=== PATIENT | male | born 1945 | race Caucasian/White ===

== ENCOUNTER 2024-01-07 22:03 | Inpatient (IN) ==
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
[2024-01-07 23:21] LABS: iSTAT Creatinine 3.2 mg/dl (0.6-1.3); iSTAT Hemoglobin 9.9 g/dl (14.0-18.0); iSTAT Ionized Calcium 1.06 mmol/l (1.12-1.32); iSTAT Potassium 4.1 mmol/L (3.3-5.0)
[2024-01-07 23:28] LABS: Base Excess VBG 0.6 mEq/L; HCO3 VBG 25 mmol/L; Oxygen Saturation VBG 69.5 %; PCO2 VBG 36 mmHg (38-50); PO2 VBG 41 mmHg; pH VBG 7.44 (7.36-7.41)
[2024-01-07 23:29] LABS: Basophils # (auto) 0.01 K/uL (0.00-0.20); Basophils % (auto) 0.1 %; Eosinophils # (auto) 0.16 K/uL (0.00-0.50); Eosinophils % (auto) 1.5 %; Hemoglobin 9.5 g/dl (14.0-18.0); Immature Granulocytes # (auto) 0.17 K/uL (0.01-0.20); Immature Granulocytes % (auto) 1.6 %; Lymphocytes # (auto) 0.55 K/uL (1.20-3.40); Lymphocytes % (auto) 5.2 %; Mean Corpuscular Hemoglobin 30.6 pg (25.0-34.0); Mean Corpuscular Hgb Conc 32.8 g/dL (32.0-36.0); Mean Corpuscular Volume 93.5 fL (80.0-100.0); Mean Platelet Volume 10.9 fL (9.4-12.4); Monocytes % (auto) 4.7 %; Neutrophils # (auto) 9.21 K/uL (1.40-6.50); Neutrophils % (auto) 86.9 %; Nucleated RBC # (auto) 0.06 K/uL (0.00-0.12); Nucleated RBC % (auto) 0.6 %; Platelet Count 220 K/uL (130-400); RDW Coefficient of Variation 19.9 % (11.5-14.5); RDW Standard Deviation 62.3 fL (36.4-46.3)
[2024-01-07 23:45] LABS: Alanine Aminotransferase 41 U/L (7-52); Albumin Level 3.1 gm/dl (3.4-5.0); Alkaline Phosphatase 107 U/L (34-104); Anion Gap 14 (3-11); Aspartate Aminotransferase 35 U/L (13-39); BUN Creatinine Ratio 35.2 (10-20); Bilirubin,Total 3.3 mg/dl (0.2-1.0); Blood Urea Nitrogen 95 mg/dl (6-23); Calcium 9.1 mg/dl (8.6-10.3); Carbon Dioxide 22 mmol/L (21-32); Chloride 89 mmol/L (98-107); Glucose 98 mg/dl (70-99(Fasting)); Magnesium 2.8 mg/dl (1.7-2.4); Potassium 3.9 mmol/L (3.5-5.1); Sodium 125 mmol/L (136-145); Total Protein 6.1 gm/dl (6.0-8.3)
[2024-01-07 23:51] LABS: Troponin I High Sensitivity 21.3 pg/ml (0-20)
[2024-01-07 23:53] LABS: INR 2.2 (0.9-1.1); Partial Thromboplastin Ratio 1.4; Partial Thromboplastin Time 37 Seconds (21-31); Prothrombin Time 22.4 Seconds (9.0-12.0)
[2024-01-08 00:01] LABS: Thyroid Stimulating Hormone 5.053 uIu/ml (0.300-4.500)
[2024-01-08 00:12] LABS: Appearance Urine Cloudy (Clear); Bacteria Urine Automated None Seen (None Seen); Bilirubin Urine 1+ (Negative); Blood Urine 3+ (Negative); Cast Urine Automated >20 /lpf (0-2); Color Urine Dark Yellow; Glucose Urine UA Negative (Negative); Granular Casts Urine Present /lpf (None Prsent); Ketones Urine Trace (Negative); Leukocyte Esterase Urine Trace (Negative); Nitrite Urine Negative (Negative); Protein Urine 1+ (Negative); RBC Urine Automated >20 /hpf (0-2); Specific Gravity Urine 1.011 (1.000-1.030); Urobilinogen Urine Positive (Negative); WBC Urine Automated 0-5 /hpf (0-5)
[2024-01-08 00:36] LABS: T4 Free Thyroxine 1.28 ng/dl (0.61-1.60)
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
[2024-01-08] MEDS: BUMETANIDE 1 MG in SYRINGE 0 ML IV ONE (01:50)
[2024-01-08] MEDS: ALBUMIN 25% 25 GM/100 ML VIAL IV ONE ×2 (01:51→06:37)
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
[2024-01-08] MEDS ORDERED: ACETAMINOPHEN 325 MG TAB PO PRN (02:37)
[2024-01-08] MEDS ORDERED: ONDANSETRON INJ 2 MG/ML 2 ML VIAL IV PRN (02:37)
[2024-01-08] MEDS: Patient's HEIGHT &/or WEIGHT Needed ONE (03:52)
[2024-01-08] MEDS: HYDROcodone/HOMATROPINE SYRUP 5MG/1.5MG 5ML UDP PO PRN (04:37)
[2024-01-08 05:10] LABS: Basophils # (auto) 0.01 K/uL (0.00-0.20); Basophils % (auto) 0.1 %; Eosinophils % (auto) 2.2 %; Hematocrit (blood only) 26.2 % (42.0-52.0); Hemoglobin 8.5 g/dl (14.0-18.0); Immature Granulocytes # (auto) 0.11 K/uL (0.01-0.20); Immature Granulocytes % (auto) 1.2 %; Lymphocytes # (auto) 0.55 K/uL (1.20-3.40); Mean Corpuscular Hemoglobin 30.2 pg (25.0-34.0); Mean Corpuscular Hgb Conc 32.4 g/dL (32.0-36.0); Mean Corpuscular Volume 93.2 fL (80.0-100.0); Mean Platelet Volume 10.8 fL (9.4-12.4); Monocytes # (auto) 0.38 K/uL (0.11-0.59); Monocytes % (auto) 4.1 %; Neutrophils # (auto) 7.96 K/uL (1.40-6.50); Neutrophils % (auto) 86.4 %; Nucleated RBC # (auto) 0.03 K/uL (0.00-0.12); Nucleated RBC % (auto) 0.3 %; Platelet Count 201 K/uL (130-400); RDW Coefficient of Variation 19.7 % (11.5-14.5); Red Blood Count 2.81 M/uL (4.70-6.10); White Blood Count 9.21 K/ul (4.8-10.8)
[2024-01-08 05:27] LABS: Albumin Level 3.3 gm/dl (3.4-5.0); BUN Creatinine Ratio 34.4 (10-20); Creatinine Clr Calc Pharmacy 22.8 ml/min; Magnesium 2.7 mg/dl (1.7-2.4); Phosphorus 6.3 mg/dl (2.5-4.9); Potassium 3.5 mmol/L (3.5-5.1)
[2024-01-08] MEDS: SODIUM CHLORIDE 0.9% 500 ML IV ONE (06:29)
--- NOTE | 2024-01-08 07:07 | XRay Report ---
XR chest 1V portable HISTORY: 78 years-old Male Dyspnea acute shortness of breath COMPARISON: 02/22/2023 TECHNIQUE: AP view of the chest FINDINGS: Cardiac silhouette is enlarged. Right subclavian pacer/AICD. A left-sided PICC is noted with distal t ip not well-visualized, likely within the expected location of the brachiocephalic SVC confluence. Me jamie sternotomy wires are present. Pulmonary vascular congestion with interstitial coarsening. No pne umothorax. Probable trace pleural effusions. No lobar airspace consolidation. Bones appear grossly in tact. IMPRESSION: 1. Cardiomegaly with pulmonary edema. 2. Probable trace pleural effusions. ACT 112: Negative or not required by law. The above report was generated using voice recognition software. It may contain grammatical, syntax o r spelling errors. Electronically signed by: Luis Strange M.D. 01/08/2024 7:05 AM
[2024-01-08] MEDS: ROSUVASTATIN CALCIUM 5 MG TAB PO SCH (08:04)
[2024-01-08] MEDS: ASPIRIN 81 MG ECTAB PO SCH (08:05)
[2024-01-08] MEDS: AMIODARONE 200 MG TAB PO SCH (08:05)
--- NOTE | 2024-01-08 08:42 | Hospitalist Progress Note ---
Date of Service January 08, 2024 Assessment & Plan (1) CHF exacerbation: Plan: Cardiogenic shock/pulmonary edema/HFrEF exacerbation/PAF/recent milrinone pump- aortic valve replacement and aicd transition to milrinone gtt from home pump, 0.25 mcg/kg/min Continue amiodarone, aspirin, Xarelto Entresto was already held by C Hold metoprolol succinate and amlodipine due to hypotension Hold furosemide orally in favor of IV Bumex is on Jardiance also as outpt plan to go home on hospice when home hospice is ready, d/c milrinone at discharge family requests continue bumex (2) LAKE (acute kidney injury): Plan: h/o CKD 3 (3) Acute on chronic respiratory failure with hypoxia: Plan: secondry to HFrEF (4) Acute hyponatremia: Plan: worry some in face of acute HFrEF situation, will not overly correct given decision for home hospice Plan Hyperlipidemia- Continue rosuvastatin Hyponatremia- Sodium 125 on admission Likely associated with fluid overload Follow treatment as above Disposition- There is initial plans to have patient return to [facility], where he was recently admitted there for treatment of cardiogenic shock, and where the milrinone pump was begun Patient has decided that he does not want to return to [facility] that he would rather be admitted to [facility], and have arrangements made to be seen by palliative care, and consideration for hospice CODE STATUS: DNR/DNI Admission and Anticipated Discharge Date Admission Date: January 08, 2024 Subjective pt feels improved, he is very clear about wanting to go home with hospice, understands that we will stop milrinone dosing at discharge case management is arranging home hospice maybe able to coordinate for 01/08 Physical Exam Physical Exam: pt with 2 cm jvd cardiac exam is regular, PRISCILLA lungs diminished at bases with scant rales above ext without edema Results & Data Results & Data Vital Signs (Past 12 Hours) Vital Signs Temp Pulse Pulse Resp BP BP Pulse Ox 01/08/24 07:06 86 01/08/24 07:03 90 24 90/56 L 97 01/08/24 06:27 84 15 85/55 L 97 01/08/24 05:54 83 14 97 01/08/24 05:31 01/08/24 05:00 87 18 92/55 L 95 01/08/24 05:00 92/55 L 01/08/24 04:30 87 18 92/52 L 98 01/08/24 03:35 01/08/24 03:12 84 18 86/53 L 99 01/08/24 02:29 87 01/08/24 02:03 85 18 90/53 L 98 01/08/24 01:00 83 18 92/52 L 97 01/08/24 01:00 92/52 L 01/08/24 00:30 94/50 L 01/08/24 00:03 85 18 89/50 L 97 01/07/24 22:39 85 01/07/24 22:37 82 L 01/07/24 22:33 90 24 96/52 L 92 01/07/24 22:11 97.7 F 81 18 91/52 L 98 Pulse Ox O2 Del Method O2 Del Method O2 Flow Rate O2 Flow Rate 01/08/24 07:06 01/08/24 07:03 Nasal Cannula 2 01/08/24 06:27 Nasal Cannula 2 01/08/24 05:54 01/08/24 05:31 Nasal Cannula 2 01/08/24 05:00 Nasal Cannula 2 01/08/24 05:00 01/08/24 04:30 Nasal Cannula 2 01/08/24 03:35 96 Nasal Cannula 2 01/08/24 03:12 Nasal Cannula 2 01/08/24 02:29 01/08/24 02:03 Nasal Cannula 2 01/08/24 01:00 Nasal Cannula 2 01/08/24 01:00 01/08/24 00:30 01/08/24 00:03 Nasal Cannula 2 01/07/24 22:39 01/07/24 22:37 Room Air, Nasal Cannula 0 01/07/24 22:33 Room Air 01/07/24 22:11 Room Air Laboratory Results Reviewed CBC Reviewed chemistry Reviewed troponin Discussed case with palliative care PG Care Time/CCT Total # of Minutes Spent Total Time Spent with Patient: Total time spent is greater than 50% in coordination of care (as documented) at patient's floor/unit and/or counseling patient: Coding Level of Care Code 45560 SUB INP/OBS CARE 3/50MIN Diagnoses CHF exacerbation I50.9 LAKE (acute kidney injury) N17.9 Acute on chronic respiratory failure with hypoxia J96.21 Acute hyponatremia E87.1
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
[2024-01-08] MEDS ORDERED: FOLIC ACID PO SCH (09:00)
[2024-01-08] MEDS ORDERED: CYANOCOBALAMIN PO SCH (09:00)
[2024-01-08] MEDS ORDERED: UBIQUINOL PO SCH (09:00)
[2024-01-08] MEDS ORDERED: RESVERATROL PO SCH (09:00)
--- NOTE | 2024-01-08 09:42 | Electrocardiogram Report ---
Test Reason : Blood Pressure : */* mmHG Vent. Rate : 85 BPM Atrial Rate : 85 BPM P-R Int : 140 ms QRS Dur : 206 ms QT Int : 474 ms P-R-T Axes : * 229 36 degrees QTcB Int : 564 ms AV dual-paced rhythm Biventricular pacemaker detected Abnormal ECG When compared with ECG of 22-Feb-2023 18:35, Vent. rate has increased by 17 bpm The morphology of the BBB QRS complex has changed significanty c/w prior ECG Confirmed by Analy Glaser ([id number]) on 01/08/2024 9:42:08 AM Referred By: Stella Betancur Confirmed By: Analy Glaser
[2024-01-08] MEDS ORDERED: STAT IV Infusion **Titration per Protocol STA (10:26)
--- OUTSIDE RECORDS SUMMARY | 2024-01-08 11:26 | External Medical Summary | Continuity of Care Document ---
Author Name Unknown Organization [facility] [address] [facility] Address [address] [place], [place] [id number] Care Team Providers Care Adaptive Physical Educator Name Role Phone Arie Juares Primary Care Physician [phone] Encounter [facility] [id number] Date(s): 12/09/23 - 12/09/23 [facility] [address], [address] [place] [address] [phone] Encounter Diagnosis AVR - Aortic valve replacement(Discharge Diagnosis) - 12/09/23 Cardiomyopathy(Discharge Diagnosis) - 12/09/23 CKD stage 3b, GFR 30-44 ml/min(Discharge Diagnosis) - 12/09/23 S/P CABG x 4(Discharge Diagnosis) - 12/09/[address](Discharge Diagnosis) - 12/09/23 Systolic and diastolic CHF, chronic(Discharge Diagnosis) - 12/09/23 Discharge Disposition: Home or Self Care Attending Physician: DO Reyes Jason D Referring Physician: MD Juares Michael P Allergies, Adverse Reactions, Alerts No Known Allergies Assessment and Plan Extracted from: Title:Cardiology Office Visit Note Author:DO Reyes Jason D Date:12/09/23 1.AVR - Aortic valve repla cement 2.Cardiac defibrillator in place 3.Cardiomyopathy 4.CKD stage 3b, GFR 30-44 ml/min 5.S/P CABG x 4 6.Systolic and diastolic CHF, chronic I Had a long conversation with Eduin. This was in addition to the conversation last week with Noreen nurse practitioner. I discussed with him that he has end-stage heart failure secondary to a combination of diastolic heart failure systolic heart. This is on the basis of a combination of likely prior chemotherapy, coronary artery disease, hypertensive heart disease, and valvular heart disease. I for started with conversation, which really want this point. We reviewed his indication for palliative care and using this as a bridge to hospice. We discussed the patient to end up on hospice at some point of living longer and having a better quality of life at the end. We discussed the second option with the high risk angioplasty and stenting to the left main into the diagonal branch. This was reviewed with interventional cardiology. The substantial risk is that of worsening heart failure and worsening acute on chronic kidney disease leading to renal failure. Additionally I am not sure how much he would improve. The third option is CCM. This was discussed with the EP service last week there are some concern with having 3 biventricular defibrillator but there may not be enough room to pass the CCM lead. Additionally his system was on the right and his CCM will have to be placed on the left. There is no room to increase his diet as further his blood pressure is on the low side. When he is in the 80s he feels weak and tired and his confirms that he does not feel any better on higher dose of diuretics in fact he feels worse. I have asked that he will think about how aggressive he wants to be and then based on that information we can determine how to best proceed. His wanted idea of how long he would have to live and I discussed with him that every patient is different. I did give him Marquison Juany for his cough. Referring to consider a palliative approach and I have no issue with narcotics Such as codeine to suppress his cough. Immunizations Given and Recorded Vaccine Date Status Refusal Reason zoster vaccine, inactivated 03/08/19 Given zoster vaccine, inactivated 12/29/18 Given tetanus/diphtheria/pertuss, acel (Tdap) 12/14/18 G iven tetanus/diphtheria/pertuss, acel (Tdap) 1 10/28/17 Recorded tetanus/diphtheria/pertuss, acel (Tdap) 03/19/07 R ecorded influenza virus vaccine, inactivated 12/14/18 Give n influenza virus vaccine, inactivated 01/30/15 Give n influenza virus vaccine, inactivated 11/19/13 Give n influenza virus vaccine, inactivated 01/23/12 Give n influenza virus vaccine, inactivated 12/05/10 Give n pneumococcal 13-valent vaccine 03/24/14 Given tetanus toxoids-diphtheria, Td (Adult) 2 11/26/13 Recorded pneumococcal 23-valent vaccine 3 11/30/11 Recorded pneumococcal 23-valent vaccine 12/05/10 Given pneumococcal 23-valent vaccine 02/20/06 Recorded pneumococcal 23-valent vaccine 01/15/01 Recorded zoster vaccine live 01/15/11 Recorded 1Result Comment: 2018-12-29: Historical information-source unspecified 2Result Comment: 2018-12-29: Historical information-source unspecified 3Result Comment: 2018-12-29: Historical information-source unspecified Medications amiodarone 200 mg oral tablet Start: 11/21/23 4:10:00 PM EDT, 1 tab, PO, bid, Disp# 60 tab, Refills: 11, Pharmacy: [facility]/pharmacy #[id number] Start Date: 11/21/23 Status: Ordered amoxicillin 500 mg oral capsule Start: 09/18/22 2:43:00 PM EDT, 4 cap, PO, As indicated, Disp# 12 cap, Refills: 3, one hour before dental and other procedures as directed, Pharmacy: [facility] #[id number] Start Date: 09/18/22 Status: Ordered Aspirin Low Dose 81 mg oral delayed release tablet Start: 09/30/12 3:00:00 PM EDT, 1 tab, PO, Daily Start Date: 09/30/12 Status: Ordered Bumex 1 mg oral tablet Start: 05/09/23 12:01:00 PM EST, 1 tab, PO, bid, Disp# 180 tab, Refills: 5, ACTION PLAN: Increase to2 tabs twice daily if experiencing wt gain/HF symptoms, Pharmacy: [facility] #[id number] Start Date: 05/09/23 Status: Ordered Crestor 5 mg oral tablet Start: 03/12/23 9:29:00 AM EST, 1 tab, PO, qhs, Disp# 90 tab, Refills: 3, Pharmacy: [facility] #[id number] Start Date: 03/12/23 Status: Ordered Entresto 24 mg-26 mg oral tablet Start: 04/01/23 9:01:00 AM EST, 1 tab, PO, bid, Disp# 180 tab, Refills: 3, Pharmacy: [facility] #[id number] Start Date: 04/01/23 Status: Ordered Fish Oil 1000 mg oral capsule Start: 07/30/23 2:48:00 PM EDT Start Date: 07/30/23 Status: Ordered Jardiance 10 mg oral tablet Start: 03/18/23 2:39:00 PM EST, 1 tab, PO, Daily, Disp# 90 tab, Refills: 3, Pharmacy: [facility] #[id number] Start Date: 03/18/23 Stop Date: 03/12/24 Status: Ordered magnesium aspartate Start: 07/30/23 2:48:00 PM EDT Start Date: 07/30/23 Status: Ordered metoprolol succinate 50 mg oral tablet, extended release Start: 07/30/23 3:33:00 PM EDT, 1 tab, PO, qhs, Disp# 90 tab, Refills: 3, other Start Date: 07/30/23 Status: Ordered MVI-12 Start: 11/03/09 9:22:50 AM EDT, 1 tab, dose unknown, PO, Daily, Refills: 0, current medication from another provider Start Date: 11/03/09 Status: Ordered nitroglycerin 0.4 mg sublingual tablet Start: 10/22/21 2:25:00 PM EDT, 1 tab, SL, q5min, Disp# 30 tab, Refills: 3, not to exceed 3 doses/15 min--if pain persists, seek medical attention, PRN: as needed for chest pain, Pharmacy: [facility] #[id number] Start Date: 10/22/21 Status: Ordered Probiotic 10 Ultra Strength oral capsule Start: 12/11/23 3:05:00 PM EDT Start Date: 12/11/23 Status: Ordered spironolactone 25 mg oral tablet Start: 09/12/23 2:23:00 PM EDT, 0.5 tab, PO, Daily, Disp# 45 tab, Refills: 3, Pharmacy: [facility]/pharmacy#[id number] Start Date: 09/12/23 Status: Ordered Tessalon 200 mg oral capsule Start: 12/09/23 1:48:00 PM EDT, 1 cap, PO, tid, Disp# 90 cap, Refills: 1, Pharmacy: [facility]/pharmacy #[id number] Start Date: 12/09/23 Status: Ordered turmeric 1000 mg oral capsule Start: 12/11/23 3:04:00 PM EDT, 1 cap, PO, Daily Start Date: 12/11/23 Status: Ordered ubiquinone 200 mg oral capsule Start: 09/09/13 12:32:00 PM EDT, 1 cap, PO, Daily, Disp# 300 cap, Refills: 11, given to patient Start Date: 09/09/13 Status: Ordered Vitamin C Start: 07/18/15 11:14:00 AM EDT, 1,000 mg =, PO, Daily Start Date: 07/18/15 Status: Ordered Vitamin D3 Start: 07/30/23 2:48:00 PM EDT Start Date: 07/30/23 Status: Ordered Vitron-C Start: 12/01/23 2:58:00 PM EDT Start Date: 12/01/23 Status: Ordered Xarelto 15 mg oral tablet Start: 02/17/23 1:48:00 PM EST, 1 tab, PO, qPM, Disp# 90 tab, Refills: 3, Pharmacy: [facility] #[id number] Start Date: 02/17/23 Status: Ordered Problem List Condition Confirmation Course Effective Dates Status H ealth Status Informant AK (actinic keratosis) Confirmed Active Dilated aortic root Confirmed Active AVR - Aortic valve replacement Confirmed Active Cardiac defibrillator in place Confirmed Active Cardiomyopathy Confirmed Active Systolic and diastolic CHF, chronic Confirmed Active CKD stage 3b, GFR 30-44 ml/min Confirmed Active Unspecified systolic (congestive) heart failure Confirmed 07/24/23 Active Atherosclerotic heart disease of [place] coronary artery without angina pectoris Confirmed 07/24/23 Active DDD (degenerative disc disease) Confirmed Active Electrolyte disturbance Confirmed Active Abnormal prostate exam Confirmed Active Hutch diverticulum of urinary bladder Confirmed 03/17/12 Active ED (erectile dysfunction) Confirmed Active Epididymal cyst Confirmed Active Family history of early CAD Confirmed Active Groin hematoma Confirmed Active S/P CABG x 4 1 Confirmed Active Elevated brain natriuretic peptide (BNP) level Confirmed Active Hyperlipidemia Confirmed Active Heart disease, hypertensive, with heart failure Confirmed 07/24/23 Active LVH (left ventricular hypertrophy) Confirmed Active Mitral regurgitation 2 Confirmed 01/28/13 Active Prediabetes, prediabetic Confirmed Active Elevated serum lactate dehydrogenase (LDH) Confirmed Active S/P coronary artery stent placement Confirmed Active Ureteral filling defect 3 Confirmed Active 1LIMA to LADSeq SVG to IR, LCx OM, PDA 2moderate 3Diverticulum ? RIGHT side Diagnosis Diagnosis Type Effective Dates Health Status Clinical Service Informant Cardiac defibrillator in place Discharge Diagnosis 12/09/23 AVR - Aortic valve replacement Discharge Diagnosis 12/09/23 Cardiomyopathy Discharge Diagnosis 12/09/23 CKD stage 3b, GFR 30-44 ml/min Discharge Diagnosis 12/09/23 S/P CABG x 4 Discharge Diagnosis 12/09/23 Systolic and diastolic CHF, chronic Discharge Diagnosis 12/09/23 Procedures Procedure Date Related Diagnosis Body Site Status Excision 11/28/22 Completed Chest X-ray 1 01/17/22 Completed History of combination inter nal cardiac defibrillator and pacemaker 01/2021 Comp leted ECHO TRANSTHORACIC 2 07/19/20 Comp leted Colonoscopy 3 07/11/20 Completed Colonoscopy 4 07/11/[address] of abdomen and pelvis wit h contrast 5 04/12/19 Completed Barium enema 6 10/11/15 Completed Facial bones X-ray 7 04/28/15 Comp leted Echocardiogram 8 02/14/15 Complete d Transesophageal echocardiogram 02/2015 Completed Coronary angiography 10/20/13 Comp leted CABG x 4 and AVR (Porcine) 09/11/11 Completed Stress ECHO--ABNL (EATON)--Abnormal 9 09/04/11 Completed Stress ECHO 08/06/11 Completed Echocardiogram 10 08/02/11 [facility] ed RIGHT PORT REMOVED 03/17/06 Comple jeff ECHO--01/18, 03/2005, annually x 2006 03/17/05 Completed RIGHT SIDED PORT placed 02/14/05 C ompleted COLONOSCOPY --WNL 04/17/03 [facility] ed Nevus BACK-Benign 12/15/01 [facility] Cadiolyte 03/17/96 Completed Lipoma head 03/17/70 Completed Appendectomy 03/17/64 Completed T & A 03/17/50 Completed Cardiac echo 11 Completed 1Impression: No significant change compared to the prior study. No acute process. 2CONCLUSIONS History of bicuspid aortic valve; S/P stented bioprosthetic aortic valve replacement. Severely dilated left ventricle (by LV diastolic volume index). Moderately reduced LV systolic function. Severe Hypokinesis of the inferoseptum and anteroseptum Akinesis of the inferior wall. Moderate Hypokinesis of the basal to mid inferolateral wall. Hypokinesis of the remaining wall segments. Biplane ejection fraction is 35% (by 2D biplane Noland's method). Mild concentric left ventricular hypertrophy. There is grade II diastolic dysfunction of the left ventricle (pseudonormal filling pattern) with elevated left atrial pressure. Mildly dilated left atrium. Dilated right ventricle with mildly reduced systolic function. Dilated right atrium. Dilated aortic root (4.9 cm), ascending aorta (5.0 cm) and aortic arch (3.8 cm). Well-seated stented bioprosthetic aortic valve replacement. Moderate aortic stenosis (AV peak velocity is 2.96 m/s, MG is 17 mmHg and the LVOT/AV TVI atio is 0.20). Mild to moderate mitral regurgitation. Trace to mild tricuspid regurgitation. Normal estimated pulmonary artery pressure. Compared to the previous study performed 05/19/2019, there is no significant change. 3Diverticulosis in the sigmoid colon. No specimens collected Discharge patient to home Repeat colo in 10 years for screening 4DIVERTICULOSIS IN THE SIGMOID COLON NO SPECIMEN COLLECTED . 51. No acute intra-abdominal or pelvic findings 2. No evidence of bowel obstruction. No evidence of free air. 3. No evidence of pathologic adenopathy. 6demonstrates a normal bowel gas pattern, visualization of the colon was adequate with reflux into snall bowel. There is extensive sigmoid diverticulosis. 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 One of these lies in close proximity to the left orbit. CT is recommended for better localization 8CONCLUSIONS History of bicuspid aortic valve; S/P stented bioprosthetic AV replacement.Severely dilated left ventricle (by LV diastolic volume index). Moderately reduced LV systolic function. Akinesis of the inferior, basal and mid inferoseptal, anteroseptum and basal and mid inferolateral nair. The remaining nair are hypokinetic. Ejection fraction is 35-40% by biplane Noland's method and LV strain. 3D imaging was done for educational purposes with an LVEF of 36% Abnormal LV global longitudinal strain (-12%). No left ventricular hypertrophy. Grade I diastolic dysfunction of the left ventricle (impaired relaxation pattern). Elevated E/e' ratio (16), suggesting elevated left atrial filling pressures. Top normal right ventricular size with mildly reduced systolic function. Mildly dilated left atrium. Moderately dilated right atrium. Dilated aortic root (5.0 cm) and ascending aorta (5.0 cm). History of bicuspid aortic valve; S/P stented bioprosthetic AV replacement. Severe aortic stenosis (AV mean PG - 40 mmHg, LVOT/AV ratio - 0.12) vs. valve size mismatch. Mild aortic insufficiency. Mildly calcified mitral valve annulus. Mild mitral regurgitation. Top normal pulmonary pressures (30 mmHg). Compared to the previous study performed 08/01/2014, there is no significant change. Consider TEEto assess the AoV leaflets. 9ABNL 10CONCLUSIONS History of bicuspid aortic valve; S/P stented bioprosthetic AV replacement.Severely Dilated left ventricle with mildly reduced systolic function. Ejection fraction is 40%. Confirmed by simpsons and LV strain Akinesis of the inferior, inferolateral and basal and mid inferoseptal nair. Hypokinesis of the remaining nair. No left ventricular hypertrophy. Grade I diastolic dysfunction of the left ventricle (impaired relaxation pattern). Indeterminate E/e' ratio (9). Dilated right ventricle with mildly reduced systolic function. TAPSE is mildly reduced (1.3 cm). Normal pulmonary artery pressures. Dilated aortic root (5.1 cm). Dilated ascending aorta (5.0 cm). History of bicuspid aortic valve; S/P 29 mm stented prosthetic AoV replacement. Severe aortic stenosis vs. valve size mismatch. (LVOT/AV VTI ratio = 0.13) Of note post op HERMINIA in 2012 with LVOT TVI of 7 cm and AoV TVI of 39 cm with DI 0.18 The aortic root and ascending aorta have dilated since 2012 from 4.5cm to 5.1 cm HERMINIA is recommenced to assess aorta and AoV leaflets which appear to open in the short axis images. The study was reviewed with the [facility] lab as well. 11CONCLUSIONS History of bicuspid aortic valve; S/P stented bioprosthetic aortic valve replacement. Severely dilated left ventricle (by LV diastolic volume index). Mild to moderately reduced LV systolic function. Akinesis of the inferior wall. Severe hypokinesis of the inferoseptum Hypokinesis of the remaining wall segments. Ejection fraction is 40% (by 2D biplane Noland's method). Mild concentric left ventricular hypertrophy. There is grade II diastolic dysfunction of the left ventricle (pseudonormal filling pattern) with elevated left atrial filling pressures (E/e' ratio is 16). Mildly dilated left atrium (by LA volume index). Dilated right ventricle with mildly reduced systolic function (TV annulus s' is 8 cm/sec). Dilated aortic root (4.9 cm) and ascending aorta (5.0 cm). Well-seated stented bioprosthetic aortic valve replacement. Mild to moderate aortic stenosis (AV peak velocity is 2.3 m/s, MG is 11, LVOT/AV ratio is 0.28 and the SUSY is 1.5 cm squared). Mild to moderate mitral regurgitation. Mild pulmonary hypertension (PA systolic pressure is 32 mmHg). *Compared to the previous study performed 03/22/2016, there is no significant cunningham Vital Signs Most recent to oldest [Reference Range]: 1 Patient Weight 80 kg (12/09/23 1:29 PM) Heart Rate 60 bpm (12/09/23 1:29 PM) Blood Pressure 90/46mmHg (12/09/23 1:29 PM) BP Location # 1 Right Arm (12/09/23 1:29 PM) Social History Social History Type Response Smoking Status Never smoked cigaret manuel Sex Male Sex Representation Male (finding) Cardiology Outpatient Note * DO Reyes Jason D: PERFORM Event Display: Cardiology Outpt Note Authored Date: [id number] Primary Care Provider MD Juares Michael P Referring Provider MD Juares Michael P Chief Complaint CHF heart failure f/u History of Present Illness He is accompanied today By his . He looks quite frail. Even though his weight has not changed see the discussed temporal wasting and wasting of his face. He describes shortness of breath with minimal amounts of activity. He did not appear short of breath talking in sentences. The lightheadedness he had on high-dose Bumex has improved on 1 mg Bumex twice a day. he denies anypresyncope or syncope at this point in the episodes of Weakness have improved. He denies any palpitations or fluttering. Has had no ICD shocks. He denies any chest tightness or chest pressure. His appetites been poor. He has a significant cough especially at night when he is trying to sleep. He denies increased abdominal distention or extremity edema. Review of Systems PAST MEDICAL HISTORY: 1. Coronary artery disease, status post coronary artery bypass grafting x4 in 2011 with a CARBONE tothe LAD, SVG to the PDA and an SVG to the ramus and obtuse marginal branch. 2. Status post bioprosthetic aortic valve replacement with a 29 mm Perez II bioprosthetic aortic valve 2011 with a small dimensional less index.(confirmed by [facility] at [facility]) A. EF of40-45% by echocardiography 12/2022, with inferolateral hypokinesis; moderate RV dysfunction; Type 2 DD B. Small dimensionless index and an elevated mean gradient now 19 mmHg (06/2020). 3. Status post complex angioplasty and stenting of the ostial LAD and ostial ramus intermedius branch with a Culotte technique, 11/[address] Mesa. 3B. Cath 12/2022: * Severe multivessel coronary artery disease. There is 50% in- stent restenosis within the distal left main stent and 80% stenosis of the proximal LAD. The mid-LAD, ostial LCx, and distal RCA are chronically occluded. * Patent CARBONE to LAD and SVG to PDA. The sequential SVG to ramus and OM is occluded. * At rest in the supine position, the patients hemodynamics demonstrated moderately elevated right (mRAP 14 mmHg) and severely elevated left (mPCWP 32 mmHg with a large V wave to 48 mmHg, LVEDP 36mmHg) filling pressures. Pulmonary pressure was mildly elevated (mPAP 42 mmHg) with mildly elevatedPVR (2.0 KAUR). Cardiac index was severely reduced by thermodilution (1.9 L/min/m2) and mildly reduced by the Susan equation (2.2 L/min/m2). 4. History of non-Hodgkin's lymphoma in 2004, status post 8 cycles of R-CHOP with approximately 400 mg per metered square of Adriamycin. 5. Hyperlipidemia. 6. Hypertension. 7. 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 8. Dilated ascending aorta measuring 4.[address] scan 12/2021 and echo07/2022 measuring 5.1 cm. 9. S/P Cardio Mems with worsening CHF and renal dysfunction. 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 He denies any tobacco or alcohol. Physical Exam Vitals & Measurements HR:60(Monitored) BP:90/46 SpO2:97% WT:80kg WT:80.000kg(Dosing) Patient is awake alert and oriented x3and in no acute distress; he is not SOB talking in sentences HEENT:1+ carotid upstrokes, no evidence of carotid bruits LUNGS:Clear to auscultation bilaterally no rales rhonchi or wheezing HEART:Regular rate and rhythm, soft PRISCILLA RUSB; 2/6 WSM apex ABDOMEN:Soft nontender nondistended positive bowel sounds EXTREMITIES:No evidence of clubbing cyanosis or edema PSYCHIATRIC:Patient's affect appeared appropriate Assessment/Plan 1.AVR - Aortic valve replacement 2.Cardiac defibrillator in place 3.Cardiomyopathy 4.CKD stage 3b, GFR 30-44 ml/min 5.S/P CABG x 4 6.Systolic and diastolic CHF, chronic I Had a long conversation with Eduin. This was in addition to the conversation last week with Noreen nurse practitioner. I discussed with him that he has end-stage heart failure secondary to a combination of diastolic heart failure systolic heart. This is on the basis of a combination of likely prior chemotherapy, coronary artery disease, hypertensive heart disease, and valvular heart disease. I for started with conversation, which really want this point. We reviewed his indication for palliative care and using this as a bridge to hospice. We discussed the patient to end up on hospice at some point of living longer and having a better quality of life at the end. We discussed the second option with the high risk angioplasty and stenting to the left main into the diagonal branch. This was reviewed with interventional cardiology. The substantial risk is that of worsening heart failure and worsening acute on chronic kidney disease leading to renal failure. Additionally I am not sure how much he would improve. The third option is CCM. This was discussed with the EP service last week there are some concern with having 3 biventricular defibrillator but there may not be enough room to pass the CCM lead. Additionally his system was on the right and his CCM will have to be placed on the left. There is no room to increase his diet as further his blood pressure is on the low side. When he is in the 80s he feels weak and tired and his confirms that he does not feel any better on higher dose of diuretics in fact he feels worse. I have asked that he will think about how aggressive he wants to be and then based on that information we can determine how to best proceed. His wanted idea of how long he would have to live and I discussed with him that every patient is different. I did give him Parag Harrington for his cough. Referring to consider a palliative approach and I have no issue with narcotics Such as codeine to suppress his cough. Problem List/Past Medical History Ongoing Abnormal prostate exam AK (actinic keratosis) Atherosclerotic heart disease of [place] coronary artery without angina pectoris AVR - Aortic valve replacement Cardiac defibrillator in place Cardiomyopathy CKD stage 3b, GFR 30-44 ml/min DDD (degenerative disc disease) Dilated aortic root Dysplastic nevus| Status: Inactive ED (erectile dysfunction) Electrolyte disturbance Elevated brain natriuretic peptide (BNP) level Elevated serum lactate dehydrogenase (LDH) Epididymal cyst Family history of early CAD Groin hematoma Heart disease, hypertensive, with heart failure Hutch diverticulum of urinary bladder Hyperlipidemia LVH (left ventricular hypertrophy) Mitral regurgitation Prediabetes, prediabetic S/P CABG x 4 S/P coronary artery stent placement Systolic and diastolic CHF, chronic Unspecified systolic (congestive) heart failure Ureteral filling defect Resolved HYPERTENSION. Lymphoma stage IV Procedure/Surgical History Excision| Service Date: 3Chest X-ray| Service Date: 01/17/2022History of combination internal cardiac defibrillator and pacemaker| Service Date: [facility] TRANSTHORACIC| Service Date: 07/19/2020olonoscopy| Service Date: 07/11/2020olonoscopy| Service Date: 1CT of abdomen and pelvis with contrast| Service Date: 04/12/2019Barium enema| Service Date: 10/11/2015Facial bones X-ray| Service Date: 04/28/2015Echocardiogram| Service Date: 02/14/2015Tr ansesophageal echocardiogram| Service Date: 02/2015Coronary angiography| Service Date: 10/20/2013CABG x 4 and AVR (Porcine)| Service Date: 09/11/2011Stress ECHO--ABNL (EATON)--Abnormal| Service Date: 09/04/2011Stress ECHO| Service Date: 08/06/2011Echocardiogram| Service Date: 08/02/2011RIGHT PORT REMOVED| Service Date: 03/17/2006ECHO--01/18, 03/2005, annually x 2006| Service Date: 03/17/2005RIGHT SIDED PORT placed| Service Date: 02/14/2005COLONOSCOPY --WNL| Service Date: 04/17/2003Nevus BACK-Benign| Service Date: 12/15/2001Cadiolyte| Service Date: 03/17/1996L ipoma head| Service Date: 03/17/1970 Appendectomy| Service Date: 03/17/1964 T & A| Service Date: 1Cardiac echo Medications amiodarone(amiodarone 200 mg oral tablet), 200 mg= 1 tab, PO, bid, 11 refills amoxicillin(amoxicillin 500 mg oral capsule), 2000 mg= 4 cap, PO, As indicated, 3 refills ascorbic acid(Vitamin C), 1000 mg, PO, Daily ascorbic acid-carbonyl iron(Vitron-C) aspirin(Aspirin Low Dose 81 mg oral delayed release tablet), 81 mg= 1 tab, PO, Daily bumetanide(Bumex 1 mg oral tablet), 1 mg= 1 tab, PO, bid, 5 refills cholecalciferol(Vitamin D3) empagliflozin(Jardiance 10 mg oral tablet), 10 mg= 1 tab, PO, Daily, 3 refills magnesium aspartate metoprolol(metoprolol succinate 50 mg oral tablet, extended release), 50 mg= 1 tab, PO, qhs, 3 refills multivitamin(MVI-12), 1 tab, dose unknown, PO, Daily nitroglycerin(nitroglycerin 0.4 mg sublingual tablet), 0.4 mg= 1 tab, SL, q5min, PRN, 3 refills omega-3 polyunsaturated fatty acids(Fish Oil 1000 mg oral capsule) rivaroxaban(Xarelto 15 mg oral tablet), 15 mg= 1 tab, PO, qPM, 3 refills rosuvastatin(Crestor 5 mg oral tablet), 5 mg= 1 tab, PO, qhs, 3 refills sacubitril-valsartan(Entresto 24 mg-26 mg oral tablet), 1 tab, PO, bid, 3 refills spironolactone(spironolactone 25 mg oral tablet), 12.5 mg= 0.5 tab, PO, Daily, 3 refills ubiquinone(ubiquinone 200 mg oral capsule), 1 cap, PO, Daily, 11 refills Allergies NKA Social History Smoking Status Never smoked cigarettes Alcohol Use:Current Type:Beer, Wine, Liquor Frequency:1-2 times per week Average drinks per episode in last year:1 Employment/School Status:Retired Description:[employer] Exercise Duration (average number of minutes):45 Times per week:Daily Exercise type:Walking Home/Environment Lives with:Spouse Nutrition/Health Type of diet:regular Substance Abuse - Denies Substance Abuse Tobacco - Denies Tobacco Use Family History Alive and well: Brother, Son and Son. Angina: Father. CAD (coronary artery disease): Mother. Cancer: PGM. Cardiovascular disease: Mother. HI (myocardial infarction): Father and MGM. Smoker.: Father. 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 [facility] [place] [place] [address] JDF Patient Care team information Care Team Personnel Name: GREGG Manley Tara Position: Nurse Pract - Family Med Member Role: Lifetime Relationship Address: [address] [place] [id number] [place] Name: MD Juares Michael P Position: Physician - Family Med Member Role: Lifetime Relationship Address: [address] [address] [place] Name: GREGG Damon Stacey L Position: Nurse Pract - Cardiology Member Role: Lifetime Relationship Address: [address] [facility] [place] [address] [place] [address] [place] Name: MD Betancur Nandini Position: Physician - Card Heart Failure Member Role: Lifetime Relationship Address: [address] [place] [address] [place] Name: MD Hill David L Position: Physician - Derm Member Role: Lifetime Relationship Address: [address] [place] [address] [address] [place] [address] [place] Care Team Related Persons Name: SHRUTI MENA"
--- OUTSIDE RECORDS SUMMARY | 2024-01-08 11:26 | External Medical Summary | Continuity of Care Document ---
Author Name Unknown Organization [facility] Address [address] [place] [phone] Care Team Providers Care Postdoctoral Scientist Name Role Phone Janae Juares Primary Care Physician [phone] Encounter [facility] [id number] Date(s): 12/11/23 - 12/30/[address] [phone] Encounter Diagnosis Shortness of breath(Discharge Diagnosis) - 12/12/23 Counseling regarding advance directives and goals of care(Discharge Diagnosis) - 12/12/23 Palliative care encounter(Discharge Diagnosis) - 12/12/23 Heart failure with reduced ejection fraction, NYHA class IV(Discharge Diagnosis) - 12/12/23 Acute on chronic combined systolic (congestive) and diastolic (congestive) heart failure(Discharge Diagnosis) - 12/11/23 Persistent cough(Discharge Diagnosis) - 12/30/23 Cardiogenic shock(Discharge Diagnosis) - 12/12/23 Hypotension(Discharge Diagnosis) - 12/12/23 Discharge Disposition: Home w/ Home Health Care Attending Physician: MD Valerio, Guero Lara Admitting Physician: MD Almaraz Catherine Allergies, Adverse Reactions, Alerts No Known Allergies Functional Status 12/30/23 Neurological Symptoms None ADLs Minimal assistance Facial Symmetry Symmetric Gait Steady Swallowing Difficulty None Level of Consciousness Neuro Alert Hallucinations Present None History of Fall in Last 3 Months Benavidez N o Presence of Secondary Diagnosis Benavidez Ye s Use of Ambulatory Aid Benavidez Crutches/can e/walker IV/Heparin Lock Fall Risk Benavidez Yes Gait/Transferring Fall Risk Benavidez Normal /bedrest/immobile Mental Status Fall Risk Benvaidez Oriented t o own ability Benavidez Fall Risk Score 50 Benavidez Fall Risk High risk Speech Pattern Clear Immunizations Given and Recorded Vaccine Date Status [...] 01/15/01 Recorded zoster vaccine live 01/15/11 Recorded Not Given Vaccine Date Status Refusal Reason influenza virus vaccine, inactivated 12/23/23 Not Given Patient Refuses 1Result Comment: 2018-12-29: Historical information-source unspecified 2Result Comment: 2018-12-29: Historical information-source unspecified 3Result Comment: 2018-12-29: Historical information-source unspecified Medications amiodarone 200 mg oral tablet Start: 11/21/23 4:10:00 PM EDT, 1 tab, PO, bid, Disp# 60 tab, Refills: 11, Pharmacy: [facility]/pharmacy #[id number] Start Date: 11/21/23 Status: Ordered amoxicillin 500 mg oral capsule Start: 09/18/22 2:43:00 PM EDT, 4 cap, PO, As indicated, Disp# 12 cap, Refills: 3, one hour before dental and other procedures as directed, Pharmacy: [facility] #[id number] Start Date: 09/18/22 Status: Ordered Aspirin Low Dose 81 mg oral delayed release tablet Start: 09/30/12 3:00:00 PM EDT, 1 tab, PO, Daily Start Date: 09/30/12 Status: Ordered Bumex 2 mg oral tablet Start: 12/30/23 5:13:00 PM EDT, 2.5 tablets, PO, Daily, Disp# 150 tab, Take 2.5 tablets daily, may take another 2.5 tablets if patient has shortness of breath, or weight gain of 2-3 lb over 2 days or4-5 lb over 1 week, Pharmacy: [facility] Start Date: 12/30/23 Stop Date: 02/28/24 Status: Ordered Crestor 5 mg oral tablet Start: 03/12/23 9:29:00 AM EST, 1 tab, PO, qhs, Disp# 90 tab, Refills: 3, Pharmacy: [facility] #[id number] Start Date: 03/12/23 Status: Ordered Fish Oil 1000 mg oral capsule Start: 07/30/23 2:48:00 PM EDT Start Date: 07/30/23 Status: Ordered Jardiance 10 mg oral tablet Start: 03/18/23 2:39:00 PM EST, 1 tab, PO, Daily, Disp# 90 tab, Refills: 3, Pharmacy: [facility] #[id number] Start Date: 03/18/23 Stop Date: 03/12/24 Status: Ordered magnesium aspartate Start: 07/30/23 2:48:00 PM EDT Start Date: 07/30/23 Status: Ordered metoprolol succinate (ER) 12.5 mg, XL tablet, PO, 12/30/23 9:00:00 AM EDT, 12/30/23 9:03:33 AM EDT, Extended Release product,12/16/23 11:11:00 EDT Start Date: 12/30/23 Stop Date: 12/30/23 Status: Completed metoprolol succinate 25 mg oral tablet, extended release Start: 12/30/23 5:19:00 PM EDT, 0.5 tab, PO, Daily, Disp# 15 tab, Pharmacy: [facility] Start Date: 12/30/23 Stop Date: 01/29/24 Status: Ordered MVI-12 Start: 11/03/09 9:22:50 AM EDT, 1 tab, dose unknown, PO, Daily, Refills: 0, current medication from another provider Start Date: 11/03/09 Status: Ordered nitroglycerin 0.4 mg sublingual tablet Start: 10/22/21 2:25:00 PM EDT, 1 tab, SL, q5min, Disp# 30 tab, Refills: 3, not to exceed 3 doses/15 min--if pain persists, seek medical attention, PRN: as needed for chest pain, Pharmacy: [facility] #[id number] Start Date: 10/22/21 Status: Ordered Probiotic 10 Ultra Strength oral capsule Start: 12/11/23 3:05:00 PM EDT Start Date: 12/11/23 Status: Ordered spironolactone 25 mg oral tablet Start: 09/12/23 2:23:00 PM EDT, 0.5 tab, PO, Daily, Disp# 45 tab, Refills: 3, Pharmacy: [facility]/pharmacy#[id number] Start Date: 09/12/23 Status: Ordered Tessalon 200 mg oral capsule Start: 12/09/23 1:48:00 PM EDT, 1 cap, PO, tid, Disp# 90 cap, Refills: 1, Pharmacy: [facility]/pharmacy #[id number] Start Date: 12/09/23 Status: Ordered turmeric [...] qPM, Disp# 90 tab, Refills: 3, Pharmacy: [facility] #[id number] Start Date: 02/17/23 Status: Ordered Mental Status 12/11/23 Primary Language Bulgarian Problem List Condition Confirmation Course Effective Dates [...] Confirmed 07/24/23 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 Confirmed 07/24/23 [...] Effective Dates Health Status Clinical Service Informant Acute on chronic combined systolic (congestive) and diastolic (congestive) heart failure Discharge Diagnosis 12/11/23 Non-Specified Cardiogenic shock Discharge Diagnosis 12/12/23 Non-Specified Hypotension Discharge Diagnosis 12/12/23 Non-Specified Shortness of breath Discharge Diagnosis 12/12/23 Non-Specified Counseling regarding advance directives and goals of care Discharge Diagnosis 12/12/23 Non-Specified Palliative care encounter Discharge Diagnosis 12/12/23 Non-Specified Heart failure with reduced ejection fraction, NYHA class IV Discharge Diagnosis 12/12/23 Non-Specified Persistent cough Discharge Diagnosis 12/30/23 Non-Specified Procedures Procedure Date Related Diagnosis Body Site [...] X-ray 7 04/28/15 Comp leted Echocardiogram 8 12/1/15 Complete d Transesophageal echocardiogram 02/2015 Completed Coronary angiography 10/20/13 Comp leted CABG x 4 and AVR (Porcine) 09/11/11 Completed Stress ECHO--ABNL (EATON)--Abnormal 9 09/04/11 Completed Stress ECHO 08/06/11 Completed Echocardiogram 10 08/02/11 Complet ed RIGHT PORT REMOVED 03/17/06 Comple jeff ECHO--01/18, 03/2005, annually x 2006 03/17/05 Completed RIGHT SIDED PORT placed 02/14/05 C ompleted COLONOSCOPY --WNL 04/17/03 Complet ed Nevus BACK-Benign 12/15/01 Complet ed Cadiolyte 03/17/96 Completed Lipoma head 03/17/70 [...] diverticulosis. 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 One [...] images. The study was reviewed with the [facility] lab as well. 11CONCLUSIONS History of bicuspid [...] performed 03/22/2016, there is no significant cunningham Results Laboratory List Name Date Nephrology Panel 12/30/23 Magnesium Level 12/30/23 Complete Blood Count w Differential (CBC w Platelets and Diff) 12/30/23 NT-Pro BNP 12/30/23 ALT Level (ALT) 12/30/23 AST Level (AST) 12/30/23 Alkaline Phosphatase (ALKALINE PHOSPHATA SE) 12/30/23 Bilirubin, Direct (BILIRUBIN, DIRECT) Bilirubin, Total (BILIRUBIN, TOTAL) 12/15 08/07 Protein, Total (PROTEIN) 12/30/23 Nephrology Panel 12/29/23 Magnesium Level 12/29/23 Complete Blood Count w Differential (CBC w Platelets and Diff) 12/29/23 Lactic Acid Level, Whole Blood 12/29/23 ALT Level (ALT) 12/29/23 AST Level (AST) 12/29/23 Alkaline Phosphatase (ALKALINE PHOSPHATA SE) 12/29/23 Bilirubin, Direct (BILIRUBIN, DIRECT) Bilirubin, Total (BILIRUBIN, TOTAL) 12/15 07/08 Protein, Total (PROTEIN) 12/29/23 Magnesium Level 12/28/23 Nephrology Panel 12/28/23 Complete Blood Count w Differential (CBC w Platelets and Diff) 12/28/23 Lactic Acid Level, Whole Blood 12/28/23 ALT Level (ALT) 12/28/23 AST Level (AST) 12/28/23 Alkaline Phosphatase (ALKALINE PHOSPHATA SE) 12/28/23 Bilirubin, Direct (BILIRUBIN, DIRECT) Bilirubin, Total (BILIRUBIN, TOTAL) 12/15 06/07 Protein, Total (PROTEIN) 12/28/23 Lactic Acid Level, Whole Blood 12/27/23 Calcium, Ionized (Ionized Calcium) 12/24 Calcium, Ionized (Ionized Calcium) 12/24 Calcium, Ionized (Ionized Calcium) Lactic Acid Level 12/23/23 Lactic Acid Level 12/23/23 Pathologist Review Smear Panel 12/20/23 Added on Lab order 12/19/23 Pathologist Review Smear Panel (PATH REV IEW SMR PKG) 12/19/23 Added on Lab order 12/19/23 Venous Blood Gases w/ Hgb, O2Sat (VBG Ve nous Blood Gas with HGB and O2SAT) 12/19/23 Ferritin (FERRITIN) 12/19/23 Iron Profile (IRON PROFILE) 12/19/23 Vitamin B12 Level (VITAMIN B12) 12/19/23 Venous Blood Gases w/ Hgb, O2Sat (VBG Ve nous Blood Gas with HGB and O2SAT) 12/18/23 Venous Blood Gases w/ Hgb, O2Sat (VBG Ve nous Blood Gas with HGB and O2SAT) 12/18/23 Prothrombin Time w/ INR (PT/INR) 12/18/23 NT-Pro BNP 12/18/23 Venous Blood Gases w/ Hgb, O2Sat (VBG Ve nous Blood Gas with HGB and O2SAT) 12/17/23 Prothrombin Time w/ INR (PT/INR) 12/17/23 Potassium Level, Whole Blood (K Level, W hole Blood) 12/16/23 Lactic Acid Level 12/16/23 Venous Blood Gases w/ Hgb, O2Sat (VBG Ve nous Blood Gas with HGB and O2SAT) 12/16/23 Prothrombin Time w/ INR (PT/INR) 12/16/23 NT-Pro BNP 12/15/23 Potassium Level, Whole Blood (K Level, W hole Blood) 12/13/23 Venous Blood Gases w/ Hgb, O2Sat (VBG Ve nous Blood Gas with HGB and O2SAT) 12/13/23 Venous Blood Gases w/ Hgb, O2Sat (VBG Ve nous Blood Gas with HGB and O2SAT) 12/13/23 Arterial Blood Gases w/ Hgb and O2 Sat ( ABGs, w/ Hgb and O2 Sat) 12/13/23 Arterial Blood Gases w/ Hgb and O2 Sat ( ABGs, w/ Hgb and O2 Sat) 12/13/23 Arterial Blood Gases w/ Hgb and O2 Sat ( ABGs, w/ Hgb and O2 Sat) 12/13/23 Potassium Level, Whole Blood (K Level, W hole Blood) 12/13/23 Added on Lab order 12/12/23 Arterial Blood Gases w/ Hgb and O2 Sat ( ABGs, w/ Hgb and O2 Sat) 12/12/23 Arterial Blood Gases w/ Hgb and O2 Sat Venous Blood Gases w/ Hgb, O2Sat (VBG Ve nous Blood Gas with HGB and O2SAT) 12/11/23 Partial Thromboplastin Time (PTT) 4 T4, Free (Free T4) 12/11/23 Thyroid Stimulating Hormone (TSH) 4 Ferritin (FERRITIN) 12/11/23 Iron Profile (IRON PROFILE) 12/11/23 T4, Free (T4, FREE) 12/11/23 Thyroid Stimulating Hormone (TSH) 4 Ferritin 12/11/23 Iron Profile 12/11/23 MRSA Surveillance (Nasal Swab) 12/11/23 Urine Analysis w/ Reflexed Microscopic. 12/11/23 Troponin T ( 5th Gen) 12/11/23 Troponin T ( 5th Gen) 12/11/23 Most recent to oldest [Reference Range]: 1 2 3 eGFR CKD-EPI [>60 mL/min/1.73 m2] 44 mL/min/1.73 m2 *LOW* (12/30/23 5:09 AM) 35 mL/min/1.73 m2 *LOW* (12/29/23 3:53 AM) 29 mL/min/1.73 m2 *LOW* (12/28/23 5:09 AM) Lactate, Whole Blood [0.6-1.8 mmol/L] 2.0 mmol/L *HI* (12/29/23 3:53 AM) 1.5 mmol/L (12/28/23 5:08 AM) 1.5 mmol/L (12/27/23 4:58 AM) Troponin T ( 5th Gen) [<22 ng/L] 42 ng/L 1 *HI* (12/11/23 4:39 PM) 42 ng/L 2 *HI* (12/11/23 2:57 PM) Troponin T ( 5th Gen) Delta 1-hour delta NEGATIVE (12/11/23 4:39 PM) NOT CALCULATED (12/11/23 2:57 PM) Request of Physician Peripheral smear w/pathology review (12/19/23 10:51 AM) Iron profile w/ferritin reticulocyte panel vit B12 folate level methylmalonic (12/19/23 10:49 AM) ionized calcium (12/12/23 7:56 PM) Action Taken Y (12/19/23 10:51 AM) REQUESTED TESTS ADDED EXCEPT 3 (12/19/23 10:49 AM) YES (12/12/23 7:56 PM) FiO2 (a) ROOM AIR % (12/12/23 7:54 PM) FiO2 (v) ROOM AIR % (12/19/23 4:15 AM) ROOM AIR % (12/18/23 3:18 PM) ROOM AIR % (12/18/23 4:19 AM) O2 Flow (a) 2 L/min (12/13/23 12:02 PM) 2 L/min (12/13/23 8:05 AM) 2 L/min (12/13/23 3:57 AM) Smr (Path Rev) Technical portion complete. Interpretation to follow. (12/20/23 4:05 AM) Technical portion complete. Interpretation to follow. (12/19/23 10:51 AM) O2 Flow (v) ROOM AIR L/min (12/16/23 4:20 PM) 2 L/min (12/13/23 4:16 PM) 2 L/min (12/13/23 12:02 PM) Imm. Retics [5.0-25.0 %] 20.3 % (12/20/23 4:05 AM) 14.8 % (12/19/23 10:51 AM) BNP, NT-Pro [<450 pg/mL] 60240 pg/mL *HI* (12/30/23 5:09 AM) 38258 pg/mL *HI* (12/18/23 4:19 AM) 86493 pg/mL *HI* (12/15/23 5:34 AM) Estimated CrCl 39.66 mL/min (12/30/23 5:55 AM) 32.71 mL/min (12/29/23 4:49 AM) 28.46 mL/min (12/28/23 6:27 AM) Retic Hgb [30.8-36.6 pg] 28.8 pg *LOW* (12/20/23 4:05 AM) 29.7 pg *LOW* (12/19/23 10:51 AM) MPV [9.0-12.2 fL] 10.4 fL (12/30/23 5:09 AM) 10.6 fL (12/29/23 3:53 AM) 10.3 fL (12/28/23 5:09 AM) Immature Gran% 1.0 % (12/30/23 5:09 AM) 1.1 % (12/29/23 3:53 AM) 1.3 % (12/28/23 5:09 AM) Neut% 84.8 % (12/30/23 5:09 AM) 83.9 % (12/29/23 3:53 AM) 83.9 % (12/28/23 5:09 AM) Lymph% 4.7 % (12/30/23 5:09 AM) 3.9 % (12/29/23 3:53 AM) 4.7 % (12/28/23 5:09 AM) Catron% 5.7 % (12/30/23 5:09 AM) 5.9 % (12/29/23 3:53 AM) 6.3 % (12/28/23 5:09 AM) Baso% 0.3 % (12/30/23 5:09 AM) 0.5 % (12/29/23 3:53 AM) 0.4 % (12/28/23 5:09 AM) Eos% 3.5 % (12/30/23 5:09 AM) 4.7 % (12/29/23 3:53 AM) 3.4 % (12/28/23 5:09 AM) Immat Gran, Abs [0-0.4 K/uL] 0.10 K/uL (12/30/23 5:09 AM) 0.12 K/uL (12/29/23 3:53 AM) 0.14 K/uL (12/28/23 5:09 AM) Neut, Abs [2.0-7.7 K/uL] 8.86 K/uL *HI* (12/30/23 5:09 AM) 9.15 K/uL *HI* (12/29/23 3:53 AM) 9.14 K/uL *HI* (12/28/23 5:09 AM) Lymph, Abs [1.0-3.4 K/uL] 0.49 K/uL *LOW* (12/30/23 5:09 AM) 0.43 K/uL *LOW* (12/29/23 3:53 AM) 0.51 K/uL *LOW* (12/28/23 5:09 AM) Catron, Abs [0-1.0 K/uL] 0.59 K/uL (12/30/23 5:09 AM) 0.64 K/uL (12/29/23 3:53 AM) 0.69 K/uL (12/28/23 5:09 AM) Baso, Abs [0-0.1 K/uL] 0.03 K/uL (12/30/23 5:09 AM) 0.06 K/uL (12/29/23 3:53 AM) 0.04 K/uL (12/28/23 5:09 AM) Eos, Abs [0-0.5 K/uL] 0.36 K/uL (12/30/23 5:09 AM) 0.51 K/uL *HI* (12/29/23 3:53 AM) 0.37 K/uL (12/28/23 5:09 AM) Type of Diff: AUTO (12/30/23 5:09 AM) AUTO (12/29/23 3:53 AM) AUTO (12/28/23 5:09 AM) RDW [11.5-14.2 %] 17.2 % *HI* (12/30/23 5:09 AM) 16.9 % *HI* (12/29/23 3:53 AM) 17.1 % *HI* (12/28/23 5:09 AM) Base Deficit 1.1 mmol/L (12/12/23 3:25 AM) Base Defic(v) 7.0 mmol/L (12/18/23 3:18 PM) 0.7 mmol/L (12/11/23 10:35 PM) K, wb [3.5-5.0 mmol/L] 3.9 mmol/L (12/16/23 7:57 PM) 3.7 mmol/L (12/13/23 11:56 PM) 3.5 mmol/L (12/13/23 12:03 AM) Hyaline Casts (u) 10-19 (12/11/23 5:12 PM) Squamous Epithelial Cells (u) FEW (12/11/23 5:12 PM) MRSA Surveillance, on Admission [MSND] MRSA NOT detected (12/11/23 9:12 PM) Anion Gap [5-14 mmol/L] 13 mmol/L (12/30/23 5:09 AM) 14 mmol/L (12/29/23 3:53 AM) 17 mmol/L *HI* (12/28/23 5:09 AM) Hgb(a) [12.0-18.0 g/dL] 13.2 g/dL (12/13/23 12:02 PM) 12.8 g/dL (12/13/23 8:05 AM) 12.1 g/dL (12/13/23 3:57 AM) Alb [3.5-5.2 g/dL] 3.1 g/dL *LOW* (12/30/23 5:09 AM) 3.1 g/dL *LOW* (12/29/23 3:53 AM) 3.2 g/dL *LOW* (12/28/23 5:09 AM) Alk Phos [40-130 unit/L] 98 unit/L 4 (12/30/23 5:09 AM) 98 unit/L 5 (12/29/23 3:53 AM) 101 unit/L 6 (12/28/23 5:09 AM) ALT [0-41 unit/L] 45 unit/L *HI* (12/30/23 5:09 AM) 53 unit/L *HI* (12/29/23 3:53 AM) 50 unit/L *HI* (12/28/23 5:09 AM) AST [0-40 unit/L] 33 unit/L (12/30/23 5:09 AM) 42 unit/L *HI* (12/29/23 3:53 AM) 45 unit/L *HI* (12/28/23 5:09 AM) B12 [211-946 pg/mL] 895 pg/mL (12/19/23 4:01 AM) Bact (u) [NONE-NONE] NONE (12/11/23 5:12 PM) Base XS(a) 9.0 mmol/L (12/13/23 12:02 PM) 9.0 mmol/L (12/13/23 8:05 AM) 5.9 mmol/L (12/13/23 3:57 AM) Bili (u) [NEG] NEGATIVE 7 (12/11/23 5:12 PM) BUN [6-23 mg/dL] 57 mg/dL *HI* (12/30/23 5:09 AM) 63 mg/dL *HI* (12/29/23 3:53 AM) 69 mg/dL *HI* (12/28/23 5:09 AM) Ca [8.4-10.2 mg/dL] 9.0 mg/dL (12/30/23 5:09 AM) 9.0 mg/dL (12/29/23 3:53 AM) 9.1 mg/dL (12/28/23 5:09 AM) Ion Ca [1.15-1.27 mmol/L] 1.19 mmol/L (12/25/23 4:46 PM) 1.23 mmol/L (12/25/23 4:36 AM) 1.19 mmol/L (12/24/23 2:56 PM) Cl- [98-107 mmol/L] 92 mmol/L *LOW* (12/30/23 5:09 AM) 90 mmol/L *LOW* (12/29/23 3:53 AM) 90 mmol/L *LOW* (12/28/23 5:09 AM) HCO3 [22-29 mmol/L] 22 mmol/L (12/30/23 5:09 AM) 23 mmol/L (12/29/23 3:53 AM) 21 mmol/L *LOW* (12/28/23 5:09 AM) Cret [0.70-1.30 mg/dL] 1.60 mg/dL *HI* (12/30/23 5:09 AM) 1.94 mg/dL *HI* (12/29/23 3:53 AM) 2.23 mg/dL *HI* (12/28/23 5:09 AM) D Bili [0.0-0.3 mg/dL] 0.9 mg/dL *HI* (12/30/23 5:09 AM) 0.9 mg/dL *HI* (12/29/23 3:53 AM) 0.9 mg/dL *HI* (12/28/23 5:09 AM) Iron [50-158 ug/dL] 29 ug/dL *LOW* (12/19/23 4:01 AM) REQUEST CREDITED ug/dL 8 (12/11/23 10:35 PM) 51 ug/dL (12/11/23 10:34 PM) Ferritin [30.0-400.0 ng/mL] 215.2 ng/mL (12/19/23 4:01 AM) REQUEST CREDITED ng/mL 9 (12/11/23 10:35 PM) 89.2 ng/mL (12/11/23 10:34 PM) Glu [74-109 mg/dL] 90 mg/dL 10 (12/30/23 5:09 AM) 94 mg/dL 11 (12/29/23 3:53 AM) 97 mg/dL 12 (12/28/23 5:09 AM) HCO3(a) [21-28 mmol/L] 32.7 mmol/L *HI* (12/13/23 12:02 PM) 32.7 mmol/L *HI* (12/13/23 8:05 AM) 29.7 mmol/L *HI* (12/13/23 3:57 AM) Hct [39-48 %] 27.0 % *LOW* (12/30/23 5:09 AM) 28.1 % *LOW* (12/29/23 3:53 AM) 31.2 % *LOW* (12/28/23 5:09 AM) Hgb [13.0-17.0 g/dL] 8.9 g/dL *LOW* (12/30/23 5:09 AM) 9.2 g/dL *LOW* (12/29/23 3:53 AM) 10.3 g/dL *LOW* (12/28/23 5:09 AM) INR [0.9-1.1] 2.6 13 *HI* (12/18/23 4:19 AM) 2.5 14 *HI* (12/17/23 4:30 AM) 1.2 15 *HI* (12/16/23 4:00 AM) K [3.5-5.1 mmol/L] 4.0 mmol/L (12/30/23 5:09 AM) 3.4 mmol/L *LOW* (12/29/23 3:53 AM) 4.2 mmol/L (12/28/23 5:09 AM) Ketones [NEG mg/dL] NEGATIVE mg/dL (12/11/23 5:12 PM) Lactate [0.5-2.2 mmol/L] 1.1 mmol/L (12/23/23 8:02 PM) 1.5 mmol/L (12/23/23 5:53 PM) 1.6 mmol/L (12/16/23 5:06 PM) Leuk Est [NEG] NEGATIVE 16 (12/11/23 5:12 PM) MCH [28-33 pg] 30.5 pg (12/30/23 5:09 AM) 30.8 pg (12/29/23 3:53 AM) 31.0 pg (12/28/23 5:09 AM) MCHC [32-36 g/dL] 33.0 g/dL (12/30/23 5:09 AM) 32.7 g/dL (12/29/23 3:53 AM) 33.0 g/dL (12/28/23 5:09 AM) MCV [81-96 fL] 92.5 fL (12/30/23 5:09 AM) 94.0 fL (12/29/23 3:53 AM) 94.0 fL (12/28/23 5:09 AM) Mg [1.6-2.6 mg/dL] 2.4 mg/dL (12/30/23 5:09 AM) 2.4 mg/dL (12/29/23 3:53 AM) 2.6 mg/dL (12/28/23 5:09 AM) Na [136-145 mmol/L] 127 mmol/L *LOW* (12/30/23 5:09 AM) 127 mmol/L *LOW* (12/29/23 3:53 AM) 128 mmol/L *LOW* (12/28/23 5:09 AM) Nitrite (u) [NEG] NEGATIVE 17 (12/11/23 5:12 PM) SaO2(a) [95.0-98.0 %] 99.7 % *HI* (12/13/23 12:02 PM) 98.9 % *HI* (12/13/23 8:05 AM) 98.8 % *HI* (12/13/23 3:57 AM) pCO2(a) [35-48 mmHg] 40.0 mmHg (12/13/23 12:02 PM) 40.0 mmHg (12/13/23 8:05 AM) 39.0 mmHg (12/13/23 3:57 AM) pH(a) [7.35-7.45 unit] 7.520 unit *HI* (12/13/23 12:02 PM) 7.520 unit *HI* (12/13/23 8:05 AM) 7.490 unit *HI* (12/13/23 3:57 AM) PO4 [2.5-4.5 mg/dL] 3.8 mg/dL (12/30/23 5:09 AM) 4.1 mg/dL (12/29/23 3:53 AM) 5.0 mg/dL *HI* (12/28/23 5:09 AM) Plts [150-350 K/uL] 222 K/uL (12/30/23 5:09 AM) 220 K/uL (12/29/23 3:53 AM) 225 K/uL (12/28/23 5:09 AM) pO2(a) [83-108 mmHg] 136.0 mmHg *HI* (12/13/23 12:02 PM) 128.0 mmHg *HI* (12/13/23 8:05 AM) 148.0 mmHg *HI* (12/13/23 3:57 AM) PT [12.0-14.2 seconds] 27.9 seconds *HI* (12/18/23 4:19 AM) 27.0 seconds *HI* (12/17/23 4:30 AM) 14.8 seconds *HI* (12/16/23 4:00 AM) PTT [23-35 seconds] 35 seconds (12/11/23 10:35 PM) RBC [4.40-5.60 M/uL] 2.92 M/uL *LOW* (12/30/23 5:09 AM) 2.99 M/uL *LOW* (12/29/23 3:53 AM) 3.32 M/uL *LOW* (12/28/23 5:09 AM) Retics (abs) [16.7-96.7 K/uL] 44.4 K/uL (12/20/23 4:05 AM) 50.9 K/uL (12/19/23 10:51 AM) Retic (%) [0.40-2.05 %] 1.33 % (12/20/23 4:05 AM) 1.52 % (12/19/23 10:51 AM) Fe Sat [14-50 %] 8 % *LOW* (12/19/23 4:01 AM) REQUEST CREDITED % 18 (12/11/23 10:35 PM) 13 % *LOW* (12/11/23 10:34 PM) Free T4 [0.9-1.7 ng/dL] REQUEST CREDITED ng/dL 19 (12/11/23 10:35 PM) 1.68 ng/dL (12/11/23 10:34 PM) T Bili [0.0-1.2 mg/dL] 1.8 mg/dL *HI* (12/30/23 5:09 AM) 1.7 mg/dL *HI* (12/29/23 3:53 AM) 1.7 mg/dL *HI* (12/28/23 5:09 AM) Temp(a) 36.7 C (12/13/23 12:02 PM) 36.5 C (12/13/23 8:05 AM) 36.5 C (12/13/23 3:57 AM) Total IBC [250-400 ug/dL] 363 ug/dL (12/19/23 4:01 AM) REQUEST CREDITED ug/dL 20 (12/11/23 10:35 PM) 406 ug/dL *HI* (12/11/23 10:34 PM) Prot [6.4-8.3 g/dL] 5.8 g/dL *LOW* (12/30/23 5:09 AM) 5.8 g/dL *LOW* (12/29/23 3:53 AM) 5.9 g/dL *LOW* (12/28/23 5:09 AM) Transferrin [200-360 mg/dL] 308 mg/dL (12/19/23 4:01 AM) REQUEST CREDITED mg/dL 21 (12/11/23 10:35 PM) 344 mg/dL (12/11/23 10:34 PM) TSH [0.30-4.20 uIU/mL] REQUEST CREDITED uIU/mL 22 (12/11/23 10:35 PM) 4.14 uIU/mL (12/11/23 10:34 PM) Appear (u) SLIGHTLY CLOUDY (12/11/23 5:12 PM) Color (u) YELLOW (12/11/23 5:12 PM) Glu (u) [NEG mg/dL] NEGATIVE mg/dL 23 (12/11/23 5:12 PM) Hgb (u) [NEG] NEGATIVE 24 (12/11/23 5:12 PM) pH (u) [5.0-8.0 unit] 5.0 unit (12/11/23 5:12 PM) Prot (u) [NEG mg/dL] 100 mg/dL *Abnormal* (12/11/23 5:12 PM) RBC (u) [0-4 /HPF] 0-4 /HPF (12/11/23 5:12 PM) Urobili [0.1-1.0 EU/dL] 0.1-1.0 EU/dL (12/11/23 5:12 PM) SG [1.005-1.030] 1.016 (12/11/23 5:12 PM) WBC (u) [0-4 /HPF] 0-4 /HPF (12/11/23 5:12 PM) Temp(v) 36.1 C (12/19/23 4:15 AM) 36.6 C (12/18/23 3:18 PM) 36 C (12/18/23 4:19 AM) Base XS(v) 6.0 mmol/L (12/19/23 4:15 AM) 4.9 mmol/L (12/18/23 4:19 AM) 5.4 mmol/L (12/17/23 3:34 PM) HCO3(v) [24-28 mmol/L] 31.8 mmol/L *HI* (12/19/23 4:15 AM) 16.6 mmol/L *LOW* (12/18/23 3:18 PM) 29.9 mmol/L *HI* (12/18/23 4:19 AM) Hgb(v) [12.0-18.0 g/dL] 14.7 g/dL (12/19/23 4:15 AM) 6.7 g/dL *LOW* (12/18/23 3:18 PM) 10.8 g/dL *LOW* (12/18/23 4:19 AM) SaO2(v) 49.9 % (12/19/23 4:15 AM) 65.2 % (12/18/23 3:18 PM) 62.2 % (12/18/23 4:19 AM) pCO2(v) [41-51 mmHg] 49.0 mmHg (12/19/23 4:15 AM) 25.0 mmHg *LOW* (12/18/23 3:18 PM) 45.0 mmHg (12/18/23 4:19 AM) pH(v) [7.33-7.43 unit] 7.420 unit (12/19/23 4:15 AM) 7.430 unit (12/18/23 3:18 PM) 7.430 unit (12/18/23 4:19 AM) pO2(v) 25.0 mmHg (12/19/23 4:15 AM) 33.0 mmHg (12/18/23 3:18 PM) 31.0 mmHg (12/18/23 4:19 AM) WBC [4.0-10.4 K/uL] 10.43 K/uL *HI* (12/30/23 5:09 AM) 10.91 K/uL *HI* (12/29/23 3:53 AM) 10.89 K/uL *HI* (12/28/23 5:09 AM) 1Result Comment: To use the high-sensitivity cTnT assay, at least 2 blood samples should be drawnat time 0 and then at least 1h later. If the cTnT concentration at time 0 is greater than or equal to 53 ng/L in a patient whose clinicalpresentation is consistent with acute coronary syndrome, then there is a high likelihood that acutemyocardial injury is present. However, confirmation of acute myocardial injury still requires a second cTnT monse drawn. Delta cut-offs for determining the presence of acute myocardial injury have beenvalidated at the 1-hour and 2-hour time points referenced here. A 1-hour delta troponin >5 ng/L indicates acute myocardial injury. A 2h delta troponin >7 ng/L indicates acute myocardial injury. Values below these are consistent with chronic myocardial injury. For patients where there is a high index of suspicion for acute coronary syndrome, repeating the tests at 1 or 2 hours, and calculating a new delta, may be indicated. If the second sample is collected in less than 60 minutes, no delta calculationwill be performed. Deltas for blood samples drawn more than 3 hours apart have not been validated and will not be reported. Please interpret with caution. 2Result Comment: To use the high-sensitivity cTnT assay, at least 2 blood samples should be drawnat time 0 and then at least 1h later. If the cTnT concentration at time 0 is greater than or equal to 53 ng/L in a patient whose clinicalpresentation is consistent with acute coronary syndrome, then there is a high likelihood that acutemyocardial injury is present. However, confirmation of acute myocardial injury still requires a second cTnT monse drawn. Delta cut-offs for determining the presence of acute myocardial injury have beenvalidated at the 1-hour and 2-hour time points referenced here. A 1-hour delta troponin >5 ng/L indicates acute myocardial injury. A 2h delta troponin >7 ng/L indicates acute myocardial injury. Values below these are consistent with chronic myocardial injury. For patients where there is a high index of suspicion for acute coronary syndrome, repeating the tests at 1 or 2 hours, and calculating a new delta, may be indicated. If the second sample is collected in less than 60 minutes, no delta calculationwill be performed. Deltas for blood samples drawn more than 3 hours apart have not been validated and will not be reported. Please interpret with caution. 3Result Comment: NO RED TOP TUBE 4Result Comment: Low levels of ALKP may indicate a deficiency in zinc, magnesium, or malnutritionbutcan also be an indicator of a rare genetic disease hypophosphatasia (HPP). 5Result Comment: Low levels of ALKP may indicate a deficiency in zinc, magnesium, or malnutritionbutcan also be an indicator of a rare genetic disease hypophosphatasia (HPP). 6Result Comment: Low levels of ALKP may indicate a deficiency in zinc, magnesium, or malnutritionbutcan also be an indicator of a rare genetic disease hypophosphatasia (HPP). 7Result Comment: POSSIBLE INTERFERING SUBSTANCE. ASCORBIC ACID DETECTED IN URINE. RESULTS MAY BEUNRELIABLE. 8Result Comment: Lab orders combined with other orders received on the same specimen. 9Result Comment: Lab orders combined with other orders received on the same specimen. 10Result Comment: ADA recommendation for FASTING Serum/Plasma Glucose: Normal: 70-100 mg/dL Prediabetes: 100-125 mg/dL Diabetes: 126 mg/dL or higher 11Result Comment: ADA recommendation for FASTING Serum/Plasma Glucose: Normal: 70-100 mg/dL Prediabetes: 100-125 mg/dL Diabetes: 126 mg/dL or higher 12Result Comment: ADA recommendation for FASTING Serum/Plasma Glucose: Normal: 70-100 mg/dL Prediabetes: 100-125 mg/dL Diabetes: 126 mg/dL or higher 13Result Comment: Suggested therapeutic range for low-intensity Coumadin therapy for venous thromboembolism is INR 2.0-3.0 (ex: atrial fibrillation, history of TIA/stroke). For high risk patients, the suggested therapeutic range is INR 2.5-3.5 (ex: mechanical prosthetic valves). 14Result Comment: Suggested therapeutic range for low-intensity Coumadin therapy for venous thromboembolism is INR 2.0-3.0 (ex: atrial fibrillation, history of TIA/stroke). For high risk patients, the suggested therapeutic range is INR 2.5-3.5 (ex: mechanical prosthetic valves). 15Result Comment: Suggested therapeutic range for low-intensity Coumadin therapy for venous thromboembolism is INR 2.0-3.0 (ex: atrial fibrillation, history of TIA/stroke). For high risk patients, the suggested therapeutic range is INR 2.5-3.5 (ex: mechanical prosthetic valves). 16Result Comment: POSSIBLE INTERFERING SUBSTANCE. ASCORBIC ACID DETECTED IN URINE. RESULTS MAY BEUNRELIABLE. 17Result Comment: POSSIBLE INTERFERING SUBSTANCE. ASCORBIC ACID DETECTED IN URINE. RESULTS MAY BEUNRELIABLE. 18Result Comment: Lab orders combined with other orders received on the same specimen. 19Result Comment: Lab orders combined with other orders received on the same specimen. 20Result Comment: Lab orders combined with other orders received on the same specimen. 21Result Comment: Lab orders combined with other orders received on the same specimen. 22Result Comment: Lab orders combined with other orders received on the same specimen. 23Result Comment: POSSIBLE INTERFERING SUBSTANCE. ASCORBIC ACID DETECTED IN URINE. RESULTS MAY BEUNRELIABLE. 24Result Comment: POSSIBLE INTERFERING SUBSTANCE. ASCORBIC ACID DETECTED IN URINE. RESULTS MAY BEUNRELIABLE. Orders for Microbiology Reports Name Date Nasal Culture 12/26/23 Respiratory Pathogen Panel, by PCR (RVP) 12/24/23 Blood Culture (Aerobic AND Anaerobic) Blood Culture (Aerobic AND Anaerobic) Respiratory Pathogen Panel, by PCR (RVP) 12/11/23 Microbiology Reports TEST:Thr/Nasal.Cx STATUS:Auth (Verified) BODY SITE: SOURCE:Nasal COLLECTED DATE/TIME:12/26/23 7:52 PM Status FINAL 12/28/2023 TEST:Respiratory Virus Panel, by PCR STATUS:Auth (Verified) BODY SITE: SOURCE:Nasal/Pharyngeal COLLECTED DATE/TIME:12/24/23 10:36 AM Status FINAL 12/24/2023 TEST:Blood.Cx STATUS:Auth (Verified) BODY SITE: SOURCE:Blood COLLECTED DATE/TIME:12/23/23 8:54 PM Status FINAL 12/28/2023 TEST:Blood.Cx STATUS:Auth (Verified) BODY SITE: SOURCE:Blood COLLECTED DATE/TIME:12/23/23 8:52 PM Culture NO GROWTH IN 5 DAYS TEST:Respiratory Virus Panel, by PCR STATUS:Auth (Verified) BODY SITE: SOURCE:Nasal/Pharyngeal COLLECTED DATE/TIME:12/11/23 2:57 PM Status FINAL 12/11/2023 Radiology Reports * Exam Date Time Procedure Performing Provider Status 12/24/23 10:38 AM XR Chest 1 View Angeline Kyle; Final Notes: (XR Chest 1 View) Reason For Exam: cough, new leukocytosis XR Chest 1 View EXAMINATION: XR Chest 1 View CLINICAL HISTORY: cough, new leukocytosis COMPARISON: Multiple prior chest radiograph, most recently from 12/18/2023 FINDINGS: AP view of the chest. AICD/pacemaker generator pack projects over the right chest wall with leads in the right atrium, right ventricle, and coronary sinus. Median sternotomy wires are aligned and intact. Mediastinal surgical clips. Cardiac valve replacement. Left upper extremity PICC with tip projecting over the midsuperior vena cava. Mildly enlarged cardiac silhouette, unchanged. Minimal interstitial thickening, decreased compared to 12/18/2023. No focal parenchymal consolidation. No pleural effusion. No pneumothorax. No acute osseous abnormality. Degenerative change of the bilateral glenohumeral joint. IMPRESSION: 1. No pneumonia. 2. Minimal interstitial thickening, decreased compared to 12/18/2023. Workstation ID: [id number] Final Dictated by:DO Cisneros Kristin L Dictated DT/TM:12/24/2023 10:44 Signed by:DO Cisneros Kristin L Signed (Electronic Signature):12/24/2023 10:43 * Exam Date Time Procedure Performing Provider Status 12/18/23 12:19 PM XR Chest 1 View Jessi Morgan; Final Notes: (XR Chest 1 View) Reason For Exam: Cough, coarse breath sounds in RLL XR Chest 1 View EXAMINATION: XR Chest 1 View CLINICAL HISTORY: Cough, coarse breath sounds in RLL COMPARISON: 12/13/2023 FINDINGS: Left arm PICC with tip within the mid superior vena cava. Right pectoral pacemaker with leads within the right atrium, ventricle and coronary sinus. Intravascular monitoring device overlying the leftpulmonary artery. No pneumothorax or pleural effusions. Mild interstitial pulmonary opacities. Mild cardiomegaly, unchanged. Cardiac valve prosthesis. The mediastinal silhouette is unchanged. Intact midline sternotomy wires. Unchanged osseous structures. IMPRESSION: Mild pulmonary vascular congestion and interstitial pulmonary edema. Unchanged mild cardiomegaly. Workstation ID: [id number] Final Dictated by:MD Ibrahim Benjamin Dictated DT/TM:12/18/2023 12:28 Signed by:MD Ibrahim Benjamin Signed (Electronic Signature):12/18/2023 12:27 * Exam Date Time Procedure Performing Provider Status 12/13/23 11:56 AM XR Chest 1 View Aj Carpenter; Final Notes: (XR Chest 1 View) Reason For Exam: PICC tip location XR Chest 1 View EXAMINATION: XR Chest 1 View CLINICAL HISTORY: PICC tip location COMPARISON: Chest radiograph 12/13/2023 FINDINGS: Upright portable AP view of the chest. Left upper cavity PICC, tip in the lower SVC. The remaining support apparatus components are unchanged from earlier today. Normal cardiomediastinal silhouette and pulmonary vasculature. Retrocardiac opacification. No pneumothoraces or large effusions. Unchanged bony structures. IMPRESSION: Left upper extremity PICC with tip in the lower SVC. Exam is otherwise unchanged. Workstation ID: [id number] Final Dictated by:MD Colon Chukwudi C Dictated DT/TM:12/13/2023 12:01 Signed by:MD Colon Chukwudi C Signed (Electronic Signature):12/13/2023 11:59 * Exam Date Time Procedure Performing Provider Status 12/13/23 6:20 AM XR Chest 1 View Aminta Moreno; Magaly kennedy Notes: (XR Chest 1 View) Reason For Exam: f/u PA catheter, r/o pulmonary edema XR Chest 1 View EXAMINATION: XR Chest 1 View CLINICAL HISTORY: f/u PA catheter, r/o pulmonary edema COMPARISON: Chest radiograph 12/12/2023 FINDINGS: Portable upright AP chest radiograph. Mediastinal sternotomy wires are aligned and intact. Paramediastinal surgical clips. Right chest wall pacemaker with leads in the right atrium, right ventricle and coronary sinus. Cardiac flow prosthesis. Right internal jugular pulmonary artery catheter with tip in the right interlobar pulmonary artery, slightly advanced from prior radiograph. Unchanged cardiomediastinal silhouette and pulmonary vasculature. Left retrocardiac opacification. No large pleuraleffusion. No pneumothorax. No acute osseous abnormality. IMPRESSION: 1. Pulmonary artery catheter with tip in the right interlobar pulmonary artery. 2. Hypoventilatory changes without significant edema. Dr. Mervin Howard is the dictating resident. Finalized report status indicates that the attending has reviewed the images and report, and agrees with the interpretation. Preliminary report status should be regarded as NOT interpreted by the attending radiologist. Workstation ID: [id number] Final Dictated by:MD Howard Patrick S Dictated DT/TM:12/13/2023 9:24 Resident:MD Howard Patrick S Signed by:MD Colon Chukwudi C Signed (Electronic Signature):12/13/2023 9:22 a * Exam Date Time Procedure Performing Provider Status 12/12/23 3:58 PM Echo TransTHORacic TTE Complete w/ Con Rosmery Juarez; Final Notes: (Echo TransTHORacic TTE Complete w/ Cont) Reason For Exam: CHF, evaluate LVEF, valves Echo TransTHORacic TTE Complete w/ Cont Report Signatures Finalized by Dr. Conner Cunningham MD on 12/12/2023 05:00 PM PA Act 112: No-No further action needed Summary 1. Failed 2D images were enhanced with Definity per lab protocol. 2. Patient with prior history of surgical AVR (29 mm Perez II bioprosthesis, [facility] [place], 2011). 3. LVEF 30%; severe global hypokinesis. 4. Severe LV dilation; no left ventricular hypertrophy. 5. Grade II LV diastolic dysfunction. 6. Right ventricular dilation with reduced systolic function. 7. Biatrial enlargement. 8. Bioprosthetic AV prosthesis (SAVR) noted; Vmax 2.1 m/s, peak/mean gradients 16/11 mmHg, DVI 0.74, SUSY 1.8 cm2; mild to moderate valvular regurgitation; no paravalvular leak is noted. 9. Severely dilated aortic root; dilated proximal ascending aorta (4.7 cm). 10. The MV leaflets are restricted due to LV dilation. Mild functional MR. 11. Dilated TV anulus noted; moderate TR. 12. The estimated PASP is 47 mmHg, including an estimated CVP of 8 mmHg. 13. No significant pericardial effusion. 14. Compared to the prior study of 03/04/23, no significant changes are noted. Patient Info Name: JENIFFER MENA Age: 78 years : 1945 Gender: Male Ht: 180 cm Wt: 73 kg BSA: 1.91 m2 HR: 92 bpm BP: 113 / 47 mmHg Heart Rhythm: V-Paced, Indeterminate Technical Quality: Technically difficult study Exam Date: 12/12/2023 3:02 PM Exam Location: [place] [address] Patient Status: Inpatient Staff Ordering Physician: Kelsy Clarke Hand Cultivator: Rosmery Israel RDCS Attending Physician: Sandy Almaraz Study Info CPT J3490 - 36912 - Indications - CHF, evaluate LVEF, valves I509 - Heart failure, unspecified Procedure(s) * A complete two-dimensional, color flow and Doppler transthoracic echocardiogram was performed. * Failed 2D images were enhanced with Definity per lab protocol. * Hand Cultivator, Rosmery Israel RDCS, provided education about ultrasound enhancing agent to the patient. Exam Type: Cardiac Basic Left Ventricle LVEF 30%; severe global hypokinesis. Severe LV dilation; no left ventricular hypertrophy. Grade II LV diastolic dysfunction. Right Ventricle Right ventricular dilation with reduced systolic function. Left Atrium Mildly dilated left atrium size. Right Atrium Right atrial dilation. Atrial Septum The interatrial septum not well visualized. Aortic Valve Bioprosthetic AV prosthesis (SAVR) noted; Vmax 2.1 m/s, peak/mean gradients 16/11 mmHg, DVI 0.74, SUSY 1.8 cm2; mild to moderate valvular regurgitation; no paravalvular leak is noted. Pulmonic Valve The PV is not well visualized; trivial PI. Mitral Valve The MV leaflets are restricted due to LV dilation. Mild functional MR. Tricuspid Valve Dilated TV anulus noted; moderate TR. The estimated PASP is 47 mmHg, including an estimated CVP of 8 mmHg. Pericardium/Pleural No significant pericardial effusion. Inferior Vena Cava Dilated IVC with normal inspiratory collapse. Aorta Severely dilated aortic root; dilated proximal ascending aorta (4.7 cm). Left Ventricular Outflow Tract Name Value Normal LVOT 2D LVOT Diameter 2.4 cm LVOT Doppler LVOT Peak Velocity 1.31 m/s LVOT Peak Gradient 6 mmHg LVOT Mean Gradient 4 mmHg LVOT VTI 27.00 cm LVOT VTI/AV VTI Ratio 0.74 LVOT Stroke Volume 125.03 ml LVOT Stroke Volume Index 0.07 l/m2 LVOT Cardiac Output 11.50 l/min LVOT Cardiac Index 6.02 L/min/m2 Pulmonic Valve Name Value Normal RVOT Doppler RVOT Peak Velocity 0.44 m/s RVOT Peak Gradient 1 mmHg RVOT Mean Gradient 0 mmHg PV Doppler PV Peak Gradient 2 mmHg PV Mean Gradient 1 mmHg Mitral Valve Name Value Normal MV Doppler MV PHT 50 ms MV Regurgitation Doppler MR Peak Velocity 4.19 m/s MR Peak Gradient 65 mmHg MR VTI 121.12 cm MV Diastolic Function MV E Peak Velocity 0.80 m/s <=0.50 MV Decel Time 174 ms MV Annular TDI MV Septal s' Velocity 5.62 cm/s MV Septal e' Velocity 5.01 cm/s >=7.00 MV E/e' (Septal) 16.0 <=8.0 MV Lateral s' Velocity 5.46 cm/s MV Lateral e' Velocity 12.14 cm/s >=10.00 MV E/e' (Lateral) 6.58 <=8.00 MV e' Average 8.58 MV E/e' (Average) 11.27 <=14.00 Tricuspid Valve Name Value Normal TV Doppler TV Peak Gradient 34 mmHg TV Regurgitation Doppler TR Peak Velocity 3.11 m/s <=2.80 Estimated PAP/RSVP RA Pressure 8 mmHg <=5 PA Systolic Pressure 47 mmHg <40 PVR (Wood Units) 362.82 dsc-5 TV Diastolic Function TV E Peak Velocity 0.37 m/s TV A Peak Velocity 0.50 m/s TV E/A 0.73 0.80-2.00 TV Decel Time 124 ms >=120 TV Annular TDI TV Lateral Vianey s' Velocity 6.7 cm/s 9.5-18.7 TV Lateral Vianey e' Velocity 12.0 cm/s <7.8 TV E/e' 3.07 2.00-6.00 Aorta Name Value Normal Ascending Aorta Sinus of Valsalva Diameter 5.1 cm 3.1-3.7 Sinus of Valsalva Index 2.67 cm/m2 1.50-1.90 Ao Sinotub Junction Diameter 4.1 cm 2.6-3.2 Prox Asc Ao Diameter 4.7 cm 2.6-3.4 Prox Asc Ao Diameter Index 2.49 cm/m2 1.30-1.70 Venous Name Value Normal IVC/SVC IVC Diameter (Insp 2D) 1.7 cm IVC Diameter (Exp 2D) 2.5 cm <=2.1 IVC Diameter Percent Change (2D) 30 % >=50 Aortic Valve Name Value Normal AV Doppler AV Peak Velocity 2.05 m/s <2.00 AV Peak Gradient 16 mmHg AV Mean Gradient 11 mmHg <20 AV VTI 36.55 cm AV Area (Cont Eq VTI) 3.4 cm2 >=2.0 AV Area Index (Cont Eq VTI) 1.79 cm2/m2 AV Area (Cont Eq Simone) 3.0 cm2 AV Area Index (Cont Eq Simone) 1.55 cm2/m2 AV V1/V2 Ratio 0.64 AV Accel Time 70 ms AV Regurgitation 2D LVOT Area 4.6 cm2 Ventricles Name Value Normal LV Dimensions 2D/MM IVS Diastolic Thickness (2D) 0.9 cm 0.6-1.0 LVID Diastole (2D) 7.1 cm 3.6-5.6 LVIW Diastolic Thickness (2D) 1.2 cm 0.6-1.0 LVID Systole (2D) 6.2 cm 2.5-4.0 LVOT Diameter 2.4 cm LV Mass (2D Cubed) 350.31 g 88.00-224.00 LV Mass Index (2D Cubed) 0.02 g/cm2 0.00-0.01 Relative Wall Thickness (2D) 0.33 LV Fractional Shortening/Ejection Fraction 2D/MM LV Fractional Shortening (2D) 13 % 25-43 RV Dimensions 2D/MM RV Basal Diastolic Dimension 5.5 cm 2.5-4.1 TAPSE 1.1 cm >=1.7 Atria Name Value Normal LA Dimensions LA Area (4C) 21.4 cm2 LA Length (4C) 6.2 cm LA Area (2C) 24.9 cm2 LA Length (2C) 6.8 cm LA Volume (4C A-L) 62.98 ml LA Volume (2C A-L) 76.93 ml LA Volume (BP A-L) 73 ml 18-58 LA Volume Index (BP A-L) 38.29 ml/m2 <=34.00 RA Dimensions RA Area (4C) 27.5 cm2 <=18.0 Final Signed by:MD Cunningham Steve Signed (Electronic Signature):12/12/2023 3:02 p * Exam Date Time Procedure Performing Provider Status 12/12/23 7:21 AM XR Chest 1 View Krista Haile; Final Notes: (XR Chest 1 View) Reason For Exam: Evaluate lines/tubes and vascular congestion; s/p PAC repositioning XR Chest 1 View EXAMINATION: XR Chest 1 View CLINICAL HISTORY: Evaluate lines/tubes and vascular congestion; s/p PAC repositioning COMPARISON: 09/10/2023 TECHNIQUE: XR Chest 1 View FINDINGS: Right chest wall pacemaker with leads in the right atrium, right ventricle and coronary sinus are unchanged. Right IJ pulmonary artery catheter tip in the right pulmonary artery, this has been retracted compared to the prior exam. Stable cardiomediastinal silhouette. Unchanged mild pulmonary vascular congestion. No airspace consolidation. No pneumothorax or pleural effusion. No acute bony abnormality. IMPRESSION: 1. Pulmonary artery catheter has been partially withdrawn with tip now in the distal right pulmonary artery. 2. Examination is otherwise unchanged. Workstation ID: [id number] Final Dictated by:MD Ybarra James A Dictated DT/TM:12/12/2023 8:05 Signed by:MD Ybarra James A Signed (Electronic Signature):12/12/2023 8:04 a * Exam Date Time Procedure Performing Provider Status 12/11/23 10:34 PM XR Chest 1 View Sawyer Gonzalez; Final Notes: (XR Chest 1 View) Reason For Exam: Rule out ptx, eval PA catheter placement s/p right IJ PA catheter XR Chest 1 View EXAMINATION: XR Chest 1 View CLINICAL HISTORY: Please wait until called by RN as line is being placed now Rule out ptx, eval PA catheter placement s/p right IJ PA catheter COMPARISON: Radiograph 12/11/2023 FINDINGS: Upright AP radiograph of the chest. Right IJ pulmonary artery catheter with tip in the right interlobar artery. Left pulmonary artery intravascular monitoring device. Cardiac valve prostheses. Pacemaker/ICD over right chest with leads in unchanged position. Median sternotomy. Enlarged cardiac silhouette, unchanged. Left retrocardiac atelectasis. No pleural effusion or pneumothorax. Osseous structures are unremarkable. IMPRESSION: 1. No pneumothorax. 2. Right IJ pulmonary artery catheter with tip in the distal right interlobar artery. Repositioningis recommended. Dr. Javier Storm is the dictating resident. Finalized reports status indicates that the attendinghas reviewed the images and report, and agrees with the interpretation. Preliminary report status should be regarded as NOT interpreted by the attending radiologist Workstation ID: [id number] Final Dictated by:DO Storm Matthew Dictated DT/TM:12/12/2023 8:21 Resident:DO Storm Matthew Signed by:MD Ibrahim Benjamin Signed (Electronic Signature):12/12/2023 8:20 a * Exam Date Time Procedure Performing Provider Status 12/11/23 2:07 PM XR Chest 2 Views Mychal Casillas; Jonatan gaston Notes: (XR Chest 2 Views) Reason For Exam: Chest Pain XR Chest 2 Views EXAMINATION: XR Chest 2 Views CLINICAL HISTORY: Chest Pain COMPARISON: 2023 FINDINGS: Right pectoral pacemaker with leads within the right atrium, ventricle, and coronary sinus. Intravascular monitoring device overlying the left pulmonary artery. Cardiac valve prosthesis. Reduction of now small left pleural effusion with left basilar atelectasis. No pneumothorax or right pleural effusion. Moderate cardiomegaly, unchanged. Mediastinal contours are unchanged. There are atherosclerotic calcifications of the aorta. No acute osseous abnormality. Intact midline sternotomy wires. IMPRESSION: 1. Reduction of a now small left pleural effusion with adjacent atelectasis. 2. Moderate cardiomegaly, unchanged. Workstation ID: [id number] Final Dictated by:MD Ibrahim Benjamin Dictated DT/TM:12/11/2023 2:13 Signed by:MD Ibrahim Benjamin Signed (Electronic Signature):12/11/2023 2:11 p Anatomic Pathology Reports * Report Case Number Specimen Responsible Pathologist Report Status Peripheral Blood Smear Report [id number] DO Azul Melissa R; Final * Event Display: CP PB Part type Peripheral blood DO Azul Melissa R:VERIFY; Authored Date: [id number] * Event Display: CP PB Dx CBC and peripheral smear show normocytic, normochromic anemia, leukocytosis with absolute neutrophilia, lymphopenia, and monocytosis. Red blood cells show mild anisocytosis. Neutrophils, lymphocytes,and monocytes are unremarkable. Platelets are morphologically normal. The reticulocyte index is decreased (0.67) consistent with a hypoproliferative etiology. Reticulocyte hemoglobin is decreased (28.8 pg), and in the setting of low serum iron, these findings suggest iron deficiency anemia. Leukocytosis is likely reactive. Andria Azul DO (Electronically signed by) Verified: 12/22/2023 14:30 EDT Performing Location: [facility] DO Azul Melissa R:VERIFY; Authored Date: [id number] Vital Signs Most recent to oldest [Reference Range]: 1 2 3 Height 180 cm (12/11/23 9:33 PM) 177.8 cm (12/11/23 1:48 PM) Patient Weight 76.5 kg (12/30/23 5:17 AM) 75.7 kg (12/29/23 5:36 AM) 77.2 kg (12/28/23 4:53 AM) Body Mass Index 22.62 kg/m2 (12/12/23 6:00 AM) 22.75 kg/m2 (12/11/23 9:33 PM) 26.03 kg/m2 (12/11/23 1:48 PM) Temperature [36.5-37.9 DegC] 36.2 DegC *LOW* (12/30/23 3:56 PM) 36.3 DegC *LOW* (12/30/23 12:22 PM) 36.1 DegC *LOW* (12/30/23 8:10 AM) Heart Rate 86 bpm (12/30/23 3:56 PM) 90 bpm (12/30/23 12:22 PM) 86 bpm (12/30/23 9:03 AM) Respiratory Rate 18 br/min (12/30/23 3:56 PM) 20 br/min (12/30/23 12:22 PM) 16 br/min (12/30/23 8:10 AM) Blood Pressure 96/64mmHg (12/30/23 3:56 PM) 91/62mmHg (12/30/23 12:22 PM) 92/56mmHg (12/30/23 8:50 AM) Mean Blood Pressure 75 mmHg (12/30/23 3:56 PM) 72 mmHg (12/30/23 12:22 PM) 68 mmHg (12/30/23 8:50 AM) Cuff Pulse Pressure 32 mmHg (12/30/23 3:56 PM) 29 mmHg (12/30/23 12:22 PM) 36 mmHg (12/30/23 8:50 AM) BP Location # 1 Right Arm (12/30/23 3:56 PM) Right Arm (12/30/23 12:22 PM) Right Arm (12/30/23 8:50 AM) Social History Social History Type Response Smoking Status Never smoked cigaret manuel Sex Male Sex Representation Male (finding) Radiology * Event Display: Cardiac Device Check Authored Date: Please click on link to see image. * Event Display: Cardiac Device Check Authored Date: Please click on link to see image. EKG study * Contributor_system, [id number]: VERIFY, PERFORM Event Display: EKG Authored Date: Please click on link to see image. History and physical note * MD Betancur Nandini: MODIFY MD Betancur Nandini: MODIFY, MODIFY, PERFORM MD Omaira, Mj Ac: PERFORM, MODIFY MD Castano Harrison N: MODIFY, MODIFY MD Omaira, Mj N: MODIFY, MODIFY MD Omaira, Mj Ac: MODIFY Event Display: H&P Authored Date: [facility] HISTORY AND PHYSICAL Name: JENIFFER MENA Jr. Patient Number: [id number] : 1945 Date of Service: 12/11/2023 Surgical Hospital Day/Procedure: No procedures found Chief Complaint: _Shortness of breath History of Present Illness: _The patient is a 78-year-old with a history of CAD, status post CABG x4 with bioprosthetic aortic valve replacement in 2011, and status post complex angioplasty and stenting of the ostial LAD and ostial ramus intermedius branch. 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 The patient presents to the ED today due to shortness of breath. He reports worsening shortness of breath over the past few days, worsening exercise intolerance, and a persistent dry cough. He also states he has been unable to lie flat and has been up all night due to orthopnea. According to the patient, he recently met with his outpatient oil and gas drafter, Dr. Reyes, where it was discussed that he is currently in end-stage heart failure. There was further discussion regarding next steps, including hospice care, high-risk angioplasty with stenting of the left main into the diagonal branch, and consideration for CCM. The patient reports he has been compliant with his medications but continues to feel short of breath and is unable to perform daily activities.He denies chest pain, palpitations, dizziness, lightheadedness, fever, chills, nausea, vomiting, and any changes in bowel or urinary habits. In the ED vitals were significant for blood pressure 103/56, heart rate 78 and 1 L nasal cannula. Labs are significant for potassium 6.0, creatinine 3.08 from 2.01, anion gap of 16. Troponin 42 and arepeat of 22, BNP 23,938. Patient received IV lasix 80 mg and admitted to cardiology. Review Of Systems: _14 points review of systems negative except in the HPI. Past Medical History: _ "1. Coronary artery disease, status post coronary artery bypass grafting x4 in 2011 with a CARBONE to the LAD, SVG to the PDA and an SVG to the ramus and obtuse marginal branch. 2. Status post bioprosthetic aortic valve replacement with a 29 mm Perez II bioprosthetic aortic valve 2011 with a small dimensional less index. (confirmed by HERMINIA at [facility] [place]) A. EF of 40-45% by echocardiography 12/2022, with inferolateral hypokinesis; moderate [...] post 8 cycles of R-CHOP with approximately 400mg per metered square of Adriamycin. 5. Hyperlipidemia. 6. Hypertension. 7. 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 8. Dilated ascending aorta measuring 4.[address] scan 12/2021 and echo 07/2022 measuring 5.1 cm. 9. S/P Cardio Mems with worsening CHF and renal dysfunction." per Dr. Reyes Procedure History Procedure Procedure Date Comments Cardiac echo - CONCLUSIONS History of bicuspid aortic valve; S/P stented bioprosthetic aortic valve replacement.Severely dilated left ventricle (by LV diastolic [...] Dilated right ventricle with mildly reduced systolic function(TV annulus s' is 8 cm/sec). Dilated aortic root (4.9 cm) and ascending aorta (5.0 cm). Well-seatedstented bioprosthetic aortic valve replacement. Mild to moderate aortic stenosis (AV peak velocity is 2.3 m/s, MG is 11, LVOT/AV ratio is 0.28 and the SUSY is 1.5 cm squared). Mild to moderate mitral regurgitation. Mild pulmonary hypertension (PA systolic pressure is 32 mmHg). *Compared to the previous study performed 03/22/2016, there is no significant cunningham Excision 11/28/2022 Chest X-ray 01/17/2022 - Impression: No significant change compared to the prior study. No acute process. History of combination internal cardiac defibrillator and pacemaker 01/2021 ECHO TRANSTHORACIC 07/19/2020 - CONCLUSIONS History of bicuspid aortic valve; S/P stented bioprosthetic aortic valve replacement.Severely dilated left ventricle (by LV diastolic [...] (5.0 cm) and aortic arch (3.8 cm). Well- seated stented bioprosthetic aortic valve replacement. Moderate aortic stenosis (AV peak velocity is 2.96 m/s, MG is 17 mmHg and the LVOT/AV TVI atio is 0.20). Mild to moderate mitral regurgitation. Trace to mild tricuspid regurgitation. Normal estimated pulmonary artery pressure. Compared to the previous study performed 05/19/2019, there is no significant change. Colonoscopy 07/11/2020 - DIVERTICULOSIS IN THE SIGMOID COLON NO SPECIMEN COLLECTED . Colonoscopy 07/11/2020 - Diverticulosis in the sigmoid colon.No specimens collectedDischarge patient to homeRepeat colo in[address] of abdomen and pelvis with contrast 04/12/2019 - 1. No acute intra-abdominal or pelvic findings2. No evidence of bowel obstruction. No evidence offree air.3. No evidence of pathologic adenopathy. Barium enema 10/11/2015 - demonstrates a normal bowel gas pattern, visualization of the colon was adequate with reflux intosnall bowel. There is extensive sigmoid diverticulosis. No suspicious mucosal lesions are identified. [place] LPN- PT aware Facial bones X-ray 04/28/2015 - multiple radiopaque foreign bodies. One of these lies in close proximity to the left orbit. CT isrecommended for better localization Transesophageal echocardiogram 02/2015 Echocardiogram 02/14/2015 - CONCLUSIONS History of bicuspid aortic valve; S/P stented bioprosthetic AV replacement.Severely dilated left ventricle (by LV diastolic volume index). Moderately reduced LV systolic function. Akinesis of the inferior, basal and mid inferoseptal, anteroseptum and basal and mid inferolateral nair.The remaining nair are hypokinetic. Ejection fraction is 35-40% by biplane Noland's method and LVstrain. 3D imaging was done for educational purposes [...] 08/01/2014, there is no significant change. Consider HERMINIA to assess the AoV leaflets. Coronary angiography 10/20/2013 CABG x 4 and AVR (Porcine) 09/11/2011 Stress ECHO--ABNL (EATON)--Abnormal 09/04/2011 - ABNL Stress ECHO 08/06/2011 Echocardiogram 08/02/2011 - CONCLUSIONS History of bicuspid aortic valve; S/P stented bioprosthetic AV replacement.Severely Dilated left ventricle with mildly reduced systolic function. Ejection fraction is 40%. Confirmed by simpsons and LV strain Akinesis of the inferior, inferolateral and basal and mid inferoseptal nair.Hypokinesis of the remaining nair. No left ventricular hypertrophy. Grade I diastolic dysfunction of the left ventricle (impaired relaxation pattern). Indeterminate E/e' ratio (9). Dilated right ventricle with mildly reduced systolic function. TAPSE is mildly reduced (1.3 cm). Normal pulmonary artery pressures. Dilated aortic root (5.1 cm). Dilated ascending aorta (5.0 cm). History of bicuspid ao rtic valve; S/P 29 mm stented prosthetic AoV [...] images. The study was reviewed with the [facility] lab as well. RIGHT PORT REMOVED 03/17/2006 ECHO--01/18, 03/2005, annually x 2006 03/17/2005 RIGHT SIDED PORT placed 02/14/2005 COLONOSCOPY --WNL 04/17/2003 Nevus BACK-Benign 12/15/2001 Cadiolyte 03/17/1996 Lipoma head 03/17/1970 Appendectomy 03/17/1964 T & A 03/17/1950 Surgical History: _ As below Family History: _ Mother: CAD Father: MT Maternal grandmother" MT Social History: _ Denies any illicit drug use, does not use alcohol and lives with his Allergies and Sensitivities: NKA Current Home Meds: (Last Updated 12/10 15:06) amiodarone (amiodarone 200 mg oral tablet) 200 mg PO bid amoxicillin (amoxicillin 500 mg oral capsule) 2,000 mg PO As indicated one hour before dental and other procedures as directed ascorbic acid-carbonyl iron (Vitron-C) ascorbic acid (Vitamin C) 1,000 mg PO Daily aspirin (Aspirin Low Dose 81 mg oral delayed release tablet) 81 mg PO Daily benzonatate (Tessalon 200 mg oral capsule) 200 mg PO tid bifidobacterium-lactobacillus (Probiotic 10 Ultra Strength oral capsule) bumetanide (Bumex 1 mg oral tablet) 1 mg PO bid ACTION PLAN: Increase to 2 tabs twice daily if experiencing wt gain/HF symptoms cholecalciferol (Vitamin D3) empagliflozin (Jardiance 10 mg oral tablet) 10 mg PO Daily magnesium aspartate metoprolol (metoprolol succinate 50 mg oral tablet, extended release) 50 mg PO qhs multivitamin (MVI-12) PO Daily nitroglycerin (nitroglycerin 0.4 mg sublingual tablet) 0.4 mg SL q5min PRN: as needed for chest pain not to exceed 3 doses/15 min--if pain persists, seek medical attention omega-3 polyunsaturated fatty acids (Fish Oil 1000 mg oral capsule) rivaroxaban (Xarelto 15 mg oral tablet) 15 mg PO qPM rosuvastatin (Crestor 5 mg oral tablet) 5 mg PO qhs sacubitril-valsartan (Entresto 24 mg-26 mg oral tablet) 1 tab PO bid spironolactone (spironolactone 25 mg oral tablet) 12.5 mg PO Daily turmeric (turmeric 1000 mg oral capsule) 1,000 mg PO Daily ubiquinone (ubiquinone 200 mg oral capsule) 1 cap PO Daily Vitals: Last Updated 12/11/23 19:50 Weights: Last Updated 12/11/23 13:48 Date Temp Pulse BP RR SpO2 FIO2 Date Wt(kg) Wt(lb) 12/10 19:50 66 197/47 18 95 12/10 13:48 82.3 181 12/10 18:50 65 18 94 12/10 13:48 82.3 181 12/10 17:50 65 18 95 12/10 16:50 68 18 95 12/10 15:50 71 18 94 24 Hr Tmax: 36.4 at 12/10 14:50 Initial Wt: 12/10 82.3 kg 181 lb Physical Exam: General: In no acute distress, pleasant. HEENT: AT/NC, MMM. Neck: No JVD, no palpable anterior cervical lymphadenopathy Cardiac: Regular rate and rhythm, normal S1-S2, no murmurs, rubs, or gallops. Nondisplaced PMI. Lungs: Clear to auscultation bilaterally, no crackles, no wheezes, Abdomen: Normoactive bowel sounds, soft, nondistended, nontender. Extremities: 2+ peripheral pulses intact in the upper and lower extremities. No peripheral edema. Skin: Warm and well-perfused. Neuro: Alert and oriented to self, place, time and situation. No focal logical deficits. Psych: Normal mood and affect Most Recent 24 Hour CBC/BMP Results CBC: on 12/11/2023 14:57 CMP: on 12/11/2023 14:57 13.4 132 93 74 7.8 126 99 41.9 6.0 23 3.08 Abs Neut = 5.7 Ca = 9.8 Most Recent 24 Hour Labs: 12/11/23 1712 Bact (u) See Flowsheet Bili (u) See Flowsheet Ketones NEGATIVE Leuk Est See Flowsheet Nitrite (u) See Flowsheet Appear (u) See Flowsheet Color (u) See Flowsheet Glu (u) NEGATIVE Hgb (u) See Flowsheet pH (u) 5.0 Prot (u) 100 RBC (u) 0-4 Urobili 0.1-1.0 SG 1.016 WBC (u) 0-4 Hyaline Casts (u) See Flowsheet Squamous Epithelial Cells (u) See Flowsheet 12/11/23 1639 Troponin T ( 5th Gen) 42 H Troponin T ( 5th Gen) Delta See Flowsheet K 5.7 H 12/11/23 1548 Estimated CrCl 20.41 12/11/23 1457 MCH 31.2 MCHC 32.0 MCV 97.7 H RBC 4.29 L MPV 11.6 Immature Gran% 0.3 Neut% 72.9 Lymph% 13.5 Catron% 10.9 Baso% 0.6 Eos% 1.8 Immat Gran, Abs 0.02 Lymph, Abs 1.06 Catron, Abs 0.85 Baso, Abs 0.05 Eos, Abs 0.14 Type of Diff: See Flowsheet RDW 16.3 H BNP, NT-Pro 62709 H Anion Gap 16 H eGFR CKD-EPI 20 L INR 2.6 H PT 28.7 H Respiratory Virus Panel, by PCR Final: Alk Phos 71 ALT 36 AST 25 T Bili 1.8 H Alb 4.0 Prot 6.6 Studies: Pending or Completed in the Last 24 Hours EKG (PRN) Ordered XR Chest 2 Views Completed EKG (ED) Completed EKG (ED) Completed Device Check/Reprogram Completed Cardiac History 04/15/2023: Right Heart Cath, Pulmonary Artery Sensor Deployment, US Guided Vascular Access, and Left pulmonary angiography (CPT 37809) Impression * Successful pulmonary artery sensor deployment (CardioMEMS) within a left inferoposterior branch. * Resting hemodynamics demonstrated mildly elevated right (mRAP 7 mmHg) and severely elevated left (PCWP 26mmHg) heart filling pressures. Mean pulmonary arterial pressure was moderately increased (mPAP 35mmHg). Cardiac index was severely reduced by Susan (CI 1.7 L/min/m2). * Uncomplicated right common femoral venous sheath placement (12Fr; Perclose x2). 01/15/2024: Left Heart Cath, Right Heart Cath, Coronary Angiography, Bypass Graft Angiography, and US Guided Vascular Access Impression * Severe multivessel coronary artery disease. There is 50% in-stent restenosis within the distal left main stent and 80% stenosis of the proximal LAD. The mid- LAD, ostial LCx, and distal RCA are chronically [...] reduced by the Susan equation (2.2 L/min/m2). * Uncomplicated right radial arterial access (6 Fr Slender sheath) and right internal jugular venous access (5 Fr sheath). ECHO Summary 1. Moderately dilated LV with moderately reduced systolic function globally with inferior and inferolateral wall hypokinesis. There is paradoxical septal wall motion. 2. Estimated ejection fraction 40-45%. 3. No left ventricular hypertrophy. 4. Right ventricular dilation with reduced systolic function. 5. Device lead in the right heart chambers. 6. Moderately dilated left atrium size. 7. Right atrial dilation. 8. Mildly to moderately dilated aortic root. 9. Mild tricuspid regurgitation. 10. H/o 29 mm Perez II bioprosthetic valve with increased gradients but preserved leaflet mobility (PAV 2.9 m/s, MG 18, DI 0.19). Mild to moderate prosthesis insufficiency that is likely not aaron-valvular. 11. Restricted mitral valve leaflets with moderate mitral regurgitation. 12. Mildly elevated pulmonary artery pressures, estimated PASP 41 mmHg. 13. Compared to the study of 07/2022, the MG across the aortic valve prosthesis has increased slightly and the prosthetic insufficiency is more prominent. The MR is also more prominent. The aortic root dimension is similar. ASSESSMENT: _The patient is a 78-year-old with a history of CAD, status post CABG x4 with bioprosthetic aortic valve replacement in 2011, and status post complex angioplasty and stenting of the ostial LAD and ostial ramus intermedius branch. He has no physical AV block but presents with a wide right bundle branch block and left anterior fascicular block, status post biventricular ICD, pulmonary artery sensor deployment (CardioMEMS) within a left inferoposterior branch (04/15/23). His other medical history includes non-Hodgkin's lymphoma, hyperlipidemia, and hypertension Systolic and diastolic CHF, chronic S/P CABG x4 CKD stage 3b Last TTE showed an EF of 40%, with moderately reduced global systolic function and inferior and inferolateral wall hypokinesis, along with right ventricular dilation and reduced systolic function. His presentation is likely due to progressive worsening of his end-stage heart failure. Device interrogation revealed BiV pacing at 94%. There have not been significant changes in his weight, but he continues to be dyspneic and has exercise intolerance. His BNP is elevated compared to his baseline, with worsening renal function. We plan to admit him and proceed with the following management plan: PLAN: _ 1. _start furosemide 5 mg/hour gtt 2. _start low dose milrinone 0.125 mcg/kg/min, likely will need a swan prior to initiating milrinone. 3. _will need nephrology consult in the AM 4. -repeat labs in the AM (CMP, BNP, troponin) 4. Code Status: _Will discuss upon arrival to the floor. Attending attestation I saw and examined the patient at the bedside . I have read the note and agree with the assessment and plan. Pt admitted to the HVICU. CI c/w cardiogenic shock On inotropic support Med management for now Pt is not a candidated for adv therapies due to his age and comorbidities. Electronic Signature on File CC: Stella Betancur MD [address] [place] [address] [address] [facility] [address] Electronically Reviewed/Signed by: Mj Castano MD Author Signature Dt/Tm:12/11/2023 09:12 PM Resident [facility] [place] Electronically Reviewed/Signed by: Stella Betancur MD Cosigner Signature Dt/Tm: 12/12/2023 05:00 PM Division of Heart Failure Services [facility] Cardiology Consult note * MD Betancur Nandini: MODIFY MD Betancur Nandini: MODIFY, MODIFY, MODIFY DO Jack Joy: MODIFY Event Display: Cardiology Consult Authored Date: [id number] CARDIOLOGY INPATIENT CONSULT Name: JENIFFER MENA Jr. Patient Number: [id number] : 1945 Date of Admission: 12/11/2023 Date of Service: 12/12/2023 REQUESTING PHYSICIAN'S NAME: MD Almaraz Catherine REASON FOR CONSULTATION: Milrinone infusion management ASSESSMENT: Patient is a 78 y/o male with a cardiac h/o CAD (CABG x 4 in 2011), aortic valve replacement (bioprosthetic, 2011), mitral regurgitation, RBBB and Left anterior fascicular block s/p biventricular ICDplacement, CardioMEMS in the left inferoposterior branch (03/2023), HLD, CKD, non-Hodgkin lymphoma s/p R-CHOP who presented to the ED an acute CHF exacerbation and found to be in cardiogenic shock. HFteam consulted for milrinone infusion management. RECOMMENDATIONS: _ 1 ) Continue current milrinone infusion rate 2 ) Continue diuretic infusion HPI: Patient is a 78 y/o male with a cardiac h/o CAD (CABG x 4 in 2011), aortic valve replacement (bioprosthetic, 2011), mitral regurgitation, RBBB and Left anterior fascicular block s/p biventricular ICDplacement, CardioMEMS in the left inferoposterior branch (03/2023), HLD, CKD, non-Hodgkin lymphoma s/p R-CHOP who presented to the ED with shortness of breath. Patient reports having progressive shortness of breath over the past month. It progressed to the point he was unable to lay flat to sleep atnight. He also noted an increase in his abdominal width but denies having any chest pain, nausea, headaches, dizziness, fevers or chills. He reports having prior admissions for the same, last in 02/2023. In the ED patient was noted to have an elevated K 6.0, BUN/Cr at [id number], 3.08, BNP of 23,938, Troponin delta negative at 42. Chest x ray showed a small left pleural effusion and adjacent atelectasis. Patient received Lasix and was admitted to the HVICU where a swan ansley catheter was placed and noted to have a low CI of 1.2, patient was started on an infusion of bumex, milrinone, and vasopressin. Notably, most recent echo on 03/04/24 showed an EF of 30-35% with severely dilated LV with moderately reduced systolic function, grade II diastolic dysfunction (Echo in 07/2022 with EF of 38%). PAST MEDICAL HISTORY: Problems: CKD stage 3b, GFR 30-44 ml/min Cardiac defibrillator in place Elevated brain natriuretic peptide (BNP) level Systolic and diastolic CHF, chronic Groin hematoma Electrolyte disturbance Hyperlipidemia Abnormal prostate exam Cardiomyopathy Elevated serum lactate dehydrogenase (LDH) S/P CABG x 4 Dilated aortic root S/P coronary artery stent placement AVR - Aortic valve replacement Prediabetes, prediabetic Ureteral filling defect Family history of early CAD ED (erectile dysfunction) AK (actinic keratosis) Epididymal cyst DDD (degenerative disc disease) LVH (left ventricular hypertrophy) Atherosclerotic heart disease of [place] coronary artery without angina pectoris Unspecified systolic (congestive) heart failure Heart disease, hypertensive, with heart failure [facility] Hospital Day: 1 Surgical Hospital Day/Procedure: No procedures found MEDICATIONS: Active Inpt Meds: amiodarone 200 mg PO bid ascorbic acid (Vitamin C) 1,000 mg PO Daily aspirin 81 mg PO Daily bifidobacterium-lactobacillus (Florajen Digestion) 1 cap PO Daily docusate (docusate sodium) 100 mg PO bid guaiFENesin (guaiFENesin extended release) 600 mg PO bid multivitamin 1 tab PO Daily mupirocin topical (mupirocin 2% nasal ointment) 1 appl each nostril bid pantoprazole (Protonix) 40 mg PO Daily rosuvastatin (Crestor) 5 mg PO qhs senna 8.6 mg PO bid Active PRN Meds: acetaminophen 1,000 mg PO q6h bisacodyl (Dulcolax Laxative (vegetable base) 10 mg rectal suppository) 10 mg DE Daily calcium gluconate 2,000 mg IV As indicated lidocaine topical (LMX 4 topical cream) 1 appl topical Pre Event magnesium sulfate 2,000 mg IV As indicated magnesium sulfate 4,000 mg IV As indicated melatonin (Melatonin) 3 mg PO qhs oxyCODONE 5 mg PO q4h Active IV Meds: bumetanide 25 mg [1 mg/HR] + diluent for drips 100 mL (bumetanide for infusion 25 mg [1 mg/HR] + diluent (normalized drips) 100 mL) 100 mL 4 mL/HR milrinone 20 mg [0.25 mcg/kg/min] + Dextrose 5% in Water 100 mL (milrinone for infusion 20 mg [0.25mcg/kg/min] + dextrose 5% (normalized drips) 100 mL) 100 mL 5.53 mL/HR vasopressin 20 unit [0.04 unit/min] + Dextrose 5% in Water 100 mL (vasopressin for infusion 20 unit[0.04 unit/min] + dextrose 5% (normalized drips) 100 mL) 100 mL 12 mL/HR Allergies and Sensitivities: NKA SOCIAL HISTORY: Does not smoke FAMILY HISTORY: Mother with CAD, Father with MT, Maternal grandmother with MT ROS: (Jacques with an X to the left of the System if asked and negative; otherwise detail under Symptoms) System Symptoms (details) _ Constitutional _ _ Eyes _ _ Ears, Nose, Mouth, Throat _ _ Cardiovascular _ _ Respiratory _ _ Genitourinary _ _ Gastrointestinal _ _ Musculoskeletal _ _ Skin _ _ Neurologic _ _ Psychiatric _ _ Endocrine _ _ Hematologic/Lymphatic _ _ Allergic/Immunologic _ VITAL SIGNS AND EXAM: Vitals Temp Pulse BP RR SpO2 FIO2 Date Wt(kg) Wt(lb) 12/11 15:00 36.8 90 ----- 20 97 12/11 73.3 161 12/11 14:00 36.7 92 ----- 18 97 12/10 73.7 162 12/11 13:00 36.6 93 ----- 17 96 12/10 73.7 162 12/11 12:00 36.8 67 ----- 18 95 12/10 82.3 181 12/11 11:00 36.6 62 ----- 19 98 12/10 82.3 181 24 Hr Tmax: 37 at 12/10 23:00 36 Hr Tmax: 37 at 12/10 23:00 Vital Signs are the last 5 in the past 48 hours. Weights display the last 5 within 7 days. Initial Wt: 12/10 kg 181 lb Recorded Input Output Balance 12/11 7a-3p 868 2800 -1931 3p-11p 0 325 -325 11p-7a 0 0 0 24 Total 868 9579 -1042 12/10 7a-3p 0 0 0 3p-11p 406 0 406 11p-7a 816 1820 -1003 24 Total 1222 1820 -597 Refer to the I-VIEW - I and O tab for details Physical Exam: General: No acute distress. HEENT:Normocephalic, atraumatic.Mucous membranes moist. Neck:Unable to elicit elevated JVD Cardiac:Regular rate and rhythm. systolic murmur LUSB, RUSB. Lungs:Minimal bilateral lower lungcrackles. CTA anteriorly Abdomen:Soft, distended, non-tender with no rebound/rigidity/guarding. Extremities:No edema. Neuro: Alert and oriented x3.. Skin:Warm and well perfused. Psych:Pleasant. Euthymic mood. Normal affect. LABS: Most Recent Lab Results over the last 24 Hours: CBC: on 12/12/2023 03:25 BMP: on 12/12/2023 03:25 11.8 130 93 74 8.0 112 123 36.0 4.3 19 2.75 Ca = 8.7 eGFR CKD-EPI: 23 Most Recent 24hr Labs as of 12/11 1106 Temp(v) 36.7 Base XS(v) 3.7 HCO3(v) 28.5 H Hgb(v) 12.0 SaO2(v) 58.5 pCO2(v) 43.0 pH(v) 7.430 pO2(v) 32.0 O2 Flow (v) 2 Lactate, Whole 1.2 12/11 0650 Estimated CrCl 23.08 12/11 0325 Request of Phys See Flowsheet Action Taken See Flowsheet Hgb(a) 12.6 HCO3(a) 22.2 SaO2(a) 99.4 H pCO2(a) 32.0 L pH(a) 7.450 pO2(a) 119.0 H Temp(a) 36.6 Base Deficit 1.1 O2 Flow (a) ROOM AIR MCH 31.0 MCHC 32.8 MCV 94.5 RBC 3.81 L MPV 11.5 RDW 15.9 H Anion Gap 18 H Ion Ca 1.13 L Mg 3.2 H PO4 5.7 H eGFR CKD-EPI 23 L Alk Phos 62 ALT 30 AST 22 D Bili 0.5 H T Bili 1.6 H Alb 3.7 Prot 5.9 L 09/26 2235 Base Defic(v) 0.7 INR 2.2 H PT 24.9 H PTT 35 Free T4 REQUEST CREDITED TSH REQUEST CREDITED Iron REQUEST CREDITED Ferritin REQUEST CREDITED Fe Sat REQUEST CREDITED Total IBC REQUEST CREDITED Transferrin REQUEST CREDITED 12/11 2111 MRSA Surveillan See Flowsheet 12/10 1712 Bact (u) See Flowsheet Bili (u) See Flowsheet Ketones NEGATIVE Leuk Est See Flowsheet Nitrite (u) See Flowsheet Appear (u) See Flowsheet Color (u) See Flowsheet Glu (u) NEGATIVE Hgb (u) See Flowsheet pH (u) 5.0 Prot (u) 100 RBC (u) 0-4 Urobili 0.1-1.0 SG 1.016 WBC (u) 0-4 Hyaline Casts ( See Flowsheet Squamous Epithe See Flowsheet 12/10 1639 Troponin T ( 5t 42 H Troponin T ( 5t See Flowsheet OTHER LABS: RELEVANT IMAGING: Chest x-ray 12/11/23 COMPARISON: 2023 FINDINGS: Right pectoral pacemaker with leads within the right atrium, ventricle, and coronary sinus. Intravascular monitoring device overlying the left pulmonary artery. Cardiac valve prosthesis. Reduction of now small left pleural effusion with left basilar atelectasis. No pneumothorax or right pleural effusion. Moderate cardiomegaly, unchanged. Mediastinal contours are unchanged. There are atherosclerotic calcifications of the aorta. No acute osseous abnormality. Intact midline sternotomy wires. IMPRESSION: 1. Reduction of a now small left pleural effusion with adjacent atelectasis. 2. Moderate cardiomegaly, unchanged. TTE 02/2023 Summary 1. Failed 2D images were enhanced with Definity per lab protocol. 2. Severely dilated left ventricle with moderately reduced systolic function. 3. Estimated Ejection Fraction 30-35%. 4. Diffuse hypokinesis, with inferior, inferolateral, and lateral akinesis. 5. No left ventricular hypertrophy. 6. Grade II diastolic dysfunction of the left ventricle (pseudonormal filling pattern). 7. Right ventricular dilation with reduced systolic function. 8. Moderately dilated aortic root. 9. Aortic valve replacement (29 mm Perez II bioprosthesis, 2012, [facility]) . No significant stenosis. Moderate aortic regurgitation. 10. Mitral annular calcification with restricted leaflet motion. Mild to moderate mitral regurgitation. No significant mitral stenosis. 11. Moderate tricuspid regurgitation. 12. Moderately elevated pulmonary artery pressures, estimated PASP 52 mmHg. 13. Compared to prior study from 01/14/2023, LV systolic function appears less vigorous. Regional wall motion abnormalities appear similar. Valvular disease appears similar. RELEVANT CULTURES: I saw and examined the patient at the bedside . I have read the note and agree with the assessment and plan. Improving on inotropic support Will continue current management If renal function tolerates Pt may need home milrinone continuous infusion support Electronic Signature on File Electronically Reviewed/Signed by: Elizabeth Jack DO Resident Department of Anesthesia Electronically Reviewed/Signed by: Stella Betancur MD Cosigner Signature Dt/Tm: 12/12/2023 05:54 PM Division of Heart Failure Services [facility] Palliative care Consult note * GREGG Alfaro Kira L: MODIFY, PERFORM, MODIFY Event Display: Palliative Care Consult Authored Date: [id number] PALLIATIVE CARE INPATIENT CONSULTATION REPORT Name:JENIFFER MENA Jr. Patient Number:[id number] :1945 Requesting Service/Attending:Cardiology Reason for Consultation:Complex medical decision making Chief Complaint pt with chf c/o worsening sob, unable to sleep at night, increased swelling History of Present Illness Patient is a78 year old man with PMHCAD s/p significantcardiac interventions,wide R bundle branchblock and L anterior fascicular block s/p biventricular ICD, HFrEF, non-Hodgkin's lymphoma in 2004, HLD, and HTN who presents withincreasing shortness of breath, orthopnea, andexercise into lerance and was found to be in cardiogenic shock requiring milrinone and vasopressin.Patient's outpatient oil and gas drafter previously informed him that he is in end-stage heartfailure and reviewed potential interventionof CCM, high risk angioplasty, and palliative approach with eventual transition to hospice.Palliative care was consulted for goals of care. Met with patient and his at bedside. Patient endorses significant shortness of breath with minimal exertion that has been worsening over the past few weeks, in addition to a dry hacking cough. During visit he had an occasional dry cough. His reports his coughing has been bad enough to keep him up at night over the past weeks, for which he has been taking Tessalon and codeine. Reports sig nificant bloating related to fluid retention likely increasing his shortness of breath, as well as a very decreased appetite.Discussed his condition and thefact that limited interventions would be available with uncertainty regarding the effectiveness of the proposed interventions. Patient verbalized that he would want to weigh therisksand benefitscarefully, as he wants to focus primarily on the quality of his remaining life rather than the quantity.His goal is to be able to walk around his property and ride around on his tractor.Patient currentlydenies pain, shortness of breath during visit. 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 Goals of care- As above Communication Preferences-Accepts straight forward communication regarding disease progression, treatment and prognosis Prognosis-Overall poor with likely repeat hospitalizations due to exacerbations if patient does notchoose to proceed with a comfort-based approach Decision Making Capacity-Intact Advance Directives-Reports completing living will; no copy on file Level of Support-Currently Full Code Functional Status-Independent for all ADLs, activity significantly limited by dyspnea Spirituality- Scientologist Gospel, declines building services technician services Social-Patient lives with his and their 2 cats. They have 2 adult sons, 1 in [place] and 1 in [place], as well as 4 grandchildren. 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 He enjoys cutting wood,hunting deer, driving tractor, reading, spending time outdoors, and sitting on [place]. His goal is to be able to get back to some of that outdoor activity, but also wishes to prioritize quality over quantity of life. Review of Systems ROS: Pertinent review of systems listed above in clinical update;all others reviewed and negative. Physical Exam Vitals & Measurements T:36.7C TMIN:36.3C TMAX:37C HR:92(Monitored) RR:18 BP:94/45 BP:101/38(Line) SpO2:97% Oxygen Flow:2(L/Min) Oxygen Therapy:Room Air WT:73.3kg Input and Output - Last 24 hours (Last 8 hours) Total In: 1881 (710) Total Out: 4620 (2800) Total Balance: -2739 (-2090) bumetanide for infusion 25 mg [1 mg/HR] + diluent (normalized drips) 100 mL:125 (110) 12/11/2023 Indwelling Urethra:4620 (2800) Cardiac Output Volume:300 (0) MED INTAKE:16 (0) Oral Fluids:1440 (600) GENERAL:In no acute distress;ill appearing EYES:No scleral icterus;normal lids, no lid-lag, no discharge ENT: Atraumatic LUNGS:normal respiratory effort,no intercostal retractions HEART:Regular rate and rhythm with normal S1 and S2.No peripheral edema ABDOMEN: Soft,nontender,non-distended. SKIN: No rashes are noted on visible skin. Normal temperature, turgor and texture MSK:no sarcopenia PSYCH:no significant depression,no anxiety;no evidence of delirium;oriented to person, place and time NEURO:Moving all four extremities. HEM/LYMPH/IMM: No large areas of bruising noted. Assessment/Plan 1.Heart failure Patient is a78 year old man with PMHCAD s/p significantcardiac interventions,wide R bundle branchblock and L anterior fascicular block s/p biventricular ICD, HFrEF, non-Hodgkin's lymphoma in 2004, HLD, and HTN who presents withincreasing shortness of breath, orthopnea, andexercise into lerance and was found to be in cardiogenic shock requiring milrinone and vasopressin. -Illness that posesthreat to life/bodily function -Continue management by Cardiology/HVICU teams -Follows with Dr. Reyes outpatient 2.Shortness of breath Currently improved, overall has been worsening and becomes quite significant with minimal exertion -Consider oxycodone 5 mg poq4h prndyspnea 3.Counseling regarding advance directives and goals of care -Patient reports having HCPOA/Living Will naming as healthcare agent but unsure of what Living Will indicates--copy requested for chart -Patient interested in further intervention if they will improve his quality of life without significant risk/burden -Goal is to be able to walk his property and drive his tractor again without significant dyspnea -Prioritize quality over quantity of life -Full code--did not address today 4.Palliative care encounter Palliative care will continue to follow this patient throughout his hospitalization -Patient was in process with referral to palliative medicine at [facility] per outpatient cardiology notes Attestation Thank you for allowingcollaborative care on this patient. I can be reached via [employer]. Palliative care will continue to follow throughouthisstay. GREGG Israel I, GREGG Israel, [id number] of my time caring for this patient on this date of service. Activities included: x_ review of the medical record x_ obtaining history x_ physical exam/evaluation x_ discussion with/counseling/educating patient/family/caregiver x_ discussion/referral to other healthcare professional x_ documenting care in the medical record x_ independent interpretation of results and communication of results to patient/family/caregiver _ coordination of care Problem List/Past Medical History Ongoing Abnormal prostate exam AK (actinic keratosis) Atherosclerotic heart disease of [place] coronary artery without angina pectoris AVR - [...] Date: 07/19/2020olonoscopy| Service Date: 07/11/2020olonoscopy| Service Date: 07/11/2020T of abdomen and pelvis with contrast| Service [...] & A| Service Date: 1Cardiac echo Medications Inpatient acetaminophen, 1000 mg= 2 tab, PO, q6h, PRN amiodarone, 200 mg= 1 tab, PO, bid ascorbic acid(Vitamin C), 1000 mg= 2 tab, PO, Daily aspirin, 81 mg= 1 tab, PO, Daily bifidobacterium-lactobacillus(Florajen Digestion), 1 cap, PO, Daily bisacodyl(Dulcolax Laxative (vegetable base) 10 mg rectal suppository), 10 mg= 1 supp, DE, Daily, PRN bumetanide 25 mg [1 mg/HR] + diluent for drips 100 mL(bumetanide for infusion 25 mg [1 mg/HR] + diluent (normalized drips) 100 mL), 100 mL, Rate: 4 mL/HR, Order Calculation Weight: 82.3 kg, IV Drip, STAT, 12/11/23 22:42:00 EDT, 60 day, Hard Stop, 02/09/24 22:41:00 EST calcium gluconate, 2000 mg= 100 mL, IV, As indicated, PRN docusate(docusate sodium), 100 mg= 1 cap, PO, bid guaiFENesin(guaiFENesin extended release), 600 mg= 1 tab, PO, bid lidocaine topical(LMX 4 topical cream), 1 appl, topical, Pre Event, PRN magnesium sulfate, 2000 mg= 50 mL, IV, As indicated, PRN magnesium sulfate, 4000 mg= 100 mL, IV, As indicated, PRN melatonin(Melatonin), 3 mg= 1 tab, PO, qhs, PRN milrinone 20 mg [0.25 mcg/kg/min] + Dextrose 5% in Water 100 mL(milrinone for infusion 20 mg [0.25 mcg/kg/min] + dextrose 5% (normalized drips) 100 mL), 100 mL, Rate: 5.53 mL/HR, Order Calculation Weight: 73.7 kg, IV Drip, Routine, 12/11/23 22:42:00 EDT, 60 day, Hard Stop, 02/09/24 23:41:00 EST multivitamin, 1 tab, PO, Daily mupirocin topical(mupirocin 2% nasal ointment), 1 appl, each nostril, bid oxyCODONE, 5 mg= 1 tab, PO, q4h, PRN pantoprazole(Protonix), 40 mg= 1 tab, PO, Daily rosuvastatin(Crestor), 5 mg= 1 tab, PO, qhs senna, 8.6 mg= 1 tab, PO, bid vasopressin 20 unit [0.04 unit/min] + Dextrose 5% in Water 100 mL(vasopressin for infusion 20 unit [0.04 unit/min] + dextrose 5% (normalized drips) 100 mL), 100 mL, Rate: 12 mL/HR, Order Calculation Weight: 73.7 kg, IV Drip, Routine, 12/12/23 2:24:00 EDT, 60 day, Hard Stop, 02/10/24 3:23:00 EST Home amiodarone(amiodarone 200 mg oral tablet), 200 mg= 1 tab, PO, bid, 11 refills amoxicillin(amoxicillin 500 mg oral capsule), 2000 mg= 4 cap, PO, As indicated, 3 refills ascorbic acid(Vitamin C), 1000 mg, PO, Daily ascorbic acid-carbonyl iron(Vitron-C) aspirin(Aspirin Low Dose 81 mg oral delayed release tablet), 81 mg= 1 tab, PO, Daily benzonatate(Tessalon 200 mg oral capsule), 200 mg= 1 cap, PO, tid, 1 refills bifidobacterium-lactobacillus(Probiotic 10 Ultra Strength oral capsule) bumetanide(Bumex 1 mg oral tablet), 1 mg= [...] mg= 0.5 tab, PO, Daily, 3 refills turmeric(turmeric 1000 mg oral capsule), 1000 mg= 1 cap, PO, Daily ubiquinone(ubiquinone 200 mg oral capsule), 1 cap, PO, Daily, 11 refills Allergies NKA Social History Smoking Status Never smoked cigarettes Alcohol Use:Current Type:Beer, Wine, Liquor Frequency:1-2 times per week Average drinks per episode in last year:1 Employment/School Status:Retired Description:[employer] Exercise Duration (average number of minutes):45 Times per week:Daily Exercise type:Walking Home/Environment Lives with:Spouse Nutrition/Health Type of diet:regular Substance Abuse - Denies Substance Abuse Tobacco - Denies Tobacco Use Family History Alive and well: Brother, Son and Son. Angina: Father. CAD (coronary artery disease): Mother. Cancer: PGM. Cardiovascular disease: Mother. MT (myocardial infarction): Father and MGM. Smoker.: Father. Health Status Family Member(s) Family Member(s) Relationship: Mother, Age: 76 Years, Cause: CHF/ SLE Relationship: Father, Age: 62 Years, Cause: MT/ Smoker Lab Results BMP: Date Na K Cl HC03 BUN Cret Glu Ca 12/12/2023 03:25 130 4.3 93 19 74 2.75 123 8.7 12/11/2023 22:34 132 5.4 94 23 79 2.86 137 9.4 12/11/2023 14:57 132 6.0 93 23 74 3.08 99 9.8 CBC: Date WBC Hgb Hct Plts Neut, Abs 12/12/2023 03:25 8.0 11.8 36.0 112 12/11/2023 14:57 7.8 13.4 41.9 126 5.7 ICa:1.13 M.2 Phos:5.7 Date: PT: PTT: INR: 12/11/23 22:35 24.9 35 2.2 12/11/23 14:57 28.7 2.6 Electronic Signature on File Electronically Reviewed/Signed by: Ginette Alfaro Author Signature Dt/Tm:12/12/2023 02:54 PM Division of Palliative Care Electronically Reviewed/Signed by: Ginette Alfaro Cosigner Signature Dt/Tm: 12/15/2023 12:37 PM Division of Palliative Care KLT EP Inpt Consult * MD Omaira, Mj N: MODIFY, PERFORM, MODIFY, MODIFY, MODIFY, MODIFY, MODIFY Event Display: EP Inpt Consult Authored Date: [id number] ELECTROPHYSIOLOGY INPATIENT CONSULTATION REPORT Name: JENIFFER MENA Jr. Patient Number: [id number] : 1945 Date of Service: 12/12/2023 REQUESTING SERVICE: _ HVICU REASON FOR CONSULTATION: _ Evaluation for CCM and possible pacemaker rate adjustment. ASSESSMENT: _ Mr. Mena is a 78-year-old male with a medical history of coronary artery disease (CAD) status post coronary artery bypass grafting (CABG) x4 (CARBONE to LAD, SVG to PDA, SVG to ramus andobtuse marginal branch), bioprosthetic aortic valve replacement in 2011, status post stenting of the ostial LAD and ostial ramus intermedius branch, long first-degree AV block with a wide right bundle branch block and left anterior fascicular block, status post Biotronik biventricular defibrillatorimplantation on 11/29/[address] Daugherty. He also has a history of pulmonary artery sensor deployment(CardioMEMS) within the left inferoposterior branch (04/15/23), heart failure with reduced ejection f raction (HFrEF, 40-45%), and presented to the hospital due to early cardiogenic shock, now on bumetanide infusion, milrinone, and vasopressin. Electrophysiology (EP) was consulted for consideration of cardiac contractility modulation (CCM) and possible pacemaker rate adjustment. The patient is currently on optimized medical therapy for heart failure, a left ventricular ejection fraction of less than 40%. Patient is class IV heart failure at this moment and is not a candidatefor CCM. RECOMMENDATIONS: _ 1 ) _ no indication for CCM due to NYHA Class IV. 2 ) _recommend adjusting his pacemaker rate to 80 bpm. please page the device techs for assistance. Case was discussed with the attending on service. History of Present Illness: _ Mr. Mena is a 78-year-old male with a medical history of coronary artery disease (CAD) status post coronary artery bypass grafting (CABG) x4 (CARBONE to LAD, SVG to PDA, SVG to ramus and obtuse marginal branch), bioprosthetic aortic valve replacement in 2011, status post stenting of the ostial LAD and ostial ramus intermedius branch, long first-degree AV block with a wide right bundle branch block and left anterior fascicular block, status post Biotronik biventricular defibrillator implantation on 11/29/[address] Daugherty. He also has a history of pulmonary artery sensor deployment (CardioMEMS) within the left inferoposterior branch (04/15/23), heart failure with reduced ejection fraction (HFrEF, 40-45%), and presented to the hospital due to early cardiogenic shock, now on bumetanide infusion, milrinone, and vasopressin. Electrophysiology (EP) was consulted forconsideration of cardiac contractility modulation (CCM) and possible pacemaker rate adjustment. According to outpatient cardiology notes, Dr. Reyes discussed that Mr. Mena is currently at end-stage heart failure, and is considering either hospice care, CCM, or high-risk angioplasty and stenting of the left main into the diagonal branch. After review with interventional cardiology, the risks were deemed to outweigh the benefits due to worsening renal failure and overall prognosis. Regarding CCM, there are no documented notes on the consideration of this therapy by Dr. Daugherty. 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 Mr. Mena denies any chest pain, palpitations, dizziness, lightheadedness, fever, chills, nausea, or vomiting. Review Of Systems: _ 14 points review of systems negative except as above in the HPI. Past Medical History: _ As above. Surgical History: _ As below. Family History: _ Mother: CAD Father: MT Maternal grandmother" MT Social History: _ Denies any illicit drug use, does not use alcohol and lives with his Allergies and Sensitivities: NKA Active Inpt Meds: amiodarone 200 mg PO bid ascorbic acid (Vitamin C) 1,000 mg PO Daily aspirin 81 mg PO Daily bifidobacterium-lactobacillus (Florajen Digestion) 1 cap PO Daily docusate (docusate sodium) 100 mg PO bid guaiFENesin (guaiFENesin extended release) 600 mg PO bid multivitamin 1 tab PO Daily mupirocin topical (mupirocin 2% nasal ointment) 1 appl each nostril bid pantoprazole (Protonix) 40 mg PO Daily rosuvastatin (Crestor) 5 mg PO qhs senna 8.6 mg PO bid Active PRN Meds: acetaminophen 1,000 mg PO q6h bisacodyl (Dulcolax Laxative (vegetable base) 10 mg rectal suppository) 10 mg DE Daily calcium gluconate 2,000 mg IV As indicated lidocaine topical (LMX 4 topical cream) 1 appl topical Pre Event magnesium sulfate 2,000 mg IV As indicated magnesium sulfate 4,000 mg IV As indicated melatonin (Melatonin) 3 mg PO qhs One Time Meds: (Completed) bumetanide (Bumex) 2 mg w/ IV Push ONCE(Completed) furosemide (Lasix) 80 mg w/ IV Push ONCE Active IV Meds: bumetanide 25 mg [1 mg/HR] + diluent for drips 100 mL (bumetanide for infusion 25 mg [1 mg/HR] + diluent (normalized drips) 100 mL) 100 mL 4 mL/HR milrinone 20 mg [0.25 mcg/kg/min] + Dextrose 5% in Water 100 mL (milrinone for infusion 20 mg [0.25mcg/kg/min] + dextrose 5% (normalized drips) 100 mL) 100 mL 5.53 mL/HR vasopressin 20 unit [0.04 unit/min] + Dextrose 5% in Water 100 mL (vasopressin for infusion 20 unit[0.04 unit/min] + dextrose 5% (normalized drips) 100 mL) 100 mL 12 mL/HR Vitals: Last Updated 12/12/23 10:00 Weights: Last Updated 12/12/23 06:00 Date Temp Pulse BP RR SpO2 FIO2 Date Wt(kg) Wt(lb) 12/11 10:00 36.5 72 19 100 12/11 06:00 73.3 161 12/11 09:16 94/45 12/10 22:47 73.7 162 12/11 09:00 36.5 67 16 100 2.0L/m 12/10 21:33 73.7 162 12/11 08:00 36.5 70 15 100 4.0L/m 12/10 13:48 82.3 181 12/11 07:00 36.3 69 18 100 4.0L/m 12/10 13:48 82.3 181 24 Hr Tmax: 37 at 12/10 23:00 Initial Wt: 12/10 82.3 kg 181 lb Physical Exam: General: In no acute distress, pleasant. HEENT: AT/NC, MMM. Neck: No JVD, no palpable anterior cervical lymphadenopathy Cardiac: Regular rate and rhythm, normal S1-S2 Lungs: Clear to auscultation bilaterally, no crackles, no wheezes, Abdomen: Normoactive bowel sounds, soft, nondistended, nontender. Extremities: 2+ peripheral pulses intact in the upper and lower extremities. No peripheral edema. Skin: Warm and well-perfused. Neuro: Alert and oriented to self, place, time and situation. No focal logical deficits. Psych: Normal mood and affect Most Recent 24 Hour CBC/BMP Results CBC: on 12/12/2023 03:25 BMP: on 12/12/2023 03:25 11.8 130 93 74 8.0 112 123 36.0 4.3 19 2.75 Ca = 8.7 Most Recent 24 Hour Labs: 12/12/23 0811 Temp(v) 36.3 Base XS(v) 2.1 HCO3(v) 27.3 Hgb(v) 11.9 L SaO2(v) 60.4 pCO2(v) 44.0 pH(v) 7.400 pO2(v) 31.0 O2 Flow (v) 4 Lactate, Whole Blood 1.1 12/12/23 0650 Estimated CrCl 23.08 12/12/23 0325 Request of Physician See Flowsheet Action Taken See Flowsheet Hgb(a) 12.6 HCO3(a) 22.2 SaO2(a) 99.4 H pCO2(a) 32.0 L pH(a) 7.450 pO2(a) 119.0 H Temp(a) 36.6 Base Deficit 1.1 O2 Flow (a) ROOM AIR MCH 31.0 MCHC 32.8 MCV 94.5 RBC 3.81 L MPV 11.5 RDW 15.9 H Anion Gap 18 H Ion Ca 1.13 L Mg 3.2 H PO4 5.7 H eGFR CKD-EPI 23 L Alk Phos 62 ALT 30 AST 22 D Bili 0.5 H T Bili 1.6 H Alb 3.7 Prot 5.9 L 12/11/235 Base Defic(v) 0.7 INR 2.2 H PT 24.9 H PTT 35 Free T4 REQUEST CREDITED TSH REQUEST CREDITED Iron REQUEST CREDITED Ferritin REQUEST CREDITED Fe Sat REQUEST CREDITED Total IBC REQUEST CREDITED Transferrin REQUEST CREDITED 12/11/232111 MRSA Surveillance, on Admission See Flowsheet 12/11/23 1712 Bact (u) See Flowsheet Bili (u) See Flowsheet Ketones NEGATIVE Leuk Est See Flowsheet Nitrite (u) See Flowsheet Appear (u) See Flowsheet Color (u) See Flowsheet Glu (u) NEGATIVE Hgb (u) See Flowsheet pH (u) 5.0 Prot (u) 100 RBC (u) 0-4 Urobili 0.1-1.0 SG 1.016 WBC (u) 0-4 Hyaline Casts (u) See Flowsheet Squamous Epithelial Cells (u) See Flowsheet 12/11/23 1639 Troponin T ( 5th Gen) 42 H Troponin T ( 5th Gen) Delta See Flowsheet 12/11/23 1457 Immature Gran% 0.3 Neut% 72.9 Lymph% 13.5 Catron% 10.9 Baso% 0.6 Eos% 1.8 Immat Gran, Abs 0.02 Lymph, Abs 1.06 Catron, Abs 0.85 Baso, Abs 0.05 Eos, Abs 0.14 Type of Diff: See Flowsheet BNP, NT-Pro 77354 H Respiratory Virus Panel, by PCR Final: Studies: Pending or Completed in the Last 24 Hours XR Chest 1 View Ordered Echo TransTHORacic TTE Complete Ordered EKG (PRN) Ordered XR Chest 2 Views Completed XR Chest 1 View Completed XR Chest 1 View Completed EKG Completed EKG (ED) Completed EKG (ED) Completed Device Check/Reprogram Completed Cardiac History 04/15/2023: Right Heart Cath, Pulmonary Artery Sensor Deployment, US Guided Vascular Access, and Left pulmonary angiography (CPT 91322) Impression * Successful pulmonary artery sensor deployment (CardioMEMS) within a left inferoposterior branch. * Resting hemodynamics demonstrated mildly elevated right (mRAP 7 mmHg) and severely elevated left (PCWP 26mmHg) heart filling pressures. Mean pulmonary arterial pressure was moderately increased (mPAP 35mmHg). Cardiac index was severely reduced by Susan (CI 1.7 L/min/m2). * Uncomplicated right common femoral venous sheath placement (12Fr; Perclose x2). 01/15/2024: Left Heart Cath, Right Heart Cath, Coronary Angiography, Bypass Graft Angiography, and US Guided Vascular Access Impression * Severe multivessel coronary artery disease. There is 50% in-stent restenosis within the distal left main stent and 80% stenosis of the proximal LAD. The mid- LAD, ostial LCx, and distal RCA are chronically [...] reduced by the Susan equation (2.2 L/min/m2). * Uncomplicated right radial arterial access (6 Fr Slender sheath) and right internal jugular venous access (5 Fr sheath). ECHO Summary 1. Moderately dilated LV with moderately reduced systolic function globally with inferior and inferolateral wall hypokinesis. There is paradoxical septal wall motion. 2. Estimated ejection fraction 40-45%. 3. No left ventricular hypertrophy. 4. Right ventricular dilation with reduced systolic function. 5. Device lead in the right heart chambers. 6. Moderately dilated left atrium size. 7. Right atrial dilation. 8. Mildly to moderately dilated aortic root. 9. Mild tricuspid regurgitation. 10. H/o 29 mm Perez II bioprosthetic valve with increased gradients but preserved leaflet mobility (PAV 2.9 m/s, MG 18, DI 0.19). Mild to moderate prosthesis insufficiency that is likely not aaron-valvular. 11. Restricted mitral valve leaflets with moderate mitral regurgitation. 12. Mildly elevated pulmonary artery pressures, estimated PASP 41 mmHg. 13. Compared to the study of 07/2022, the MG across the aortic valve prosthesis has increased slightly and the prosthetic insufficiency is more prominent. The MR is also more prominent. The aortic root dimension is similar. Electronic Signature on File Electronically Reviewed/Signed by: Mj Castano MD Author Signature Dt/Tm:12/12/2023 12:11 PM Resident [facility] [place] Electronically Reviewed/Signed by: Everett Otero MD Cosigner Signature Dt/Tm: 12/12/2023 04:38PM Division of General Cardiology [facility] * MD Branden, Everett Prado: PERFORM Event Display: EP Inpt Consult Authored Date: [id number] I have seen and evaluated the patient. I agree with Dr Castano's note as written CCM is not approved for use in class IV heart failure We have increased slightly his pacing rate to hopefully assist with hemodynamics Will sign off Electronic Signature on File Electronically Reviewed/Signed by: Everett Otero MD Author Signature Dt/Tm:12/12/2023 04:38 PM Division of General Cardiology [facility] .D/C Summary * DO Kaufman Sophiyah: PERFORM, MODIFY, MODIFY MD Valerio, Guero Lara: MODIFY Event Display: .D/C Summary Authored Date: [id number] [facility] For medical concerns, call: . Address: [address] [place] [address] [phone] (MOBILE) [phone] (HOME) :1945 . Date of Admission:12/11/2023 Date of Discharge:12/30/2023 Physician:MD Luo Eric D Service:Cardiology Discharge Disposition: Primary Care Provider/Phone: MD NAYAN, JANAE Grady (BUSINESS) [phone] (FAX BUSINESS) Principal Diagnosis: Acute on chronic combined systolic (congestive) and diastolic (congestive) heart failure Other Diagnoses: Shortness of breath Counseling regarding advance directives and goals of care Palliative care encounter Cardiogenic shock Heart failure with reduced ejection fraction, NYHA class IV Hypotension Persistent cough Major Tests and Procedures: (12/13/2023 11:56 EDT XR Chest 1 View) FINDINGS: Upright portable AP view of the chest. Left upper cavity PICC, tip in the lower SVC. The remaining support apparatus components are unchanged from earlier today. Normal cardiomediastinal silhouette and pulmonary vasculature. Retrocardiac opacification. No pneumothoraces or large effusions. Unchanged bony structures. IMPRESSION: Left upper extremity PICC with tip in the lower SVC. Exam is otherwise unchanged. [1] (12/18/2023 12:19 EDT XR Chest 1 View) FINDINGS: Left arm PICC with tip within the mid superior vena cava. Right pectoral pacemaker with leads within the right atrium, ventricle and coronary sinus. Intravascular monitoring device overlying the leftpulmonary artery. No pneumothorax or pleural effusions. Mild interstitial pulmonary opacities. Mild cardiomegaly, unchanged. Cardiac valve prosthesis. The mediastinal silhouette is unchanged. Intact midline sternotomy wires. Unchanged osseous structures. IMPRESSION: Mild pulmonary vascular congestion and interstitial pulmonary edema. Unchanged mild cardiomegaly. [2] (12/24/2023 10:38 EDT XR Chest 1 View) FINDINGS: AP view of the chest. AICD/pacemaker generator pack projects over the right chest wall with leads in the right atrium, right ventricle, and coronary sinus. Median sternotomy wires are aligned and intact. Mediastinal surgical clips. Cardiac valve replacement. Left upper extremity PICC with tip projecting over the midsuperior vena cava. Mildly enlarged cardiac silhouette, unchanged. Minimal interstitial thickening, decreased compared to 12/18/2023. No focal parenchymal consolidation. No pleural effusion. No pneumothorax. No acute osseous abnormality. Degenerative change of the bilateral glenohumeral joint. IMPRESSION: 1. No pneumonia. 2. Minimal interstitial thickening, decreased compared to 12/18/2023. [3] (12/12/2023 15:58 EDT Echo TransTHORacic TTE Complete w/ Cont) Summary 1. Failed 2D images were enhanced with Definity per lab protocol. 2. Patient with prior history of surgical AVR (29 mm Perez II bioprosthesis, [facility], 2011). 3. LVEF 30%; severe global hypokinesis. 4. Severe LV dilation; no left ventricular hypertrophy. 5. Grade II LV diastolic dysfunction. 6. Right ventricular dilation with reduced systolic function. 7. Biatrial enlargement. 8. Bioprosthetic AV prosthesis (SAVR) noted; Vmax 2.1 m/s, peak/mean gradients 16/11 mmHg, DVI 0.74, SUSY 1.8 cm2; mild to moderate valvular regurgitation; no paravalvular leak is noted. 9. Severely dilated aortic root; dilated proximal ascending aorta (4.7 cm). 10. The MV leaflets are restricted due to LV dilation. Mild functional MR. 11. Dilated TV anulus noted; moderate TR. 12. The estimated PASP is 47 mmHg, including an estimated CVP of 8 mmHg. 13. No significant pericardial effusion. 14. Compared to the prior study of 03/04/23, no significant changes are noted. 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 Hospital Course: This is a 78 yo M with a PMHx CABGx4 and subsequent re-stenting, AVR, non- Hodgkins, HLD, HTN, AV block s/p defib, CardioMEMs placement presents to [facility] with worsening SOB with worsening decompensated CHF in Cardiogenic shockon inotropes and vasopressors.[facility]. Patient was started on milrinone, vasopressin, andbumex. TEEdone on 12/11 [id number]%, global hypokinesis, RV dilated with reduced function, mild MR. Patient clinically improved and vasopressin and bumex drips were discontinued.Patient's CardiacIndexsubsequently improved on milrinone 0.25 mcg/kg/min.[place] ansley catheter wasremoved and PICC line was placed.Patient was progressively restarted on GDMT and eventually weaned to milrinone 0.125mcg/kg/min. Bumex was restarted initiallyas PO then transitioned to IV to increasefluid output. Patient wastrialed on discontinuation of milrinone drip and starting on isosorbidedinitrate and hydralazine butsubsequently became hypotensive with increased renal dysfunction. Hydralazine andisosorbide dinitrate were discontinued and hewas restarted on milrinone0.125mcg/kg/min. Patient's renal function improved slightly but patient had low urine output while on Bumex.Milrinone was increased to0.25 mcg/kg/min. Patient remained stable with improved renal function and remained net evenduring the remainder of his course. PT/OT evaluation recommended home health. Patient had persistent cough throughout course despite good fluid output, guaifenesin, and negative chest XRs and RVP. Per request, patient was provided referral to pulmonology and cardiology at [facility]. Patient discharged on palliative milrinone. New Medications: Milrinone0.25 mcg/kg/hr Changed Medications: Bumex increased from 1 mgto5 mg daily Metoprolol decreased from 50 mgto 12.5 mg daily Discontinued Medications Sacubitril-valsartan (Entresto 24 mg-26 mg oral tablet) Exam on Discharge: Vitals & Measurements: T:36.2C TMIN:36.1C TMAX:36.6C HR:86(Monitored) RR:18 BP:96/64SpO2:93% Oxygen Therapy:Room Air WT:76.5kg General:no acute distress,pleasant Eyes:anicteric sclera ENMT:moist mucous membranes, external ears and nose without ulceration Neck:supple, no masses, trachea midline, JVD appreciated Cardiac:normal rate on tele;systolic murmur appreciated Lungs:diminished breath sounds and mild crackles at bases bilaterally, respiratory effort normal Abdomen:soft, no tenderness to palpation. No masses appreciated. Extremities:no pitting edema;moving all extremities; well-perfused Neuro:oriented to person, place and time; sensation grossly intact throughout Skin:well perfused, no rashes or ulcerations Psych:mood euthymic, affect normal Medication indication for use are noted under the principal diagnosis Discharge Medications: 1.Multivitamin (MVI-12) 1 tab, dose unknown by mouth once daily. 2.Aspirin (Aspirin Low Dose 81 mg oral delayed release tablet) 81 mg (1 tab) by mouth once daily. 3.Ubiquinone (ubiquinone 200 mg oral capsule) 1 cap by mouth once daily. . 4.Ascorbic acid (Vitamin C) by mouth once daily. 5.Nitroglycerin (nitroglycerin 0.4 mg sublingual tablet) 0.4 mg (1 tab) sublingually every 5 minutes, as needed for chest pain. not to exceed 3 doses/15 min--if pain persists, seek medical attention. 6.Amoxicillin (amoxicillin 500 mg oral capsule) 2,000 mg (4 cap) by mouth As indicated. one hour before dental and other procedures as directed. 7.Rivaroxaban (Xarelto 15 mg oral tablet) 15 mg (1 tab) by mouth every evening. 8.Rosuvastatin (Crestor 5 mg oral tablet) 5 mg (1 tab) by mouth at bedtime. 9.Empagliflozin (Jardiance 10 mg oral tablet) 10 mg (1 tab) by mouth once daily. 10.Magnesium aspartate . 11.Cholecalciferol (Vitamin D3) . 12.[place]-3 polyunsaturated fatty acids (Fish Oil 1000 mg oral capsule) . 13.Spironolactone (spironolactone 25 mg oral tablet) 12.5 mg (0.5 tab) by mouth once daily. 14.Amiodarone (amiodarone 200 mg oral tablet) 200 mg (1 tab) by mouth 2 times daily. 15.Ascorbic acid-carbonyl iron (Vitron-C) . 16.Benzonatate (Tessalon 200 mg oral capsule) 200 mg (1 cap) by mouth 3 times daily. For: AVR - Aortic valve replacement. Cardiac defibrillator in place. Cardiomyopathy. CKD stage 3b, GFR 30-44 ml/min. S/P CABG x 4. Systolic and diastolic CHF, chronic. 17.Turmeric (turmeric 1000 mg oral capsule) 1,000 mg (1 cap) by mouth once daily. 18.Bifidobacterium-lactobacillus (Probiotic 10 Ultra Strength oral capsule) . 19.Bumetanide (Bumex 2 mg oral tablet) 2.5 tablets by mouth once daily. Take 2.5 tablets daily,may take another 2.5 tablets if patient has shortness of breath, or weight gain of 2-3 lb over 2 days or 4-5 lb over 1 week. 20.Metoprolol (metoprolol succinate 25 mg oral tablet, extended release) 12.5 mg (0.5 tab) by mouthonce daily. Allergies and Sensitivities: NKA Tests Pending: Complete Blood Count To obtain results pending at hospital discharge, call and ask for the following Physician:MD Valerio, Guero Lara Scheduled Appointments: Date/Time:Provider/Resource: Dec 08:45 GREGG Avila Kathaleen A Location/Instructions:[facility] [place] [facility], [address] [place] [address], [address], [place] [address]. This appointment time has been reserved for your appointment. If you need to cancel or reschedule your visit call . Please arrive 15 min earlier than your appointment time for Check In Process. Date/Time:Provider/Resource: Dec 09:45 Silvina Flannery Location/Instructions:[facility] [address], [address] [facility], [place] [address], [place] [address] Date/Time:Provider/Resource: Jan 01:45 MD El Nandini Location/Instructions:[facility] [place] [facility] [place] [facility], [address], [address], [address], [place] [address] . Please arrive 15 minutes earlier than your appointment time for the check in process. Date/Time:Provider/Resource: Jan 02:00 pmLab/Specimen Location/Instructions:[facility] [place], [address], 1[address] floor, [address], [place] [address] Date/Time:Provider/Resource: Jan 02:45 MD Infante Seema G Location/Instructions:[facility] [place], [address], [address], [address], [place] [address] Date/Time:Provider/Resource: Jan 08:15 [facility] Device Remote PC04 Location/Instructions:Please DO NOT REPORT TO THE CLINIC FOR THIS APPOINTMENT. The Device Clinic is expecting a remote transmission from your home monitor on this date. If your remote transmission is normally automatic, your data will be sent overnight and will not require you to do anything. If your remote transmission must be performed manually, please perform a manual transmission on this scheduled date. If you have any questions please call the [facility] Access Center at [phone]. Date/Time:Provider/Resource: Feb 02:45 MD Troncoso Michael P Location/Instructions:[facility], [address] [place] [address] Date/Time:Provider/Resource: Feb 02:45 DO Caldera Jason D Location/Instructions:[facility] [address], [facility] [address], [address], [place] [address] . Please arrive 15 min earlier than your appointment time for Check In Process. Date/Time:Provider/Resource: Mar 02:45 MD El Nandini Location/Instructions:[facility] [place] [facility] [place]gie [facility], [address], [address], [address], [place], [place] [address] . Please arrive 15 minutes earlier than your appointment time for the check in process. Date/Time:Provider/Resource: Mar 08:45 [facility] BP Device SC07 Location/Instructions:[facility] [address], [address], [address], [place] [address] . Please arrive 15 min earlier than your appointment time for Check In Process. Other Appointments: Provider or Location Time Frame Details about visit Cardiology (Patient Preference) If you have not been contacted with this appointment information within two business days, please [phone]. Discharge Services: Service: Organization: Business Address: Phone Number: [facility] [address] [place] [address], [place], [address] Home Care Physician Services [facility] [address] [facility], [place], [address] Care Instructions: Thank you for visiting [facility]. You were seen and evaluated in the Emergency Department for cardiogenic shock which is an emergent condition in which your heart is unable to pump effectively to provide blood to your brain and the rest of your body. You are being discharged on a continuous drip of Milrinone which is a medication that helps your heart squeeze effectively to prevent the symptoms you were having when you arrived to the hospital. Our care coordination team has set up continued care at home with an infusion service and home health service. We have provided referrals to pulmonology and cardiology here at [facility]. If you do not hear from them in 2-3 days, you can call the Careline [phone] to schedule an appointment. Please call your primary care physician tomorrow for follow-up as soon as possible. If you do not have a primary care provider, please call the Careline at to schedule an appointment. Please continue to take medications as prescribed. Please return to the Emergency Department if you develop any worsening symptoms such as chest pain,shortness of breath, uncontrollable nausea or vomiting, fevers or chills, or any other worsening orconcerning symptoms. CONTACT DOCTOR FOR: Increased or unrelieved pain, including chest pain or pressure Redness, swelling, odor or bleeding from any procedure site. Temperature over 101 Increasing difficulty with breathing Increasing swelling of legs or belly Persistent cough with sputum Palpitations or irregular heart beats Persistent vomiting Dizziness or blackouts Black or tarry stools Hives or painful rash, swollen lips or tongue, swollen throat or face Contact our Careline at . If unable to contact your physician and you feel it is an emergency, go to the nearest Emergency Room or call [phone] Regular healthy diet: Eating a healthy diet and staying hydrated is an important component of a healthy lifestyle. Choose a diet high in fruits, vegetables, dietary fiber and low-fat dairy products, and low in salt, sugar, fat and processed foods. Eat lean meats. Limit desserts and foods high in saturated fats. It is important to stay hydrated. Drink at minimum of six eight ounce glasses of water every day and with the goal that your urine should be light yellow or clear in color. For example; choose whole grain breads and pastas over white bread or pasta. Half of your plate should be vegetables and fruits. Choose water or milk over soda or juice. CHF diet: Limit your fluid intake to 2 liters (64 ounces) a day and avoid sodas and sugary beverages. Limit your salt intake to 2grams a day. Read all labels. Look for low salt alternatives. Renal diet: Limit the amount of potassium, phosphorus and sodium in your diet. Renal friendly supplements: Boost breeze, Nepro Nutrition, Nepro carb steady, Novasource Constipation diet Diet should be high in fiber and drink at least 8 glasses of water a day. Avoid dehydrating beverages like coffee and soda. Hydration It is important to stay hydrated. Drink at minimum six, eight ounce glasses of water every day and with the goal that your urine should be light yellow or clear in color. Avoid dehydrating beverages like coffee and soda. You may resume your previous home activities, but go slowly and pace yourself as tolerated. Always take fall precautions, and ask for assistance as you regain your strength, coordination, and endurance. . Advance Directive:Living will, Health Care Power of Pre Press Manager Attending Addendum: The patient was seen and examined by me on rounds with the housestaff. I agree with the data and plan presented above. clinically stable on current regimen that includes milrinone Plan: d/c to home will need labs later this week will also need follow up in HF clinic and likely with local oil and gas drafter in [place] Guero Luo MD [1]XR Chest 1 View; MD Darlene, Denise Livingston 12/13/2023 11:56 EDT [2]XR Chest 1 View; MD Patrice, Haroldo 12/18/2023 12:19 EDT [3]XR Chest 1 View; DO Amelia, Shayy Kennedy 12/24/2023 10:38 EDT [4]Echo TransTHORacic TTE Complete w/ Cont; MD Cunningham Steve 12/12/2023 15:58 EDT Electronic Signature on File Electronically Reviewed/Signed by: Nuris Kaufman DO Author Signature Dt/Tm:12/30/2023 05:58 PM Resident Department of Emergency Medicine Electronically Reviewed/Signed by: Guero Luo MD Cosigner Signature Dt/Tm: 12/30/2023 07:14 PM [facility], [address], [address], [place] [address] [facility] Emergency department Summary note * MD Chang Michael A: MODIFY MD Chang Michael A: MODIFY, MODIFY, PERFORM, MODIFY, MODIFY, MODIFY Event Display: ED Summary Authored Date: [id number] Basic Information Time Seen: DO Cervantes Kimberly 12/11/2023 14:26 Chief Complaint pt with chf c/o worsening sob, unable to sleep at night, increased swelling History of Present Illness Jeniffer is a 78 year old male with a history of CKD, aortic valve replacement, LVH, MR, CHF, CAD, s/pCABG x4, non hodgkin's lymphoma s/p R-CHOP x8who presents for evaluation of SOB. Patient reports worsening of symptoms for the last 5 days of shortness of breath, dyspnea on exertionand a dry cough. Patient states thatsymptoms have beenacutely worsening with a dry cough that keeps him up all night and he has not been sleeping and he is moreshort of breath and breathes heavier when layingon his back. He denies any lower extremity edema but states that he never swells in his legs always in his abdomen, he states it feels a little bit distendedbutnot as bad as it has been before. He denies any chest pain, fevers, chills, abdominal pain, nausea, vomiting, dizziness, lightheadedness. He has been taking his diuretics as directedstates that he takes 1 mg of Bumex twice daily, Jardiance 10 mg once a day and 12.5 mg of spironolactone once a day. When hecalled EMS todayhe was so dyspneic he could not speak inmore than 4 word sentences and he was placed on 2 L of oxygen nasal cannula with improvement, he does not have home oxygenat baseline. Patient states that this feels similar toprevious exacerbations of CHF. Review of Systems A complete 10 point review systems is negativeunless otherwise specified in the HPI above Physical Exam Vitals & Measurements T:36.3C HR:78(Monitored) RR:20 BP:103/56 SpO2:93% HT:177.8cm WT:82.300kg(Dosing) WT:82.3kg BMI:26.03 GEN: NAD HEENT: NCAT, EOMI CV: Regular rate, paced rhythm RESP: Crackles in the leftlobe throughout, unlabored respiratory effort, speaking in full and complete sentences on 1.5 L of nasal cannula oxygen. GI: Soft, non-tender, non-distended MSK: No gross deformities appreciated, no peripheral edema,nopitting lower extremity edema SKIN: perfused appearing, no obvious cyanosis NEURO: Alert, awake, no gross focal deficits PSYCH: Appropriate mood and affect Medical Decision Making Jeniffer is a 78 year old male with a history of CKD, aortic valve replacement, LVH, MR, CHF, CAD, s/pCABG x4 in 2012 with CARBONE to the LAD, non hodgkin's lymphoma s/p R-CHOP x8who presents for evaluation of worsening shortness of breath, dyspnea on exertion, dry coughand orthopnea for the last5 days. Todaysymptoms worsened so significantly that he was unable to speak in more than4 word sentences and called EMS he was placed on 2 L oxygen nasal cannulaandis not on home oxygen atbaseline. He is hemodynamically stableand afebrile. He is tachypneic with a respiratory rate of 20 and SpO2is 97% on2 L of nasal cannula. On exam he has crackles auscultated throughout the left lobe but is able to speak in full and complete sentences with supplemental oxygen. He has no lower extremity pitting edema. Differential diagnosis includes pneumonia,viral illness,CHF exacerbation, ACS. On review of records his last echoin December 2022 showed an EF of 40 to 45%.Obtained a CBC, CMP,troponin, BNP, RVP, UA, chest x-ray. Labs significant for significant [place], his creatinine has increased from 2 on 11/20 to 3 today and BNP has doubled [id number] on 11/20to [id number] today. Chest x-ray shows an improving pleural effusion butno significantpulmonary edema orpneumonia. Presentation most consistent with CHF exacerbation givenhis labs, he was given 80 mg of IV Lasix. Plan to admit forAKIand CHF exacerbation. Reexamination/Reevaluation 1899 Rechecked pt. Doing well resting comfortably in no acute distress. Discussed with patient results and plan for admission. Pt understands and agrees to this plan. All questions answered. Will consult medicine for admission. 1904 [facility]and [facility]. FCM is capped and medicinerequested consultingcardiology heart failure service as he wasadmitted to them in the past. Will consultcards. 1919 consultedcardiology,they will evaluate the patient. 1955 spoke with cardiology, they will admit the patient to ICUforLasix drip andmilrinone to promote diuresis. Assessment/Plan Heart failure Admitted to ICU,cardiology heart failure service Medication Reconciliation Unchanged amiodarone (amiodarone 200 mg oral tablet)1 tab(s) by mouth 2 times daily. Refills: 11. amoxicillin (amoxicillin 500 mg oral capsule)4 cap by mouth As indicated. one hour before dental and other procedures as directed. Refills: 3. ascorbic acid (Vitamin C)1,000 Milligram by mouth once daily. ascorbic acid-carbonyl iron (Vitron-C) aspirin (Aspirin Low Dose 81 mg oral delayed release tablet)1 tab(s) by mouth once daily. benzonatate (Tessalon 200 mg oral capsule)1 cap by mouth 3 times daily. Refills: 1. bumetanide (Bumex 1 mg oral tablet)1 tab(s) by mouth 2 times daily. ACTION PLAN: Increase to 2 tabstwice daily if experiencing wt gain/HF symptoms. Refills: 5. cholecalciferol (Vitamin D3) empagliflozin (Jardiance 10 mg oral tablet)1 tab(s) by mouth once daily for 90 Days. Refills: 3. magnesium aspartate metoprolol (metoprolol succinate 50 mg oral tablet, extended release)1 tab(s) by mouth at bedtime. Refills: 3. multivitamin (MVI-12)1 tab, dose unknown by mouth once daily. nitroglycerin (nitroglycerin 0.4 mg sublingual tablet)1 tab(s) sublingually every 5 minutes as needed as needed for chest pain. not to exceed 3 doses/15 min--if pain persists, seek medical attention.Refills: 3. omega-3 polyunsaturated fatty acids (Fish Oil 1000 mg oral capsule) rivaroxaban (Xarelto 15 mg oral tablet)1 tab(s) by mouth every evening. Refills: 3. rosuvastatin (Crestor 5 mg oral tablet)1 tab(s) by mouth at bedtime. Refills: 3. sacubitril-valsartan (Entresto 24 mg-26 mg oral tablet)1 tab(s) by mouth 2 times daily. Refills: 3. spironolactone (spironolactone 25 mg oral tablet)0.5 tab(s) by mouth once daily. Refills: 3. ubiquinone (ubiquinone 200 mg oral capsule)1 cap by mouth once daily. Refills: 11. Attestation I personally performed a history and physical exam and discussed the management plan with the resident. I independently confirmed walker portions of the history and physical exam, and agree with resident note which I have reviewed and edited to reflect my findings. Janae Chang MD Problem List/Past Medical History Ongoing Abnormal prostate exam AK (actinic keratosis) Atherosclerotic heart disease of [place] coronary artery without angina pectoris AVR - [...] T & A| Service Date: 1Cardiac echo Medication Administration Administered: Medications: Lasix, 80 mg, IV Push (12/11/2023 17:25 EDT) Allergies NKA Family History Alive and well: Brother, Son and Son. Angina: Father. CAD (coronary artery disease): Mother. Cancer: PGM. Cardiovascular disease: Mother. [place] (myocardial infarction): Father and MGM. Smoker.: Father. Health Status Family Member(s) Family Member(s) Relationship: Mother, Age: 76 Years, Cause: CHF/ SLE Relationship: Father, Age: 62 Years, Cause: [place]/ Smoker Lab Results Chemistry LATEST RESULTS HISTORICAL RESULTS Na 12/11/23 14:57 132 mmol/L Low 11/21/23 138 mmol/L K 12/11/23 16:39 5.7 mmol/L High 11/21/23 5.0 mmol/L Cl- 12/11/23 14:57 93 mmol/L Low 11/21/23 100 mmol/L HCO3 12/11/23 14:57 23 mmol/L 11/21/23 30 mmol/L Anion Gap 12/11/23 14:57 16 mmol/L High 11/21/23 8 mmol/L BUN 12/11/23 14:57 74 mg/dL High 11/21/23 51 mg/dL High Cret 12/11/23 14:57 3.08 mg/dL High 11/21/23 2.01 mg/dL High Estimated CrCl 12/11/23 15:48 20.41 11/21/23 31.74 eGFR CKD-EPI 12/11/23 14:57 20 mL/min/1.73 m2 Low 11/21/23 33 mL/min/1.73 m2 Low Glu 12/11/23 14:57 99 mg/dL 11/21/23 91 mg/dL Ca 12/11/23 14:57 9.8 mg/dL 11/21/23 9.4 mg/dL CBC LATEST RESULTS HISTORICAL RESULTS WBC 12/11/23 14:57 7.83 K/uL 11/21/23 7.20 K/uL Hgb 12/11/23 14:57 13.4 g/dL 11/21/23 12.2 g/dL Low Hct 12/11/23 14:57 41.9 % 11/21/23 39.1 % RBC 12/11/23 14:57 4.29 M/uL Low 11/21/23 3.85 M/uL Low MCV 12/11/23 14:57 97.7 fL High 11/21/23 101.6 fL High MCHC 12/11/23 14:57 32.0 g/dL 11/21/23 31.2 g/dL Low MCH 12/11/23 14:57 31.2 pg 11/21/23 31.7 pg RDW 12/11/23 14:57 16.3 % High 11/21/23 15.1 % High Plts 12/11/23 14:57 126 K/uL Low 11/21/23 173 K/uL MPV 12/11/23 14:57 11.6 fL 11/21/23 11.3 fL Type of Diff: 12/11/23 14:57 AUTO 11/21/23 AUTO Immature Gran% 12/11/23 14:57 0.3 % 11/21/23 0.6 % Neut% 12/11/23 14:57 72.9 % 11/21/23 63.7 % Lymph% 12/11/23 14:57 13.5 % 11/21/23 18.2 % Catron% 12/11/23 14:57 10.9 % 11/21/23 10.7 % Baso% 12/11/23 14:57 0.6 % 11/21/23 1.4 % Eos% 12/11/23 14:57 1.8 % 11/21/23 5.4 % Immat Gran, Abs 12/11/23 14:57 0.02 K/uL 11/21/23 0.04 K/uL Neut, Abs 12/11/23 14:57 5.71 K/uL 11/21/23 4.59 K/uL Lymph, Abs 12/11/23 14:57 1.06 K/uL 11/21/23 1.31 K/uL Catron, Abs 12/11/23 14:57 0.85 K/uL 11/21/23 0.77 K/uL Baso, Abs 12/11/23 14:57 0.05 K/uL 11/21/23 0.10 K/uL Eos, Abs 12/11/23 14:57 0.14 K/uL 11/21/23 0.39 K/uL Coagulation LATEST RESULTS HISTORICAL RESULTS INR 12/11/23 14:57 2.6 High 03/03/23 1.3 High PT 12/11/23 14:57 28.7 seconds High 03/03/23 16.2 seconds High Liver/GI LATEST RESULTS HISTORICAL RESULTS ALT 12/11/23 14:57 36 unit/L 07/24/23 17 unit/L T Bili 12/11/23 14:57 1.8 mg/dL High 07/24/23 0.5 mg/dL Alk Phos 12/11/23 14:57 71 unit/L 07/24/23 46 unit/L AST 12/11/23 14:57 25 unit/L 07/24/23 23 unit/L Nutrition LATEST RESULTS HISTORICAL RESULTS Alb 12/11/23 14:57 4.0 g/dL 07/24/23 4.5 g/dL Prot 12/11/23 14:57 6.6 g/dL 07/24/23 7.4 g/dL Cardiac/Lipi LATEST RESULTS HISTORICAL RESULTS Troponin T ( 5th Gen) 12/11/23 16:39 42 ng/L High Troponin T ( 5th Gen) Delta 12/11/23 16:39 1-hour delta NEGATIVE BNP, NT-Pro 12/11/23 14:57 79587 pg/mL High 11/21/23 57046 pg/mL High Immunology LATEST RESULTS HISTORICAL RESULTS Respiratory Virus Panel, by PCR 12/11/23 14:57 Final: 03/03/23 Final: Urine LATEST RESULTS Color (u) 12/11/23 17:12 YELLOW Appear (u) 12/11/23 17:12 SLIGHTLY CLOUDY Glu (u) 12/11/23 17:12 NEGATIVE mg/dL Bili (u) 12/11/23 17:12 NEGATIVE Ketones 12/11/23 17:12 NEGATIVE mg/dL SG 12/11/23 17:12 1.016 Hgb (u) 12/11/23 17:12 NEGATIVE pH (u) 12/11/23 17:12 5.0 unit Prot (u) 12/11/23 17:12 100 mg/dL Abnormal Urobili 12/11/23 17:12 0.1-1.0 EU/dL Nitrite (u) 12/11/23 17:12 NEGATIVE Leuk Est 12/11/23 17:12 NEGATIVE WBC (u) 12/11/23 17:12 0-4 /HPF RBC (u) 12/11/23 17:12 0-4 /HPF Bact (u) 12/11/23 17:12 NONE Squamous Epithelial Cells (u) 12/11/23 17:12 FEW Hyaline Casts (u) 12/11/23 17:12 10-19 Diagnostic Results (12/11/2023 14:07 EDT XR Chest 2 Views) IMPRESSION: 1. Reduction of a now small left pleural effusion with adjacent atelectasis. 2. Moderate cardiomegaly, unchanged. [1] [1]XR Chest 2 Views; MD Patrice, Haroldo 12/11/2023 14:07 EDT Electronic Signature on File Electronically Reviewed/Signed by: Isabela Cervantes DO Author Signature Dt/Tm:12/11/2023 08:38 PM Resident Department of Emergency Medicine Electronically Reviewed/Signed by: Janae Chang MD Cosigner Signature Dt/Tm: 12/12/2023 10:11 AM Department of Emergency Medicine KM * ANDRIY Burnett, Noreen Antonio: PERFORM Event Display: ED Summary Authored Date: [id number] Name:JENIFFER MENA Jr. Patient Number:[id number] :1945 Date of Service:12/11/2023 Care initiation note Limited HPI:Sushila a78 Years,Malewith a chief complaint offailure exacerbation. Cannot sleep,fatigue, no appetite for days. on diuretic. History of heart surgery,aortic valveand pulmonary artery valve/graft, stents and defibrillator. Last cath in March. Vitals:Last Updated 12/11/23 13:48 Weights:Last Updated 12/11/23 13:48 Date Temp Pulse BP RR SpO2 FIO2 Date Wt(kg) Wt(lb) 12/10 13:48 36.3 78 103/56 20 93 12/10 13:48 82.3 181 09 13:48 82.3 181 24 Hr Tmax:36.3 at 12/10 13:48 Initial Wt:12/10 82.3 kg 181 lb On limited exam: General- alert, no acute distress. Fully dressed sitting in chair. Cardiovascular - normal peripheral perfusion. Lungs - nonlabored respirations. Neuro - Alert and oriented without focal neurological deficit. Additional -frequent cough Assessment/plan: Appropriate labs and imaging ordered based on limited HPI and exam. Plan for further history, evaluation, treatment and placement inWR This note was transcribed using voice recognition software. Because of this technology, there are often unintended grammatical, spelling, and other title abstractor errors. Please disregard these errors. This patient was evaluated only briefly in the care initiation area.A limited HPI and limited exam were performed and appropriate imaging and lab work was ordered if indicated based on a broad range of differentials.Once the patient is placed in a treatment room, a further evaluation and detailed history and physical exam should be performed to narrow the differentials and the patientsprimary complaint. Electronic Signature on File Electronically Reviewed/Signed by: Noreen Burnett PA-C Author Signature Dt/Tm:12/11/2023 01:55 PM Department of Emergency Medicine Electronically Reviewed/Signed by: Buck Allen MD, FACEP, [facility] Cosigner Signature Dt/Tm: 12/12/2023 02:03 PM Professor, Emergency Medicine [facility] [address] [place] [address] [place] Discharge instructions * KHADIJAH Hernandez Alysia: MODIFY KHADIJAH Hernandez Alysia: MODIFY, MODIFY KHADIJAH Hernandez Alysia: MODIFY, MODIFY, MODIFY, MODIFY DO Kaufman Sophiyah: MODIFY Event Display: Patient Discharge Instructions Authored Date: [id number] JENIFFER MENA Jr. :1945 Visit Date:12/11/2023 Patient Discharge Instructions [facility] For medical concerns, call: . Date of Admission:12/11/2023 Date of Discharge:12/30/2023 Physician:MD Valerio, Guero Lara Service:Cardiology Discharge Disposition: . Advance Directive:Living will, Health Care Power of Pre Press Manager Reason for Hospitalization Acute on chronic combined systolic (congestive) and diastolic (congestive) heart failure Your Diagnoses Acute on chronic combined systolic (congestive) and diastolic (congestive) heart failure Shortness of breath Counseling regarding advance directives and goals of care Palliative care encounter Cardiogenic shock Heart failure with reduced ejection fraction, NYHA class IV Hypotension Persistent cough Exosect Patient Portal: [facility] [employer] makes it easy for you to manage your health information online. [employer] [facility] [employer] is a free service that provides you instant, secure access to your medical information anytime, anywhere. Sign in or set up your account today at [email or web address] Thank you for allowing us to assist you with your healthcare needs. If you need additional community resources, [place] 211 can help at https://www.pa211.org. 211 can assist you in connecting with social programs based on your unique needs and locations. 211 is an anonymous search that can help you locate resources for: Food, Housing, Transportation, Goods, Education and Healthcare. Medications Patient is enrolled in Rx-to-Go Program New medications will be delivered from [facility] to patient's room at discharge: Mon-Sun from 9AM-5 PM. Medications MUST be PICKED UP at [facility] if patient is discharged Mon-Sun after 5 PM or anytime on holidays. Please note, the [facility] closes at 8 PM on weekdays and 5:30 PM on Saturdays, Sundays, and holidays. What How Much When Why Instructions Next Dose Changed bumetanide (Bumex 2 mg oral tablet) 2.5 tablets by mouth Once daily This medication is to help with fluid retention. We increased your home dose to 5 mg daily to help your body get rid ofextra fluid. Duration: 60 Days Take 2.5 tablets daily, may take another 2.5 tablets if patient has shortness of breath, or weight gain of 2-3 lb over 2 days or 4-5 lb over 1 week Pickup at [facility] [place] 12/30 @9am Changed metoprolol (metoprolol succinate 25 mg oral tablet, extended release) 0.5 tab(s) by mouth Once daily This medication is for congestiveheart failure. We decreased your dose to 12.5 mg. Duration: 30 Days Pickup at [facility] 12/30 @9am Unchanged amiodarone (amiodarone 200 mg oral tablet) 1 tab(s) by mouth 2 times daily 12/30 @8am Unchanged amoxicillin (amoxicillin 500 mg oral capsule) 4 cap by mouth As indicated one hour before dental and other procedures as directed Unchanged ascorbic acid (Vitamin C) 1,000 Milligram by mouth Once daily 12/30 @9am Unchanged ascorbic acid-carbonyl iron (Vitron-C) Unchanged aspirin (Aspirin Low Dose 81 mg oral delayed release tablet) 1 tab(s) by mouth Once daily 12/30 @9am Unchanged benzonatate (Tessalon 200 mg oral capsule) 1 cap by mouth 3 times daily AVR - Aortic valve replacement Cardiac defibrillator in place Cardiomyopathy CKD stage 3b, GFR 30-44 ml/min S/P CABG x 4 Systolic and diastolic CHF, chronic Unchanged bifidobacterium-lactobacillus (Probiotic 10 Ultra Strength oral capsule) 12/30 @9am Unchanged cholecalciferol (Vitamin D3) Unchanged empagliflozin (Jardiance 10 mg oral tablet) 1 tab(s) by mouth Once daily Duration: 90 Days 12/30 @9am Unchanged magnesium aspartate Unchanged multivitamin (MVI-12) 1 tab, dose unknown by mouth Once daily Unchanged nitroglycerin (nitroglycerin 0.4 mg sublingual tablet) 1 tab(s) sublingually Every 5 minutes as needed for as needed for chest pain not to exceed 3 doses/ 15 min--if pain persists, seek medical attention Unchanged omega-3 polyunsaturated fatty acids (Fish Oil 1000 mg oral capsule) Unchanged rivaroxaban (Xarelto 15 mg oral tablet) 1 tab(s) by mouth Every evening 12/30 @6pm Unchanged rosuvastatin (Crestor 5 mg oral tablet) 1 tab(s) by mouth At bedtime 10/16 @9pm Unchanged spironolactone (spironolactone 25 mg oral tablet) 0.5 tab(s) by mouth Once daily 12/30 @9am Unchanged turmeric (turmeric 1000 mg oral capsule) 1 cap by mouth Once daily Unchanged ubiquinone (ubiquinone 200 mg oral capsule) 1 cap by mouth Once daily Pharmacy Information [facility] [place]: [facility] [place] [phone] What How Much When Comments Stop Taking sacubitril-valsartan (Entresto 24 mg- 26 mg oral tablet) 1 tab(s) by mouth 2 times daily Please discontinue until you are seen by cardiology to determine if you shouldrestart this medication. Allergies NKA What to do next Instructions From Your Doctor Thank you for visiting [facility]. You were seen and evaluated in the Emergency Department for cardiogenic shock which is an emergent condition in which your heart is unable to pump effectively to provide blood to your brain and the rest of your body. You are being discharged on a continuous drip of Milrinone which is a medication that helps your heart squeeze effectively to prevent the symptoms you were having when you arrived to the hospital. Our care coordination team has set up continued care at home with an infusion service and home health service. We have provided referrals to pulmonology and cardiology here at [facility]. If you do not hear from them in 2-3 days, you can call the Careline [phone] to schedule an appointment. Please call your primary care physician tomorrow for follow-up as soon as possible. If you do not have a primary care provider, please call the Careline at to schedule an appointment. Please continue to take medications as prescribed. Please return to the Emergency Department if you develop any worsening symptoms such as chest pain,shortness of breath, uncontrollable nausea or vomiting, fevers or chills, or any other worsening orconcerning symptoms. If you notice the following symptoms CONTACT DOCTOR FOR: Increased or unrelieved pain, including chest pain or pressure Redness, swelling, odor or bleeding from any procedure site. Temperature over 101 Increasing difficulty with breathing Increasing swelling of legs or belly Persistent cough with sputum Palpitations or irregular heart beats Persistent vomiting Dizziness or blackouts Black or tarry stools Hives or painful rash, swollen lips or tongue, swollen throat or face Contact the [facility] Careline at . If unable to contact your physician and you feel it is an emergency, go to the nearest Emergency Room or call 911 Diet Instructions Regular healthy diet: Eating a healthy diet and staying hydrated is an important component of a healthy lifestyle. Choose a diet high in fruits, vegetables, dietary fiber and low-fat dairy products, and low in salt, sugar, fat and processed foods. Eat lean meats. Limit desserts and foods high in saturated fats. It is important to stay hydrated. Drink at minimum of six eight ounce glasses of water every day and with the goal that your urine should be light yellow or clear in color. For example; choose whole grain breads and pastas over white bread or pasta. Half of your plate should be vegetables and fruits. Choose water or milk over soda or juice. CHF diet: Limit your fluid intake to 2 liters (64 ounces) a day and avoid sodas and sugary beverages. Limit your salt intake to 2grams a day. Read all labels. Look for low salt alternatives. Renal diet: Limit the amount of potassium, phosphorus and sodium in your diet. Renal friendly supplements: Boost breeze, Nepro Nutrition, Nepro carb steady, Novasource Constipation diet Diet should be high in fiber and drink at least 8 glasses of water a day. Avoid dehydrating beverages like coffee and soda. Hydration It is important to stay hydrated. Drink at minimum six, eight ounce glasses of water every day and with the goal that your urine should be light yellow or clear in color. Avoid dehydrating beverages like coffee and soda. Activity Instructions You may resume your previous home activities, but go slowly and pace yourself as tolerated. Always take fall precautions, and ask for assistance as you regain your strength, coordination, and endurance. Follow-Up Appointments Scheduled Follow-Up Appointments Date/Time:Provider/Resource: Dec 08:45 GREGG Avila Kathaleen A Location/Instructions:[facility] [place] - [facility], [address] [place] [address]. This appointment time has been reserved for your appointment. If you need to cancel or reschedule your visit call . Please arrive 15 min earlier than your appointment time for Check In Process. Date/Time:Provider/Resource: Dec 09:45 Silvina Flannery Location/Instructions:[facility], [address] [place] [address], [place] [address] Date/Time:Provider/Resource: Jan 01:45 MD El Nandini Location/Instructions:[facility] [place] - [facility] [place], [address], [address], [address], [place] [address] . Please arrive 15 minutes earlier than your appointment time for the check in process. Date/Time:Provider/Resource: Jan 02:00 pmLab/Specimen Location/Instructions:[facility] [place], [address], [address] floor, [address], [place] [address] Date/Time:Provider/Resource: Jan 02:45 MD Infante Seema G Location/Instructions:[facility] [place], [address], [address], [address], [place] [address] Date/Time:Provider/Resource: Jan 08:15 [facility] Device Remote PC04 Location/Instructions:Please DO NOT REPORT TO THE CLINIC FOR THIS APPOINTMENT. The Device Clinic is expecting a remote transmission from your home monitor on this date. If your remote transmission is normally automatic, your data will be sent overnight and will not require you to do anything. If your remote transmission must be performed manually, please perform a manual transmission on this scheduled date. If you have any questions please call the [facility] Access Center at [phone]. Date/Time:Provider/Resource: Feb 02:45 MD Troncoso Michael P Location/Instructions:[facility], [facility], [place] [address], [place] [address] Date/Time:Provider/Resource: Feb 02:45 DO Caldera Jason D Location/Instructions:[facility] [address], [facility] [address], [address], [place] [address] . Please arrive 15 min earlier than your appointment time for Check In Process. Date/Time:Provider/Resource: Mar 02:45 MD El Nandini Location/Instructions:[facility] [place] - [place], [address], [address], [address], [place] [address] . Please arrive 15 minutes earlier than your appointment time for the check in process. Date/Time:Provider/Resource: Mar 08:45 [facility] BP Device SC07 Location/Instructions:[facility] [address], [facility] [address], [address], [place] [address] . Please arrive 15 min earlier than your appointment time for Check In Process. Someone Will Contact You Regarding These Appointments Provider or Location Time Frame Details about visit Cardiology (Patient Preference) If you have not been contacted with this appointment information within two business days, please [phone]. The Following Services Have Been Arranged for You Service: Organization: Business Address: Phone Number: [facility] [address], [place], [address] Home Care Physician Services [facility] [address] [facility], [place], [address] Tests Pending Complete Blood Count To obtain results pending at hospital discharge, call and ask for the following Physician:MD Valerio, Guero Lara Immunizations This Visit Not Given Vaccine Commentsinfluenza virus vaccine, inactivated Patient Refuses Special Instructions Heart Failure Instructions Heart Failure-You were hospitalized for heart failure. The last ejection fraction of your heart was30%. Your heart failure care tools include the following: DIET Follow a 2300 mg sodium diet ACTIVITY Balance activity with rest periods MEDICATIONS Take all medications that you see on your discharge medication sheet WEIGHT MANAGEMENT Weigh yourself every morning, at the same time, and write it down. Bring a record of your weights to all doctor visits Your weight at discharge was 168 lb. Compare your weights daily for rapid gain and follow the Zones Green Zone: ALL CLEAR. This zone is your goal Weight is stable No need to raise head to breathe while sleeping Not short of breath while sleeping Physical activity level is normal No new swelling of legs, feet, ankles and abdomen No new or worsening shortness of breath Yellow Zone: CAUTION - This zone is your WARNING! Use your Action Plan Weight gain of 2 to 3 lbs over two consecutive days or 4 to 5 lbs in one week Need to raise head to sleep due to shortness of breath Waking up from sleep with sudden or unusual shortness of breath Physical activity is limited due to shortness of breath or fatigue Increased swelling of legs, feet, ankles and abdomen New onset shortness of breath or hacking cough YELLOW ZONE ACTION PLAN Take Bumex 5 mg If you have any concerns regarding your medications or your symptoms are not improving-- call your oil and gas drafter Red Zone: DANGER - Act now! Short of breath while sitting still Chest pain Confusion/cannot think clearly WHAT TO DO? Call 911 or go to your local emergency room Common Emergency Awareness Tips Call 911 immediately if: experiencing any of the warning signs and symptoms of stroke: B.E. F.A.S.T. Balance: is there trouble with walking or coordination Eyes: is there double vision or visual loss Face: Smile, do both sides of face move equally Arm: Raise arms, do both arms move equally Speech: Is speech slurred or inappropriate Time: Time is critical, call 911 immediately Heart Attack Signs Chest discomfort: Most heart attacks involve discomfort in the center of the chest and lasts more than a few minutes, or goes away and comes back. It can feel like uncomfortable pressure, squeezing, fullness or pain. Discomfort in upper body: Symptoms can include pain or discomfort in one or both arms, back, neck, jaw or stomach. Shortness of breath: With or without discomfort. Other signs: Breaking out in a cold sweat, nausea, or lightheaded. Remember, MINUTES DO MATTER. If you experience any of these heart attack warning signs, call to get immediate medical attention! Education Materials PICC Guide Insertion, Care, and Removal PICC is short for Peripherally Inserted Central Catheter. A PICC is a long, soft, thin, flexible tube that is inserted into a vein in the upper arm and ends in the superior vena cava (SVC), a large vein just above the heart where there is a lot of blood flow (your central circulation). This allows medicines and IV fluids to be quickly distributed throughout the body. Intravenous (IV) therapy is the infusion of liquid substances directly into a vein. A PICC is a form of IV therapy/access that allows intravenous fluids, medications (antibiotics), chemotherapy, and total parenteral nutrition to be given. A PICC is inserted using a sterile technique by a specially trained health care provider. After insertion, correct placement of the PICC is confirmed using a tip confirmation system, and in some instances a portable chest x-ray. If taken care of properly, a PICC can remain in place for several months. A PICC can allow a personin need of further IV therapy to be discharged from the hospital early, either to home or to a rehabilitation facility. PICC care and teaching will be done by a [facility] health care team [facility]. Potential Problems Problems with a PICC can occasionally occur. These may include the following: Total or partial occlusion of the catheter caused by an accumulation of fibrin and blood cells (thrombus). There is a clot-dissolving medicine that can be given through the PICC to break up the occlusion. Inflammation of the vein (phlebitis) in which the PICC is placed. Signs of inflammation may includeredness, red streaks, pain at insertion site, or being able to feel a cord in the vein where the PICC is located. Upper arm venous thrombosis (clot) of superficial or deep vein. PICC movement (malposition). The PICC tip may move from its original position due to excessive physical activity or forceful coughing, sneezing, or vomiting. Infection in the PICC or at the insertion site. Signs of infection may include fever, chills, redness, swelling, or pus drainage from the PICC insertion site. A break or cut in the PICC. Never use scissors near the PICC. Nerve or tendon irritation or injury during PICC insertion. Activities and Restrictions You may bend your arm and move it freely. Moderate exercise such as walking does not harm your PICC. Avoid strenuous activity or activities that have constant arm movement or reaching such as weight lifting, jumping jacks, or vacuuming. Avoid moving/lifting heavy objects greater than 10 pounds. Avoid carrying bags or purses over your PICC shoulder or using crutches with the PICC arm. Avoid getting the PICC dressing (bandage) wet. When you shower or bathe wrap the PICC arm with plastic wrap and tape closed. Avoid swimming or hot tubs. Do not totally submerse the arm under water even if it is covered as it is difficult to stop water from getting under the PICC dressing. Moisture under the dressing can cause the dressing to fall off and is a source for infection. Care of Your PICC If you are an INPATIENT at a hospital or rehabilitation facility, your PICC care and medication administration will be done by a nurse. If you are DISCHARGED to home, a Community/Home Health Nurse will be assigned to change your dressing and teach you how to give your IV medication. Look at your site once a day. The PICC dressing should be dry and intact. The PICC site should be free from tenderness, redness, swelling, or drainage. Weekly dressing changes are needed and MUST be done ONLY by a nurse (more frequently if dressing gets wet, soiled, or loose). If your dressing looks loose, wet, or soiled, contact your nurse. If needed, reinforce the dressing with tape until the nurse arrives. NEVER REMOVE your PICC dressing. Flush PICC as directed by your nurse. Make them aware if PICC is difficult to flush or does not flush. DO NOT use force to flush PICC. NEVER allow blood pressure checks or blood draws on the PICC arm. NEVER use anything but the supplies provided by your nurse to care for your PICC or administer yourmedications. DO NOT remove your own PICC! Only a trained professional should remove your PICC. Contact your Community/Home Health Nurse if you have a problem or concern. Seek IMMEDIATE Medical Care If: Your PICC is accidentally pulled all the way out. If this happens, cover the insertion site with a bandage or gauze dressing. DO NOT throw the PICC away. Your nurse will need to inspect it. There is any type of drainage, redness, or swelling at the PICC insertion site. You cannot flush the PICC, it is difficult to flush, or the PICC leaks around the insertion site when it is flushed. You hear a flushing sound when the PICC is flushed. You have a pain, discomfort, or numbness in your arm, shoulder, or jaw on the same side as the PICC. You feel your heart racing or skipping beats. You notice a hole or tear in the PICC. You develop chills or fever. PICC Removal and Care A PICC is removed when it is no longer needed (treatment is complete), when it is not working properly (clotted), or when there are complications (swelling of the arm, which could be from a blood clot or infection). Risks and Complications: Generally this is a safe procedure. However, as with any procedure, problems can occur: Bleeding Infection Procedure: DO NOT remove the PICC yourself. An order from a health care provider is needed to remove the PICC. Only a health care provider trained in PICC removal, such as a PICC nurse, should take the PICC out. The PICC may be removed in the hospital or in an outpatient setting. Having a PICC removed is usually painless. Removal of the tape that holds the PICC in place may be the most uncomfortable part. After taking the PICC out the health care provider will hold gentle pressure on the exit site and place a bandage over the exit site. After the Procedure: Do not remove the bandage for 24 hours. When the bandage is removed, the small PICC insertion site may have a small scab. This site may be gently washed with soap and water, but do not remove or pickoff the scab. You do not need to put another bandage on the site. Avoid heavy or strenuous activity for 24 hours after the PICC is removed. This includes things likeweight lifting, strenuous yard work, or any physical activity with repetitive arm movement (baseball, football, etc.). Seek Medical Care If: Call or see your health care provider if you develop any of the following symptoms: Increasing tenderness, pain, or swelling in the PICC arm. Redness or a red streak, bleeding, or drainage from the PICC site. Numbness or tingling in your fingers, hand, or arm that had the PICC. Your PICC arm has a bluish color and is cold to the touch. You start to have chills or a fever. References Jayden Flower M.D.,F.A.C.S.,. [facility]. Peripherally Inserted Central Catheter (PICC).[email or web address].. [facility]. All About Your Peripherally Inserted Central Catheter (PICC).[facility].ca.September 2015. [employer] [place] [address] [place]: [employer], 2007. Print. Heart Failure Exacerbation Heart failure is a condition in which the heart has trouble pumping blood. This may mean that the heart cannot pump enough blood out to the body or that the heart does not fill up with enough blood. When this happens, parts of the body do not get the blood and oxygen they need to function properly.This can cause symptoms such as breathing problems, tiredness (fatigue), swelling, and confusion. Heart failure exacerbation refers to heart failure symptoms that get worse. The symptoms may get worse suddenly or develop slowly over time. Heart failure exacerbation is a serious medical problem that should be treated right away. What are the causes? A heart failure exacerbation can be triggered by: Not taking your heart failure medicines correctly. Infections. Eating an unhealthy diet or a diet that is high in salt (sodium). Drinking too much fluid. Drinking alcohol. Using drugs, such as cocaine or methamphetamine. Not exercising. Other causes include: Other heart conditions such as an irregular heart rhythm (arrhythmia). Worsening heart valve function. Low blood counts (anemia). Other medical problems, such as kidney failure, thyroid problems, or diabetes mellitus. Sometimes the cause of the exacerbation is not known. What are the signs or symptoms? When heart failure symptoms suddenly or slowly get worse, this may be a sign of heart failure exacerbation. Symptoms of heart failure include: Shortness of breath during activity or exercise. A cough that does not go away. Swelling of the legs, ankles, feet, or abdomen. Losing or gaining weight for no reason. Trouble breathing when lying down. Increased heart rate or irregular heartbeat. Fatigue. Feeling light-headed, dizzy, or close to fainting. Nausea or lack of appetite. How is this diagnosed? This condition is diagnosed based on: Your symptoms and medical history. A physical exam. You may also have tests, including: Electrocardiogram (ECG). This test measures the electrical activity of your heart. Echocardiogram. This test uses sound waves to take a picture of your heart to see how well it works. Blood tests. Imaging tests, such as: Chest X-ray. MRI. Ultrasound. Stress test. This test examines how well your heart functions while you exercise on a treadmill or exercise bike. If you cannot exercise, medicines may be used to increase your heartbeat in place of exercise. Cardiac catheterization. During this test, a thin, flexible tube (catheter) is inserted into a blood vessel and threaded up to your heart. This test allows your health care provider to check the arteries that lead to your heart (coronary arteries). Right heart catheterization. During this test, the pressure in your heart is measured. How is this treated? This condition may be treated by: Adjusting your heart medicines. Maintaining a healthy lifestyle. This includes: Eating a heart-healthy diet that is low in sodium. Not using products that contain nicotine or tobacco. Regular exercise. Monitoring your fluid intake. Monitoring your weight and reporting changes to your health care provider. Not using alcohol or drugs. Treating sleep apnea, if you have this condition. Surgery. This may include: Placing a pacemaker to improve heart function (cardiac resynchronization therapy). Implanting a device that can correct heart rhythm problems (implantable cardioverter defibrillator). Implanting a pulmonary arterial pressure monitor to monitor your fluid balance. Connecting a device to your heart to help it pump blood (ventricular assist device). Heart transplant. Follow these instructions at home: Medicines Take [id number] and prescription medicines only as told by your health care provider. Do not stop taking your medicines or change the amount you take. If you are having problems or sideeffects from your medicines, talk to your health care provider. If you are having difficulty paying for your medicines, contact a social work instructor or your clinic. There are many programs to assist with medicine costs. Talk to your health care provider before starting any new medicines or supplements. Make sure your health care provider and pharmacist have a list of all the medicines you are taking. Eating and drinking Avoid drinking alcohol. Eat a heart-healthy diet as told by your health care provider. This includes: Plenty of fruits and vegetables. Lean proteins. Low-fat dairy. Whole grains. Foods that are low in sodium. Activity Exercise regularly as told by your health care provider. Balance exercise with rest. Ask your health care provider what activities are safe for you. This includes sexual activity, exercise, and daily tasks at home or work. Lifestyle Do not use any products that contain nicotine or tobacco. These products include cigarettes, chewing tobacco, and vaping devices, such as e-cigarettes. If you need help quitting, ask your health careprovider. Maintain a healthy weight. Ask your health care provider what weight is healthy for you. Consider joining a patient support group. This can help with emotional problems you may have, such as stress and anxiety. Do not use drugs. General instructions Stay up to date with vaccines. Talk to your health care provider about flu and pneumonia vaccines. Keep a list of medicines that you are taking. This may help in emergency situations. Keep all follow-up visits. This is important. Contact a health care provider if: You have questions about your medicines or you miss a dose. You feel anxious, depressed, or stressed. You develop swelling in your feet, ankles, legs, or abdomen. You develop a cough. You have a fever. You have trouble sleeping. You gain 23 lb (11.4 kg) in 24 hours or 5 lb (2.3 kg) in a week. Get help right away if: You have chest pain or pressure. You have shortness of breath while resting. You have severe fatigue. You are confused. You have severe dizziness. You have a rapid or irregular heartbeat. You have nausea or you vomit. You have a cough that is worse at night or you cannot lie flat. You have severe depression or sadness. These symptoms may represent a serious problem that is an emergency. Do not wait to see if the symptoms will go away. Get medical help right away. Call your local emergency services (911 in the [place] Do not drive yourself to the hospital. Summary When heart failure symptoms get worse, it is called heart failure exacerbation. Common causes of this condition include taking medicines incorrectly, infections, and drinking alcohol. This condition may be treated by adjusting medicines, maintaining a healthy lifestyle, or surgery. Do not stop taking your medicines or change the amount you take. If you are having problems or sideeffects from your medicines, talk to your health care provider. This information is not intended to replace advice given to you by your health care provider. Make sure you discuss any questions you have with your health care provider. Document Revised: 06/11/2022 Document Reviewed: 09/23/2020 [employer] Patient Education 2023 [employer]. Heart Failure, Self-Care Heart failure is a serious condition. The following information explains the things you need to do to take care of yourself after a heart failure diagnosis. You may be asked to change your diet, takecertain medicines, and make other lifestyle changes in order to stay as healthy as possible. Your health care provider may also give you more specific instructions. If you have problems or questions,contact your health care provider. What are the risks? Having heart failure puts you at higher risk for certain problems. These problems can get worse if you do not take good care of yourself. Problems may include: Damage to the kidneys, liver, or lungs. Malnutrition. Abnormal heart rhythms. Blood clotting issues that could cause a stroke. Supplies needed: Scale for monitoring weight. Blood pressure monitor. Notebook. Medicines. How to care for yourself when you have heart failure Medicines Take jcng-nnv-kzcjewl and prescription medicines only as told by your health care provider. Medicines reduce the workload of your heart, slow the progression of heart failure, and improve symptoms. Take your medicines every day. Do not stop taking your medicine unless your health care provider tells you to do so. Do not skip any dose of medicine. Refill your prescriptions before you run out of medicine. Talk with your health care provider if you cannot afford your medicines. Eating and drinking Eat heart-healthy foods. Talk with a dietitian to make an eating plan that is right for you. Limit salt (sodium) if told by your health care provider. Sodium restriction may reduce symptoms ofheart failure. Ask a dietitian to recommend heart-healthy seasonings. Use healthy cooking methods instead of frying. Healthy methods include roasting, grilling, broiling, baking, poaching, steaming, and stir-frying. Choose foods that contain no trans fat and are low in saturated fat and cholesterol. Healthy choices include fresh or frozen fruits and vegetables, fish, lean meats, legumes, fat-free or low-fat dairy products, and whole-grain or high-fiber foods. Limit your fluid intake, if directed by your health care provider. Fluid restriction may reduce symptoms of heart failure. Alcohol use Do not drink alcohol if: Your health care provider tells you not to drink. Your heart was damaged by alcohol, or you have severe heart failure. You are , may be , or are planning to become . If you drink alcohol: Limit how much you have to: 01 drink a day for women. 02 drinks a day for men. Know how much alcohol is in your drink. In the [place] one drink equals one 12 oz bottle of beer (355mL), one 5 oz glass of wine (148 mL), or one 1 oz glass of hard liquor (44 mL). Lifestyle Do not use any products that contain nicotine or tobacco. These products include cigarettes, chewing tobacco, and vaping devices, such as e-cigarettes. If you need help quitting, ask your health careprovider. Do not use nicotine gum or patches before talking to your health care provider. Do not use illegal drugs. Work with your health care provider to safely reach the right body weight. Do physical activity if told by your health care provider. Talk to your health care provider beforeyou begin an exercise if: You are an older adult. You have severe heart failure. Learn to manage stress. If you need help to do this, ask your health care provider. Participate in or seek physical rehabilitation as needed to keep or improve your independence and quality of life. Participate in a cardiac rehabilitation program, which is a treatment program to improve your health and well-being through exercise training, education, and counseling. Plan rest periods when you get tired. Monitoring important information Weigh yourself every day. This will help you to notice if too much fluid is building up in your body. Weigh yourself every morning after you urinate and before you eat breakfast. Wear the same amount of clothing each time you weigh yourself. Record your daily weight. Provide your health care provider with your weight record. Monitor and record your pulse and blood pressure as told by your health care provider. Dealing with extreme temperatures If the weather is extremely hot: Avoid vigorous physical activity. Use air conditioning or fans, or find a cooler location. Avoid caffeine and alcohol. Wear loose-fitting, lightweight, and light-colored clothing. If the weather is extremely cold: Avoid vigorous activity. Layer your clothes. Wear mittens or gloves, a hat, and a face covering when you go outside. Avoid alcohol. Follow these instructions at home: Stay up to date with vaccines. Pneumococcal and flu (influenza) vaccines are especially important in preventing infections of the airways. Keep all follow-up visits. This is important. Contact a health care provider if you: Gain 23 lb (11.4 kg) in 24 hours or 5 lb (2.3 kg) in a week. Have increasing shortness of breath. Are unable to participate in your usual physical activities. Get tired easily. Cough more than normal, especially with physical activity. Lose your appetite or feel nauseous. Have any swelling or more swelling in areas such as your hands, feet, ankles, or abdomen. Are unable to sleep because it is hard to breathe. Feel like your heart is beating quickly (palpitations). Become dizzy or light-headed when you stand up. Have feelings of depression or sadness. Get help right away if you: Have trouble breathing. Notice, or your family notices, a change in your awareness, such as having trouble staying awake orconcentrating. Have pain or discomfort in your chest. Have an episode of fainting (syncope). These symptoms may represent a serious problem that is an emergency. Do not wait to see if the symptoms will go away. Get medical help right away. Call your local emergency services (911 in the [place] Do not drive yourself to the hospital. Summary Heart failure is a serious condition. To care for yourself, you may be asked to change your diet, take certain medicines, and make other lifestyle changes. Take your medicines every day. Do not stop taking them unless your health care provider tells you to do so. Limit salt and eat heart-healthy foods, such as fresh or frozen fruits and vegetables, fish, lean meats, legumes, fat-free or low-fat dairy products, and whole-grain or high-fiber foods. Ask your health care provider if you have any alcohol restrictions. You may have to stop drinking alcohol if you have severe heart failure. Contact your health care provider if you notice problems, such as rapid weight gain or a fast heartbeat. Get help right away if you faint or have chest pain or trouble breathing. This information is not intended to replace advice given to you by your health care provider. Make sure you discuss any questions you have with your health care provider. Document Revised: 06/11/2022 Document Reviewed: 09/23/2020 [employer] Patient Education 2023 [employer] Heart Failure, Diagnosis Heart failure is a condition in which the heart has trouble pumping blood. This may mean that the heart cannot pump enough blood out to the body or that the heart does not fill up with enough blood. For some people with heart failure, fluid may back up into the lungs. There may also be swelling (edema) in the lower legs. Heart failure is usually a long-term (chronic) condition. It is important for you to take good care of yourself and follow the treatment plan from your health care provider. Different stages of heart failure have different treatment plans. The stages are: Stage A: At risk for heart failure. Having no symptoms of heart failure, but being at risk for developing heart failure. Stage B: Pre-heart failure. Having no symptoms of heart failure, but having structural changes to the heart that indicate heartfailure. Stage C: Symptomatic heart failure. Having symptoms of heart failure in addition to structural changes to the heart that indicate heartfailure. Stage D: Advanced heart failure. Having symptoms that interfere with daily life and frequent hospitalizations related to heart failure. What are the causes? This condition may be caused by: High blood pressure (hypertension). Hypertension causes the heart muscle to work harder than normal. Coronary artery disease, or CAD. CAD is the buildup of cholesterol and fat (plaque) in the arteriesof the heart. Heart attack, also called myocardial infarction. This injures the heart muscle, making it hard for the heart to pump blood. Abnormal heart valves. The valves do not open and close properly, forcing the heart to pump harder to keep the blood flowing. Heart muscle disease, inflammation, or infection (cardiomyopathy or myocarditis). This is damage tothe heart muscle. It can increase the risk of heart failure. Lung disease. The heart works harder when the lungs are not healthy. What increases the risk? The risk of heart failure increases as a person ages. This condition is also more likely to developin people who: Are obese. Use tobacco or nicotine products. Abuse alcohol or drugs. Have taken medicines that can damage the heart, such as chemotherapy drugs. Have any of these conditions: Diabetes. Abnormal heart rhythms. Thyroid problems. Low blood counts (anemia). Chronic kidney disease. Have a family history of heart failure. What are the signs or symptoms? Symptoms of this condition include: Shortness of breath with activity, such as when climbing stairs. A cough that does not go away. Swelling of the feet, ankles, legs, or abdomen. Losing or gaining weight for no reason. Trouble breathing when lying flat. Waking from sleep because of the need to sit up and get more air. Rapid heartbeat. Other symptoms may include: Tiredness (fatigue) and loss of energy. Feeling light-headed, dizzy, or close to fainting. Nausea or loss of appetite. Waking up more often during the night to urinate (nocturia). Confusion. How is this diagnosed? This condition is diagnosed based on: Your medical history, symptoms, and a physical exam. Blood tests. Diagnostic tests, which may include: Echocardiogram. Electrocardiogram (ECG). Chest X-ray. Exercise stress test. Cardiac MRI. Cardiac catheterization and angiogram. Radionuclide scans. How is this treated? Treatment for this condition is aimed at managing the symptoms of heart failure. Medicines Treatment may include medicines that: Help lower blood pressure by relaxing (dilating) the blood vessels. These medicines are called MELLISA inhibitors (angiotensin-converting enzyme), ARBs (angiotensin receptor blockers), or vasodilators. Cause the kidneys to remove salt and water from the blood through urination (diuretics). Improve heart muscle strength and prevent the heart from beating too fast (beta blockers). Increase the force of the heartbeat (digoxin). Lower heart rates. Certain diabetes medicines (SGLT-2 inhibitors) may also be used in treatment. Healthy behavior changes Treatment may also include making healthy lifestyle changes, such as: Reaching and staying at a healthy weight. Not using tobacco or nicotine products. Eating heart-healthy foods. Limiting or avoiding alcohol. Stopping the use of illegal drugs. Being physically active. Participating in a cardiac rehabilitation program, which is a treatment program to improve your health and well-being through exercise training, education, and counseling. Other treatments Other treatments may include: Procedures to open blocked arteries or repair damaged valves. Placing a pacemaker to improve heart function (cardiac resynchronization therapy). Placing a device to treat serious abnormal heart rhythms (implantable cardioverter defibrillator, or ICD). Placing a device to improve the pumping ability of the heart (left ventricular assist device, or LVAD). Receiving a healthy heart from a donor (heart transplant). This is done when other treatments have not helped. Follow these instructions at home: Manage other health conditions as told by your health care provider. These may include hypertension, diabetes, thyroid disease, or abnormal heart rhythms. Get ongoing education and support as needed. Learn as much as you can about heart failure. Keep all follow-up visits. This is important. Where to find more information [place] [employer]: www.heart.org Centers for Disease Control and Prevention: www.cdc.gov NIH [employer] [place] [employer] Aging: www.ryan.nih.gov Summary Heart failure is a condition in which the heart has trouble pumping blood. This condition is commonly caused by high blood pressure and other diseases of the heart and lungs. Symptoms of this condition include shortness of breath, tiredness (fatigue), nausea, and swelling of the feet, ankles, legs, or abdomen. Treatments for this condition may include medicines, lifestyle changes, and surgery. Manage other health conditions as told by your health care provider. This information is not intended to replace advice given to you by your health care provider. Make sure you discuss any questions you have with your health care provider. Document Revised: 06/11/2022 Document Reviewed: 09/23/2020 [employer] Patient Education 2023 [employer]. Heart Failure Medicines Heart failure means your heart isn't able to pump enough blood through your body. This can happen if your heart can't fill up with enough blood. It can also happen if your heart is too weak to pump. Medicines for heart failure can help your heart pump better and do less work. While there's no curefor heart failure, taking medicines can help you: Stay active. Have fewer health problems. Live longer. Types of medicines Your health care provider will look at your symptoms and the type of heart failure to find out which medicine is best for you. In most cases, you may need to take more than one medicine. MELLISA inhibitors, ARBs, and ARNIs These medicines work to relax the blood vessels. This makes it easier for your heart to work. Angiotensin receptor neprilysin inhibitors (ARNIs) also help your kidneys remove more fluid and salt fromyour blood when you pee. Common angiotensin-converting enzyme (MELLISA) inhibitors include lisinopril and ramipril. Common angiotensin-receptor blockers (ARBs) include losartan and valsartan. Common ARNIs include sacubitril withvalsartan. Only take one type of these medicines. Do not combine MELLISA inhibitors, ARBs, or ARNIs. The risk of side effects grows if more than one is taken at the same time. If you're changing medicines, ask your provider how to do this safely. Side effects include: Dry cough. This may happen with MELLISA inhibitors or ARNIs. Low blood pressure. This may cause you to feel dizzy, light-headed, or have blurred vision. A high potassium level. This may cause muscle weakness or fast or irregular heartbeat. Kidney injury. This may cause you to pee less or swell in your ankles, hands, or feet. Do not take these medicines if you're or may become . They can cause serious birthdefects. These medicines can cause a serious side effect called angioedema. This is rare. Symptoms include swelling of the face, eyes, tongue, lips, mouth, or throat, trouble breathing, and hoarseness. Stomach pain or swelling and vomiting can also occur. If you have any of these symptoms, stop taking the medicine and contact your provider right away. If you have had angioedema in the past, talk with your provider before starting any of these medicines. You may need regular checkups and blood tests to see how the medicine is working. Beta-blockers These medicines treat high blood pressure and heart failure. They may also stop chest pain called angina. They lower blood pressure and heart rate. Common beta-blockers for heart failure are bisoprolol, carvedilol, and long- acting, also known as extended release, metoprolol. Some beta-blockers make lung diseases that cause wheezing worse. Talk with your provider before taking a beta-sandee if you have a lung disease such as asthma. These medicines can hide the symptoms of low blood sugar, also called hypoglycemia. Symptoms include fast heartbeat and shaking that you can't control, called tremors. If you have diabetes, check your blood sugar as told. If you have hypoglycemia, talk with your provider about your medicines. This medicine may make you feel dizzy or light-headed. Do not drive or use machinery until your provider says that it's safe. Because these medicines slow your heart rate, it's important not to do too much exercise. Talk withyour provider about what your heart rate should be while you exercise. Do not suddenly stop taking this medicine. This can raise your risk of side effects, such as chest pain and heart attack. Your provider will let you know if you no longer need this medicine. They will lower the dose over time to lower the risk of side effects. Diuretics Diuretics treat high blood pressure. They may also be used to reduce swelling related to heart, kidney, or liver disease. They help your kidneys remove more fluid and salt from your blood when you pee. These also reduce fluid in your lungs, ankles, and feet. Common diuretics include furosemide, bumetanide, torsemide, metolazone, and hydrochlorothiazide. The amount of water or fluid removed from the body depends on which diuretic is used. You may be asked to weigh yourself to see if you have too much or too little fluid. Ask your provider what your weight should be and contact them if it changes. Also, ask how much fluid you should drink each day. These medicines can make you pee a lot or make it harder to control peeing. Talk to your provider about the best time of day to take this medicine. Side effects include: Headaches. Low blood pressure. This may cause you to feel dizzy, light-headed, or have blurred vision. Low potassium level. This may cause muscle pain or cramps, weakness or tiredness, fast or irregularheartbeat, or constipation. Upset stomach. These medicines can cause dehydration. Symptoms include more thirst, dry mouth, feeling faint or light-headed, headache, and dark yellow or brown pee. Contact your provider right away if you have anyof these signs. These medicines may affect how your kidneys work. This can cause your electrolyte levels (magnesiumand potassium) to change. These levels will be checked by your provider. These medicines can make you more sensitive to the sun. Keep out of the sun. If you can't avoid being in the sun, wear protective clothing and use sunscreen. Do not use sun lamps or tanning beds or booths. Aldosterone antagonists These medicines treat high blood pressure and heart failure. They may also be used to reduce swelling related to heart, kidney, or liver disease. They help your kidneys remove more fluid and salt from your blood through pee without losing too much potassium. Common aldosterone antagonists include spironolactone and eplerenone. Side effects include: High potassium level. This may cause muscle weakness or fast or irregular heartbeat. Kidney injury. This may cause you to pee less or swell in the ankles, hands, or feet. Low blood pressure. This may cause you to feel dizzy, light-headed, or have blurred vision. These medicines can raise the amount of potassium in the blood. Your levels will be checked often by your provider. Spironolactone and eplerenone may increase breast size in males and may cause breasts to feel tender in all patients. You'll need regular checkups and blood tests to see how this medicine is working. Digoxin Digoxin treats heart failure. It may also be used to treat a type of irregular heartbeat called atrial fibrillation or AFib. It helps your heart beat stronger, making it easier for your heart to pumpblood. It also slows down overactive electric signals in the heart. This makes your heart rhythm more steady. Your provider will check your digoxin levels with blood tests. Too much digoxin can cause serious problems, such as irregular heart rhythm. Early signs of digoxin toxicity include nausea, vomiting, loss of appetite, headaches, confusion, weakness, or vision changes, such as blurred vision or seeing more yellow or green than usual. Contact your provider right away if you have any of these signs. Vasodilators Hydralazine and nitrates treat heart failure. They relax blood vessels. This makes it easier for your heart to work. Hydralazine and nitrates are often given with other medicines to control your heart failure symptoms. You may be given one or both of these medicines, based on your symptoms. Side effects include: Flushed face or neck. Headaches. Low blood pressure. This may cause you to feel dizzy, light-headed, or have blurred vision. If channel blockers Ivabradine is an If channel sandee. It lowers your heart rate. This makes it easier for your heartto work. If you have symptoms of heart failure and your heart rate is more than 70 beats per minute while taking a beta-sandee, you may be given this medicine. Side effects include: Fast or irregular heartbeat, chest pain, or trouble breathing. You may also feel dizzy or light-headed. Slow heartbeat. This may cause you to feel dizzy, light-headed, or confused. You may have trouble breathing, feel weak, or feel very tired. Blood pressure changes. You may have high or low blood pressure. This may cause you to feel dizzy, light-headed, or have blurred vision. Seeing bright or flashing spots, halos around lights, or shifting patterns or colors. Grapefruit juice may make the risk of side effects greater. Avoid this as told. Talk to your provider if you wish to become or think you might be . This medicine can cause serious defects. SGLT2 inhibitors Sodium-glucose cotransporter 2 inhibitors, also known as SGLT2 inhibitors, are medicines used to treat type 2 diabetes. They help your kidneys take sugar out of your blood through pee. This lowers your blood sugar. They may also be used to lower the risk of making the disease worse, and of causing by kidney disease and heart failure. They work by helping your kidneys get rid of salt, also called sodium, from your blood through pee. This lowers the amount of work the kidneys and heart do. Common SGLT2 inhibitors include empagliflozin and dapagliflozin. Side effects include: Dehydration. This may cause more thirst, dry mouth, feeling faint or light- headed, headache, or dark yellow or brown pee. Diabetic ketoacidosis (DKA). This may cause more thirst, peeing more, dry mouth, tiredness, fruity-smelling breath, trouble breathing, stomach pain, nausea, or vomiting. Genital yeast infection. This may cause redness, swelling, pain, itchiness, odor, or thick or lumpydischarge. Infection or redness, swelling, tenderness, or pain in the genitals, or area from the genitals to the back of the rectum. New pain or tenderness, change in skin color, sores or ulcers, infection of the leg or foot. Urinary tract infection (UTI). This may cause burning when peeing, passing small amounts of pee often, bloody or cloudy pee, or pain in the lower back or sides. If you have diabetes, there's a small risk of hypoglycemia. There's also a small risk of DKA. This happens when your blood sugar is very high. DKA will need to be treated in the hospital. This information is not intended to replace advice given to you by your health care provider. Make sure you discuss any questions you have with your health care provider. Document Revised: 06/13/2023 Document Reviewed: 06/13/2023 [employer] Patient Education 2023 [employer] Fall Prevention in the Home, Adult Falls can cause injuries and affect people of all ages. There are many simple things that you can do to make your home safe and to help prevent falls. If you need it, ask for help making these changes. What actions can I take to prevent falls? General information Use good lighting in all rooms. Make sure to: Replace any light bulbs that burn out. Turn on lights if it is dark and use night-lights. Keep items that you use often in [id number] places. Lower the shelves around your home if needed. Move furniture so that there are clear paths around it. Do not keep throw rugs or other things on the floor that can make you trip. If any of your floors are uneven, fix them. Add color or contrast paint or tape to clearly jacques and help you see: Grab bars or handrails. First and last steps of staircases. Where the edge of each step is. If you use a ladder or stepladder: Make sure that it is fully opened. Do not climb a closed ladder. Make sure the sides of the ladder are locked in place. Have someone hold the ladder while you use it. Know where your pets are as you move through your home. What can I do in the bathroom? Keep the floor dry. Clean up any water that is on the floor right away. Remove soap buildup in the bathtub or shower. Buildup makes bathtubs and showers slippery. Use non-skid mats or decals on the floor of the bathtub or shower. Attach bath mats securely with double-sided, non-slip rug tape. If you need to sit down while you are in the shower, use a non-slip stool. Install grab bars by the toilet and in the bathtub and shower. Do not use towel bars as grab bars. What can I do in the bedroom? Make sure that you have a light by your bed that is easy to reach. Do not use any sheets or blankets on your bed that hang to the floor. Have a firm bench or chair with side arms that you can use for support when you get dressed. What can I do in the kitchen? Clean up any spills right away. If you need to reach something above you, use a sturdy step stool that has a grab bar. Keep electrical cables out of the way. Do not use floor cambodian or wax that makes floors slippery. What can I do with my stairs? Do not leave anything on the stairs. Make sure that you have a light switch at the top and the bottom of the stairs. Have them installedif you do not have them. Make sure that there are handrails on both sides of the stairs. Fix handrails that are broken or loose. Make sure that handrails are as long as the staircases. Install non-slip stair treads on all stairs in your home if they do not have carpet. Avoid having throw rugs at the top or bottom of stairs, or secure the rugs with carpet tape to prevent them from moving. Choose a carpet design that does not hide the edge of steps on the stairs. Make sure that carpet isfirmly attached to the stairs. Fix any carpet that is loose or worn. What can I do on the outside of my home? Use bright outdoor lighting. Repair the edges of walkways and driveways and fix any cracks. Clear paths of anything that can make you trip, such as tools or rocks. Add color or contrast paint or tape to clearly jacques and help you see high doorway thresholds. Trim any bushes or trees on the main path into your home. Check that handrails are securely fastened and in good repair. Both sides of all steps should have handrails. Install guardrails along the edges of any raised decks or porches. Have leaves, snow, and ice cleared regularly. Use sand, salt, or ice melt on walkways during wintermonths if you live where there is ice and snow. In the garage, clean up any spills right away, including grease or oil spills. What other actions can I take? Review your medicines with your health care provider. Some medicines can make you confused or feel dizzy. This can increase your chance of falling. Wear closed-toe shoes that fit well and support your feet. Wear shoes that have rubber soles and low heels. Use a cane, walker, scooter, or crutches that help you move around if needed. Talk with your provider about other ways that you can decrease your risk of falls. This may includeseeing a physical therapist to learn to do exercises to improve movement and strength. Where to find more information Centers for Disease Control and Prevention, [place]: cdc.gov National [place] on Aging: ryan.nih.gov National [place] on Aging: ryan.nih.gov Contact a health care provider if: You are afraid of falling at home. You feel weak, drowsy, or dizzy at home. You fall at home. Get help right away if you: Lose consciousness or have trouble moving after a fall. Have a fall that causes a head injury. These symptoms may be an emergency. Get help right away. Call 911. Do not wait to see if the symptoms will go away. Do not drive yourself to the hospital. This information is not intended to replace advice given to you by your health care provider. Make sure you discuss any questions you have with your health care provider. Document Revised: 11/04/2022 Document Reviewed: 11/04/2022 [employer] Patient Education 2023 [employer] Daily Weight Record It is important to weigh yourself daily. To do this: Make sure you use a reliable scale. Use the same scale each day. Keep this daily weight chart near your scale. Weigh yourself each morning at the same time after you use the bathroom. Before weighing yourself: Take off your shoes. Make sure you are wearing the same amount of clothing each day. Write down your weight in the spaces on the form. Compare today's weight to yesterday's weight. Bring this form with you to your follow-up visits with your health care provider. Call your health care provider if you have concerns about your weight, including rapid weight gain or loss. Date: Weight: Date: Weight: Date: Weight: Date: Weight: Date: Weight: Date: Weight: Date: Weight: Date: Weight: Date: Weight: Date: Weight: Date: Weight: Date: Weight: Date: Weight: Date: Weight: Date: Weight: Date: Weight: Date: Weight: Date: Weight: Date: Weight: Date: Weight: Date: Weight: Date: Weight: Date: Weight: Date: Weight: Date: Weight: Date: Weight: Date: Weight: Date: Weight: Date: Weight: Date: Weight: Date: Weight: Date: Weight: Date: Weight: Date: Weight: Date: Weight: Date: Weight: Date: Weight: Date: Weight: Date: Weight: Date: Weight: Date: Weight: Date: Weight: Date: Weight: Date: Weight: Date: Weight: Date: Weight: Date: Weight: Date: Weight: Date: Weight: Date: Weight: This information is not intended to replace advice given to you by your health care provider. Make sure you discuss any questions you have with your health care provider. Document Revised: 11/06/2021 Document Reviewed: 11/06/2021 [employer] Patient Education 2023 [employer]. Inpt Proc * GREGG Busby, Jacques Manriquez: PERFORM Event Display: Inpt Proc Authored Date: [id number] INPATIENT PROCEDURE NOTE Name: JENIFFER MENA Jr. Patient Number: [id number] : 1945 Date of Service: 12/12/2023 _ Timeout Performed Procedure: Right radial arterial line insertion Indication: Hemodynamic monitoring. Patient in cardiogenic shock, hypotensive. Preparation and Technique: A time out was performed at the beginning of the procedure. The right wrist was prepped and draped in usual sterile fashion. A palpable radial artery was present at initiation of procedure and visualized under ultrasound guidance. A 20 gauge angiocatheter was inserted into the right radial artery. Once blood flow was returned, the needle was removed, and pulsatile flow was noted. A guide wire was then used to insert the catheter into proper position, and then the guide wire was removed from the artery/angiocatheter. A hemodynamic monitor was used to transduce the arterial line and an arterial waveform was noted. The line was secured in place with a nonocclusive dressing. No complications were noted, and the patient tolerated the procedure well. Electronic Signature on File Electronically Reviewed/Signed by: GREGG Berman Author Signature Dt/Tm:12/12/2023 03:35 AM [facility] [place] [facility] Patient Care team information Care Team Personnel Name: GREGG Manley Tara Position: Nurse Pract - Family Med Member Role: Lifetime Relationship Address: [address] [place] [address] [place] Name: Abril Esposito Michael Position: Pharmacist Member Role: Pharmacy - Lifetime Name: MD Juares Michael P Position: Physician - Family Med Member Role: Lifetime Relationship Address: [address] [facility] [address] [place] [address] [place] Name: Abril Perkins Michele C Position: Pharmacist Schedule II Member Role: Pharmacy - Lifetime Address: [facility] [address] [place] [address] [place] Name: GREGG Damon Stacey L Position: Nurse Pract - Cardiology Member Role: Lifetime Relationship Address: [address] [facility] [address] [place] [address] [place] [address] [place] Name: MD Betancur Nandini Position: Physician - Card Heart Failure Member Role: Lifetime Relationship Address: [address] [facility] [address] [place] [address] [place] Name: MD Hill David L Position: Physician - Derm Member Role: Lifetime Relationship Address: [address] [facility] [address] [place] [address] [place] Name: Kirsten Soto Position: Admissions I Member Role: Clerical Name: MD Almaraz Catherine Position: Physician - Card Crit Care Member Role: * Quality Review (1 day after created) Address: [address] [facility] [address] [place] [address] [place] Name: R.E.S. Not Needed Position: Resident Care Team Related Persons Name: SHRUTI MENA
--- OUTSIDE RECORDS SUMMARY | 2024-01-08 11:27 | External Medical Summary | Continuity of Care Document ---
Author Name Unknown Organization [facility] [address] [facility] 2 Address [address] [id number] Care Team Providers Care Education Administrator Name Role Phone JuaresArie nicole Miguel A Primary Care Physician [phone] Encounter [facility] JEREMYANALY [id number] Date(s): 11/26/23 - 11/26/23 [facility] [address] [facility] [address] [phone] Encounter Diagnosis Epidermal inclusion cyst(Discharge Diagnosis) - 11/26/23 Digital mucous cyst of finger(Discharge Diagnosis) - 11/26/23 AK (actinic keratosis)(Discharge Diagnosis) - 11/26/23 Discharge Disposition: Home or Self Care Attending Physician: MD Green Thomas A Referring Physician: MD Green Thomas A Allergies, Adverse Reactions, Alerts No Known Allergies Assessment and Plan Extracted from: Title:Clinical Document Author:MD Green T homas A Date:11/26/23 OUTPATIENT NOTE Name: JENIFFER MENA Jr. Patient Number:1 [id number] : 1945 Date of Service: 11/26/2023 _ Jeniffer Mena returns for reevaluation. He has a prior history of epidermal inclusion cyst present on the posterior aspect of the neck/occipital area. He has 2 additional lesions on the occiput and left lateral neck which could be treated if bothersome, but are not sufficiently bothersome to the patient to be treated at this time. He recently noted a cystic lesion present on the left ring finger which appears as a subcutaneous papule 8 mm in greatest dimension consistent with a digital mucous cyst. We discussed options for treatment including definitive excision, incision and drainage versus monitoring. It is not bothering the patient appears to be stable he would prefer to monitor at this time. He notes an erythematous patch present in the suprapubic area which has been present for many years and occurred after a procedure that he had done in the femoral artery area. This appears as a 2.5 cm telangiectatic mat. 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 As this has remained stable it is not thickening or expanding in surface area he continue to monitor it. If changing would biopsy. Review of systems medications allergies as noted on the chart. Examination reveals pleasant well-nourished white male type II skin was alert and oriented x 3 with normal mood and affect. Examination of the head, neck, arms, hands, legs reveals the findings as noted above otherwise unremarkable. The patient will return in 1 year for reevaluation. Extracted from: Title:Cardiology Office Visit Note Author:GREGG Auguste rd, Sarah A Date:01/06/23 1. Coronary artery disease , status post coronary artery bypass grafting x4 in 2011 with a CARBONE to the LAD, SVG to the PDA and an SVG to the ramus and obtuse marginal branch. 2. Status post bioprosthetic aortic valve replacement with a 29 mm Perez II bioprosthetic aortic valve 2011 with a small dimensional less index.(confirmed by HERMINIA at [facility]) A. EF of 38% by echocardiography 07/2022, with inferolateral hypokinesis; moderate RV dysfunction; Type 2 DD B. Small dimensionless index and an elevated mean gradient now 19 mmHg (06/2020). 3. Status post complex angioplasty and stenting of the ostial LAD and ostial ramus intermedius branch with a Culotte technique, 11/[address] Mesa. 4. History of non-Hodgkin's lymphoma in 2004, [...] scan 12/2021 and echo07/2022 measuring 5.1 cm. Mr. Mena's EKG showed frequent PVCs and BiV pacing. His case was discussed with Dr. Reyes who recommends cardiac catheterization of coronaries and right and left heart. I discussed with Eduin and reviewed risks and benefits Idiscussed the risk benefits of cardiac catheterization.Risks including but not limited tobleeding or infection at the puncture site, damage to the patient's radial or femoral artery,risk of contrast-induced nephropathy, allergic reaction to contrastand aone in ten thousand risk of heart attack, stroke, or . The patient understands the risksand wishes to proceed. He does not have blood pressure room to add beta sandee to suppress the PVCs. I will ask device clinic to pull his PVC burden. They may also be contributing to his dyspnea. He does not have edema but sounds a bit orthopneic. I added a bnp to the labs he had drawn this morning and will have him start furosemide 20 mg daily. We will try to get his cath done this week if possible and can then decide whether to continue with diuresis. I did ask that he touch base with us for lab work if no one has given instruction and he is still taking the furosemide in a week. He is scheduled to return to the clinic in March Immunizations Given and Recorded Vaccine Date Status [...] bid, Disp# 60 tab, Refills: 11, Pharmacy: [facility]/pharmacy #[id number] Start Date: 11/21/23 Status: Ordered amoxicillin 500 mg oral capsule Start: 09/18/22 2:43:00 PM EDT, 4 cap, PO, As indicated, Disp# 12 cap, Refills: 3, one hour before dental and other procedures as directed, Pharmacy: [facility] #[id number] Start Date: 09/18/22 Status: Ordered Aspirin Low Dose 81 mg oral delayed release tablet Start: 09/30/12 3:00:00 PM EDT, 1 tab, PO, Daily Start Date: 09/30/12 Status: Ordered Bumex 1 mg oral tablet Start: 05/09/23 12:01:00 PM EST, 1 tab, PO, bid, Disp# 180 tab, Refills: 5, ACTION PLAN: Increase to2 tabs twice daily if experiencing wt gain/HF symptoms, Pharmacy: [facility] #[id number] Start Date: 05/09/23 Status: Ordered Crestor 5 mg oral tablet Start: 03/12/23 9:29:00 AM EST, 1 tab, PO, qhs, Disp# 90 tab, Refills: 3, Pharmacy: [facility] #[id number] Start Date: 03/12/23 Status: Ordered Entresto 24 mg-26 mg oral tablet Start: 04/01/23 9:01:00 AM EST, 1 tab, PO, bid, Disp# 180 tab, Refills: 3, Pharmacy: [facility] #[id number] Start Date: 04/01/23 Status: Ordered Fish Oil 1000 mg oral capsule Start: 07/30/23 2:48:00 PM EDT Start Date: 07/30/23 Status: Ordered Jardiance 10 mg oral tablet Start: 03/18/23 2:39:00 PM EST, 1 tab, PO, Daily, Disp# 90 tab, Refills: 3, Pharmacy: [facility] #[id number] Start Date: 03/18/23 Stop Date: 03/12/24 Status: [...] PRN: as needed for chest pain, Pharmacy: [facility] #[id number] Start Date: 10/22/21 Status: Ordered spironolactone 25 mg oral tablet Start: 09/12/23 2:23:00 PM EDT, 0.5 tab, PO, Daily, Disp# 45 tab, Refills: 3, Pharmacy: [facility]/pharmacy#[id number] Start Date: 09/12/23 Status: Ordered ubiquinone 200 mg oral capsule Start: 09/09/13 12:32:00 PM EDT, 1 cap, PO, Daily, Disp# 300 cap, Refills: 11, given to patient Start Date: 09/09/13 Status: Ordered Vitamin C Start: 07/18/15 11:14:00 AM EDT, 1,000 mg =, PO, Daily Start Date: 07/18/15 Status: Ordered Vitamin D3 Start: 07/30/23 2:48:00 PM EDT Start Date: 07/30/23 Status: Ordered Xarelto 15 mg oral tablet Start: 02/17/23 1:48:00 PM EST, 1 tab, PO, qPM, Disp# 90 tab, Refills: 3, Pharmacy: [facility] #[id number] Start Date: 02/17/23 Status: Ordered Mental Status 11/26/23 Barriers to Learning one year Vision imp airment, Other: glasses Mandatory Health Literacy Documentation Yes Health Literacy Communication Barriers N ever Primary Language Japanese Problem List Condition Confirmation Course Effective Dates Status H ealth Status Informant AK (actinic keratosis) Confirmed Active Dilated aortic root Confirmed Active AVR - Aortic valve replacement Confirmed Active Cardiac defibrillator in place Confirmed Active Cardiomyopathy Confirmed Active Systolic and diastolic CHF, chronic Confirmed Active Unspecified systolic (congestive) heart failure Confirmed 07/24/23 Active Atherosclerotic heart disease of [place] coronary artery without angina pectoris Confirmed 07/24/23 [...] Active Mitral regurgitation 2 Confirmed 01/28/13 Active Health care maintenance Confirmed Active Prediabetes, prediabetic Confirmed Active Elevated serum lactate dehydrogenase (LDH) Confirmed Active S/P coronary artery stent placement Confirmed Active Ureteral filling defect 3 Confirmed Active 1LIMA to LADSeq SVG to IR, LCx OM, PDA 2moderate 3Diverticulum ? RIGHT side Diagnosis Diagnosis Type Effective Dates Health Status Cl inical Service Informant Digital mucous cyst of finger Discharge Diagnosis 11/26/23 Epidermal inclusion cyst Discharge Diagnosis 11/26/23 AK (actinic keratosis) Discharge Diagnosis 11/26/23 Procedures Procedure Date Related Diagnosis Body Site [...] diverticulosis. 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 One [...] 0.13) Of note post op HERMINIA in 2011 with LVOT TVI of 7 cm and AoV TVI of 39 cm with DI 0.18 The aortic root and ascending aorta have dilated since 2012 from 4.5cm to 5.1 cm HERMINIA is recommenced to assess aorta and AoV leaflets which appear to open in the short axis images. The study was reviewed with the [facility] lab as well. 11CONCLUSIONS History of bicuspid [...] performed 03/22/2016, there is no significant cunningham Social History Social History Type Response Smoking Status Never smoked cigaret manuel Sex Male Sex Representation Male (finding) Outpatient Note * MD Peter, Jayden Porter: PERFORM Event Display: .Outpt Note Authored Date: [id number] OUTPATIENT NOTE Name: JENIFFER MENA Jr. Patient Number:1 [id number] : 1945 Date of Service: 11/26/2023 _ Jeniffer Mena returns for reevaluation. He has a prior history of epidermal inclusion cyst presenton the posterior aspect of the neck/occipital area. He has 2 additional lesions on the occiput and left lateral neck which could be treated if bothersome, but are not sufficiently bothersome to the patient to be treated at this time. He recently noted a cystic lesion present on the left ring finger which appears as a subcutaneous papule 8 mm in greatest dimension consistent with a digital mucous cyst. We discussed options for treatment including definitive excision, incision and drainage versus monitoring. It is not bothering the patient appears to be stable he would prefer to monitor at this time. He notes an erythematous patch present in the suprapubic area which has been present for many yearsand occurred after a procedure that he had done in the femoral artery area. This appears as a 2.5 cm telangiectatic mat. 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 As thishas remained stable it is not thickening or expanding in surface area he continue to monitor it. Ifchanging would biopsy. Review of systems medications allergies as noted on the chart. Examination reveals pleasant well-nourished white male type II skin was alert and oriented x 3 withnormal mood and affect. Examination of the head, neck, arms, hands, legs reveals the findings as noted above otherwise unremarkable. The patient will return in 1 year for reevaluation. Electronic Signature on File Electronically Reviewed/Signed by: Jayden Green MD Author Signature Dt/Tm:11/26/2023 02:15 PM Department of Dermatology [facility]iology Outpatient Note * GREGG Landin Sarah A: PERFORM, MODIFY Event Display: Cardiology Outpt Note Authored Date: [id number] Primary Care Provider MD Mor, Arie Grady Referring Provider MD Peter, Jayden A History of Present Illness Mr. Mena presents for complaints of chest heaviness. Over the last 3 weeks he has had more difficulty with physical exertion. He describes a chest heaviness that is nonradiating although at night he is having some discomfort in his shoulderswhich isworse when laying on them. Thechest heaviness is sometimes accompanied by shortness of breath. It is mostly with exertion but can be at rest as well. He has also been feeling some skipping beats. He generally feels fatigued. He does feel more chest heaviness and sob when laying back at night and a bit sob. He is not propping himself up to sleep though. No edema but he does have abdominal fullness at times. He has gained weight but thinks it is due to excess calories. Review of Systems All other systems reviewed and negative except as discussed in the HPI Physical Exam Physical Examination General: Alert and oriented, No acute distress. Respiratory: Lungs are clear to auscultation, Respirations are non-labored. Cardiovascular:Irregular rhythm, No murmur, No edema. Integumentary: Warm, Dry, [place] Neurologic: Alert, Oriented. Cognition and Speech: Speech clear and coherent. Psychiatric: Cooperative, Appropriate mood & affect. Assessment/Plan 1. Coronary artery disease, status post coronary artery bypass grafting x4 in 2011 with a CARBONE tothe LAD, SVG to the PDA and an SVG to the ramus and obtuse marginal branch. 2. Status post bioprosthetic aortic valve replacement with a 29 mm Perez II bioprosthetic aortic valve 2011 with a small dimensional less index.(confirmed by HERMINIA at [facility]) A. EF of 38% by echocardiography 07/2022, with inferolateral hypokinesis; moderate RV dysfunction;Type 2 DD B. Small dimensionless index and an elevated mean gradient now 19 mmHg (06/2020). 3. Status post complex angioplasty and stenting of the ostial LAD and ostial ramus intermedius branch with a Culotte technique, 11/[address] Mesa. 4. History of non-Hodgkin's lymphoma in 2004, [...] scan 12/2021 and echo07/2022 measuring 5.1 cm. Mr. Mena's EKG showed frequent PVCs and BiV pacing. His case was discussed with Dr. Reyes who recommends cardiac catheterization of coronaries and right and left heart. I discussed with Eduin and reviewed risks and benefits Idiscussed the risk benefits of cardiac catheterization.Risks including but not limited tobleeding or infection at the puncture site, damage to the patient's radial or femoral artery,risk of contrast-induced nephropathy, allergic reaction to contrastand aone in ten thousand risk of heart attack, stroke, or . The patient understands the risksand wishes to proceed. He does not have blood pressure room to add beta sandee to suppress the PVCs. I will ask device clinic to pull his PVC burden. They may also be contributing to his dyspnea. He does not have edema but sounds a bit orthopneic. I added a bnp to the labs he had drawn this morning and will have him start furosemide 20 mg daily. We will try to get his cath done this week if possible and can then decide whether to continue with diuresis. I did ask that he touch base with us for lab work if no one has given instruction and he is still taking the furosemide in a week. He is scheduled to return to the clinic in March Problem List/Past Medical History Ongoing Abnormal prostate exam AK (actinic keratosis) AVR - Aortic valve replacement Cardiac defibrillator in place Cardiomyopathy Coronary artery disease with history of myocardial infarction without history of CABG DDD (degenerative disc disease) Dilated aortic root Dislocated finger Dysplastic nevus ED (erectile dysfunction) Elevated brain natriuretic peptide (BNP) level Elevated LDH Elevated serum lactate dehydrogenase (LDH) Epididymal cyst Family history of early CAD Health care maintenance [facility] diverticulum of urinary bladder Hyperlipidemia HYPERTENSION. LVH (left ventricular hypertrophy) Lymphoma stage IV Mitral regurgitation Pneumonitis Prediabetes, prediabetic S/P CABG x 4 S/P coronary artery stent placement Ureteral filling defect Procedure/Surgical History Excision (11/28/2022)Chest X-ray (01/17/2022)History of combination internal cardiac defibrillator and pacemaker (01/2021)ECHO TRANSTHORACIC (07/19/2020)Colonoscopy (07/11/2020)Colonoscopy (07/11/2020)CT of abdomen and pelvis with contrast (04/12/2019)Barium enema (10/11/2015 )Facial bones X-ray (04/28/2015)Echocardiogram (02/14/2015)Transesophageal echocardiogram (02/2015)Coronary angiography (10/20/2013)CABG x 4 and AVR (Porcine) (09/11/2011)Stress ECHO--ABNL (EATON)--Abnormal (09/04/2011)Stress ECHO (08/06/2011)Echocardiogram (08/02/2011)RIGHT PORT REMOVED (03/17/2006)ECHO--01/18, 03/2005, annually x 2006 (03/17/2005)RIGHT SIDED PORTplaced (02/14/2005)COLONOSCOPY --WNL (04/17/2003)Nevus BACK-Benign (12/15/2001)Cadiolyte (03/17/1996) Lipoma head (03/17/1970) Appendectomy (03/17/1964) T & A (03/17/1950) Cardiac echo Medications amoxicillin(amoxicillin 500 mg oral capsule), 2000 mg= 4 cap, PO, As indicated, 3 refills ascorbic acid(Vitamin C), 1000 mg, PO, Daily aspirin(Aspirin Low Dose 81 mg oral delayed release tablet), 81 mg= 1 tab, PO, Daily cholecalciferol(Vitamin D3 5000 intl units (125 mcg) oral capsule), PO, Daily furosemide(furosemide 20 mg oral tablet), 20 mg= 1 tab, PO, Daily, 3 refills magnesium oxide(magnesium oxide 250 mg oral tablet), 250 mg= 1 tab, PO, Daily metoprolol(metoprolol succinate 50 mg oral tablet, extended release), 50 mg= 1 tab, PO, qhs, 3 refills metoprolol(Metoprolol Succinate ER 25 mg oral tablet, extended release), See Instructions, 3 refills multivitamin(MVI-12), 1 tab, dose unknown, PO, Daily nitroglycerin(nitroglycerin 0.4 mg sublingual tablet), 0.4 mg= 1 tab, SL, q5min, PRN, 3 refills omega-3 polyunsaturated fatty acids(Fish Oil oral capsule), 2 tab, PO, Daily rivaroxaban(Xarelto 20 mg oral tablet), See Instructions, 3 refills rosuvastatin(rosuvastatin 10 mg oral tablet), See Instructions sacubitril-valsartan(Entresto 24 mg-26 mg oral tablet), 1 tab, PO, bid, 3 refills turmeric(turmeric 500 mg oral capsule), 500 mg= 1 cap, PO, Daily ubiquinone(ubiquinone 200 mg oral capsule), 1 cap, PO, Daily, 11 refills Unknown Medication(probiotic), 1 tab ,dose unknown, PO, Daily Allergies NKA Social History Smoking Status Never smoked cigarettes Alcohol Use:Current Type:Beer, Wine, Liquor Frequency:1-2 times per week Average drinks per episode in last year:1 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 Angina: Father. CAD (coronary artery disease): Mother. Cancer: PGM. Cardiovascular disease: Mother. [place] (myocardial infarction): Father and MGM. Smoker.: Father. Health Status Family Member(s) Family Member(s) Relationship: Mother, Age: 76 Years, Cause: CHF/ SLE Relationship: Father, Age: 62 Years, Cause: [place]/ Smoker Electronic Signature on File CC: Arie Juares MD [address] [facility] [address] [facility] [id number] Electronically Reviewed/Signed by: GREGG Thacker Author Signature Dt/Tm:01/06/2023 02:08 PM [facility] [place] [facility] Patient Care team information Care Team Personnel Name: GREGG Manley Tara Position: Nurse Pract - Family Med Member Role: Lifetime Relationship Address: [address] [place] [address] [place] Name: MD Mor, Arie Grady Position: Physician - Family Med Member Role: Lifetime Relationship Address: [address] [facility] [address] [place] [address] [place] Name: GREGG Damon Stacey L Position: Nurse Pract - Cardiology Member Role: Lifetime Relationship Address: [address] [facility] [place] [address] [place] Name: MD Betancur Nandini Position: Physician - Card Heart Failure Member Role: Lifetime Relationship Address: [address] [facility] [address] [place] [address] [place] Name: MD Hill David L Position: Physician - Derm Member Role: Lifetime Relationship Address: [address] [facility] [address] [place] [address] [place] Care Team Related Persons Name: SHRUTI MENA
--- OUTSIDE RECORDS SUMMARY | 2024-01-08 11:27 | External Medical Summary | Continuity of Care Document ---
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 Name Role Phone Mor Arie Miguel A Primary Care Physician [phone] [id number] Date(s): 11/21/23 - 11/21/23 [facility] [address] [facility] 303 [facility], [facility] 1 [place], [place] [phone] Encounter Diagnosis Other fatigue(Final) - Discharge Disposition: Home or Self Care Attending Physician: DO Reyes Jason D Referring Physician: DO Reyes Jason D Allergies, Adverse Reactions, Alerts No Known Allergies Immunizations Given and Recorded Vaccine Date Status [...] bid, Disp# 60 tab, Refills: 11, Pharmacy: [facility]/pharmacy #[id number] Start Date: 11/21/23 Status: Ordered amoxicillin 500 mg oral capsule Start: 09/18/22 2:43:00 PM EDT, 4 cap, PO, As indicated, Disp# 12 cap, Refills: 3, one hour before dental and other procedures as directed, Pharmacy: [facility] #[id number] Start Date: 09/18/22 Status: Ordered Aspirin Low Dose 81 mg oral delayed release tablet Start: 09/30/12 3:00:00 PM EDT, 1 tab, PO, Daily Start Date: 09/30/12 Status: Ordered Bumex 1 mg oral tablet Start: 05/09/23 12:01:00 PM EST, 1 tab, PO, bid, Disp# 180 tab, Refills: 5, ACTION PLAN: Increase to2 tabs twice daily if experiencing wt gain/HF symptoms, Pharmacy: [facility] #[id number] Start Date: 05/09/23 Status: Ordered Crestor 5 mg oral tablet Start: 03/12/23 9:29:00 AM EST, 1 tab, PO, qhs, Disp# 90 tab, Refills: 3, Pharmacy: [facility] #[id number] Start Date: 03/12/23 Status: Ordered Entresto 24 mg-26 mg oral tablet Start: 04/01/23 9:01:00 AM EST, 1 tab, PO, bid, Disp# 180 tab, Refills: 3, Pharmacy: [facility] #[id number] Start Date: 04/01/23 Status: Ordered Fish Oil 1000 mg oral capsule Start: 07/30/23 2:48:00 PM EDT Start Date: 07/30/23 Status: Ordered Jardiance 10 mg oral tablet Start: 03/18/23 2:39:00 PM EST, 1 tab, PO, Daily, Disp# 90 tab, Refills: 3, Pharmacy: [facility] #[id number] Start Date: 03/18/23 Stop Date: 03/12/24 Status: [...] PRN: as needed for chest pain, Pharmacy: [facility] #[id number] Start Date: 10/22/21 Status: Ordered spironolactone 25 mg oral tablet Start: 09/12/23 2:23:00 PM EDT, 0.5 tab, PO, Daily, Disp# 45 tab, Refills: 3, Pharmacy: [facility]/pharmacy#[id number] Start Date: 09/12/23 Status: Ordered ubiquinone 200 [...] qPM, Disp# 90 tab, Refills: 3, Pharmacy: [facility] #[id number] Start Date: 02/17/23 Status: Ordered Problem List Condition Confirmation Course Effective Dates Status H ealth Status Informant AK (actinic keratosis) Confirmed Active Dilated aortic root Confirmed Active AVR - Aortic valve replacement Confirmed Active Cardiac defibrillator in place Confirmed Active Cardiomyopathy Confirmed Active Systolic and diastolic CHF, chronic Confirmed Active Unspecified systolic (congestive) heart failure Confirmed 07/24/23 Active Atherosclerotic heart disease of [place] coronary artery without angina pectoris Confirmed 07/24/23 [...] OM, PDA 2moderate 3Diverticulum ? RIGHT side Procedures Procedure Date Related Diagnosis Body Site [...] diverticulosis. 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 One [...] root and ascending aorta have dilated since 2011 from 4.5cm to 5.1 cm HERMINIA is recommenced to assess aorta and AoV leaflets which appear to open in the short axis images. The study was reviewed with the [facility] lab as well. 11CONCLUSIONS History of bicuspid [...] significant cunningham Results Laboratory List Name Date Complete Blood Count w Differential (CBC ,DIFFH) 11/21/23 Iron Profile (IRON PROFILE) 11/21/23 Most recent to oldest [Reference Range]: 1 MPV [9.0-12.2 fL] 11.3 fL (11/21/23 11:33 AM) Immature Gran% 0.6 % (11/21/23 11:33 AM) Neut% 63.7 % (11/21/23 11:33 AM) Lymph% 18.2 % (11/21/23 11:33 AM) Kleberg% 10.7 % (11/21/23 11:33 AM) Baso% 1.4 % (11/21/23 11:33 AM) Eos% 5.4 % (11/21/23 11:33 AM) Immat Gran, Abs [0-0.4 K/uL] 0.04 K/uL (11/21/23 11:33 AM) Neut, Abs [2.0-7.7 K/uL] 4.59 K/uL (11/21/23 11: AM) Lymph, Abs [1.0-3.4 K/uL] 1.31 K/uL (11/21/23 11:33 AM) Kleberg, Abs [0-1.0 K/uL] 0.77 K/uL (11/21/23 11:33 AM) Baso, Abs [0-0.1 K/uL] 0.10 K/uL (11/21/23 11: AM) Eos, Abs [0-0.5 K/uL] 0.39 K/uL (11/21/23 11: AM) Type of Diff: AUTO *Unknown* (11/21/23 AM) RDW [11.5-14.2 %] 15.1 % *HI* (11/21/23 AM) Iron [50-158 ug/dL] 55 ug/dL (11/21/23 11: AM) Hct [39-48 %] 39.1 % (11/21/23 11: AM) Hgb [13.0-17.0 g/dL] 12.2 g/dL *LOW* (11/21/23: AM) MCH [28-33 pg] 31.7 pg (11/21/23 11:33 AM) MCHC [32-36 g/dL] 31.2 g/dL *LOW* (11/21/23: AM) MCV [81-96 fL] 101.6 fL *HI* (11/21/23: AM) Plts [150-350 K/uL] 173 K/uL (11/21/23 11:33 AM) RBC [4.40-5.60 M/uL] 3.85 M/uL *LOW* (11/21/23: AM) Fe Sat [14-50 %] 13 % *LOW* (11/21/23: AM) Total IBC [250-400 ug/dL] 425 ug/dL *HI* (11/21/23: AM) Transferrin [200-360 mg/dL] 360 mg/dL (11/21/23 11:33 AM) WBC [4.0-10.4 K/uL] 7.20 K/uL (11/21/23 11:33 AM) Social History Social History Type Response Smoking Status Never smoked cigaret manuel Sex Male Sex Representation Male (finding) Patient Care team information Care Team Personnel Name: GREGG Manley Tara Position: Nurse Pract - Family Med Member Role: Lifetime Relationship Address: [address] [place] [address] [place] Name: MD Mor, Arie Grady Position: Physician - Family Med Member Role: Lifetime Relationship Address: [address] [facility] [place] [address] [place] Name: GREGG Damon Stacey L Position: Nurse Pract - Cardiology Member Role: Lifetime Relationship Address: [address] [facility] [address] [place] Name: Abril Florez Ashley Position: Pharmacist Member Role: Pharmacy - Lifetime Name: MD Gypsy, Stella Position: Physician - Card Heart Failure Member Role: Lifetime Relationship Address: [address] [facility] [address] [place] [address] [place] Name: MD Sergio, Kishor Pena Position: Physician - Derm Member Role: Lifetime Relationship Address: [address] [facility] [address] [place] [address] Care Team Related Persons Name: SHRUTI MENA
--- OUTSIDE RECORDS SUMMARY | 2024-01-08 11:27 | External Medical Summary | Continuity of Care Document ---
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 Name Role Phone Arie Juares Primary Care Physician [phone] Encounter [facility] PAR[facility] [id number] Date(s): 12/04/23 - 12/04/23 [facility] 207 [facility] [address] [address] [phone] Encounter Diagnosis Body mass index [BMI] 25.0-25.9, adult(Discharge Diagnosis) - 12/04/23 Systolic and diastolic CHF, chronic(Discharge Diagnosis) - 12/04/23 Elevated brain natriuretic peptide (BNP) level(Discharge Diagnosis) - 12/04/[address](Discharge Diagnosis) - 12/04/23 CKD stage 3b, GFR 30-44 ml/min(Discharge Diagnosis) - 12/04/23 Macrocytic anemia(Discharge Diagnosis) - 12/04/23 Discharge Disposition: Home or Self Care Attending Physician: MD Mcrae Joseph P Allergies, Adverse Reactions, Alerts No Known Allergies Assessment and Plan Extracted from: Title:FCM - progressive HFrEF Author:MD Bright Margaret Date:12/04/23 1.Systolic and diastolic C HF, chronic Chronic condition not at goal/exacerbated/progressive/side effects of treatment Goal: Preserved quality of life Data:external notes including: _cards note 11/30,multiple messages between Dr. Reyes and Dr. Cavazos from 12/03,BNP Plan: Extended conversation had with patient and regarding the pathophysiology and course of HF. Reviewed cardiology note, which also detailed an in-depth conversation about his chronic conditions. Patient with progressively worsening HF and poor prognosis. Palliative care referral was given at last cardiology appointment. Patient's fatigue, cough, SOB, and edema likely all extracardiac manifestations of HFrEF. Expressed that paracentesis/pleural tap are not typically used in the management of fluid overload from HF as there is not typically a tap-able pocket and the risks generally outweigh the benefits.Discussedthatopioid therapy cancause respiratorydepressionand even especiallyin older frail individuals with known heart disease. Will not be giving refill of this medicationtoday and I strongly recommend discontinuation. Can try adding more pillows or sleeping in a recliner to help with restful sleep. He was recently started on amiodarone by cardiology. Is also on GDMT. There is some ongoing discussion about CCM implant - cardiac contractility modulation. Patient already has an ICD/pacer. Has a cardiology follow up scheduled for early December. Has PCP follow up in February. Continue current regimen for now - f/u in 6 weeks, sooner if needed 2.Elevated brain natriuretic peptide (BNP) level 3.Cardiac defibrillator in place 4.CKD stage 3b, GFR 30-44 ml/min Chronic condition not at goal/exacerbated/progressive/side effects of treatment Goal: Kidney perfusion Data:_CMP 11/20, 11/12,11/02 Plan: Likely pre-renal kidney injury with Cr of 2.01. Acutely worse than baseline (~1.5), but has stabilized. This may be his new baseline. Cardiology monitoring for now. 5.Macrocytic anemia Chronic condition not at goal/exacerbated/progressive/side effects of treatment Goal: Resolution Data:unique tests reviewed: _Iron panel,CBC Plan: May be multifactorial with anemia of chronic disease, iron deficiency, general poor nutrition, and decreased kidney function contributing. Was recently started on oral iron supplements by cardiology. Will reach out about the possibility of IV venoferto cardiology. If given the okay can order and fax to [facility] for infusion. Immunizations Given and Recorded Vaccine Date Status [...] bid, Disp# 60 tab, Refills: 11, Pharmacy: [facility]/pharmacy #[id number] Start Date: 11/21/23 Status: Ordered amoxicillin 500 mg oral capsule Start: 09/18/22 2:43:00 PM EDT, 4 cap, PO, As indicated, Disp# 12 cap, Refills: 3, one hour before dental and other procedures as directed, Pharmacy: [facility] #[id number] Start Date: 09/18/22 Status: Ordered Aspirin Low Dose 81 mg oral delayed release tablet Start: 09/30/12 3:00:00 PM EDT, 1 tab, PO, Daily Start Date: 09/30/12 Status: Ordered Bumex 1 mg oral tablet Start: 05/09/23 12:01:00 PM EST, 1 tab, PO, bid, Disp# 180 tab, Refills: 5, ACTION PLAN: Increase to2 tabs twice daily if experiencing wt gain/HF symptoms, Pharmacy: [facility] #[id number] Start Date: 05/09/23 Status: Ordered Crestor 5 mg oral tablet Start: 03/12/23 9:29:00 AM EST, 1 tab, PO, qhs, Disp# 90 tab, Refills: 3, Pharmacy: [facility] #[id number] Start Date: 03/12/23 Status: Ordered Entresto 24 mg-26 mg oral tablet Start: 04/01/23 9:01:00 AM EST, 1 tab, PO, bid, Disp# 180 tab, Refills: 3, Pharmacy: [facility] #[id number] Start Date: 04/01/23 Status: Ordered Fish Oil 1000 mg oral capsule Start: 07/30/23 2:48:00 PM EDT Start Date: 07/30/23 Status: Ordered Jardiance 10 mg oral tablet Start: 03/18/23 2:39:00 PM EST, 1 tab, PO, Daily, Disp# 90 tab, Refills: 3, Pharmacy: [facility] #[id number] Start Date: 03/18/23 Stop Date: 03/12/24 Status: [...] PRN: as needed for chest pain, Pharmacy: [facility] #[id number] Start Date: 10/22/21 Status: Ordered spironolactone 25 mg oral tablet Start: 09/12/23 2:23:00 PM EDT, 0.5 tab, PO, Daily, Disp# 45 tab, Refills: 3, Pharmacy: [facility]/pharmacy#[id number] Start Date: 09/12/23 Status: Ordered ubiquinone 200 [...] qPM, Disp# 90 tab, Refills: 3, Pharmacy: [facility] #[id number] Start Date: 02/17/23 Status: Ordered Mental Status 12/04/23 Barriers to Learning one year Vision imp airment, Other: glasses Mandatory Health Literacy Documentation Yes Health Literacy Communication Barriers N ever Primary Language Polish Problem List Condition Confirmation Course Effective Dates [...] Confirmed 07/24/23 Active Atherosclerotic heart disease of [place] coronary artery without angina pectoris Confirmed 07/24/23 [...] Effective Dates Health Status Clinical Service Informant Body mass index [BMI] 25.0-25.9, adult Discharge Diagnosis 12/04/23 Non-Specified Systolic and diastolic CHF, chronic Discharge Diagnosis 12/04/23 Non-Specified Elevated brain natriuretic peptide (BNP) level Discharge Diagnosis 12/04/23 Non-Specified Cardiac defibrillator in place Discharge Diagnosis 12/04/23 Non-Specified CKD stage 3b, GFR 30-44 ml/min Discharge Diagnosis 12/04/23 Non-Specified Macrocytic anemia Discharge Diagnosis 12/04/23 Non-Specified Procedures Procedure Date Related Diagnosis Body [...] diverticulosis. 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 One [...] images. The study was reviewed with the [facility] lab as well. 11CONCLUSIONS History of bicuspid [...] Most recent to oldest [Reference Range]: 1 Height 179.1 cm (12/04/23 10:55 AM) Patient Weight 81.7 kg (12/04/23 10:55 AM) Body Mass Index 25.47 kg/m2 (12/04/23 10:55 AM) Heart Rate 68 bpm (12/04/23 10:55 AM) Respiratory Rate 18 br/min (12/04/23 10:55 AM) Blood Pressure 92/44mmHg (12/04/23 10:55 AM) Cuff Pulse Pressure 48 mmHg (12/04/23 10:55 AM) Social History Social History Type Response Smoking Status Never smoked cigaret manuel Sex Male Sex Representation Male (finding) FCM Outpt Note * MD Mcrae Joseph P: MODIFY MD Mcrae Joseph P: MODIFY, MODIFY Event Display: FCM Outpt Note Authored Date: Chief Complaint med discussion, would also like to discuss a persistent cough, bloating, kidneys and pleurotap, andsevere fatigue related to iron infusion. History of Present Illness 78 y/o with a PMHxof CAD s/p CABG and subsequent re-stenting, HFrEF(30-35%) on GDMT therapy, CKD, anemia, prior aortic valve replacement, mitral regurghere to discuss multiple concerns. HFrEF: Follows with cardiology - on GDMT. Believed to be intravascularly dry and extravascularly wet as his creatinine has bumped from 1.5 -> 2.0 recently. Has been difficult to maintaineuvolemicstatus. Patientonbumex andspironolactone.Recently started amiodarone. did do some research a bout the possibility of pleural tap/paracentesis. Interested in discussing this for fluid removal. Patient also with cough, worse when lying flat. Does have some SOB with exertion. Minimal SOB at rest. No CP. has been giving him codeine cough syrup as she is concerned that he is not sleeping because of the cough. It was recommended that she discontinue this when she saw cards - 11/30. Requesting refill from our office today. Anemia: [id number]. Iron Sat 13.Recently started iron supplementation with plan to recheck panel lizz few months. would like to discuss the possibility of iron infusions as she is worried that his fatigue is from the low blood count. Physical Exam Vitals & Measurements HR:68(Monitored) RR:18 BP:92/44 HT:179.1cm WT:81.700kg(Dosing) WT:81.7kg BMI:25.47 PHQ2 Data(Data Documented on:12/04/2023 10:51) Emotional health assessment NEGATIVE Gen: well appearing male in NAD HEENT: AT NC CV: RRR 3/6 murmur best heard clinically well perfused Resp: CTAB good air movement, no wheezing, crackles bilateral crackles, no increased work of breathing Abd: soft, distended, +BS, non-tender, no fluid wave appreciated MSK: no obvious deformities Skin: no bruising or rashes noted Psych: appropriate mood and affect Neuro: alert and oriented Assessment/Plan 1.Systolic and diastolic CHF, chronic Chronic condition not at goal/exacerbated/progressive/side effects of treatment Goal: Preserved quality of life Data:external notes including: _cards note 11/30,multiple messages between Dr. Reyes and Dr. Cavazos from 12/03,BNP Plan: Extended conversation had with patient and regarding the pathophysiology and course of HF. Reviewed cardiology note, which also detailed an in-depth conversation about his chronic conditions. Patient with progressively worsening HF and poor prognosis. Palliative care referral was given at last cardiology appointment. Patient's fatigue, cough, SOB, and edema likely all extracardiac manifestations of HFrEF. Expressedthat paracentesis/pleural tap are not typically used in the management of fluid overload from HF asthere is not typically a tap-able pocket and the risks generally outweigh the benefits.Discussedthatopioid therapy cancause respiratorydepressionand even especiallyin older frail i ndividuals with known heart disease. Will not be giving refill of this medicationtoday and I strongly recommend discontinuation. Can try adding more pillows or sleeping in a recliner to help with restful sleep. He was recently started on amiodarone by cardiology. Is also on GDMT. There is some ongoing discussion about CCM implant - cardiac contractility modulation. Patient already has an ICD/pacer. Has acardiology follow up scheduled for early December. Has PCP follow up in February. Continue current regimen for now - f/u in 6 weeks, sooner if needed 2.Elevated brain natriuretic peptide (BNP) level 3.Cardiac defibrillator in place 4.CKD stage 3b, GFR 30-44 ml/min Chronic condition not at goal/exacerbated/progressive/side effects of treatment Goal: Kidney perfusion Data:_CMP 11/20, 11/12,11/02 Plan: Likely pre-renal kidney injury with Cr of 2.01. Acutely worse than baseline (~1.5), but has stabilized. This may be his new baseline. Cardiology monitoring for now. 5.Macrocytic anemia Chronic condition not at goal/exacerbated/progressive/side effects of treatment Goal: Resolution Data:unique tests reviewed: _Iron panel,CBC Plan: May be multifactorial with anemia of chronic disease, iron deficiency, general poor nutrition, and decreased kidney function contributing. Was recently started on oral iron supplements by cardiology. Will reach out about the possibility of IV venoferto cardiology. If given the okay can order and fax to [facility] for infusion. Attestation I saw patient and was present for the walker portions of the history and physical. I agree with theresident's note and plan as documented in the resident's note. Eduin has several heart issues, andCardiology notes reviewed. He may benefit from CCM, but not codeine for cough. I provided education on Palliative care as well as Cardiology notes. Will check to see if he can (think yes) for iron infusions (ordered after contacting Cardiology to keep everyon in the loop). Mariella Mcrae Problem List/Past Medical History Ongoing Abnormal prostate exam [place] (actinic keratosis) Atherosclerotic heart disease of [place] coronary artery without angina pectoris AVR - [...] Service Date: 08/02/2011RIGHT PORT REMOVED| Service Date: 03/17/2006ECHO--/, 03/2005, annually x 2006| Service Date: 03/17/2005RIGHT [...] in last year:1 Employment/School Status:Retired Description:[employer] Exercise Duration (average number of minutes):45 Times per week:Daily Exercise type:Walking Home/Environment Lives with:Spouse Nutrition/Health Type of diet:regular Substance Abuse - Denies Substance Abuse Tobacco - Denies Tobacco Use Family History Alive and well: Brother, Son and Son. Angina: Father. CAD (coronary artery disease): Mother. Cancer: PGM. Cardiovascular disease: Mother. CO (myocardial infarction): Father and MGM. Smoker.: Father. Health Status Family Member(s) Family Member(s) Relationship: Mother, Age: 76 Years, Cause: CHF/ SLE Relationship: Father, Age: 62 Years, Cause: CO/ Smoker Immunizations Vaccine Date Status zoster vaccine, inactivated 03/08/2019 Given zoster vaccine, inactivated 12/29/2018 Given tetanus/diphtheria/pertuss, acel (Tdap) 12/14/2018 Given influenza virus vaccine, inactivated 12/14/2018 Given tetanus/diphtheria/pertuss, acel (Tdap) 10/28/2017 Recorded Comments : 2018-12-29: Historical information-source unspecified influenza virus vaccine, inactivated 01/30/2015 Given pneumococcal 13-valent vaccine 03/24/2014 Given tetanus toxoids-diphtheria, Td (Adult) 11/26/2013 Recorded Comments : 2018-12-29: Historical information-source unspecified influenza virus vaccine, inactivated 11/19/2013 Given influenza virus vaccine, inactivated 01/23/2012 Given pneumococcal 23-valent vaccine 11/30/2011 Recorded Comments : 2018-12-29: Historical information-source unspecified pneumococcal 23-valent vaccine - Not Given Comments : Patient Refused zoster vaccine live 01/15/2011 Recorded pneumococcal 23-valent vaccine 12/05/2010 Given influenza virus vaccine, inactivated 12/05/2010 Given tetanus/diphtheria/pertuss, acel (Tdap) 03/19/2007 Recorded pneumococcal 23-valent vaccine 02/20/2006 Recorded pneumococcal 23-valent vaccine 01/15/2001 Recorded Recommendations Health Maintenance Pending(in the next year) OverDue Adult Influenza Vaccine due09/14/23and every 1year Due Adult COVID-19 Vaccination due12/04/23Unknown Frequency Due In Future Medicare Annual Wellness Visit not due until01/21/24and every 1year Adult Social Determinants of Health Screening not due until03/03/24and every 366day Satisfied(in the past 1 year) Satisfied Body Mass Index on12/04/23.Satisfied by DIMITRY Razo Kyla Lipid Screening on07/24/23.Satisfied by Contributor_system, [email or web address] Medicare Annual Wellness Visit on01/20/23.Satisfied by MD Mor, Arie Grady Electronic Signature on File Electronically Reviewed/Signed by: Silvina Bright MD Author Signature Dt/Tm:12/04/2023 06:01 PM Resident Department of Family Medicine Electronically Reviewed/Signed by: Silvina Bright MD Cosigner Signature Dt/Tm: 12/05/2023 08:11 AM Resident Department of Family Medicine Electronically Reviewed/Signed by: Shmuel Mcrae MD Cosigner Signature Dt/Tm: 12/05/2023 11:46AM Department of Family Medicine MP Patient Care team information Care Team Personnel Name: GREGG Manley Tara Position: Nurse Pract - Family Med Member Role: Lifetime Relationship Address: [address] [place] [address] [place] Name: MD Mor, Arie rGady Position: Physician - Family Med Member Role: Lifetime Relationship Address: [address] [facility] [address] [place] [address] [place] Name: GREGG Damon Stacey L Position: Nurse Pract - Cardiology Member Role: Lifetime Relationship Address: [address] [facility] [place] [address] [place] Name: MD Betancur Nandini Position: Physician - Card Heart Failure Member Role: Lifetime Relationship Address: [address] [facility] [address] [place] [address] [place] Name: MD Sergio, Kishor Pena Position: Physician - Derm Member Role: Lifetime Relationship Address: [address] [facility] [address] [place] [address] [place] Care Team Related Persons Name: SHRUTI MENA"
--- OUTSIDE RECORDS SUMMARY | 2024-01-08 11:27 | External Medical Summary | Continuity of Care Document ---
Author Name Unknown Organization [facility] [address] Address [address] [place], [place] [id number] Care Team Providers Care Neon Sign Installer Name Role Phone Arie Juares Primary Care Physician [phone] [id number] Date(s): 11/21/23 - 11/21/23 [facility] [address] [facility] [address] [facility], [facility] [address] [place], [phone] Encounter Diagnosis Unspecified systolic (congestive) heart failure(Final) - Discharge Disposition: Home or Self Care Attending Physician: GREGG Johnston Kathaleen A Referring Physician: GREGG Johnston Kathaleen A Allergies, Adverse Reactions, Alerts No Known [...] bid, Disp# 60 tab, Refills: 11, Pharmacy: [facility]/pharmacy #[id number] Start Date: 11/21/23 Status: Ordered amoxicillin 500 mg oral capsule Start: 09/18/22 2:43:00 PM EDT, 4 cap, PO, As indicated, Disp# 12 cap, Refills: 3, one hour before dental and other procedures as directed, Pharmacy: [facility] #[id number] Start Date: 09/18/22 Status: Ordered Aspirin Low Dose 81 mg oral delayed release tablet Start: 09/30/12 3:00:00 PM EDT, 1 tab, PO, Daily Start Date: 09/30/12 Status: Ordered Bumex 1 mg oral tablet Start: 05/09/23 12:01:00 PM EST, 1 tab, PO, bid, Disp# 180 tab, Refills: 5, ACTION PLAN: Increase to2 tabs twice daily if experiencing wt gain/HF symptoms, Pharmacy: [facility] #[id number] Start Date: 05/09/23 Status: Ordered Crestor 5 mg oral tablet Start: 03/12/23 9:29:00 AM EST, 1 tab, PO, qhs, Disp# 90 tab, Refills: 3, Pharmacy: [facility] #[id number] Start Date: 03/12/23 Status: Ordered Entresto 24 mg-26 mg oral tablet Start: 04/01/23 9:01:00 AM EST, 1 tab, PO, bid, Disp# 180 tab, Refills: 3, Pharmacy: [facility] #[id number] Start Date: 04/01/23 Status: Ordered Fish Oil 1000 mg oral capsule Start: 07/30/23 2:48:00 PM EDT Start Date: 07/30/23 Status: Ordered Jardiance 10 mg oral tablet Start: 03/18/23 2:39:00 PM EST, 1 tab, PO, Daily, Disp# 90 tab, Refills: 3, Pharmacy: [facility] #[id number] Start Date: 03/18/23 Stop Date: 03/12/24 Status: [...] PRN: as needed for chest pain, Pharmacy: [facility] #[id number] Start Date: 10/22/21 Status: Ordered spironolactone 25 mg oral tablet Start: 09/12/23 2:23:00 PM EDT, 0.5 tab, PO, Daily, Disp# 45 tab, Refills: 3, Pharmacy: [facility]/pharmacy#[id number] Start Date: 09/12/23 Status: Ordered ubiquinone 200 [...] qPM, Disp# 90 tab, Refills: 3, Pharmacy: [facility] #[id number] Start Date: 02/17/23 Status: Ordered Problem List Condition Confirmation Course Effective Dates Status H ealth Status Informant AK (actinic keratosis) Confirmed Active Dilated aortic root Confirmed Active AVR - Aortic valve replacement Confirmed Active Cardiac defibrillator in place Confirmed Active Cardiomyopathy Confirmed Active Systolic and diastolic CHF, chronic Confirmed Active Unspecified systolic (congestive) heart failure Confirmed 07/24/23 Active Atherosclerotic heart disease of [place] coronary artery without angina pectoris Confirmed 07/24/23 [...] --WNL 04/17/03 Complet ed Nevus BACK-Benign 12/15/01 [facility] ed Cadiolyte 03/17/96 Completed Lipoma head 03/17/70 [...] diverticulosis. 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 One of these lies in close proximity to the left orbit. CT is recommended for better localization 8CONCLUSIONS History of bicuspid aortic valve; S/P stented bioprosthetic AV replacement.Severely dilated left ventricle (by LV diastolic volume index). Moderately reduced LV systolic function. Akinesis of the inferior, basal and mid inferoseptal, anteroseptum and basal and mid inferolateral nari. The remaining nair are hypokinetic. Ejection fraction [...] images. The study was reviewed with the [facility] lab as well. 11CONCLUSIONS History of bicuspid [...] significant cunningham Results Laboratory List Name Date Basic Metabolic Panel (BASIC METAB PANEL ) 11/21/23 NT-Pro BNP 11/21/23 Most recent to oldest [Reference Range]: 1 eGFR CKD-EPI [>60 mL/min/1.73 m2] 33 mL/ min/1.73 m2 1 *LOW* (11/21/23 11:34 AM) BNP, NT-Pro [<450 pg/mL] 92417 pg/mL *HI* (11/21/23 11:34 AM) Estimated CrCl 31.74 mL/min (11/21/23 12:06 PM) Anion Gap [5-14 mmol/L] 8 mmol/L (11/21/23 11:34 AM) BUN [7-20 mg/dL] 51 mg/dL *HI* (11/21/23 11:34 AM) Ca [8.4-10.2 mg/dL] 9.4 mg/dL (11/21/23 11:34 AM) Cl- [96-107 mmol/L] 100 mmol/L (11/21/23 11:34 AM) HCO3 [22-30 mmol/L] 30 mmol/L (11/21/23 11:34 AM) Cret [0.70-1.30 mg/dL] 2.01 mg/dL *HI* (11/21/23 11:34 AM) Glu [74-106 mg/dL] 91 mg/dL (11/21/23 11:34 AM) K [3.5-5.1 mmol/L] 5.0 mmol/L (11/21/23 11:34 AM) Na [137-145 mmol/L] 138 mmol/L (11/21/23 11:34 AM) 1Result Comment: Testing Performed By: Dept of Pathology [facility], [address] [place] [address] Social History Social History Type Response Smoking Status Never smoked cigaret manuel Sex Male Sex Representation Male (finding) Patient Care team information Care Team Personnel Name: GREGG Manley Tara Position: Nurse Pract - Family Med Member Role: Lifetime Relationship Address: [address] [place] [address] [place] Name: MD Mor, Arie Grady Position: Physician - Family Med Member Role: Lifetime Relationship Address: [address] [facility] [address] [place] [address] [place] Name: GREGG Damon Stacey L Position: Nurse Pract - Cardiology Member Role: Lifetime Relationship Address: [address] [facility] [place] [address] [place] [address] [place] Name: Abril Florez Ashley Position: Pharmacist Member Role: Pharmacy - Lifetime Name: MD Gypsy, Stella Position: Physician - Card Heart Failure Member Role: Lifetime Relationship Address: [address] [facility] [address] [place] [address] [place] Name: MD Hill David L Position: Physician - Derm Member Role: Lifetime Relationship Address: [address] [place] [address] 2 [place] [address] Care Team Related Persons Name: SHRUTI MENA
--- OUTSIDE RECORDS SUMMARY | 2024-01-08 11:27 | External Medical Summary | Continuity of Care Document ---
Author Name Unknown Organization [facility] [address] [facility] Address [address] [place], [place] [id number] Care Team Providers Care Representative Personal Service Name Role Phone JuaresArie nicole Miguel A Primary Care Physician [phone] [id number] Date(s): 11/21/23 - 11/21/23 [facility] [address] [place] [phone] Discharge Disposition: Home or Self Care Attending [...] dental and other procedures as directed, Pharmacy: [facility] #[id number] Start Date: 09/18/22 Status: Ordered Aspirin Low Dose 81 mg oral delayed release tablet Start: 09/30/12 3:00:00 PM EDT, 1 tab, PO, Daily Start Date: 09/30/12 Status: Ordered Bumex 1 mg oral tablet Start: 05/09/23 12:01:00 PM EST, 1 tab, PO, bid, Disp# 180 tab, Refills: 5, ACTION PLAN: Increase to2 tabs twice daily if experiencing wt gain/HF symptoms, Pharmacy: [facility] #[id number] Start Date: 05/09/23 Status: Ordered Crestor 5 mg oral tablet Start: 03/12/23 9:29:00 AM EST, 1 tab, PO, qhs, Disp# 90 tab, Refills: 3, Pharmacy: [facility] #[id number] Start Date: 03/12/23 Status: Ordered Entresto 24 mg-26 mg oral tablet Start: 04/01/23 9:01:00 AM EST, 1 tab, PO, bid, Disp# 180 tab, Refills: 3, Pharmacy: [facility] #[id number] Start Date: 04/01/23 Status: Ordered Fish Oil 1000 mg oral capsule Start: 07/30/23 2:48:00 PM EDT Start Date: 07/30/23 Status: Ordered Jardiance 10 mg oral tablet Start: 03/18/23 2:39:00 PM EST, 1 tab, PO, Daily, Disp# 90 tab, Refills: 3, Pharmacy: [facility] #[id number] Start Date: 03/18/23 Stop Date: 03/12/24 Status: [...] PRN: as needed for chest pain, Pharmacy: [facility] #[id number] Start Date: 10/22/21 Status: Ordered spironolactone 25 mg oral tablet Start: 09/12/23 2:23:00 PM EDT, 0.5 tab, PO, Daily, Disp# 45 tab, Refills: 3, Pharmacy: [facility]/pharmacy#[id number] Start Date: 09/12/23 Status: Ordered ubiquinone 200 [...] qPM, Disp# 90 tab, Refills: 3, Pharmacy: [facility] #[id number] Start Date: 02/17/23 Status: Ordered Problem List Condition Confirmation Course Effective Dates Status H ealth Status Informant [place] (actinic keratosis) Confirmed Active Dilated aortic root Confirmed Active AVR - Aortic valve replacement Confirmed Active Cardiac defibrillator in place Confirmed Active Cardiomyopathy Confirmed Active Systolic and diastolic CHF, chronic Confirmed Active Unspecified systolic (congestive) heart failure Confirmed 07/24/23 Active 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 One [...] images. The study was reviewed with the [facility] lab as well. 11CONCLUSIONS History of bicuspid [...] to oldest [Reference Range]: 1 Patient Weight 79.4 kg (11/21/23 11:56 AM) Heart Rate 58 bpm (11/21/23 11:56 AM) Blood Pressure 100/42mmHg (11/21/23 11:56 AM) BP Location # 1 Left Arm (11/21/23 11:56 AM) Social History Social History Type Response Smoking Status Never smoked cigaret amnuel Sex Male Sex Representation Male (finding) Patient Care team information Care Team Personnel Name: GREGG Manley Tara Position: Nurse Pract - Family Med Member Role: Lifetime Relationship Address: [address] [place] [id number] Name: MD Juares Michael P Position: Physician - Family Med Member Role: Lifetime Relationship Address: [address] [address] [place] Name: GREGG Damon Stacey L Position: Nurse Pract - Cardiology Member Role: Lifetime Relationship Address: [address] [facility] [place] [address] [place] Name: Abril Florez Ashley Position: Pharmacist Member Role: Pharmacy - Lifetime Name: MD Gypsy, Stella Position: Physician - Card Heart Failure Member Role: Lifetime Relationship Address: [address] [facility] [address] [place], [place] [address] [place] Name: MD Sergio, Kishor Pena Position: Physician - Derm Member Role: Lifetime Relationship Address: [address] [facility] [address] [place] [address] [place] Care Team Related Persons Name: SHRUTI MENA
--- OUTSIDE RECORDS SUMMARY | 2024-01-08 11:27 | External Medical Summary | Continuity of Care Document ---
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 Name Role Phone JuaresArie morris Miguel A Primary Care Physician [phone] Encounter [facility] PARUL [id number] Date(s): 12/01/23 - 12/01/23 [facility] [address], [address] [place] [address] [phone] Encounter Diagnosis Medication management(Discharge Diagnosis) - 12/01/23 Frequent PVCs(Discharge Diagnosis) - 12/01/23 Systolic CHF(Discharge Diagnosis) - 12/01/23 CKD stage 3b, GFR 30-44 ml/min(Discharge Diagnosis) - 12/01/23 Discharge Disposition: Home or Self Care Attending Physician: GREGG Landin Sarah A Allergies, Adverse Reactions, Alerts No Known Allergies Assessment and Plan Extracted from: Title:Cardiology Office Visit Note Author:GREGG Auguste rd, Sarah A Date:12/01/23 Impression: 1. Coronary artery disease, status post coronary artery bypass grafting x4 in 2011 with a CARBONE to the LAD, SVG to the PDA and an SVG to the ramus and obtuse marginal branch. 2. Status post bioprosthetic aortic valve replacement with a 29 mm Perez II bioprosthetic aortic valve 2011 with a small dimensional less index.(confirmed by HERMINIA at [facility]) A. EF of30-35% by echocardiography 02/2023, with inferolateral hypokinesis; moderate RV dysfunction; Type [...] At rest in the supine position, the patient s hemodynamics demonstrated moderately elevated right (mRAP 14 mmHg) and severely elevated left (mPCWP 32 mmHg with a large V wave to 48 mmHg, LVEDP 36 mmHg) filling pressures. Pulmonary pressure was mildly elevated (mPAP 42 mmHg) with mildly elevated PVR (2.0 KAUR). Cardiac index was severely reduced [...] measuring 5.1 cm. 9. S/P Cardio Mems I had a very long conversation with Eduin and his . We went through all his medications and their purposes and in particularthe importance of his heart failure medications and how they protect him from worsening heart failure, heart failure hospitalizations, and from heart failure. We also reviewed sideeffects of medications andwhat if anything can be contributing to his cough. At this point I think it is unlikely that his medications are contributing to his cough. It is probably the heart failure itself. His BNP wasvery high at 13,000on his recent lab work. We also discussed that his heart failureis probably reducing hisappetite as he is getting distended in his belly and it is making him feel full. At this point I would recommend he start amiodarone which he had been hesitant to get started with. I explained that the purpose was to improvesynchronyin his ventricles by decreasing PVCs and thereforeimprove the efficiency of his pump and hopefully decrease his heart failure. He will have an EKG in a week. We reviewedthat he should be maintaining a low-sodium diet of less than 2000 mg sodium per day. He can drink waterto thirst. His had concerns that his rosuvastatin could be causing his cough. We reviewed the importance of rosuvastatin for someone who has a history of CADand that it not only decreasescholesterol but alsodecreases inflammation within the arteries which can help stabilize plaques and preventfurther heart attacks. Eduin could take a 2-week break and see if that improves the coughbut I doubt this isthe source. Entresto can cause a cough but he has been on this medication for some time and I would not want to remove it from his heart failure regimen unless absolutely necessary. He had takensomecodeine to help him sleepbecause he was coughing so much. I discussed with him that codeine is sedating and for somebodywho hascompromised breathing with progressive heart failure I would not necessarily recommendthat he continue doing so at this point. His is frustrated that he is not able to return tohis previous activities that he enjoysincluding helping maintain their 30 acres of property. I discussed withthem that itis notrealisticthat he will go back to such activities. Heart failure is a progressive disease and he is getting to a point where we may run out of optionstotake fluid offgiven his kidney function. He looks very dry onhis lab workbut despite that has a significantly elevated BNP and heart failure symptoms. Eduin askedwhat would happenif we get to a point where the medications are not workingand I discussedfocusing onpalliation toimprove quality of life as much as possible and keep him comfortable. I asked if he and his would like todiscuss his goals of carewithp[facility] and theywould like to do soand I have placed a referral. I spent over 65 minutes face to face with the Gregory. Ms. Mena had further questions so I will have them return at my next 60 minute opening to further discuss. Immunizations Given and Recorded Vaccine Date Status [...] bid, Disp# 60 tab, Refills: 11, Pharmacy: [facility]/pharmacy #[id number] Start Date: 11/21/23 Status: Ordered amoxicillin 500 mg oral capsule Start: 09/18/22 2:43:00 PM EDT, 4 cap, PO, As indicated, Disp# 12 cap, Refills: 3, one hour before dental and other procedures as directed, Pharmacy: [facility] #[id number] Start Date: 09/18/22 Status: Ordered Aspirin Low Dose 81 mg oral delayed release tablet Start: 09/30/12 3:00:00 PM EDT, 1 tab, PO, Daily Start Date: 09/30/12 Status: Ordered Bumex 1 mg oral tablet Start: 05/09/23 12:01:00 PM EST, 1 tab, PO, bid, Disp# 180 tab, Refills: 5, ACTION PLAN: Increase to2 tabs twice daily if experiencing wt gain/HF symptoms, [facility]acy: [facility] #[id number] Start Date: 05/09/23 Status: Ordered Crestor 5 mg oral tablet Start: 03/12/23 9:29:00 AM EST, 1 tab, PO, qhs, Disp# 90 tab, Refills: 3, Pharmacy: [facility] #[id number] Start Date: 03/12/23 Status: Ordered Entresto 24 mg-26 mg oral tablet Start: 04/01/23 9:01:00 AM EST, 1 tab, PO, bid, Disp# 180 tab, Refills: 3, Pharmacy: [facility] #[id number] Start Date: 04/01/23 Status: Ordered Fish Oil 1000 mg oral capsule Start: 07/30/23 2:48:00 PM EDT Start Date: 07/30/23 Status: Ordered Jardiance 10 mg oral tablet Start: 03/18/23 2:39:00 PM EST, 1 tab, PO, Daily, Disp# 90 tab, Refills: 3, Pharmacy: [facility] #[id number] Start Date: 03/18/23 Stop Date: 03/12/24 Status: [...] PRN: as needed for chest pain, Pharmacy: [facility] #[id number] Start Date: 10/22/21 Status: Ordered spironolactone 25 mg oral tablet Start: 09/12/23 2:23:00 PM EDT, 0.5 tab, PO, Daily, Disp# 45 tab, Refills: 3, Pharmacy: [facility]#[id number] Start Date: 09/12/23 Status: Ordered ubiquinone 200 [...] qPM, Disp# 90 tab, Refills: 3, Pharmacy: [facility] #[id number] Start Date: 02/17/23 Status: Ordered Mental Status 12/01/23 Barriers to Learning one year Vision imp airment, Other: glasses Mandatory Health Literacy Documentation Yes Health Literacy Communication Barriers N ever Primary Language Yemeni Problem List Condition Confirmation Course Effective Dates Status H ealth Status Informant [place] (actinic keratosis) Confirmed Active Dilated aortic root Confirmed Active AVR - Aortic valve replacement Confirmed Active Cardiac defibrillator in place Confirmed Active Cardiomyopathy Confirmed Active Systolic and diastolic CHF, chronic Confirmed Active Unspecified systolic (congestive) heart failure Confirmed 07/24/23 Active Atherosclerotic heart disease of [place] coronary artery without angina pectoris Confirmed 07/24/23 [...] Effective Dates Health Status Clinical Service Informant Systolic CHF Discharge Diagnosis 12/01/23 Non-Specified Medication management Discharge Diagnosis 12/01/23 Non-Specified Frequent PVCs Discharge Diagnosis 12/01/23 Non-Specified CKD stage 3b, GFR 30-44 ml/min Discharge Diagnosis 12/01/23 Non-Specified Procedures Procedure Date Related Diagnosis Body [...] diverticulosis. 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 One [...] images. The study was reviewed with the [facility] lab as well. 11CONCLUSIONS History of bicuspid [...] Representation Male (finding) Cardiology Outpatient Note * GREGG Landin Sarah A: PERFORM Event Display: Cardiology Outpt Note Authored Date: [id number] Primary Care Provider MD Mor, Arie Grady Chief Complaint Cough with SOB w at rest and exertion fatigue denies flutters, heart racing, palpitations, dizziness, or lightheadedness, black stools History of Present Illness Mr. Mena presentsforfollow-up of his history of systolic heart failureand coronary artery disease. His is with him todayand she bringsmany questionsthat she has written downto go through. She is very frustrated with his symptomsand that he hasnot had any improvementand seems to be progressively getting worse. She is notes that heis short of breath all the time. He is very fatigued. He has a perpetual and worsening coughthat is dry. She also notes that he is noteatingand he agrees that he has no appetite. He denieschest pain although he does feel like he is supposed to take a deep breath. He is not having any palpitations Review of Systems All other systems reviewed and negative except as discussed in the HPI Physical Exam Physical Examination General: Alert and oriented, No acute distress. Neck: No jugular venous distention. Respiratory: Lungs are clear to auscultation, Respirations are non-labored. Cardiovascular: Normal rate, Regular rhythm,3/6 rusb systolicmurmur, No edema. Integumentary: Warm, Dry, [place] Neurologic: Alert, Oriented. Cognition and Speech: Speech clear and coherent. Psychiatric: Cooperative, Appropriate mood & affect. Assessment/Plan Impression: 1. Coronary artery disease, status post coronary artery bypass grafting x4 in 2011 with a CARBONE tothe LAD, SVG to the PDA and an SVG to the ramus and obtuse marginal branch. 2. Status post bioprosthetic aortic valve replacement with a 29 mm Perez II bioprosthetic aortic valve 2011 with a small dimensional less index.(confirmed by HERMINIA at [facility]) A. EF of30-35% by echocardiography 02/2023, with inferolateral hypokinesis; moderate RV dysfunction; Type [...] measuring 5.1 cm. 9. S/P Cardio Mems I had a very long conversation with Eduin and his . We went through all his medications and their purposes and in particularthe importance of his heart failure medications and how they protecthim from worsening heart failure, heart failure hospitalizations, and from heart failure. We also reviewed sideeffects of medications andwhat if anything can be contributing to his cough.At this point I think it is unlikely that his medications are contributing to his cough. It is probably the heart failure itself. His BNP wasvery high at 13,000on his recent lab work. We also discussed that his heart failureis probably reducing hisappetite as he is getting distendedin his belly and it is making him feel full. At this point I would recommend he start amiodarone which he had been hesitant to get started with. I explained that the purpose was to improvesynchronyin his ventricles by decreasing PVCs and thereforeimprove the efficiency of his pump and hopefully decrease his heart failure. He will have an EKG in a week. We reviewedthat he should be maintaining a low-sodium diet of less than 2000 mg sodium per day. He can drink waterto thirst. His had concerns that his rosuvastatin could be causing his cough. We reviewed the importance of rosuvastatin for someone who has a history of CADand that it not only decreasescholesterol but alsodecreases inflammation within the arteries which can help stabilize plaques and preventfurther heart attacks. Eduin could take a 2-week break and see if that improves the coughbut I doubt this isthe source. Entresto can cause a cough but he has been on this medication for some time and I would not want to remove it from his heart failure regimen unless absolutely necessary. He had takensomecodeine to help him sleepbecause he was coughing so much. I discussed with him that codeine is sedating and for somebodywho hascompromised breathing with progressive heartfailure I would not necessarily recommendthat he continue doing so at this point. His is frustrated that he is not able to return tohis previous activities that he enjoysincluding helping maintain their 30 acres of property. I discussed withthem that itis notrealisticthat he will go back to such activities. Heart failure is a progressive disease and he is getting to a point where we may run out of optionstotake fluid offgiven his kidney function. He looks very dry onhis lab workbut despite that has a significantly elevated BNP and heart failure symptoms. Eduin askedwhat would happenif we get to a point where the medications are not workingand I discussedfocusing onpalliation toimprove quality of life as much as possible and keep him comfortable. I asked if he and his would like todiscuss his goals of carewithpalliative care at [facility] and theywould like to do soand I have placed a referral. I spent over 65 minutes face to face with the Shemarpatels. Ms. Mena had further questions so I will have them return at my next 60 minute opening to further discuss. Problem List/Past Medical History Ongoing Abnormal prostate exam [place] (actinic keratosis) Atherosclerotic heart disease of [place] coronary artery without angina pectoris AVR - Aortic valve replacement Cardiac defibrillator in place Cardiomyopathy DDD (degenerative disc disease) Dilated aortic root Dysplastic nevus| Status: Inactive ED (erectile dysfunction) Electrolyte disturbance Elevated brain natriuretic peptide (BNP) level Elevated serum lactate dehydrogenase (LDH) Epididymal cyst Family history of early CAD Groin hematoma Health care maintenance Heart disease, hypertensive, with heart failure Hutch [...] pacemaker| Service Date: CHO TRANSTHORACIC| Service Date: 1Colonoscopy| Service Date: 07/11/2020olonoscopy| Service Date: 1CT of [...] in last year:1 Employment/School Status:Retired Description:[employer] Exercise Duration (average number of minutes):45 Times per week:Daily Exercise type:Walking Home/Environment Lives with:Spouse Nutrition/Health Type of diet:regular Substance Abuse - Denies Substance Abuse Tobacco - Denies Tobacco Use Family History Alive and well: Brother, Son and Son. Angina: Father. CAD (coronary artery disease): Mother. Cancer: PGM. Cardiovascular disease: Mother. UT (myocardial infarction): Father and MGM. Smoker.: Father. Health Status Family Member(s) Family Member(s) Relationship: Mother, Age: 76 Years, Cause: CHF/ SLE Relationship: Father, Age: 62 Years, Cause: UT/ Smoker Electronic Signature on File CC: Arie Juares MD [facility] [address] [address] Electronically Reviewed/Signed by: GREGG Thacker Author Signature Dt/Tm:12/01/2023 05:39 PM [facility] [place] [facility] Patient Care team information Care Team Personnel Name: GREGG Manley Tara Position: Nurse Pract - Family Med Member Role: Lifetime Relationship Address: [address] [place] [address] [place] Name: MD Juares Michael P Position: Physician - Family Med Member Role: Lifetime Relationship Address: [address] [address] [place] Name: GREGG Damon Stacey L Position: Nurse Pract - Cardiology Member Role: Lifetime Relationship Address: [address] [facility] [place] [address] [place] [address] [place] Name: MD Betancur Nandini Position: Physician - Card Heart Failure Member Role: Lifetime Relationship Address: [address] [facility] [address] [place] [address] [place] Name: MD Sergio, Kishor Pena Position: Physician - Derm Member Role: Lifetime Relationship Address: [address] [place] [address], [place] [address] [place] Care Team Related Persons Name: SHRUTI MENA"
--- OUTSIDE RECORDS SUMMARY | 2024-01-08 11:28 | External Medical Summary | Continuity of Care Document ---
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 [place] [facility] [place] [place] [address] [facility] [place] [address] [phone] Discharge Disposition: Home or Self Care Attending Physician: DO Reyes Jason D Allergies, Adverse [...] 23-valent vaccine 01/15/01 Recorded zoster vaccine live 11/1/11 Recorded 1Result Comment: 2018-12-29: Historical information-source unspecified 2Result Comment: 2018-12-29: Historical information-source unspecified 3Result Comment: 2018-12-29: Historical information-source unspecified Medications amoxicillin 500 mg oral capsule Start: 09/18/22 2:43:00 PM EDT, 4 cap, PO, As indicated, Disp# 12 cap, Refills: 3, one hour before dental and other procedures as directed, Pharmacy: [facility] #[id number] Start Date: 09/18/22 Status: Ordered Aspirin Low Dose 81 mg oral delayed release tablet Start: 09/30/12 3:00:00 PM EDT, 1 tab, PO, Daily Start Date: 09/30/12 Status: Ordered Bumex 1 mg oral tablet Start: 05/09/23 12:01:00 PM EST, 2 tab, PO, Daily, Disp# 180 tab, Refills: 5, ACTION PLAN: Increase to 2 tabs twice daily if experiencing wt gain/HF symptoms, Pharmacy: [facility] #[id number] Start Date: 05/09/23 Status: Ordered Crestor 5 mg oral tablet Start: 03/12/23 9:29:00 AM EST, 1 tab, PO, qhs, Disp# 90 tab, Refills: 3, Pharmacy: [facility] #[id number] Start Date: 03/12/23 Status: Ordered Entresto 24 mg-26 mg oral tablet Start: 04/01/23 9:01:00 AM EST, 1 tab, PO, bid, Disp# 180 tab, Refills: 3, Pharmacy: [facility] #[id number] Start Date: 04/01/23 Status: Ordered Fish Oil 1000 mg oral capsule Start: 07/30/23 2:48:00 PM EDT Start Date: 07/30/23 Status: Ordered Jardiance 10 mg oral tablet Start: 03/18/23 2:39:00 PM EST, 1 tab, PO, Daily, Disp# 90 tab, Refills: 3, Pharmacy: [facility] #[id number] Start Date: 03/18/23 Stop Date: 03/12/24 Status: [...] PRN: as needed for chest pain, Pharmacy: [facility] #[id number] Start Date: 10/22/21 Status: Ordered spironolactone 25 mg oral tablet Start: 09/12/23 2:23:00 PM EDT, 0.5 tab, PO, Daily, Disp# 45 tab, Refills: 3, Pharmacy: [facility]#[id number] Start Date: 09/12/23 Status: Ordered ubiquinone 200 [...] qPM, Disp# 90 tab, Refills: 3, Pharmacy: [facility] #[id number] Start Date: 02/17/23 Status: Ordered Problem List Condition Confirmation Course Effective Dates Status H ealth Status Informant [place] (actinic keratosis) Confirmed Active Dilated aortic root Confirmed Active AVR - Aortic valve replacement Confirmed Active Cardiac defibrillator in place Confirmed Active Cardiomyopathy Confirmed Active Systolic and diastolic CHF, chronic Confirmed Active Unspecified systolic (congestive) heart failure Confirmed 07/24/23 Active Atherosclerotic heart disease of [place] coronary artery without angina pectoris Confirmed 07/24/23 [...] diverticulosis. 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 One [...] images. The study was reviewed with the [facility] [place] as well. 11CONCLUSIONS History [...] Med Member Role: Lifetime Relationship Address: [address] [place] [address] [place] Name: MD Mor, Arie Grady Position: Physician - Family Med Member Role: Lifetime Relationship Address: [address] [facility] [address] [place] [address] [place] Name: GREGG Damon Stacey L Position: Nurse Pract - Cardiology Member Role: Lifetime Relationship Address: [address] [facility] [place] [address] [place] Name: Abril Florez Ashley Position: Pharmacist Member Role: Pharmacy - Lifetime Name: MD Betancur Nandini Position: Physician - Card Heart Failure Member Role: Lifetime Relationship Address: [address] [facility] [address] [place] [address] [place] Name: MD Hill David L Position: Physician - Derm Member Role: Lifetime Relationship Address: [address] [facility] [address] [place] [address] [place] Care Team Related Persons Name: SHRUTI MENA
--- OUTSIDE RECORDS SUMMARY | 2024-01-08 11:28 | External Medical Summary | Continuity of Care Document ---
Author Name Unknown Organization [facility] [address] Address [address] [place], [place] [id number] Care Team Providers Care Senior Internal Auditor Name Role Phone Arie Juares Primary Care Physician [phone] [id number] - 10/17/23 [facility] [address] 1 [facility] 303 [facility], [facility] 1 [place], [place] [phone] Encounter Diagnosis Unspecified systolic (congestive) heart failure(Final) - Discharge Disposition: Home or Self Care Attending Physician: GREGG Escobar Suzanne E Referring Physician: GREGG Escobar Suzanne E Allergies, Adverse Reactions, Alerts No Known Allergies [...] dental and other procedures as directed, Pharmacy: [facility] #[id number] Start Date: 09/18/22 Status: Ordered Aspirin Low Dose 81 mg oral delayed release tablet Start: 09/30/12 3:00:00 PM EDT, 1 tab, PO, Daily Start Date: 09/30/12 Status: Ordered Bumex 1 mg oral tablet Start: 05/09/23 12:01:00 PM EST, 2 tab, PO, Daily, Disp# 180 tab, Refills: 5, ACTION PLAN: Increase to 2 tabs twice daily if experiencing wt gain/HF symptoms, Pharmacy: [facility] #[id number] Start Date: 05/09/23 Status: Ordered Crestor 5 mg oral tablet Start: 03/12/23 9:29:00 AM EST, 1 tab, PO, qhs, Disp# 90 tab, Refills: 3, [facility]acy: [facility] #[id number] Start Date: 03/12/23 Status: Ordered Entresto 24 mg-26 mg oral tablet Start: 04/01/23 9:01:00 AM EST, 1 tab, PO, bid, Disp# 180 tab, Refills: 3, Pharmacy: [facility] #[id number] Start Date: 04/01/23 Status: Ordered Fish Oil 1000 mg oral capsule Start: 07/30/23 2:48:00 PM EDT Start Date: 07/30/23 Status: Ordered Jardiance 10 mg oral tablet Start: 03/18/23 2:39:00 PM EST, 1 tab, PO, Daily, Disp# 90 tab, Refills: 3, Pharmacy: [facility] #[id number] Start Date: 03/18/23 Stop Date: 03/12/24 Status: [...] PRN: as needed for chest pain, Pharmacy: [facility] #[id number] Start Date: 10/22/21 Status: Ordered spironolactone 25 mg oral tablet Start: 09/12/23 2:23:00 PM EDT, 0.5 tab, PO, Daily, Disp# 45 tab, Refills: 3, Pharmacy: [facility]#[id number] Start Date: 09/12/23 Status: Ordered ubiquinone 200 [...] qPM, Disp# 90 tab, Refills: 3, Pharmacy: [facility] #[id number] Start Date: 02/17/23 Status: Ordered Problem List Condition Confirmation Course Effective Dates Status H ealth Status Informant AK (actinic keratosis) Confirmed Active Dilated aortic root Confirmed Active AVR - Aortic valve replacement Confirmed Active Cardiac defibrillator in place Confirmed Active Cardiomyopathy Confirmed Active Systolic and diastolic CHF, chronic Confirmed Active Unspecified systolic (congestive) heart failure Confirmed 07/24/23 Active Atherosclerotic heart disease of [place] coronary artery without angina pectoris Confirmed 07/24/23 [...] 03/17/06 Comple jeff ECHO--01/18, 03/2005, annually x 200503/17/05 Completed RIGHT SIDED PORT placed 02/14/05 C [...] diverticulosis. No suspicious mucosal lesions are identified.L Corl,UPTWIST SPINNER- PT aware 7multiple radiopaque foreign bodies. One [...] images. The study was reviewed with the [facility] lab as well. [...] Basic Metabolic Panel (BASIC METAB PANEL ) 10/17/23 Most recent to oldest [Reference Range]: 1 eGFR CKD-EPI [>60 mL/min/1.73 m2] 42 mL/ min/1.73 m2 1 *LOW* (10/17/23 10:38 AM) Estimated CrCl 38.43 mL/min (10/17/23 11:08 AM) Anion Gap [5-14 mmol/L] 7 mmol/L (10/17/23 10:38 AM) BUN [7-20 mg/dL] 41 mg/dL *HI* (10/17/23 10:38 AM) Ca [8.4-10.2 mg/dL] 9.4 mg/dL (10/17/23 10:38 AM) Cl- [96-107 mmol/L] 100 mmol/L (10/17/23 10:38 AM) HCO3 [22-30 mmol/L] 31 mmol/L *HI* (10/17/23 10:38 AM) Cret [0.70-1.30 mg/dL] 1.66 mg/dL *HI* (10/17/23 10:38 AM) Glu [74-106 mg/dL] 93 mg/dL (10/17/23 10:38 AM) K [3.5-5.1 mmol/L] 5.1 mmol/L (10/17/23 10:38 AM) Na [137-145 mmol/L] 138 mmol/L (10/17/23 10:38 AM) 1Result Comment: Testing Performed By: Dept of Pathology [facility], [address] [place] [address] Social History Social History Type Response Smoking Status Never smoked cigaret manuel Sex Male Sex Representation Male (finding) Patient Care team information Care Team Personnel Name: GREGG Manley Tara Position: Nurse Pract - Family Med Member Role: Lifetime Relationship Address: [address] [place] [address] [place] Name: MD Mor, Arie Grady Position: Physician - Family Med Member Role: Lifetime Relationship Address: [address] [facility] [address] [place] [address] [place] Name: GREGG Damon Stacey L Position: Nurse Pract - Cardiology Member Role: Lifetime Relationship Address: [address] [facility] [place] [address] [place] Name: Abril Florez Ashley Position: Pharmacist Member Role: Pharmacy - Lifetime Name: MD Betancur Nandini Position: Physician - Card Heart Failure Member Role: Lifetime Relationship Address: [address] [facility] [address] [place] [address] [place] Name: MD Hill David L Position: Physician - Derm Member Role: Lifetime Relationship Address: [address] [place] [address] 2 [place] [address] [place] Care Team Related Persons Name: SHRUTI MENA
--- OUTSIDE RECORDS SUMMARY | 2024-01-08 11:28 | External Medical Summary | Continuity of Care Document ---
Author Name Unknown Organization [facility] [address] Address [address] [place], [place] [id number] Care Team Providers Care Rn Faculty Name Role Phone Aire Juares Primary Care Physician [phone] [id number] Date(s): 11/13/23 - 11/13/23 [facility] [address] [facility] 303 [facility], [facility] 1 [place], [place] [phone] Encounter Diagnosis Unspecified systolic (congestive) heart failure(Final) [...] dental and other procedures as directed, Pharmacy: [facility] #[id number] Start Date: 09/18/22 Status: Ordered Aspirin Low Dose 81 mg oral delayed release tablet Start: 09/30/12 3:00:00 PM EDT, 1 tab, PO, Daily Start Date: 09/30/12 Status: Ordered Bumex 1 mg oral tablet Start: 05/09/23 12:01:00 PM EST, 2 tab, PO, Daily, Disp# 180 tab, Refills: 5, ACTION PLAN: Increase to 2 tabs twice daily if experiencing wt gain/HF symptoms, Pharmacy: [facility] #[id number] Start Date: 05/09/23 Status: Ordered Crestor 5 mg oral tablet Start: 03/12/23 9:29:00 AM EST, 1 tab, PO, qhs, Disp# 90 tab, Refills: 3, [email or web address] #[id number] Start Date: 03/12/23 Status: Ordered Entresto 24 mg-26 mg oral tablet Start: 04/01/23 9:01:00 AM EST, 1 tab, PO, bid, Disp# 180 tab, Refills: 3, Pharmacy: [email or web address] #[id number] Start Date: 04/01/23 Status: Ordered Fish Oil 1000 mg oral capsule Start: 07/30/23 2:48:00 PM EDT Start Date: 07/30/23 Status: Ordered Jardiance 10 mg oral tablet Start: 03/18/23 2:39:00 PM EST, 1 tab, PO, Daily, Disp# 90 tab, Refills: 3, Pharmacy: [email or web address] #[id number] Start Date: 03/18/23 Stop Date: 03/12/24 Status: [...] PRN: as needed for chest pain, Pharmacy: [facility] #[id number] Start Date: 10/22/21 Status: Ordered spironolactone 25 mg oral tablet Start: 09/12/23 2:23:00 PM EDT, 0.5 tab, PO, Daily, Disp# 45 tab, Refills: 3, Pharmacy: [facility]#[id number] Start Date: 09/12/23 Status: Ordered ubiquinone 200 [...] qPM, Disp# 90 tab, Refills: 3, Pharmacy: [facility] #[id number] Start Date: 02/17/23 Status: Ordered Problem List Condition Confirmation Course Effective Dates Status H ealth Status Informant [place] (actinic keratosis) Confirmed Active Dilated aortic root Confirmed Active AVR - Aortic valve replacement Confirmed Active Cardiac defibrillator in place Confirmed Active Cardiomyopathy Confirmed Active Systolic and diastolic CHF, chronic Confirmed Active Unspecified systolic (congestive) heart failure Confirmed 07/24/23 Active Atherosclerotic heart disease of [place] coronary artery without angina pectoris Confirmed 07/24/23 [...] diverticulosis. No suspicious mucosal lesions are identified.L Corl,MANAGER TRADE MARKETING- PT aware 7multiple radiopaque foreign bodies. One [...] images. The study was reviewed with the [facility] lab as well. 11CONCLUSIONS History of bicuspid [...] Basic Metabolic Panel (BASIC METAB PANEL ) 11/13/23 NT-Pro BNP 11/13/23 Most recent to oldest [Reference Range]: 1 eGFR CKD-EPI [>60 mL/min/1.73 m2] 32 mL/ min/1.73 m2 1 *LOW* (11/13/23 9:28 AM) BNP, NT-Pro [<450 pg/mL] 9715 pg/mL *HI* (11/13/23 9:28 AM) Estimated CrCl 30.97 mL/min (11/13/23 10:01 AM) Anion Gap [5-14 mmol/L] 9 mmol/L (11/13/23 9:28 AM) BUN [7-20 mg/dL] 46 mg/dL *HI* (11/13/23 9:28 AM) Ca [8.4-10.2 mg/dL] 9.5 mg/dL (11/13/23 9:28 AM) Cl- [96-107 mmol/L] 100 mmol/L (11/13/23 9:28 AM) HCO3 [22-30 mmol/L] 31 mmol/L *HI* (11/13/23 9:28 AM) Cret [0.70-1.30 mg/dL] 2.06 mg/dL *HI* (11/13/23 9:28 AM) Glu [74-106 mg/dL] 85 mg/dL (11/13/23 9:28 AM) K [3.5-5.1 mmol/L] 5.1 mmol/L (11/13/23 9:28 AM) Na [137-145 mmol/L] 140 mmol/L (11/13/23 9:28 AM) 1Result Comment: Testing Performed By: Dept of Pathology [facility], [address] [place] [address] Social History Social History Type Response Smoking Status Never smoked cigaret manuel Sex Male Sex Representation Male (finding) Patient Care team information Care Team Personnel Name: GREGG Manley Tara Position: Nurse Pract - Family Med Member Role: Lifetime Relationship Address: [address] [place] [address] [place] Name: MD Mor, Arie Grady Position: Physician - Family Med Member Role: Lifetime Relationship Address: [address] [facility] [address] [place] [address] [place] Name: GREGG Damon Stacey L Position: Nurse Pract - Cardiology Member Role: Lifetime Relationship Address: [address] [facility] [place] [address] [place] Name: Abril Florez Ashley Position: Pharmacist Member Role: Pharmacy - Lifetime Name: MD Betancur Nandini Position: Physician - Card Heart Failure Member Role: Lifetime Relationship Address: [address] [facility] [address] [place] [address] [place] Name: MD Hill David L Position: Physician - Derm Member Role: Lifetime Relationship Address: [address] [address] Care Team Related Persons Name: SHRUTI MENA
--- OUTSIDE RECORDS SUMMARY | 2024-01-08 11:28 | External Medical Summary | Continuity of Care Document ---
Author Name Unknown Organization [facility] [address] Address [address] [place], [place] [id number] Care Team Providers Care Compressor Operator Adjuster Name Role Phone Arie Juares Primary Care Physician [phone] Encounter [facility] [id number] Date(s): 11/03/23 - 11/03/23 [facility] [address] 1 [facility] 303 [facility], [facility] 1 [place], [place] [phone] Discharge Disposition: Home or Self Care Attending Physician: GREGG Borrego Gladys F Referring Physician: GREGG Borrego Gladys F Allergies, Adverse Reactions, Alerts No Known Allergies [...] other procedures as directed, Pharmacy: [facility] #[id number] Start Date: 09/18/22 Status: Ordered Aspirin Low Dose 81 mg oral delayed release tablet Start: 09/30/12 3:00:00 PM EDT, 1 tab, PO, Daily Start Date: 09/30/12 Status: Ordered Bumex 1 mg oral tablet Start: 05/09/23 12:01:00 PM EST, 2 tab, PO, Daily, Disp# 180 tab, Refills: 5, ACTION PLAN: Increase to 2 tabs twice daily if experiencing wt gain/HF symptoms, Pharmacy: [facility] #[id number] Start Date: 05/09/23 Status: Ordered Crestor 5 mg oral tablet Start: 03/12/23 9:29:00 AM EST, 1 tab, PO, qhs, Disp# 90 tab, Refills: 3, [facility]: [facility] #[id number] Start Date: 03/12/23 Status: Ordered Entresto 24 mg-26 mg oral tablet Start: 04/01/23 9:01:00 AM EST, 1 tab, PO, bid, Disp# 180 tab, Refills: 3, Pharmacy: [facility] #[id number] Start Date: 04/01/23 Status: Ordered Fish Oil 1000 mg oral capsule Start: 07/30/23 2:48:00 PM EDT Start Date: 07/30/23 Status: Ordered Jardiance 10 mg oral tablet Start: 03/18/23 2:39:00 PM EST, 1 tab, PO, Daily, Disp# 90 tab, Refills: 3, Pharmacy: [facility] #[id number] Start Date: 03/18/23 Stop Date: 03/12/24 Status: [...] PRN: as needed for chest pain, Pharmacy: [facility] #[id number] Start Date: 10/22/21 Status: Ordered spironolactone 25 mg oral tablet Start: 09/12/23 2:23:00 PM EDT, 0.5 tab, PO, Daily, Disp# 45 tab, Refills: 3, Pharmacy: [facility]#[id number] Start Date: 09/12/23 Status: Ordered ubiquinone 200 [...] qPM, Disp# 90 tab, Refills: 3, Pharmacy: [facility] #[id number] Start Date: 02/17/23 Status: Ordered Problem List Condition Confirmation Course Effective Dates Status H ealth Status Informant [place] (actinic keratosis) Confirmed Active Dilated aortic root Confirmed Active AVR - Aortic valve replacement Confirmed Active Cardiac defibrillator in place Confirmed Active Cardiomyopathy Confirmed Active Systolic and diastolic CHF, chronic Confirmed Active Unspecified systolic (congestive) heart failure Confirmed 07/24/23 Active Atherosclerotic heart disease of [place] coronary artery without angina pectoris Confirmed 07/24/23 [...] diverticulosis. No suspicious mucosal lesions are identified.L Corl,WELFARE INVESTIGATOR- PT aware 7multiple radiopaque foreign bodies. One [...] images. The study was reviewed with the [facility] lab as well. 11CONCLUSIONS History of bicuspid [...] 11, LVOT/AV ratio is 0.28 and the SSUY is 1.5 cm squared). Mild to moderate mitral regurgitation. Mild pulmonary hypertension (PA systolic pressure is 32 mmHg). *Compared to the previous study performed 03/22/2016, there is no significant cunningham Results Laboratory List Name Date NT-Pro BNP 11/03/23 Most recent to oldest [Reference Range]: 1 BNP, NT-Pro [<450 pg/mL] 7665 pg/mL *HI* (11/03/23 11:43 AM) Social History Social History Type Response Smoking Status Never smoked cigaret manuel Sex Male Sex Representation Male (finding) Patient Care team information Care Team Personnel Name: GREGG Manley Tara Position: Nurse Pract - Family Med Member Role: Lifetime Relationship Address: [address] [place] [address] [place] Name: MD Juares Michael P Position: Physician - Family Med Member Role: Lifetime Relationship Address: [address] [facility] [address] [place] [address] [place] Name: GREGG Damon Stacey L Position: Nurse Pract - Cardiology Member Role: Lifetime Relationship Address: [address] [facility] [place] [address] [place] Name: Abril Florez Ashley Position: Pharmacist Member Role: Pharmacy - Lifetime Name: MD Betancur Nandini Position: Physician - Card Heart Failure Member Role: Lifetime Relationship Address: [address] [facility] [address] [place] [address] [place] Name: MD Sergio, Kishor Pena Position: Physician - Derm Member Role: Lifetime Relationship Address: [address] [place] [address], [place] [address] [place] Care Team Related Persons Name: SHRUTI MENA
--- OUTSIDE RECORDS SUMMARY | 2024-01-08 11:28 | External Medical Summary | Continuity of Care Document ---
Author Name Unknown Organization [facility] [address] Address [address] [place], [place] [id number] Care Team Providers Care Optician Manager Name Role Phone Arie Juares Primary Care Physician [phone] [id number] Date(s): 11/03/23 - 11/03/23 [facility] [address] 1 [facility] 303 [facility], [facility] 1 [place], [phone] Encounter Diagnosis Heart failure, unspecified(Final) - Discharge Disposition: Home or Self Care [...] dental and other procedures as directed, Pharmacy: [facility] #[id number] Start Date: 09/18/22 Status: Ordered Aspirin Low Dose 81 mg oral delayed release tablet Start: 09/30/12 3:00:00 PM EDT, 1 tab, PO, Daily Start Date: 09/30/12 Status: Ordered Bumex 1 mg oral tablet Start: 05/09/23 12:01:00 PM EST, 2 tab, PO, Daily, Disp# 180 tab, Refills: 5, ACTION PLAN: Increase to 2 tabs twice daily if experiencing wt gain/HF symptoms, Pharmacy: [facility] #[id number] Start Date: 05/09/23 Status: Ordered Crestor 5 mg oral tablet Start: 03/12/23 9:29:00 AM EST, 1 tab, PO, qhs, Disp# 90 tab, Refills: 3, Pharmacy: [facility] #[id number] Start Date: 03/12/23 Status: Ordered Entresto 24 mg-26 mg oral tablet Start: 04/01/23 9:01:00 AM EST, 1 tab, PO, bid, Disp# 180 tab, Refills: 3, Pharmacy: [facility] #[id number] Start Date: 04/01/23 Status: Ordered Fish Oil 1000 mg oral capsule Start: 07/30/23 2:48:00 PM EDT Start Date: 07/30/23 Status: Ordered Jardiance 10 mg oral tablet Start: 03/18/23 2:39:00 PM EST, 1 tab, PO, Daily, Disp# 90 tab, Refills: 3, Pharmacy: [facility] #[id number] Start Date: 03/18/23 Stop Date: 03/12/24 Status: [...] PRN: as needed for chest pain, Pharmacy: [facility] #[id number] Start Date: 10/22/21 Status: Ordered spironolactone 25 mg oral tablet Start: 09/12/23 2:23:00 PM EDT, 0.5 tab, PO, Daily, Disp# 45 tab, Refills: 3, Pharmacy: [facility]#[id number] Start Date: 09/12/23 Status: Ordered ubiquinone 200 [...] qPM, Disp# 90 tab, Refills: 3, Pharmacy: [facility] #[id number] Start Date: 02/17/23 Status: Ordered Problem List Condition Confirmation Course Effective Dates Status H ealth Status Informant [place] (actinic keratosis) Confirmed Active Dilated aortic root Confirmed Active AVR - Aortic valve replacement Confirmed Active Cardiac defibrillator in place Confirmed Active Cardiomyopathy Confirmed Active Systolic and diastolic CHF, chronic Confirmed Active Unspecified systolic (congestive) heart failure Confirmed 07/24/23 Active Atherosclerotic heart disease of [place] coronary artery without angina pectoris Confirmed 07/24/23 [...] diverticulosis. No suspicious mucosal lesions are identified.L Corl,DOG WALKER- PT aware 7multiple radiopaque foreign bodies. One [...] images. The study was reviewed with the [facility] lab as well. 11CONCLUSIONS History of bicuspid [...] Basic Metabolic Panel (BASIC METAB PANEL ) 11/03/23 Most recent to oldest [Reference Range]: 1 eGFR CKD-EPI [>60 mL/min/1.73 m2] 32 mL/ min/1.73 m2 1 *LOW* (11/03/23 9:02 AM) Estimated CrCl 30.97 mL/min (11/03/23 9:32 AM) Anion Gap [5-14 mmol/L] 11 mmol/L (11/03/23 9:02 AM) BUN [7-20 mg/dL] 47 mg/dL *HI* (11/03/23 9:02 AM) Ca [8.4-10.2 mg/dL] 9.5 mg/dL (11/03/23 9:02 AM) Cl- [96-107 mmol/L] 97 mmol/L (11/03/23 9:02 AM) HCO3 [22-30 mmol/L] 31 mmol/L *HI* (11/03/23 9:02 AM) Cret [0.70-1.30 mg/dL] 2.06 mg/dL *HI* (11/03/23 9:02 AM) Glu [74-106 mg/dL] 92 mg/dL (11/03/23 9:02 AM) K [3.5-5.1 mmol/L] 4.7 mmol/L (11/03/23 9:02 AM) Na [137-145 mmol/L] 139 mmol/L (11/03/23 9:02 AM) 1Result Comment: Testing Performed By: [facility], [address] [place] [address] Social History Social History Type Response Smoking Status Never smoked cigaret manuel Sex Male Sex Representation Male (finding) Patient Care team information Care Team Personnel Name: GREGG Manley Tara Position: Nurse Pract - Family Med Member Role: Lifetime Relationship Address: [address] [place] [address] [place] Name: MD Mor, Arie Grady Position: Physician - Family Med Member Role: Lifetime Relationship Address: [address] [facility] [address] [place] [address] [place] Name: GREGG Damon Stacey L Position: Nurse Pract - Cardiology Member Role: Lifetime Relationship Address: [address] [place] [address] [place] Name: Abril Florez Ashley Position: Pharmacist Member Role: Pharmacy - Lifetime Name: MD Betancur Nandini Position: Physician - Card Heart Failure Member Role: Lifetime Relationship Address: [address] [facility] [address] [place] [address] [place] Name: MD Hill David L Position: Physician - Derm Member Role: Lifetime Relationship Address: [address] [place] [address] 2 [place] [address] Care Team Related Persons Name: SHRUTI MENA
--- OUTSIDE RECORDS SUMMARY | 2024-01-08 11:28 | External Medical Summary | Continuity of Care Document ---
Author Name Unknown Organization [facility] [address] Address [address] [place], [place] [id number] Care Team Providers Care Meat Loiner Name Role Phone Arie Juares Primary Care Physician [phone] [id number] Date(s): 10/10/23 - 10/10/23 [facility] [address] [facility], [facility] 1 [place], [place] [phone] Encounter Diagnosis Unspecified systolic (congestive) heart failure(Final) [...] dental and other procedures as directed, Pharmacy: [facility] #[id number] Start Date: 09/18/22 Status: Ordered Aspirin Low Dose 81 mg oral delayed release tablet Start: 09/30/12 3:00:00 PM EDT, 1 tab, PO, Daily Start Date: 09/30/12 Status: Ordered Bumex 1 mg oral tablet Start: 05/09/23 12:01:00 PM EST, 2 tab, PO, Daily, Disp# 180 tab, Refills: 5, ACTION PLAN: Increase to 2 tabs twice daily if experiencing wt gain/HF symptoms, Pharmacy: [facility] #[id number] Start Date: 05/09/23 Status: Ordered Crestor 5 mg oral tablet Start: 03/12/23 9:29:00 AM EST, 1 tab, PO, qhs, Disp# 90 tab, Refills: 3, [facility] #[id number] Start Date: 03/12/23 Status: Ordered Entresto 24 mg-26 mg oral tablet Start: 04/01/23 9:01:00 AM EST, 1 tab, PO, bid, Disp# 180 tab, Refills: 3, Pharmacy: [facility] #[id number] Start Date: 04/01/23 Status: Ordered Fish Oil 1000 mg oral capsule Start: 07/30/23 2:48:00 PM EDT Start Date: 07/30/23 Status: Ordered Jardiance 10 mg oral tablet Start: 03/18/23 2:39:00 PM EST, 1 tab, PO, Daily, Disp# 90 tab, Refills: 3, Pharmacy: [facility] #[id number] Start Date: 03/18/23 Stop Date: 03/12/24 Status: [...] PRN: as needed for chest pain, Pharmacy: [facility] #[id number] Start Date: 10/22/21 Status: Ordered spironolactone 25 mg oral tablet Start: 09/12/23 2:23:00 PM EDT, 0.5 tab, PO, Daily, Disp# 45 tab, Refills: 3, [facility]acy: [facility][id number] Start Date: 09/12/23 Status: Ordered ubiquinone 200 [...] qPM, Disp# 90 tab, Refills: 3, Pharmacy: [facility] #[id number] Start Date: 02/17/23 Status: Ordered Problem List Condition Confirmation Course Effective Dates Status H ealth Status Informant [place] (actinic keratosis) Confirmed Active Dilated aortic root Confirmed Active AVR - Aortic valve replacement Confirmed Active Cardiac defibrillator in place Confirmed Active Cardiomyopathy Confirmed Active Systolic and diastolic CHF, chronic Confirmed Active Unspecified systolic (congestive) heart failure Confirmed 07/24/23 Active Atherosclerotic heart disease of [place] coronary artery without angina pectoris Confirmed 07/24/23 [...] diverticulosis. No suspicious mucosal lesions are identified.L Corl,FLIGHT READINESS TECHNICIAN- PT aware 7multiple radiopaque foreign bodies. One [...] images. The study was reviewed with the [facility] [place] [facility] lab as well. 11CONCLUSIONS [...] Basic Metabolic Panel (BASIC METAB PANEL ) 10/10/23 Most recent to oldest [Reference Range]: 1 eGFR CKD-EPI [>60 mL/min/1.73 m2] 50 mL/ min/1.73 m2 1 *LOW* (10/10/23 11:29 AM) Estimated CrCl 44.61 mL/min (10/10/23 12:32 PM) Anion Gap [5-14 mmol/L] 5 mmol/L (10/10/23 11:29 AM) BUN [7-20 mg/dL] 32 mg/dL *HI* (10/10/23 11:29 AM) Ca [8.4-10.2 mg/dL] 9.3 mg/dL (10/10/23 11:29 AM) Cl- [96-107 mmol/L] 102 mmol/L (10/10/23 11:29 AM) HCO3 [22-30 mmol/L] 28 mmol/L (10/10/23 11:29 AM) Cret [0.70-1.30 mg/dL] 1.43 mg/dL *HI* (10/10/23 11:29 AM) Glu [74-106 mg/dL] 92 mg/dL (10/10/23 11:29 AM) K [3.5-5.1 mmol/L] 5.5 mmol/L *HI* (10/10/23 11:29 AM) Na [137-145 mmol/L] 135 mmol/L *LOW* (10/10/23 11:29 AM) 1Result Comment: Testing Performed By: Dept of Pathology [facility], [address] [place] [address] Social History Social History Type Response Smoking Status Never smoked cigaret manuel Sex Male Sex Representation Male (finding) Patient Care team information Care Team Personnel Name: GREGG Manley Tara Position: Nurse Pract - Family Med Member Role: Lifetime Relationship Address: [address] [place] [address] [place] Name: MD Mor, Arie Grady Position: Physician - Family Med Member Role: Lifetime Relationship Address: [address] [facility] [address] [place] [address] [place] Name: GREGG Damon Stacey L Position: Nurse Pract - Cardiology Member Role: Lifetime Relationship Address: [address] [facility] [place] [address] [place] [address] [place] Name: Abril Florez Ashley Position: Pharmacist Member Role: Pharmacy - Lifetime Name: MD Betancur Nandini Position: Physician - Card Heart Failure Member Role: Lifetime Relationship Address: [address] [facility] [address] [place] [address] [place] Name: MD Hill David L Position: Physician - Derm Member Role: Lifetime Relationship Address: [address] [place] [address] 2 [place] [address] [place] Care Team Related Persons Name: SHRUTI MENA
--- OUTSIDE RECORDS SUMMARY | 2024-01-08 11:28 | External Medical Summary | Continuity of Care Document ---
Author Name Unknown Organization [address] Address [address] [place], [place] [id number] Care Team Providers Care Hvac Journeyman Name Role Phone JuaresArie nicole Miguel A Primary Care Physician [phone] Encounter [facility] [id number] Date(s): 11/13/23 - 11/13/23 [facility] [address] [place] [address] [phone] Encounter Diagnosis Fatigue(Discharge Diagnosis) - 11/13/23 Discharge Disposition: Home or Self Care Attending [...] other procedures as directed, Pharmacy: [facility] #[id number] Start Date: 09/18/22 Status: Ordered Aspirin Low Dose 81 mg oral delayed release tablet Start: 09/30/12 3:00:00 PM EDT, 1 tab, PO, Daily Start Date: 09/30/12 Status: Ordered Bumex 1 mg oral tablet Start: 05/09/23 12:01:00 PM EST, 2 tab, PO, Daily, Disp# 180 tab, Refills: 5, ACTION PLAN: Increase to 2 tabs twice daily if experiencing wt gain/HF symptoms, Pharmacy: [facility] #[id number] Start Date: 05/09/23 Status: Ordered Crestor 5 mg oral tablet Start: 03/12/23 9:29:00 AM EST, 1 tab, PO, qhs, Disp# 90 tab, Refills: 3, [facility] #[id number] Start Date: 03/12/23 Status: Ordered Entresto 24 mg-26 mg oral tablet Start: 04/01/23 9:01:00 AM EST, 1 tab, PO, bid, Disp# 180 tab, Refills: 3, [facility] #[id number] Start Date: 04/01/23 Status: Ordered Fish Oil 1000 mg oral capsule Start: 07/30/23 2:48:00 PM EDT Start Date: 07/30/23 Status: Ordered Jardiance 10 mg oral tablet Start: 03/18/23 2:39:00 PM EST, 1 tab, PO, Daily, Disp# 90 tab, Refills: 3, [facility] #[id number] Start Date: 03/18/23 Stop Date: 03/12/24 Status: [...] PRN: as needed for chest pain, Pharmacy: [facility] #[id number] Start Date: 10/22/21 Status: Ordered spironolactone 25 mg oral tablet Start: 09/12/23 2:23:00 PM EDT, 0.5 tab, PO, Daily, Disp# 45 tab, Refills: 3, Pharmacy: [facility]#[id number] Start Date: 09/12/23 Status: Ordered ubiquinone 200 [...] qPM, Disp# 90 tab, Refills: 3, Pharmacy: [facility] #[id number] Start Date: 02/17/23 Status: Ordered Problem List Condition Confirmation Course Effective Dates Status H ealth Status Informant AK (actinic keratosis) Confirmed Active Dilated aortic root Confirmed Active AVR - Aortic valve replacement Confirmed Active Cardiac defibrillator in place Confirmed Active Cardiomyopathy Confirmed Active Systolic and diastolic CHF, chronic Confirmed Active Unspecified systolic (congestive) heart failure Confirmed 07/24/23 Active Atherosclerotic heart disease of [place] coronary artery without angina pectoris Confirmed 07/24/23 [...] Diagnosis Diagnosis Type Effective Dates Health Status Clini joon Service Informant Fatigue Discharge Diagnosis 11/13/23 Non-Specified Procedures Procedure Date Related Diagnosis Body [...] Completed Appendectomy 03/17/64 Completed T & A 1/1/51 Completed Cardiac echo 11 Completed 1Impression: No [...] diverticulosis. No suspicious mucosal lesions are identified.L Corl,ORGANIZATIONAL DEVELOPMENT SPECIALIST- PT aware 7multiple radiopaque foreign bodies. [...] The study was reviewed with the [facility] lab as well. 11CONCLUSIONS History of bicuspid [...] [Reference Range]: 1 Patient Weight 80 kg (11/13/23 9:55 AM) Heart Rate 57 bpm (11/13/23 9:55 AM) Blood Pressure 82/44mmHg (11/13/23 9:55 AM) BP Location # 1 Right Arm (11/13/23 9:55 AM) Social History Social History Type Response Smoking Status Never smoked cigaret manuel Sex Male Sex Representation Male (finding) Patient Care team information Care Team Personnel Name: GREGG Manley Tara Position: Nurse Pract - Family Med Member Role: Lifetime Relationship Address: [address] [place] [address] [place] Name: MD Juares Michael P Position: Physician - Family Med Member Role: Lifetime Relationship Address: [address] [address] [place] Name: GREGG Damon Stacey L Position: Nurse Pract - Cardiology Member Role: Lifetime Relationship Address: [address] [facility] [place] [address] [place] Name: Abril Florez Ashley Position: Pharmacist Member Role: Pharmacy - Lifetime Name: MD Betancur Nandini Position: Physician - Card Heart Failure Member Role: Lifetime Relationship Address: [address] [facility] [address] [place] [address] Name: MD Sergio, Kishor Pena Position: Physician - Derm Member Role: Lifetime Relationship Address: [address] [facility] 2 [place] [address] Care Team Related Persons Name: SHRUTI MENA
--- OUTSIDE RECORDS SUMMARY | 2024-01-08 11:28 | External Medical Summary | Continuity of Care Document ---
Author Name Unknown Organization [facility] [address] Address [address] [place], [place] [id number] Care Team Providers Care Network Applications Specialist Name Role Phone Arie Juares Primary Care Physician [phone] [id number] Date[facility]s): 10/06/23 - 10/06/23 [facility] [address] 1 [facility] 303 [facility], [facility] 1 [place], [place] [phone] Encounter Diagnosis Unspecified systolic (congestive) heart failure(Final) [...] dental and other procedures as directed, Pharmacy: [facility] #[id number] Start Date: 09/18/22 Status: Ordered Aspirin Low Dose 81 mg oral delayed release tablet Start: 09/30/12 3:00:00 PM EDT, 1 tab, PO, Daily Start Date: 09/30/12 Status: Ordered Bumex 1 mg oral tablet Start: 05/09/23 12:01:00 PM EST, 2 tab, PO, Daily, Disp# 180 tab, Refills: 5, ACTION PLAN: Increase to 2 tabs twice daily if experiencing wt gain/HF symptoms, Pharmacy: [facility] #[id number] Start Date: 05/09/23 Status: Ordered Crestor 5 mg oral tablet Start: 03/12/23 9:29:00 AM EST, 1 tab, PO, qhs, Disp# 90 tab, Refills: 3, [facility][id number] Start Date: 03/12/23 Status: Ordered Entresto 24 mg-26 mg oral tablet Start: 04/01/23 9:01:00 AM EST, 1 tab, PO, bid, Disp# 180 tab, Refills: 3, [facility] #[id number] Start Date: 04/01/23 Status: Ordered Fish Oil 1000 mg oral capsule Start: 07/30/23 2:48:00 PM EDT Start Date: 07/30/23 Status: Ordered Jardiance 10 mg oral tablet Start: 03/18/23 2:39:00 PM EST, 1 tab, PO, Daily, Disp# 90 tab, Refills: 3, [facility] #[id number] Start Date: 03/18/23 Stop Date: 03/12/24 Status: [...] PRN: as needed for chest pain, Pharmacy: [facility] #[id number] Start Date: 10/22/21 Status: Ordered spironolactone 25 mg oral tablet Start: 09/12/23 2:23:00 PM EDT, 0.5 tab, PO, Daily, Disp# 45 tab, Refills: 3, Pharmacy: [facility]#[id number] Start Date: 09/12/23 Status: Ordered ubiquinone 200 [...] qPM, Disp# 90 tab, Refills: 3, Pharmacy: [facility] #[id number] Start Date: 02/17/23 Status: Ordered Problem List Condition Confirmation Course Effective Dates Status H ealth Status Informant [place] (actinic keratosis) Confirmed Active Dilated aortic root Confirmed Active AVR - Aortic valve replacement Confirmed Active Cardiac defibrillator in place Confirmed Active Cardiomyopathy Confirmed Active Systolic and diastolic CHF, chronic Confirmed Active Unspecified systolic (congestive) heart failure Confirmed 07/24/23 Active Atherosclerotic heart disease of [place] coronary artery without angina pectoris Confirmed 07/24/23 [...] diverticulosis. No suspicious mucosal lesions are identified.L Corl,GRANTS ADMINISTRATOR- PT aware 7multiple radiopaque foreign bodies. One [...] study was reviewed with the [facility] lab as well. 11CONCLUSIONS History of bicuspid [...] Basic Metabolic Panel (BASIC METAB PANEL ) 10/06/23 Most recent to oldest [Reference Range]: 1 eGFR CKD-EPI [>60 mL/min/1.73 m2] 48 mL/ min/1.73 m2 1 *LOW* (10/06/23 10:37 AM) Estimated CrCl 42.82 mL/min (10/06/23 11:06 AM) Anion Gap [5-14 mmol/L] 5 mmol/L (10/06/23 10:37 AM) BUN [7-20 mg/dL] 39 mg/dL *HI* (10/06/23 10:37 AM) Ca [8.4-10.2 mg/dL] 9.7 mg/dL (10/06/23 10:37 AM) Cl- [96-107 mmol/L] 103 mmol/L (10/06/23 10:37 AM) HCO3 [22-30 mmol/L] 30 mmol/L (10/06/23 10:37 AM) Cret [0.70-1.30 mg/dL] 1.49 mg/dL *HI* (10/06/23 10:37 AM) Glu [74-106 mg/dL] 91 mg/dL (10/06/23 10:37 AM) K [3.5-5.1 mmol/L] 5.5 mmol/L *HI* (10/06/23 10:37 AM) Na [137-145 mmol/L] 138 mmol/L (10/06/23 10:37 AM) 1Result Comment: Testing Performed By: Dept of Pathology [facility], [address] [place] [address] Social History Social History Type Response Smoking Status Never smoked cigaret manuel Sex Male Sex Representation Male (finding) Patient Care team information Care Team Personnel Name: GREGG Manley Tara Position: Nurse Pract - Family Med Member Role: Lifetime Relationship Address: [address] [place] [address] [place] Name: MD Mor, Arie Grady Position: Physician - Family Med Member Role: Lifetime Relationship Address: [address] [facility] [address] [place] [address] [place] Name: GREGG Damon Stacey L Position: Nurse Pract - Cardiology Member Role: Lifetime Relationship Address: [address] [facility] [place] [address] [place] Name: Abril Florez Ashley Position: Pharmacist Member Role: Pharmacy - Lifetime Name: MD Betancur Nandini Position: Physician - Card Heart Failure Member Role: Lifetime Relationship Address: [address] [facility] [address] [place] [address] [place] Name: MD Hill David L Position: Physician - Derm Member Role: Lifetime Relationship Address: [address] [place] [address] 2 [place] [address] [place] Care Team Related Persons Name: SHRUTI MENA
--- OUTSIDE RECORDS SUMMARY | 2024-01-08 11:29 | External Medical Summary | Continuity of Care Document ---
Author Name Unknown Organization [address] Address [address] [facility] [place] [id number] Care Team Providers Care Clothing Consultant Name Role Phone Arie Juares Primary Care Physician [phone] [id number] Date(s): 08/22/23 - 08/22/[address] [place] E [facility] [place] [facility] [address] [facility], [facility] E [place] [address] [phone] Encounter Diagnosis Body mass index [BMI] 24.0-24.9, adult(Discharge Diagnosis) - 08/22/23 AVR - Aortic valve replacement(Discharge Diagnosis) - 08/22/[address](Discharge Diagnosis) - 08/22/23 Cardiomyopathy(Discharge Diagnosis) - 08/22/23 Hyperlipidemia(Discharge Diagnosis) - 08/22/23 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 S/P coronary artery stent placement(Discharge Diagnosis) - 08/22/23 Systolic and diastolic CHF, chronic(Discharge Diagnosis) - 08/22/23 Discharge Disposition: Home or Self Care Attending Physician: MD Osorio Dwight C Referring Physician: MD Juares Michael P Allergies, [...] and other procedures as directed, Pharmacy: [facility] #[id number] Start Date: 09/18/22 Status: Ordered Aspirin Low Dose 81 mg oral delayed release tablet Start: 09/30/12 3:00:00 PM EDT, 1 tab, PO, Daily Start Date: 09/30/12 Status: Ordered Bumex 1 mg oral tablet Start: 05/09/23 12:01:00 PM EST, 2 tab, PO, bid, Disp# 180 tab, Refills: 5, ACTION PLAN: Increase to4 tabs twice daily if experiencing wt gain/HF symptoms, [facility] #[id number] Start Date: 05/09/23 Status: Ordered Crestor 5 mg oral tablet Start: 03/12/23 9:29:00 AM EST, 1 tab, PO, qhs, Disp# 90 tab, Refills: 3, [facility] #[id number] Start Date: 03/12/23 Status: Ordered Entresto 24 mg-26 mg oral tablet Start: 04/01/23 9:01:00 AM EST, 1 tab, PO, bid, Disp# 180 tab, Refills: 3, [facility] #[id number] Start Date: 04/01/23 Status: Ordered Fish Oil 1000 mg oral capsule Start: 07/30/23 2:48:00 PM EDT Start Date: 07/30/23 Status: Ordered Jardiance 10 mg oral tablet Start: 03/18/23 2:39:00 PM EST, 1 tab, PO, Daily, Disp# 90 tab, Refills: 3, Pharmacy: [facility] #[id number] Start Date: 03/18/23 Stop Date: 03/12/24 Status: [...] PRN: as needed for chest pain, [facility]acy: [facility] #[id number] Start Date: 10/22/21 Status: Ordered spironolactone 25 mg oral tablet Start: 05/12/23 3:25:00 PM EST, 0.5 tab, PO, Daily, Disp# 30 tab, Refills: 5, [facility] #[id number] Start Date: 05/12/23 Status: Ordered ubiquinone 200 mg oral capsule [...] Disp# 90 tab, Refills: 3, [facility]acy: [facility] #[id number] Start Date: 02/17/23 Status: Ordered Mental Status 08/22/23 Barriers to Learning one year Vision imp airment, Other: glasses Mandatory Health Literacy Documentation Yes Health Literacy Communication Barriers N ever Primary Language Indonesian Problem List Condition Confirmation Course Effective Dates Status H ealth Status Informant AK (actinic keratosis) Confirmed Active Dilated aortic root Confirmed Active AVR - Aortic valve replacement Confirmed Active Cardiac defibrillator in place Confirmed Active Cardiomyopathy Confirmed Active Systolic and diastolic CHF, chronic Confirmed Active Unspecified systolic (congestive) heart failure Confirmed 07/24/23 Active Atherosclerotic heart disease of [place] coronary artery without angina pectoris Confirmed 07/24/23 [...] Clinical Service Informant Body mass index [BMI] 24.0-24.9, adult Discharge Diagnosis 08/22/23 Non-Specified AVR - Aortic valve replacement Discharge Diagnosis 08/22/23 Cardiomyopathy Discharge Diagnosis 08/22/23 Systolic and diastolic CHF, chronic Discharge Diagnosis 08/22/[address] Discharge Diagnosis 08/22/23 Hyperlipidemia Discharge Diagnosis 08/22/23 S/P CABG x 4 Discharge Diagnosis 08/22/23 S/P coronary artery stent placement Discharge Diagnosis 08/22/23 Procedures Procedure Date Related Diagnosis Body Site [...] diverticulosis. No suspicious mucosal lesions are identified.L Corl,HEATING FIXTURE TENDER- PT aware 7multiple radiopaque foreign bodies. One [...] images. The study was reviewed with the [facility] lab as well. 11CONCLUSIONS History of bicuspid [...] recent to oldest [Reference Range]: 1 Height 179 cm (08/22/23 11:05 AM) Patient Weight 80 kg (08/22/23 11:05 AM) Body Mass Index 24.97 kg/m2 (08/22/23 11:05 AM) Heart Rate 65 bpm (08/22/23 11:05 AM) Blood Pressure 96/52mmHg (08/22/23 11:05 AM) Cuff Pulse Pressure 44 mmHg (08/22/23 11:05 AM) BP Location # 1 Right Arm (08/22/23 11:05 AM) Social History Social History Type Response Smoking Status Never smoked cigaret manuel Sex Male Patient Care team information Care Team Personnel Name: GREGG Manley Tara Position: Nurse Pract - Family Med Member Role: Lifetime Relationship Address: Address: [address] [place] [address] [place] Name: MD Mor, Arie Grady Position: Physician - Family Med Member Role: Lifetime Relationship Address: Address: [address] [facility] [address] [place] [address] [place] Name: GREGG Damon Stacey L Position: Nurse Pract - Cardiology Member Role: Lifetime Relationship Address: Address: [address] [facility] [place] [address] [place] [address] [place] Name: Abril Florez Ashley Position: Pharmacist Schedule II Member Role: Pharmacy - Lifetime Name: MD Betancur Nandini Position: Physician - Card Heart Failure Member Role: Lifetime Relationship Address: Address: [address] [facility] [address] [place] [address] [place] Name: MD Hill David L Position: Physician - Derm Member Role: Lifetime Relationship Address: Address: [address] [address] Care Team Related Persons Name: SHRUTI MENA Address: home [address] [place], [place] [id number]
--- OUTSIDE RECORDS SUMMARY | 2024-01-08 11:29 | External Medical Summary | Continuity of Care Document ---
Author Name Unknown Organization [facility] [address] Address [address] [place], [place] [id number] Care Team Providers Care Securities Attorney Name Role Phone Arie Juares Primary Care Physician [phone] [id number] Date(s): 09/01/23 - 09/01/23 [facility] [address] [facility] [address] [facility], [facility] 1 [place], [place] [phone] Encounter Diagnosis Unspecified systolic (congestive) heart failure(Final) - Discharge Disposition: Home or Self Care Attending Physician: GREGG Johnston Kathaleen A Referring Physician: GRGEG Johnston Kathaleen A Allergies, Adverse Reactions, Alerts [...] dental and other procedures as directed, Pharmacy: [facility] #[id number] Start Date: 09/18/22 Status: Ordered Aspirin Low Dose 81 mg oral delayed release tablet Start: 09/30/12 3:00:00 PM EDT, 1 tab, PO, Daily Start Date: 09/30/12 Status: Ordered Bumex 1 mg oral tablet Start: 05/09/23 12:01:00 PM EST, 2 tab, PO, bid, Disp# 180 tab, Refills: 5, ACTION PLAN: Increase to4 tabs twice daily if experiencing wt gain/HF symptoms, Pharmacy: [facility] #[id number] Start Date: 05/09/23 Status: Ordered Crestor 5 mg oral tablet Start: 03/12/23 9:29:00 AM EST, 1 tab, PO, qhs, Disp# 90 tab, Refills: 3, [facility]acy: [facility] #[id number] Start Date: 03/12/23 Status: Ordered Entresto 24 mg-26 mg oral tablet Start: 04/01/23 9:01:00 AM EST, 1 tab, PO, bid, Disp# 180 tab, Refills: 3, Pharmacy: [facility] #[id number] Start Date: 04/01/23 Status: Ordered Fish Oil 1000 mg oral capsule Start: 07/30/23 2:48:00 PM EDT Start Date: 07/30/23 Status: Ordered Jardiance 10 mg oral tablet Start: 03/18/23 2:39:00 PM EST, 1 tab, PO, Daily, Disp# 90 tab, Refills: 3, Pharmacy: [facility] #[id number] Start Date: 03/18/23 Stop Date: 03/12/24 Status: [...] PRN: as needed for chest pain, Pharmacy: [facility] #[id number] Start Date: 10/22/21 Status: Ordered spironolactone 25 mg oral tablet Start: 05/12/23 3:25:00 PM EST, 0.5 tab, PO, Daily, Disp# 30 tab, Refills: 5, Pharmacy: [facility] #[id number] Start Date: 05/12/23 Status: Ordered ubiquinone 200 [...] qPM, Disp# 90 tab, Refills: 3, Pharmacy: [facility] [employer] [place] #[id number] Start Date: 02/17/23 Status: Ordered Problem List Condition Confirmation Course Effective Dates Status H ealth Status Informant AK (actinic keratosis) Confirmed Active Dilated aortic root Confirmed Active AVR - Aortic valve replacement Confirmed Active Cardiac defibrillator in place Confirmed Active Cardiomyopathy Confirmed Active Systolic and diastolic CHF, chronic Confirmed Active Unspecified systolic (congestive) heart failure Confirmed 07/24/23 Active Atherosclerotic heart disease of [place] coronary artery without angina pectoris Confirmed 07/24/23 [...] diverticulosis. No suspicious mucosal lesions are identified.L Corl,NEURO OPHTHALMOLOGIST- PT aware 7multiple radiopaque foreign bodies. One [...] images. The study was reviewed with the [facility] lab as well. 11CONCLUSIONS History of bicuspid [...] Basic Metabolic Panel (BASIC METAB PANEL ) 09/01/23 NT-Pro BNP 09/01/23 Most recent to oldest [Reference Range]: 1 eGFR CKD-EPI [>60 mL/min/1.73 m2] 50 mL/ min/1.73 m2 1 *LOW* (09/01/23 11:55 AM) BNP, NT-Pro [<450 pg/mL] 5035 pg/mL *HI* (09/01/23 11:55 AM) Estimated CrCl 44.30 mL/min (09/01/23 12:29 PM) Anion Gap [5-14 mmol/L] 9 mmol/L (09/01/23 11:55 AM) BUN [7-20 mg/dL] 30 mg/dL *HI* (09/01/23 11:55 AM) Ca [8.4-10.2 mg/dL] 9.5 mg/dL (09/01/23 11:55 AM) Cl- [96-107 mmol/L] 101 mmol/L (09/01/23 11:55 AM) HCO3 [22-30 mmol/L] 30 mmol/L (09/01/23 11:55 AM) Cret [0.70-1.30 mg/dL] 1.44 mg/dL *HI* (09/01/23 11:55 AM) Glu [74-106 mg/dL] 90 mg/dL (09/01/23 11:55 AM) K [3.5-5.1 mmol/L] 4.9 mmol/L (09/01/23 11:55 AM) Na [137-145 mmol/L] 140 mmol/L (09/01/23 11:55 AM) 1Result Comment: Testing Performed By: Dept of Pathology [facility], [address] [place] [address] Social History Social History Type Response Smoking Status Never smoked cigaret manuel Sex Male Patient Care team information Care Team Personnel Name: GREGG Manley Tara Position: Nurse Pract - Family Med Member Role: Lifetime Relationship Address: Address: [address] [place] [address] [place] Name: MD oMr, Arie Grady Position: Physician - Family Med Member Role: Lifetime Relationship Address: Address: [address] [facility] [address] [place] [address] [place] Name: GREGG Damon Stacey L Position: Nurse Pract - Cardiology Member Role: Lifetime Relationship Address: Address: [address] [facility] [place] [address] [place] Name: Abril Florez Ashley Position: Pharmacist Schedule II Member Role: Pharmacy - Lifetime Name: MD Betancur Nandini Position: Physician - Card Heart Failure Member Role: Lifetime Relationship Address: Address: [address] [facility] [address] [place] [address] [place] Name: MD Hill David L Position: Physician - Derm Member Role: Lifetime Relationship Address: Address: [address] [facility] 2 [place] [address] Care Team Related Persons Name: SHRUTI MENA Address: home [address] [place], [place] [id number]
--- OUTSIDE RECORDS SUMMARY | 2024-01-08 11:29 | External Medical Summary | Continuity of Care Document ---
Author Name Unknown Organization [facility] [address] [facility] Address [address] [place], [place] [id number] Care Team Providers Care Die Cast Patternmaker Name Role Phone JuaresArie morris Miguel A Primary Care Physician [phone] Encounter [facility] [id number] Date(s): 07/30/23 - 07/30/23 [facility] [address], [address] [place] [address] [phone] Encounter Diagnosis Dilated aortic root(Discharge Diagnosis) - 07/30/23 Systolic and diastolic CHF, chronic(Discharge Diagnosis) - 07/30/23 Hyperlipidemia(Discharge Diagnosis) - 07/30/23 S/P coronary artery stent placement(Discharge Diagnosis) - 07/30/23 AVR - Aortic valve replacement(Discharge Diagnosis) - 07/30/23 HYPERTENSION.(Discharge Diagnosis) - 07/30/23 S/P CABG x 4(Discharge Diagnosis) - 07/30/23 Cardiomyopathy(Discharge Diagnosis) - 07/30/23 Discharge Disposition: Home or Self Care Attending Physician: DO Reyes Jason D Referring Physician: DO Reyes Jason D Allergies, Adverse Reactions, Alerts No Known Allergies Assessment and Plan Extracted from: Title:Cardiology Office Visit Note Author:DO Reyes Jason D Date:07/30/23 1.Systolic and diastolic C HF, chronic 2.AVR - Aortic valve replacement 3.Cardiomyopathy 4.Dilated aortic root 5.Hyperlipidemia 6.HYPERTENSION. 7.S/P CABG x 4 8.S/P coronary artery stent placement From my standpoint he is stable. We did discuss the idea of it being a balancing act between drying him out but not worsening his renal function beyond his baseline. He remains on 2 mg Bumex twice a day. His creatinine is stable while on Entresto and diuretics with both Bumex and spironolactone. He is on appropriate heart failure regimen in addition to the above-mentioned medications he is also on Jardiance. We did discuss reducing his Toprol from 75 mg to 50 mg. He is having bad dreams on the higher dose of beta-blockers and it also seems to be dropping his pressure such that he is feeling weak and tired. Will continue to follow with the heart failure team and ongoing monitoring of his CardioMEMS. He is scheduled to see heart failure in about 3 weeks. Will see Noreen nurse practitioner in 4 months. I will see him in 7 months. Will continue to follow in device clinic. He is BiV paced 99% of the time. Immunizations Given and Recorded Vaccine Date Status [...] dental and other procedures as directed, [facility]acy: [facility] #[id number] Start Date: 09/18/22 Status: Ordered Aspirin Low Dose 81 mg oral delayed release tablet Start: 09/30/12 3:00:00 PM EDT, 1 tab, PO, Daily Start Date: 09/30/12 Status: Ordered Bumex 1 mg oral tablet Start: 05/09/23 12:01:00 PM EST, 2 tab, PO, bid, Disp# 180 tab, Refills: 5, ACTION PLAN: Increase to4 tabs twice daily if experiencing wt gain/HF symptoms, [facility] #[id number] Start Date: 05/09/23 Status: Ordered Crestor 5 mg oral tablet Start: 03/12/23 9:29:00 AM EST, 1 tab, PO, qhs, Disp# 90 tab, Refills: 3, [facility] #[id number] Start Date: 03/12/23 Status: Ordered Entresto 24 mg-26 mg oral tablet Start: 04/01/23 9:01:00 AM EST, 1 tab, PO, bid, Disp# 180 tab, Refills: 3, [facility] #[id number] Start Date: 04/01/23 Status: Ordered Fish Oil 1000 mg oral capsule Start: 07/30/23 2:48:00 PM EDT Start Date: 07/30/23 Status: Ordered Jardiance 10 mg oral tablet Start: 03/18/23 2:39:00 PM EST, 1 tab, PO, Daily, Disp# 90 tab, Refills: 3, [facility] #[id number] Start Date: 03/18/23 Stop Date: 03/12/24 Status: [...] PRN: as needed for chest pain, Pharmacy: [facility] #[id number] Start Date: 10/22/21 Status: Ordered spironolactone 25 mg oral tablet Start: 05/12/23 3:25:00 PM EST, 0.5 tab, PO, Daily, Disp# 30 tab, Refills: 5, Pharmacy: [facility] #[id number] Start Date: 05/12/23 Status: Ordered ubiquinone 200 [...] qPM, Disp# 90 tab, Refills: 3, Pharmacy: [facility] #[id number] Start Date: 02/17/23 Status: Ordered Mental Status 07/30/23 Barriers to Learning one year Vision imp airment, Other: glasses Mandatory Health Literacy Documentation Yes Health Literacy Communication Barriers N ever Primary Language Montserratian Problem List Condition Confirmation Course Effective Dates Status H ealth Status Informant AK (actinic keratosis) Confirmed Active Dilated aortic root Confirmed Active AVR - Aortic valve replacement Confirmed Active Cardiac defibrillator in place Confirmed Active Cardiomyopathy Confirmed Active Systolic and diastolic CHF, chronic Confirmed Active DDD (degenerative disc disease) Confirmed Active Electrolyte disturbance Confirmed Active Abnormal prostate exam Confirmed Active Hutch diverticulum of urinary bladder Confirmed 03/17/12 Active ED (erectile dysfunction) Confirmed Active Epididymal cyst Confirmed Active Family history of early CAD Confirmed Active Groin hematoma Confirmed Active S/P CABG x 4 1 Confirmed Active Elevated brain natriuretic peptide (BNP) level Confirmed Active Hyperlipidemia Confirmed Active HYPERTENSION. Confirmed Active LVH (left ventricular hypertrophy) Confirmed Active [...] Effective Dates Health Status Clinical Service Informant HYPERTENSION. Discharge Diagnosis 07/30/23 S/P CABG x 4 Discharge Diagnosis 07/30/23 Cardiomyopathy Discharge Diagnosis 07/30/23 Dilated aortic root Discharge Diagnosis 07/30/23 Systolic and diastolic CHF, chronic Discharge Diagnosis 07/30/23 Hyperlipidemia Discharge Diagnosis 07/30/23 S/P coronary artery stent placement Discharge Diagnosis 07/30/23 AVR - Aortic valve replacement Discharge Diagnosis 07/30/23 Procedures Procedure Date Related Diagnosis Body Site [...] Stress ECHO 08/06/11 Completed Echocardiogram 10 08/02/11 [facility] ed RIGHT PORT REMOVED 03/17/06 Comple jeff ECHO--01/18, 03/2005, annually x 2006 03/17/05 Completed RIGHT SIDED PORT placed 02/14/05 C ompleted COLONOSCOPY --WNL 04/17/03 [facility] ed Nevus BACK-Benign 12/15/01 [facility] ed Cadiolyte 03/17/96 Completed Lipoma head [...] diverticulosis. No suspicious mucosal lesions are identified.L Corl,SPINNERET CLEANER- PT aware 7multiple radiopaque foreign bodies. One [...] images. The study was reviewed with the [facility] lab as well. [...] [Reference Range]: 1 Patient Weight 80 kg (07/30/23 2:58 PM) Heart Rate 50 bpm (07/30/23 2:58 PM) Blood Pressure 92/62mmHg (07/30/23 2:58 PM) BP Location # 1 Right Arm (07/30/23 2:58 PM) Social History Social History Type Response Smoking Status Never smoked cigaret manuel Sex Male Cardiology Outpatient Note * DO Reyes Jason D: PERFORM Event Display: Cardiology Outpt Note Authored Date: Primary Care Provider MD Juares Michael P Referring Provider DO Reyes Jason D Chief Complaint 6 mon f/u CABG bio AVR chol htn History of Present Illness Looks a lot better than the last time I saw him. He is not short of breath talking in sentences. He does have some lightheadedness. The time that he feels weak and tired like a wet noodle. Hedoes correlate this with a lower blood pressure. He denies any yesi syncopal episodes. He denies any palpitations. His defibrillator has not gone off. He denies any chest tightness or chest pressure. He notes he is slowed and takes his time if he has to do activity but feels better compared to February 2023. He has no lower extremity edema. Denies any orthopnea. He notes his appetite is stable. His weights have been relatively stable. He was excessively dry on his blood work and they reduced his Bumex dosing. Review of Systems PAST MEDICAL HISTORY: 1. Coronary artery disease, status post coronary artery bypass grafting x4 in 2011 with a CARBONE tothe LAD, SVG to the PDA and an SVG to the ramus and obtuse marginal branch. 2. Status post bioprosthetic aortic valve replacement with a 29 mm Preez II bioprosthetic aortic valve 2011 with a small dimensional less index.(confirmed by HERMINIA at [facility]) A. EF of40-45% by echocardiography 12/2022, with [...] measuring 5.1 cm. 9. 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 He denies any tobacco or alcohol. Physical Exam Vitals & Measurements HR:50(Monitored) BP:92/62 SpO2:97% WT:80kg WT:80.000kg(Dosing) Patient is awake alert [...] or edema PSYCHIATRIC:Patient's affect appeared appropriate Assessment/Plan 1.Systolic and diastolic CHF, chronic 2.AVR - Aortic valve replacement 3.Cardiomyopathy 4.Dilated aortic root 5.Hyperlipidemia 6.HYPERTENSION. 7.S/P CABG x 4 8.S/P coronary artery stent placement From my standpoint he is stable. We did discuss the idea of it being a balancing act between drying him out but not worsening his renal function beyond his baseline. He remains on 2 mg Bumex twice a day. His creatinine is stable while on Entresto and diuretics with both Bumex and spironolactone. He is on appropriate heart failure regimen in addition to the above-mentioned medications he is also on Jardiance. We did discuss reducing his Toprol from 75 mg to 50 mg. He is having bad dreams on the higher dose of beta-blockers and it also seems to be dropping his pressure such that he is feeling weak and tired. Will continue to follow with the heart failure team and ongoing monitoring of his CardioMEMS. He is scheduled to see heart failure in about 3 weeks. Will see Noreen nurse practitioner in 4 months. I will see him in 7 months. Will continue to follow in device clinic. He is BiV paced 99% of the time. Problem List/Past Medical History Ongoing Abnormal prostate exam AK (actinic keratosis) AVR - Aortic valve replacement Cardiac defibrillator in place Cardiomyopathy DDD (degenerative disc disease) Dilated aortic root Dysplastic nevus| Status: Inactive ED (erectile dysfunction) Electrolyte disturbance Elevated brain natriuretic peptide (BNP) level Elevated serum lactate dehydrogenase (LDH) Epididymal cyst Family history of early CAD Groin hematoma Health care maintenance Hutch diverticulum of urinary bladder Hyperlipidemia HYPERTENSION. LVH (left ventricular hypertrophy) Mitral regurgitation Prediabetes, prediabetic S/P CABG x 4 S/P coronary artery stent placement Systolic and diastolic CHF, chronic Ureteral filling defect Resolved Lymphoma stage IV Procedure/Surgical History Excision| Service [...] & A| Service Date: 1Cardiac echo Medications amoxicillin(amoxicillin 500 mg oral capsule), 2000 mg= 4 cap, PO, As indicated, 3 refills ascorbic acid(Vitamin C), 1000 mg, PO, Daily aspirin(Aspirin Low Dose 81 mg oral delayed release tablet), 81 mg= 1 tab, PO, Daily bumetanide(Bumex 1 mg oral tablet), 2 mg= 2 tab, PO, bid, 5 refills cholecalciferol(Vitamin D3) [...] tablet), 12.5 mg= 0.5 tab, PO, Daily, 5 refills ubiquinone(ubiquinone 200 mg oral capsule), 1 cap, PO, Daily, 11 refills Allergies NKA Social History Smoking Status Never smoked cigarettes Alcohol Use:Current Type:Beer, Wine, Liquor Frequency:1-2 times per week Average drinks per episode in last year:1 Employment/School Status:Retired Description:[employer] Exercise Duration (average number of minutes):45 Times per week:Daily Exercise type:Walking Home/Environment Lives with:Spouse Nutrition/Health Type of diet:regular Substance Abuse - Denies Substance Abuse Tobacco - Denies Tobacco Use Family History Alive and well: Brother, Son and Son. Angina: Father. CAD (coronary artery disease): Mother. Cancer: PGM. Cardiovascular disease: Mother. [place] (myocardial infarction): Father and MGM. Smoker.: Father. Health Status Family Member(s) Family Member(s) Relationship: Mother, Age: 76 Years, Cause: CHF/ SLE Relationship: Father, Age: 62 Years, Cause: [place]/ Smoker Electronic Signature on File CC: Arie Juares MD [address] [facility] [address] [facility] [id number] Electronically Reviewed/Signed by: Kedar Reyes DO Author Signature Dt/Tm:07/30/2023 04:13 PM Guest Relations Officermanager neonatal [facility] [place] [address] [facility], [address] [place] [address] JDF Patient Care team information Care Team Personnel Name: GREGG Manley Tara Position: Nurse Pract - Family Med Member Role: Lifetime Relationship Address: Address: [address] [place] [address] [place] Name: MD Mor, Arie Grady Position: Physician - Family Med Member Role: Lifetime Relationship Address: Address: [address] [address] [place] Name: GREGG Damon Stacey L Position: Nurse Pract - Cardiology Member Role: Lifetime Relationship Address: Address: [address] [facility] [place] [address] [place] Name: Abril Florez Ashley Position: Pharmacist Schedule II Member Role: Pharmacy - Lifetime Name: MD Betancur Nandini Position: Physician - Card Heart Failure Member Role: Lifetime Relationship Address: Address: [address] [place] [address] [address] [place] [address] [place] Name: MD Sergio, Kishor Pena Position: Physician - Derm Member Role: Lifetime Relationship Address: Address: [address] [facility] [address] [place] [address] [place] Care Team Related Persons Name: SHRUTI MENA Address: home [address] [place], [place] [id number]"
--- OUTSIDE RECORDS SUMMARY | 2024-01-08 11:29 | External Medical Summary | Continuity of Care Document ---
Author Name Unknown Organization 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 [address] [facility] [address] [facility], [facility] 1 [place], [place] [phone] Encounter Diagnosis Unspecified systolic (congestive) heart failure(Final) [...] dental and other procedures as directed, Pharmacy: [facility] #[id number] Start Date: 09/18/22 Status: Ordered Aspirin Low Dose 81 mg oral delayed release tablet Start: 09/30/12 3:00:00 PM EDT, 1 tab, PO, Daily Start Date: 09/30/12 Status: Ordered Bumex 1 mg oral tablet Start: 05/09/23 12:01:00 PM EST, 2 tab, PO, Daily, Disp# 180 tab, Refills: 5, ACTION PLAN: Increase to 2 tabs twice daily if experiencing wt gain/HF symptoms, Pharmacy: [facility] #[id number] Start Date: 05/09/23 Status: Ordered Crestor 5 mg oral tablet Start: 03/12/23 9:29:00 AM EST, 1 tab, PO, qhs, Disp# 90 tab, Refills: 3, [facility] #[id number] Start Date: 03/12/23 Status: Ordered Entresto 24 mg-26 mg oral tablet Start: 04/01/23 9:01:00 AM EST, 1 tab, PO, bid, Disp# 180 tab, Refills: 3, Pharmacy: [facility] #[id number] Start Date: 04/01/23 Status: Ordered Fish Oil 1000 mg oral capsule Start: 07/30/23 2:48:00 PM EDT Start Date: 07/30/23 Status: Ordered Jardiance 10 mg oral tablet Start: 03/18/23 2:39:00 PM EST, 1 tab, PO, Daily, Disp# 90 tab, Refills: 3, [facility]acy: [facility] #[id number] Start Date: 03/18/23 Stop Date: 03/12/24 Status: [...] PRN: as needed for chest pain, Pharmacy: [facility] #[id number] Start Date: 10/22/21 Status: Ordered spironolactone 25 mg oral tablet Start: 09/12/23 2:23:00 PM EDT, 0.5 tab, PO, Daily, Disp# 45 tab, Refills: 3, [id number] Start Date: 09/12/23 Status: Ordered ubiquinone 200 [...] qPM, Disp# 90 tab, Refills: 3, Pharmacy: [facility] #[id number] Start Date: 02/17/23 Status: Ordered Problem List Condition Confirmation Course Effective Dates Status H ealth Status Informant [place] (actinic keratosis) Confirmed Active Dilated aortic root Confirmed Active AVR - Aortic valve replacement Confirmed Active Cardiac defibrillator in place Confirmed Active Cardiomyopathy Confirmed Active Systolic and diastolic CHF, chronic Confirmed Active Unspecified systolic (congestive) heart failure Confirmed 07/24/23 Active Atherosclerotic heart disease of [place] coronary artery without angina pectoris Confirmed 07/24/23 [...] diverticulosis. No suspicious mucosal lesions are identified.L Corl,AMMUNITION OFFICER- PT aware 7multiple radiopaque foreign bodies. One [...] images. The study was reviewed with the [facility] lab as well. 11CONCLUSIONS History of bicuspid [...] Comment: Testing Performed By: Dept of Pathology [facility], [address] [place] [address] Social History Social History Type Response Smoking Status Never smoked cigaret manuel Sex Male Sex Representation Male (finding) Patient Care team information Care Team Personnel Name: GREGG Manley Tara Position: Nurse Pract - Family Med Member Role: Lifetime Relationship Address: [address] [place] [address] [place] Name: MD Mor, Arie Grady Position: Physician - Family Med Member Role: Lifetime Relationship Address: [address] [facility] [place] [address] [place] [address] [place] Name: GREGG Damon Stacey L Position: Nurse Pract - Cardiology Member Role: Lifetime Relationship Address: [address] [facility] [place] [address] [place] Name: Abril Florez Ashley Position: Pharmacist Member Role: Pharmacy - Lifetime Name: MD Betancur Nandini Position: Physician - Card Heart Failure Member Role: Lifetime Relationship Address: [address] [facility] [address] [place] [address] [place] Name: MD Hill David L Position: Physician - Derm Member Role: Lifetime Relationship Address: [address] [place] [address] [address] [place] [address] [place] Care Team Related Persons Name: SHRUTI MENA
--- OUTSIDE RECORDS SUMMARY | 2024-01-08 11:29 | External Medical Summary | Continuity of Care Document ---
Author Name Unknown Organization [facility] [place] [address] [place] [id number] Care Team Providers Care Polarity Tester Name Role Phone Arie Juares Primary Care Physician [phone] [id number] Date(s): 07/24/23 - 07/24/23 [facility] 0 [facility] 207 [facility] [address] [address] [phone] Encounter Diagnosis Dilated aortic root(Discharge Diagnosis) - 07/23/23 Cardiomyopathy(Discharge Diagnosis) - 07/23/23 HYPERTENSION.(Discharge Diagnosis) - 07/23/23 Hyperlipidemia(Discharge Diagnosis) - 07/23/23 Prediabetes, prediabetic(Discharge Diagnosis) - 07/23/23 Body mass index [BMI] 25.0-25.9, adult(Discharge Diagnosis) - 07/24/23 Electrolyte disturbance(Discharge Diagnosis) - 07/24/23 Groin hematoma(Discharge Diagnosis) - 07/24/23 Chronic fatigue(Discharge Diagnosis) - 07/24/23 Cardiomyopathy, unspecified(Final) - Thoracic aortic ectasia(Final) - Contusion of abdominal wall, initial encounter(Final) - Hyperlipidemia, unspecified(Final) - Essential (primary) hypertension(Final) - Other abnormal glucose(Final) - Chronic fatigue, unspecified(Final) - Discharge Disposition: Home or Self Care Attending Physician: MD Juares Michael D Allergies, Adverse Reactions, Alerts No Known Allergies Immunizations Given and Recorded Vaccine Date Status Refusal Reason zoster vaccine, inactivated 03/08/19 Given zoster vaccine, inactivated 12/29/18 Given tetanus/diphtheria/pertuss, acel (Tdap) 12/14/18 G iven tetanus/diphtheria/pertuss, acel (Tdap) 10/28/17 Recorded tetanus/diphtheria/pertuss, acel (Tdap) 03/19/07 R [...] amoxicillin 500 mg oral capsule Start: 09/18/22 14:43:00 EDT, 4 cap, PO, As indicated, Disp# 12 cap, Refills: 3, one hour before dental and other procedures as directed, Pharmacy: [facility] #[id number] Start Date: 09/18/22 Status: Ordered Aspirin Low Dose 81 mg oral delayed release tablet Start: 09/30/12 15:00:00, 1 tab, PO, Daily Start Date: 09/30/12 Status: Ordered Bumex 1 mg oral tablet Start: 05/09/23 12:01:00 EST, 2 tab, PO, bid, Disp# 180 tab, Refills: 5, ACTION PLAN: Increase to 4tabs twice daily if experiencing wt gain/HF symptoms, [facility] #[id number] Start Date: 05/09/23 Status: Ordered Crestor 5 mg oral tablet Start: 03/12/23 9:29:00 EST, 1 tab, PO, qhs, Disp# 90 tab, Refills: 3, [facility] #[id number] Start Date: 03/12/23 Status: Ordered Entresto 24 mg-26 mg oral tablet Start: 04/01/23 9:01:00 EST, 1 tab, PO, bid, Disp# 180 tab, Refills: 3, [facility] #[id number] Start Date: 04/01/23 Status: Ordered Jardiance 10 mg oral tablet Start: 03/18/23 14:39:00 EST, 1 tab, PO, Daily, Disp# 90 tab, Refills: 3, [email or web address][id number] Start Date: 03/18/23 Stop Date: 03/12/24 Status: Ordered metoprolol succinate 50 mg oral tablet, extended release Start: 06/27/23 16:11:00 EDT, 1 tab, PO, qhs, Disp# 90 tab, Refills: 3, In addition to 25mg tablet,Note to Pharmacy: to be taken with metoprolol succinate 25 mg to equal 75 mg po qhs, [email or web address][id number] Start Date: 06/27/23 Status: Ordered MVI-12 Start: 11/03/09 9:22:50, 1 tab, dose unknown, PO, Daily, Refills: 0, current medication from another provider Start Date: 11/03/09 Status: Ordered nitroglycerin 0.4 mg sublingual tablet Start: 10/22/21 14:25:00 EDT, 1 tab, SL, q5min, Disp# 30 tab, Refills: 3, not to exceed 3 doses/15 min--if pain persists, seek medical attention, PRN: as needed for chest pain, Pharmacy: [email or web address] #[id number] Start Date: 10/22/21 Status: Ordered Potassium Chloride (Eqv-K-Tab) 20 mEq oral tablet, extended release Start: 04/18/23 15:23:00 EST, See Instructions, Disp# 30 tab, Refills: 5, Take 1 tab when instructed with use of extra diuretics, [facility]: [facility] #[id number] Start Date: 04/18/23 Status: Ordered spironolactone 25 mg oral tablet Start: 05/12/23 15:25:00 EST, 0.5 tab, PO, Daily, Disp# 30 tab, Refills: 5, [facility]acy: [facility] #[id number] Start Date: 05/12/23 Status: Ordered ubiquinone 200 mg oral capsule Start: 09/09/13 12:32:00 EDT, 1 cap, PO, Daily, Disp# 300 cap, Refills: 11, given to patient Start Date: 09/09/13 Status: Ordered Vitamin C Start: 07/18/15 11:14:00 EDT, 1,000 mg =, PO, Daily Start Date: 07/18/15 Status: Ordered Xarelto 15 mg oral tablet Start: 02/17/23 13:48:00 EST, 1 tab, PO, qPM, Disp# 90 tab, Refills: 3, [facility]acy: [facility] #[id number] Start Date: 02/17/23 Status: Ordered Mental Status 07/24/23 Barriers to Learning one year Vision imp airment, Other: glasses Mandatory Health Literacy Documentation Yes Health Literacy Communication Barriers N ever Primary Language Lithuanian Problem List Condition Confirmation Course Effective Dates [...] Status Clinical Service Informant HYPERTENSION. Discharge Diagnosis 07/23/23 Prediabetes, prediabetic Discharge Diagnosis 07/23/23 Hyperlipidemia Discharge Diagnosis 07/23/23 Dilated aortic root Discharge Diagnosis 07/23/23 Cardiomyopathy Discharge Diagnosis 07/23/23 Body mass index [BMI] 25.0-25.9, adult Discharge Diagnosis 07/24/23 Non-Specified Electrolyte disturbance Discharge Diagnosis 07/24/23 Groin hematoma Discharge Diagnosis 07/24/23 Chronic fatigue Discharge Diagnosis 07/24/23 Non-Specified Procedures Procedure Date Related Diagnosis Body [...] diverticulosis. No suspicious mucosal lesions are identified.L Corl,PROJECT MANAGER FINANCE- PT aware 7multiple radiopaque foreign bodies. One [...] images. The study was reviewed with the [facility] lab as well. 11CONCLUSIONS History of bicuspid [...] Laboratory List Name Date Complete Blood Count (CBC) 07/24/23 Comprehensive Metabolic Panel (COMP META B PANEL) 07/24/23 Ferritin (FERRITIN) 07/24/23 Folic Acid Level (FOLIC ACID) 07/24/23 Hemoglobin A1C (HEMOGLOBIN, A1C) 07/24/23 Iron Level (IRON) 07/24/23 Lipid Profile (LIPOPROTEINS) 07/24/23 NT-Pro BNP 07/24/23 Thyroid Stimulating Hormone (TSH) 07/24/23 Vitamin B12 Level (VITAMIN B12) 07/24/23 Most recent to oldest [Reference Range]: 1 eGFR CKD-EPI [>60 mL/min/1.73 m2] 40 mL/ min/1.73 m2 *LOW* (07/24/23 12:07 PM) Estimated Average Glucose 111 mg/dL (07/24/23 12:07 PM) Non-HDL 107 mg/dL (07/24/23 12: PM) BNP, NT-Pro [<450 pg/mL] 4233 pg/mL *HI* (07/24/23 12:07 PM) Estimated CrCl 36.43 mL/min (07/24/23 8:52 PM) MPV [9.0-12.2 fL] 10.4 fL (07/24/23 12: PM) RDW [11.5-14.2 %] 16.2 % *HI* (07/24/23 12: PM) Anion Gap [5-14 mmol/L] 14 mmol/L (07/24/23 12:07 PM) Alb [3.5-5.2 g/dL] 4.5 g/dL (07/24/23 12:07 PM) Alk Phos [40-130 unit/L] 46 unit/L 1 (07/24/23 12: PM) ALT [0-41 unit/L] 17 unit/L (07/24/23 12:07 PM) AST [0-40 unit/L] 23 unit/L (07/24/23 12:07 PM) B12 [211-946 pg/mL] 739 pg/mL (07/24/23 12:07 PM) BUN [6-23 mg/dL] 42 mg/dL *HI* (07/24/23 PM) Ca [8.4-10.2 mg/dL] 10.1 mg/dL (07/24/23 PM) Chol/HDL 4 (07/24/23 PM) Chol [<200 mg/dL] 138 mg/dL (07/24/23 PM) Cl- [98-107 mmol/L] 99 mmol/L (07/24/23 PM) HCO3 [22-29 mmol/L] 28 mmol/L (07/24/23 PM) Cret [0.70-1.30 mg/dL] 1.73 mg/dL *HI* (07/24/23 PM) Iron [50-158 ug/dL] 91 ug/dL (07/24/23 PM) Ferritin [30.0-400.0 ng/mL] 149.7 ng/mL (07/24/23 PM) Folate [>7.2 ng/mL] >20.0 ng/mL 2 (07/24/23 PM) HbA1c [<5.7 %] 5.5 % 3 (07/24/23 PM) Glu [74-109 mg/dL] 84 mg/dL 4 (07/24/23 PM) Hct [39-48 %] 39.8 % (07/24/23 PM) HDL [>40 mg/dL] 31 mg/dL *LOW* (07/24/23) Hgb [13.0-17.0 g/dL] 13.0 g/dL (07/24/23 PM) K [3.5-5.1 mmol/L] 5.0 mmol/L (07/24/23 PM) LDL Chol, Calculated [50-130 mg/dL] 67 m g/dL (07/24/23 PM) MCH [28-33 pg] 31.9 pg (07/24/23 PM) MCHC [32-36 g/dL] 32.7 g/dL (07/24/23: PM) MCV [81-96 fL] 97.8 fL *HI* (07/24/23 12:07 PM) Na [136-145 mmol/L] 141 mmol/L (07/24/23 12:07 PM) Plts [150-350 K/uL] 150 K/uL (07/24/23 12:07 PM) RBC [4.40-5.60 M/uL] 4.07 M/uL *LOW* (07/24/23 12: PM) T Bili [0.0-1.2 mg/dL] 0.5 mg/dL (07/24/23 12:07 PM) Prot [6.4-8.3 g/dL] 7.4 g/dL (07/24/23 12:07 PM) TG [<150 mg/dL] 201 mg/dL *HI* (07/24/23 12: PM) TSH [0.30-4.20 uIU/mL] 2.46 uIU/mL (07/24/23 12:07 PM) WBC [4.0-10.4 K/uL] 9.07 K/uL (07/24/23 12:07 PM) 1Result Comment: Low levels of ALKP may indicate a deficiency in zinc, magnesium, or malnutritionbutcan also be an indicator of a rare genetic disease hypophosphatasia (HPP). 2Result Comment: HEMOLYZED SPECIMEN 3Result Comment: ADA Recommended [place] Reference Range: Normal: <5.7% Prediabetes: 5.7-6.4% Diabetes: >6.4% 4Result Comment: ADA recommendation for FASTING Serum/Plasma Glucose: Normal: 70-100 mg/dL Prediabetes: 100-125 mg/dL Diabetes: 126 mg/dL or higher Vital Signs Most recent to oldest [Reference Range]: 1 Height 178 cm (07/24/23 10:39 AM) Patient Weight 81 kg (07/24/23 10:39 AM) Body Mass Index 25.56 kg/m2 (07/24/23 10:39 AM) Heart Rate 49 bpm (07/24/23 10:39 AM) Respiratory Rate 12 br/min (07/24/23 10:39 AM) Blood Pressure 94/60mmHg (07/24/23 10:39 AM) Cuff Pulse Pressure 34 mmHg (07/24/23 10:39 AM) Social History Social History Type Response Smoking Status Never smoked cigaret manuel Sex Male Patient Care team information Care Team Personnel Name: GREGG Manley Tara Position: Nurse Pract - Family Med Member Role: Lifetime Relationship Address: Address: [address] [place] [address] [place] Name: MD Juares Michael P Position: Physician - Family Med Member Role: Lifetime Relationship Address: Address: [address] [place] [address] [place] Name: GREGG Damon Stacey L Position: Nurse Pract - Cardiology Member Role: Lifetime Relationship Address: Address: [address] [place] [address] [place] Name: Abril Florez Ashley Position: Pharmacist Schedule II Member Role: Pharmacy - Lifetime Name: MD Gypsy, Stella Position: Physician - Card Heart Failure Member Role: Lifetime Relationship Address: Address: [address] [facility] [address] [place] [address] [place] Name: MD Hill David L Position: Physician - Derm Member Role: Lifetime Relationship Address: Address: [address] [place] [address] [address] [place] [address] [place] Care Team Related Persons Name: SHRUTI MENA Address: home [address] [place], [place] [id number]
--- OUTSIDE RECORDS SUMMARY | 2024-01-08 11:29 | External Medical Summary | Continuity of Care Document ---
Author Name Unknown Organization [facility] [address] [place] [address] [place] [id number] Care Team Providers Care Clinic Assistant Name Role Phone Arie Juares Primary Care Physician [phone] [id number] Date[facility]s): 08/15/23 - 08/15/23 [facility] [address] [facility] [place] [facility] [place] [address], [address] [place] [address] [phone] Discharge Disposition: Home or Self Care Attending [...] other procedures as directed, Pharmacy: [facility] #[id number] Start Date: 09/18/22 Status: Ordered Aspirin Low Dose 81 mg oral delayed release tablet Start: 09/30/12 3:00:00 PM EDT, 1 tab, PO, Daily Start Date: 09/30/12 Status: Ordered Bumex 1 mg oral tablet Start: 05/09/23 12:01:00 PM EST, 2 tab, PO, bid, Disp# 180 tab, Refills: 5, ACTION PLAN: Increase to4 tabs twice daily if experiencing wt gain/HF symptoms, [facility]acy: [facility] #[id number] Start Date: 05/09/23 Status: Ordered Crestor 5 mg oral tablet Start: 03/12/23 9:29:00 AM EST, 1 tab, PO, qhs, Disp# 90 tab, Refills: 3, [facility] #[id number] Start Date: 03/12/23 Status: Ordered Entresto 24 mg-26 mg oral tablet Start: 04/01/23 9:01:00 AM EST, 1 tab, PO, bid, Disp# 180 tab, Refills: 3, [facility] #[id number] Start Date: 04/01/23 Status: Ordered Fish Oil 1000 mg oral capsule Start: 07/30/23 2:48:00 PM EDT Start Date: 07/30/23 Status: Ordered Jardiance 10 mg oral tablet Start: 03/18/23 2:39:00 PM EST, 1 tab, PO, Daily, Disp# 90 tab, Refills: 3, [facility] #[id number] Start Date: 03/18/23 Stop Date: 03/12/24 Status: [...] PRN: as needed for chest pain, [facility] #[id number] Start Date: 10/22/21 Status: Ordered spironolactone 25 mg oral tablet Start: 05/12/23 3:25:00 PM EST, 0.5 tab, PO, Daily, Disp# 30 tab, Refills: 5, [facility] #[id number] Start Date: 05/12/23 Status: Ordered ubiquinone 200 [...] qPM, Disp# 90 tab, Refills: 3, [facility] #[id number] Start Date: 02/17/23 Status: Ordered Problem List [...] diverticulosis. No suspicious mucosal lesions are identified.L Corl,MOTOR AND CHASSIS INSPECTOR- PT aware 7multiple radiopaque foreign bodies. [...] images. The study was reviewed with the [facility] [place] as well. 11CONCLUSIONS [...] Med Member Role: Lifetime Relationship Address: Address: [address] [place] [address] [place] Name: MD Mor, Arie Grady Position: Physician - Family Med Member Role: Lifetime Relationship Address: Address: [address] [facility] [address] [place] [address] [place] Name: GREGG Damon Stacey L Position: Nurse Pract - Cardiology Member Role: Lifetime Relationship Address: Address: [address] [facility] [place] [address] [place] Name: Abril Florez Ashley Position: Pharmacist Schedule II Member Role: Pharmacy - Lifetime Name: MD Betancur Nandini Position: Physician - Card Heart Failure Member Role: Lifetime Relationship Address: Address: [address] [place] [address] [place] Name: MD Hill David L Position: Physician - Derm Member Role: Lifetime Relationship Address: Address: [address] [address] [place] Care Team Related Persons Name: SHRUTI MENA Address: home [address] [place], [place] [id number]
--- OUTSIDE RECORDS SUMMARY | 2024-01-08 11:29 | External Medical Summary | Continuity of Care Document ---
Author Name Unknown Organization [facility] [address] [facility] Address [address] [place], [place] [id number] Care Team Providers Care Breast Splitter Name Role Phone JuaresArie morris Miguel A Primary Care Physician [phone] [id number] Date(s): 07/31/23 - 07/31/23 [facility] [address], [address] [place] [address] [phone] Discharge Disposition: Home or Self Care Attending [...] other procedures as directed, [facility]acy: [facility] #[id number] Start Date: 09/18/22 Status: Ordered Aspirin Low Dose 81 mg oral delayed release tablet Start: 09/30/12 3:00:00 PM EDT, 1 tab, PO, Daily Start Date: 09/30/12 Status: Ordered Bumex 1 mg oral tablet Start: 05/09/23 12:01:00 PM EST, 2 tab, PO, bid, Disp# 180 tab, Refills: 5, ACTION PLAN: Increase to4 tabs twice daily if experiencing wt gain/HF symptoms, [facility]: [facility] #[id number] Start Date: 05/09/23 Status: Ordered Crestor 5 mg oral tablet Start: 03/12/23 9:29:00 AM EST, 1 tab, PO, qhs, Disp# 90 tab, Refills: 3, [facility] #[id number] Start Date: 03/12/23 Status: Ordered Entresto 24 mg-26 mg oral tablet Start: 04/01/23 9:01:00 AM EST, 1 tab, PO, bid, Disp# 180 tab, Refills: 3, [facility]: [facility] #[id number] Start Date: 04/01/23 Status: Ordered Fish Oil 1000 mg oral capsule Start: 07/30/23 2:48:00 PM EDT Start Date: 07/30/23 Status: Ordered Jardiance 10 mg oral tablet Start: 03/18/23 2:39:00 PM EST, 1 tab, PO, Daily, Disp# 90 tab, Refills: 3, [facility] #[id number] Start Date: 03/18/23 Stop Date: 03/12/24 Status: [...] PRN: as needed for chest pain, [facility]acy: [facility] #[id number] Start Date: 10/22/21 Status: Ordered spironolactone 25 mg oral tablet Start: 05/12/23 3:25:00 PM EST, 0.5 tab, PO, Daily, Disp# 30 tab, Refills: 5, Pharmacy: [facility] #[id number] Start Date: 05/12/23 Status: Ordered ubiquinone 200 [...] qPM, Disp# 90 tab, Refills: 3, [facility]acy: [facility] #[id number] Start Date: 02/17/23 Status: Ordered Problem List [...] diverticulosis. No suspicious mucosal lesions are identified.L Corl,DIRECTOR MATERNAL CHILD- PT aware 7multiple radiopaque foreign bodies. One [...] images. The study was reviewed with the [facility] lab as well. [...] Med Member Role: Lifetime Relationship Address: Address: [address] [place] [address] [place] Name: MD Mor, Arie Grady Position: Physician - Family Med Member Role: Lifetime Relationship Address: Address: [address] [facility] [address] [place] [address] [place] Name: GREGG Damon Stacey L Position: Nurse Pract - Cardiology Member Role: Lifetime Relationship Address: Address: [address] [facility] [address] [place] Name: Abril Florez Ashley Position: Pharmacist Schedule II Member Role: Pharmacy - Lifetime Name: MD Betancur Nandini Position: Physician - Card Heart Failure Member Role: Lifetime Relationship Address: Address: [address] [facility] [place] [address] [place] Name: MD Sergio, Kishor Pena Position: Physician - Derm Member Role: Lifetime Relationship Address: Address: [address] [address] [place] Care Team Related Persons Name: SHRUTI MENA Address: home [address] [place], [place] [phone]
[2024-01-08] MEDS: MILRINONE LACTATE/D5W 20,000 MCG/100 ML BAG IV SCH (11:31)
--- NOTE | 2024-01-08 11:57 | Communication Note ---
Date of Service: January 08, 2024 Brief [facility] med note re Michael Cheko - I spoke with Caprice from [facility] [phone] - she is his home nurse. She says pt//her have been in discussions re hospice and wants [facility], which can facilitate IV Lasix prn through his PICC. [facility] does not offer IV home treatment per Caprice. I am in clinic and see he is in ER. Caprice spoke with this AM and was clear about wanting home with hospice, pt has stated he is done and they were planning a move to hospice until this admission happened. Would suggest ER medical case manager help dc pt home from ER with [facility] and defer the formal admission if possible. Per Caprice, [facility] team collectively feel he has likely a few days and he has been clear about wanting those days to be at home. Primary team updated. Pt remains in ER. Would not be unreasonable to dc home with hospice from ED per his preferences. Thank you for allowing us to participate in the ongoing care of this patient. Please page with any additional concerns. Pratibha Isaac DNP Director, Palliative Medicine
[2024-01-08] MEDS: RIVAROXABAN 15 MG TAB PO SCH (18:03)
[2024-01-08 22:48] VITALS: RESP 18
[2024-01-09 06:22] LABS: Basophils # (auto) 0.01 K/uL (0.00-0.20); Basophils % (auto) 0.1 %; Eosinophils # (auto) 0.42 K/uL (0.00-0.50); Eosinophils % (auto) 4.6 %; Hematocrit (blood only) 25.8 % (42.0-52.0); Hemoglobin 8.4 g/dl (14.0-18.0); Immature Granulocytes % (auto) 1.1 %; Lymphocytes # (auto) 0.49 K/uL (1.20-3.40); Lymphocytes % (auto) 5.4 %; Mean Corpuscular Hemoglobin 30.7 pg (25.0-34.0); Mean Corpuscular Hgb Conc 32.6 g/dL (32.0-36.0); Mean Corpuscular Volume 94.2 fL (80.0-100.0); Mean Platelet Volume 10.6 fL (9.4-12.4); Monocytes # (auto) 0.42 K/uL (0.11-0.59); Monocytes % (auto) 4.6 %; Neutrophils # (auto) 7.65 K/uL (1.40-6.50); Neutrophils % (auto) 84.2 %; Platelet Count 168 K/uL (130-400); RDW Coefficient of Variation 20.2 % (11.5-14.5); RDW Standard Deviation 64.7 fL (36.4-46.3); Red Blood Count 2.74 M/uL (4.70-6.10); White Blood Count 9.09 K/ul (4.8-10.8)
[2024-01-09 06:43] LABS: Albumin Level 3.3 gm/dl (3.4-5.0); BUN Creatinine Ratio 35.6 (10-20); Calcium 9.1 mg/dl (8.6-10.3); Creatinine Clr Calc Pharmacy 23.8 ml/min; Magnesium 2.6 mg/dl (1.7-2.4); Phosphorus 6.3 mg/dl (2.5-4.9); Potassium 3.6 mmol/L (3.5-5.1)
[2024-01-09 06:44] LABS: Anisocytosis Present; Polychromasia 2+
[2024-01-09] MEDS: bisacodyL 10 MG SUPP PR STA (09:29)
[2024-01-09] MEDS: POLYETHYLENE (MIRALAX) 17 GM PACK PO SCH (09:29)
[2024-01-09 10:51] VITALS: BP 89/54; PULSE 91; TEMP 97.5; O2SAT 97
--- NOTE | 2024-01-09 11:40 | Discharge Summary ---
Date of Service January 09, 2024 Admission HPI Per Admitting Provider The patient is a 78-year-old male with a past medical history including CAD, status post CABG x 4 in 2012, status post bioprosthetic AVR in 2012, HFrEF, presence of cardiac defibrillator, cardiomyopathy, CKD stage IIIb, hypertension, hyperlipidemia, LVH, prediabetes, status post coronary artery stent placement, and history of lymphoma stage IV. He was most recently admitted to [facility] from 12/02-12/30/2023 for cardiogenic shock, and was discharged on a milrinone pump. He notes becoming gradually more weak since discharge, and has had difficulty performing routine daily activities. Admission Exam (Per Admitting) Constitutional The patient is awake, alert and oriented 3, well developed and well nourished, normocephalic and atraumatic, lying in bed and in no acute distress. HEENT--PERRL, EOMI, mucous membranes and oropharynx mildly dry Neck--supple. No JVD. No bruits. Thyroid normal, trachea midline, no adenopath y. Heart--normal S1 and S2. No murmurs, rubs or gallops. Lungs--clear bilaterally, no respiratory distress, no accessory muscle use. Abdomen--normal bowel sounds and soft. Extremities--no cyanosis or clubbing. No edema. Dermatologic--normal skin turgor, normal color, no abnormal lymph nodes, no rash. Neurologic--cranial nerves II through XII grossly intact. Rheumatologic--normal range of motion. Psychiatric--normal affect. Discharge Data Consultations 01/08/24 01:12 ED Decision to Admit Stat 01/08/24 02:14 Consult Palliative Care Routine 01/08/24 02:37 Consult Cardiology Routine Hospital Course (1) CHF exacerbation: Cardiogenic shock/pulmonary edema/HFrEF exacerbation/PAF/recent milrinone pump- aortic valve replacement and aicd transition to milrinone gtt from home pump, 0.25 mcg/kg/min Continue amiodarone, aspirin, Xarelto Entresto was already held by [facility] Hold metoprolol succinate and amlodipine due to hypotension Hold furosemide orally in favor of IV Bumex is on Jardiance also as outpt plan to go home on hospice when home hospice is ready, d/c milrinone at discharge family requests continue bumex (2) LAKE (acute kidney injury): h/o CKD 3 (3) Acute on chronic respiratory failure with hypoxia: secondry to HFrEF (4) Acute hyponatremia: worry some in face of acute HFrEF situation, will not overly correct given decision for home hospice Plan Hyperlipidemia- Continue rosuvastatin Hyponatremia- Sodium 125 on admission Likely associated with fluid overload Follow treatment as above Disposition- There is initial plans to have patient return to [facility], where he was recently admitted there for treatment of cardiogenic shock, and where the milrinone pump was begun Patient has decided that he does not want to return to [facility] that he would rather be admitted to [facility], and have arrangements made to be seen by palliative care, and consideration for hospice CODE STATUS: DNR/DNI Coding Level of Care Code 38933 INP/OBS DISCH >30 MIN Diagnoses CHF exacerbation I50.9 LA[place] (acute kidney injury) N17.9 Acute on chronic respiratory failure with hypoxia J96.21 Acute hyponatremia E87.1 Time Spent (min) 35
--- NOTE | 2024-01-09 12:37 | Hospitalist Progress Note ---
Date of Service January 09, 2024 Assessment & Plan (1) CHF exacerbation: Plan: Cardiogenic shock/pulmonary edema/HFrEF exacerbation/PAF/recent milrinone pump- aortic valve replacement and aicd transition to milrinone gtt from home pump, 0.25 mcg/kg/min Continue amiodarone, aspirin, Xarelto Entresto was already held by [facility] Hold metoprolol succinate and amlodipine due to hypotension Hold furosemide orally in favor of IV Bumex is on Jardiance also as outpt plan to go home on hospice when home hospice is ready, d/c milrinone at discharge family requests continue bumex However, Hospice wants his defibrillator turned off before they will accept him Consulted cardiology, but since patient is a [facility] patient, he will need [facility] online tutor to turn it off (2) LAKE (acute kidney injury): Plan: h/o CKD 3 (3) Acute on chronic respiratory failure with hypoxia: Plan: secondry to HFrEF (4) Acute hyponatremia: Plan: worry some in face of acute HFrEF situation, will not overly correct given decision for home hospice Plan Hyperlipidemia- Continue rosuvastatin Hyponatremia- Sodium 125 on admission Likely associated with fluid overload Follow treatment as above Disposition- There is initial plans to have patient return to [facility], where he was recently admitted there for treatment of cardiogenic shock, and where the milrinone pump was begun Patient has decided that he does not want to return to [facility] that he would rather be admitted to [facility], and have arrangements made to be seen by palliative care, and consideration for hospice CODE STATUS: DNR/DNI Admission and Anticipated Discharge Date Admission Date: January 08, 2024 Subjective patient seen and examined, complains of constipation Review of Systems Review of Systems: All systems reviewed are negative, apart from the ones contained in the history. Physical Exam Physical Exam: The patient is awake, alert and oriented 3, well developed and well nourished, normocephalic and atraumatic, lying in bed and in no acute distress. HEENT--PERRL, EOMI, mucous membranes and oropharynx mildly dry Neck--supple. No JVD. No bruits. Thyroid normal, trachea midline, no adenopathy. Heart--normal S1 and S2. No murmurs, rubs or gallops. Lungs--clear bilaterally, no respiratory distress, no accessory muscle use. Abdomen--soft, distended Extremities--no cyanosis or clubbing. No edema. Dermatologic--normal skin turgor, normal color, no abnormal lymph nodes, no rash. Neurologic--cranial nerves II through XII grossly intact. Rheumatologic--normal range of motion. Psychiatric--normal affect. Results & Data Results & Data Vital Signs (Past 12 Hours) Vital Signs Temp Pulse Pulse Resp BP Pulse Ox O2 Del Method 01/09/24 10:50 97.5 F L 91 H 18 89/54 L 97 Room Air 01/09/24 08:12 97.3 F L 93 H 18 94/57 L 100 Nasal Cannula 01/09/24 07:34 89 01/09/24 07:30 Nasal Cannula 01/09/24 04:34 97.7 F 85 18 90/58 L 98 Nasal Cannula O2 Flow Rate 01/09/24 10:50 01/09/24 08:12 2 01/09/24 07:34 01/09/24 07:30 2 01/09/24 04:34 2 PG Care Time/CCT Total # of Minutes Spent Total Time Spent with Patient: Total time spent is greater than 50% in coordination of care (as documented) at patient's floor/unit and/or counseling patient: Coding Level of Care Code 79538 SUB INP/OBS CARE 2/35MIN Diagnoses CHF exacerbation I50.9 LAKE (acute kidney injury) N17.9 Acute on chronic respiratory failure with hypoxia J96.21 Acute hyponatremia E87.1 Time Spent (min) 35
--- NOTE | 2024-01-09 13:23 | Communication Note ---
Date of Service: January 09, 2024 Physician order to disable his ICD. [employer] Lydia info given to staff to contact. They should disable ICD NOT PPM component. Pt to be DC home on hospice.
--- NOTE | 2024-01-10 00:41 | Electrocardiogram Report ---
Test Reason : Blood Pressure : */* mmHG Vent. Rate : 87 BPM Atrial Rate : 87 BPM P-R Int : 146 ms QRS Dur : 208 ms QT Int : 492 ms P-R-T Axes : 77 231 53 degrees QTcB Int : 592 ms AV dual-paced rhythm Biventricular pacemaker detected Abnormal ECG When compared with ECG of 07-Jan-2024 23:08, Vent. rate has increased by 2 bpm Confirmed by Bruce Richard ([id number]) on 01/10/2024 12:41:17 AM Referred By: Stella Betancur Confirmed By: Bruce Richard
== END 2024-01-09 15:50 | disposition hospice, home (50) | DRG 291 ==
LOC: ED 22:03 → EDINP 01-08 02:14 → SUATTDRO 01-08 02:14 → 4W 01-08 02:51